=== PATIENT | female | born 1935 | race Caucasian/White ===

== ENCOUNTER → 2018-02-12 09:43 | Outpatient (CLI) | payer MEDICARE, SELFPAY ==
--- NOTE | 2018-02-12 10:00 | CT_ITS ---
STUDY: CT ABDOMEN AND PELVIS WITH CONTRAST REASON FOR EXAM: Female, 82 years old. RLQ PAIN SINCE MONDAY, HX COLON CANCER RADIATION DOSAGE (If Supplied By Facility): CTDIvol = ( 30.67 ) mGy, DLP = ( 1151.12 ) mGycm TECHNIQUE: Transaxial images were obtained from the dome of the diaphragm to the symphysis pubis without oral contrast. 100 ml of Isovue 300 contrast was administered. Sagittal and coronal images were reconstructed. Individualized dose optimization techniques were used for this CT. COMPARISON: None. FINDINGS: The visualized lung bases are unremarkable. The visualized portions of the heart are within normal limits. Normal liver. There are surgical clips in the gallbladder fossa consistent with a prior cholecystectomy. Normal spleen. Normal pancreas. Normal bilateral adrenal glands. Normal right kidney. Normal left kidney. Normal visualized stomach. Normal small intestine. The ascending colon has been removed. There is ileocolic anastomosis. There is no evidence of bowel obstruction. There are multiple colonic diverticula consistent with diverticulosis. The appendix is visualized and appears normal. Normal abdominal aorta. Normal inferior vena cava. Normal retroperitoneum. Normal urinary bladder. Normal abdominal wall. There are diffuse degenerative changes of the visualized lumbar spine. CT/Abdomen/Pelvis WITH Contrast IMPRESSION: The ascending colon has been removed. There is ileocolic anastomosis. There is no evidence of bowel obstruction. There are multiple colonic diverticula consistent with diverticulosis. Electronically Signed: Maite Corona MD at 12:41 EDT Tel , Service support ,
[2018-02-12 10:14] LABS: Absolute Neutrophil Count 4.4 X10^3/uL (2.0-7.7); Basophil# 0.02 X10^3/uL; Basophil% 0.3 % (0-1); Eosinophil# 0.22 X10^3/uL; Eosinophils% 3.1 % (0-5); Hematocrit 42.6 % (37-47); Hemoglobin 14.4 g/dl (12.0-15.0); Lymphocyte % 21.5 % (19-41); Mean Corp Hgb Conc 33.8 g/gl (32-36); Mean Corpuscular Hgb 32.4 pg (27.0-32.0); Mean Corpuscular Volume 95.9 fL (81-99); Mean Platelet Vol. 10.5 fl (6.2-12.0); Monocyte# 0.83 X10^3/uL; Monocyte% 11.9 % (0-10); Neutrophil % 62.9 % (47-70); Platelet Count 239 K/mm3 (150-450); RBC Distribution Width CV 13.2 % (11.6-14.6); RBC Distribution Width SD 45.1 fl (35.1-43.9); Red Blood Count 4.44 M/mm3 (4.2-5.4)
[2018-02-12 10:15] LABS: ALB/GLOB Ratio 0.8 RATIO (0.9-2.4); AST(SGOT) 20 U/L (15-37); Alanine Aminotransfer ALT/SGPT 26 U/L (13-56); Albumin, Serum 3.5 g/dL (3.2-5.0); Alkaline Phosphatase 77 U/L (45-117); Anion Gap 7 (5-15); BUN 13 mg/dL (7-18); Calcium,Total 9.2 mg/dL (8.5-10.1); Chloride 108 mmol/L (98-107); Creatinine, Serum 0.81 mg/dL (0.55-1.02); EST Glomerular Filtration Rate 72 mL/min (>60); Est Glom Filt Rate - Afr Amer 87 mL/min (>60); Globulin 4.4 g/dL (2.2-4.2); Glucose 110 mg/dL (74-106); Potassium 4.2 mmol/L (3.5-5.1); Protein, Total 7.9 g/dL (6.4-8.2); Sodium Level 140 mmol/L (136-145)
[2018-02-12 10:20] LABS: POSITIVE COUNT NO; POSITIVE DIFFERENTIAL NO; POSITIVE MORPHOLOGY NO
[2018-02-13 14:12] LABS: Carcinoembryonic Antigen 1.7 ng/mL (0.0-4.7)
== END ==
PROVIDERS: Family Provider Internal Medicine; PCP Internal Medicine; Visit Provider Internal Medicine
DX: R10.31 Right lower quadrant pain (principal); Z85.038 Personal history of other malignant neoplasm of large intestine
CPT/HCPCS: 36415; 74177; 80053; 82378; 85025; Q9967

== ENCOUNTER → 2018-08-29 09:58 | Outpatient (CLI) | payer MEDICARE, SELFPAY ==
--- NOTE | 2018-08-29 10:07 | BI_ITS ---
MAMMOGRAPHY - BILATERAL SCREENING REASON FOR EXAM: Female, 82 years old. Routine annual screening examination. PERTINENT HISTORY: Non-contributory. TECHNIQUE: Digital bilateral breast manju (3D mammographic acquisition) in the CC and MLO projections. 2-D mediolateral oblique (MLO) and craniocaudad (CC) views of both breasts were obtained. CAD: Full Field Digital Mammography with Computer Added Detection was performed. COMPARISON: Comparison is made with prior study dated August 02, 2016 and July 08, 2014. FINDINGS: Breast Composition: The breasts are almost entirely fatty. There are no dominant masses or suspicious calcifications. No other significant abnormalities are identified. There has been no significant change since the prior study. BI/SCREENING MAMM (CAD), BILAT IMPRESSION: Stable bilateral screening mammogram. Yearly follow-up mammogram recommended. (A) ASSESSMENT CATEGORY: BIRADS Category 1: Negative. A letter regarding these results will be sent to the patient by the facility within 30 days. Approximately 10% of breast cancers are not detected by mammography. A normal mammogram should not delay biopsy of a clinically suspicious abnormality. [id number] Electronically Signed: Nolan Head MD at 13:21 EDT Tel [phone], Service support ,
--- NOTE | 2018-08-29 10:29 | BD_ITS ---
STUDY: DUAL ENERGY X-RAY ABSORPTIOMETRY / DXA REASON FOR EXAM: Female, 82 years old. The patient is postmenopausal. Loss of height. TECHNIQUE: Bone Mineral Density (BMD) measurements of lumbar spine and bilateral hips were obtained. # of Images: 6 COMPARISON: Comparison is made with prior study dated August 02, 2016. FINDINGS: Lumbar Spine (L1-L4): g/cm2 (1.272) / T-score (0.9) / Z-score (2.7) Findings are suggestive of normal bone density with a low fracture risk. Left Femur Total: g/cm2 (1.080) / T-score (0.6) / Z-score (2.6) Left Femoral Neck: g/cm2 (1.044) / T-score (0.0) / Z-score (2.2) Right Femur Total: g/cm2 (1.111) / T-score (0.8) / Z-score (2.9) Right Femoral Neck: g/cm2 (1.010) / T-score (-0.2) / Z-score (2.0) The T-Scores on the most recent prior examination were: Lumbar Spine (L1-L4): There has been improvement of bone density since the previous examination. Left Femur Total: which represents an improvement of 0.2%. Right Femur Total: which represents a worsening of 4.3%. BD/Dexa Bone Density Study IMPRESSION: The patient is considered normal as outlined below according to World Rashid Organization (WHO) criteria with a low fracture risk. There has been improvement of bone density since the previous examination. Reference Information: The T-score is the number of standard deviations above or below the standard which is normal for young adults at their peak bone mineral density. The World Health Organization (WHO) interprets the T-scores as follows: Above -1 Normal bone density Between -1 and -2.5 Osteopenia Equal to / or below -2.5 Osteoporosis As a practical clinical guideline, osteopenia may be graded as follows: Mild -1 through -1.5 Moderate -1.6 through -2.0 Severe -2.1 through -2.4 The Z-score is the number of standard deviations above or below age-matched controls. A Z-score of less than -1.5 would be considered abnormal. References: 1. NIH Osteoporosis and Related Bone Diseases http://www.osteo.org 2. International Society for Clinical Densitometry http://www.iscd.org 3. National Osteoporosis Foundation http://www.nof.org Electronically Signed: Nolan Head MD at 8:26 EDT Tel [phone], Service support ,
== END ==
PROVIDERS: Family Provider Internal Medicine; PCP Internal Medicine; Visit Provider Internal Medicine
DX: Z12.31 Encounter for screening mammogram for malignant neoplasm of breast (principal); Z78.0 Asymptomatic menopausal state
CPT/HCPCS: 77063; 77067; 77080

== ENCOUNTER 2019-01-04 07:30 | Outpatient (RCR) | payer MEDICARE, SELFPAY ==
--- NOTE | 2018-12-03 07:35 | HP.PTEVAL_ITS ---
Patient's Visit Information LENORA MORRELL is a 83 year old F referred to Physical Therapy by Emily Pugh MD with a diagnosis of Sciatica. Date of Evaluation: 12/03/18 Physical Therapist: Brian Gillespie, SADIET, OCS, CSCS - Visit Plan Frequency: 2x /Week Duration: 4-6 Weeks Plan: 2x/week for 2-6 weeks... Please emphsize standing neutral psine exercises and sleeping position with pillow b/w knees or on back with legs elevated instead of on tummy. STREngth in NS position and progress to I. Pt has been doign NS supine ex in gym but not in standing. - Subjective Findings: Sciatica says Dr. Pugh. April of 2017 had this and got rid of it with therapy. It came back a couple weeks ago without reason. It hurts in L hip and goes down to L knee and into L ankle. Worse in the morning and she sleeps on her tummy. Has to be careful WB in the morning. Can do most things as far as cooking and cleaning go just not as energetic as she used to be. Sometimes sleeps wella nd sometimes does not. No right sided problems. No numbness or tingling. Pain is to 6-7/10 improving as the day goes on. Standing can make it worse. Hobbies include walking and it limits her walking, wants to do more. Is cleaning junk out of house and writes alot which is not limited. - Pain L LB and leg Pain Intensity (Out of 10): 2 Pain Intensity Range: 2, 7 - Objective Walks and trasnfers I. LB AROM ext painful L and min limited, flexion no pain and full, L SB painful and limited > R. reflexes 2/3 patella and achilles. S ensation WNL to gross light touch. Strength LE 4-/5 with out myotomal abnormalities. 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 Rehabilitation Potential: Good - Anticipated Interventions Patient/Client Instruction: Educate patient on: Condition For the Purpose of:: To decrease pain, To increase ROM, To improve ability of physical actions for home/community/work/leisure Therapeutic Exercise to Include: Strength training, Dynamic Lumbar Stabilization For the Purpose of:: To decrease pain, To increase tolerance to activity/condition/position Thank you for the opportunity to evaluate your patient. For Medicare and Medicare HMO plans, please review the plan of care and approve it. It will need to be FAXED BACK to us at [phone] for Medicare purposes. For Medicare only, by signing this I certify the plan of care. Please let me know if there are questions or concerns regarding this plan of care. Physician Signature: Date:
--- NOTE | 2019-01-04 08:26 | HP.PTDCSUM ---
HP - PT D/C Summary It has been my pleasure to treat LENORA MORRELL under orders from Emily Pugh MD, for the diagnosis of Sciatica for a total of 9 visit(s). Discharge Date: 01/04/19 Please see the following information for a summary of their discharge status. - Subjective Subjective: Good today. Yesterday was not good as she had a lot of walking on at grocery. Pain yesterday was 6/10 in LB. Gone by evening. Getting better overall. Sees Monday. Will continue workout adn added stadnign ex today with HO. Sleep is still up and down without noticeable pattern. Activities are mostly OK, avoids steps to basement but this is not a problem as laundry is main floor. Slower activities. - Pain L LB and leg Pain Intensity (Out of 10): 2 - Overall Improvement % Improvement: 70 - Objective Objective/Function: Has good Lumbar ROM today without increased pain,butit would have hurt yesterday. Walks wella dn focusses on NS position. OVERALL DOING WELL AND IMPROVING BUT SYMPTOMS STILL UP AND DOWN FROM DAY TO DAY. SHE WILL LOOK FOR A PATTERN SHE DOES NTO SEE ONE YET. WILL F/U WITH DOCTOR FOR OTHER OPTIONS IF NEEDED. - Goals Goal 1:: Do dishes without noticing increase pain Goal Progress: Goal Met Goal 2:: Patient able to get up in morning without painful problems Goal Progress: can loosen up Goal 3:: I approp HEP to minimize future back pain Goal Progress: Goal Met Goal 4:: Pt feel 50% better in LB with pain no greater than 2/10 Goal Progress: Goal Met - Plan Plan: D/C - D/C Information Discharge Comments: WILL CONTINUE TO DO GYM ADN NEUTRAL SPINE EX ON HER OWN AND F/U WITH DOCTOR MONDAY. If there are questions or concerns regarding this patient's physical therapy, please feel free to call me at [phone]. Thank you for the referral of this patient. Sincerely, Brian Gillespie, DPT, OCS, CSCS
--- OUTSIDE RECORDS SUMMARY | 2019-02-04 14:33 | XMS RPT_ITS | Continuity of Care Document ---
:1935 Author Organization [facility] Address [address] [place] [address] Phone Care Team Providers Name Role Phone Lexy RODRIGUES, Emily Hope Unavailable Ayan BIRD, Teo Dumont Unavailable Raquel Jordan Unavailable Maynor RODRIGUES, Cameron Dominguez Unavailable Dr. Jam Lehman Unavailable AIMEE Sheikh Unavailable Unavailable GravTracy leggett Unavailable Unavailable Unavailable Unavailable Problems Name Dates Details Abnormal glucose (R73.09, 790.29) Status: Active Acute pain of right shoulder (M25.511, 719.41) Comments: stable stillsome pain but has good function. not limiting ADL's takig tumeric. not need pain pills Status: Active BMI 39.0-39.9,adult (Z68.39, V85.39) Status: Active BMI 40.0-44.9, adult (Z68.41, V85.41) Comments: 41.27 Status: Active BMI 40.0-44.9, adult (Z68.41, V85.41) Status: Active Current nonsmoker (Renamed from Current non-smoker) (Z78.9, V49.89) Status: Active Deliveries (Parity) Comments: 3 Status: Active Encounter for routine adult medical exam with abnormal findings (Z00.01, V70.0) Comments: 03-26-18 AMP 09-06-18 [facility], reviewed with patient all question. told to add handrail in stud in bathroom. BD and mammogram 08-30. she wants to do every other year, colonoscopy summe r 15 done all immunizations are up to date, whisper test WNL, last eye exam was with Dr. Mckeon and included glaucoma screening October 2017. dentist yearly. talk about CCTA ? need statin ADMA mildly elevated will check again next year,. 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 told could come off Dr. izaguirre Status: Active History of colon cancer (Z85.038, V10.05) 2005 Comments: Dr. Izaguirre states good and released CEA done and CT scan abd 02-28 Status: Active History of colon cancer (Z85.038, V10.05) Comments: 01-10-2006 followed by a blood clot February 04 2006 Status: Active History of vertigo (Z87.898, V12.49) Comments: BPPV doing exercises. gait good stready talk about fall precaution tell balance exercise Status: Active Hypercholesteremia (Renamed from Hypercholesterolemia) (E78.00, 272.0) Comments: reveiwed with patient test 08-30 and recommend CCTa she wants to hold off. Status: Active Hypothyroidism (E03.9, 244.9) Comments: stable recheck good Status: Active Inflamed skin tag (L91.8, 701.9) Comments: under left eye will follow up to remove after go over risk and benefits numb with 1% lidocaine no epi. use scissors and a derm blade to remoe and then thiago nitrate to sto the bleeding. post care instructions given Status: Active Left leg pain (M79.605, 729.5) Comments: think sciatica. will send to PT use tumeric add tylenol if need if worsen and night pain willc all and get rylennol with codiene Status: Active Menopausal state (N95.1, 627.2) Status: Active Need for prophylactic vaccination and inoculation against influenza (Z23, V04.81) Status: Active Non-smoker (Z78.9, V49.89) Status: Active Obesity (E66.9, 278.00) Comments: recommend be active work out at gym. she knows what need to do but ot yet moticated Status: Active Postmenopausal (Renamed from Postmenopausal status) (Z78.0, V49.81) Status: Active Pregnancies () Comments: 3 Status: Active Right lower quadrant pain (R10.31, 789.03) Comments: only a few days. with history if not urine want to image. aware of riskof CT scan with kidney failure and needds to drink. not think US be of help not think constipated so not think KIB help. could be scar tissue.02-20-18 abd. resolving think adhesions and tell how help next time wtih liquid diet 48 hours. diverticulosis went over diet Status: Active Rosacea (L71.9, 695.3) Comments: stable Status: Active Screening mammogram, encounter for (Z12.31, V76.12) Status: Active Tooth pain (K08.89, 525.9) Status: Active Verrucous keratosis (L82.1, 702.8) Comments: removed and sent Status: Active Medications Name Dates Details Boswellia 375 MG Oral Capsule Active 1 tid (375 MG) Comments: 500mg tid Calcium 500 + D 500-125 MG-UNIT Oral Tablet 1 (one) Tablet Tablet bid for 0 days Quantity: 60 {Tablet} Refills: 0 Ordered:21-Sep-2017 Emily Pugh MD, MD, Dana M Start : 04-Sep-2017 Active CoQ-10 50 MG Oral Capsule 1 Capsule QD for 0 days Quantity: 30 {Capsule} Refills: 0 Ordered:04-Sep-2017 Emily Pugh MD, MD, Dana M Start : 04-Sep-2017 Active DHEA 25 MG Oral Tablet 1 Tablet QD for 0 days Quantity: 30 {Tablet} Refills: 0 Ordered:04-Sep-2017 Emily Pugh MD, MD, Dana M Start : 04-Sep-2017 Active ECOTRIN, 81MG (PO EC Tab) 1 qd for 0 days Refills: 0 Ordered:28-Aug-2009 Mast RN, Elizabethctive Fish Oil 1000 MG Oral Capsule 1 qd (1000 MG) Active Garlic 500 MG Oral Tablet 1 Tablet QD for 0 days Quantity: 30 {Tablet} Refills: 0 Ordered:04-Sep-2017 Emily Pugh MD, MD, Dana M Start : 04-Sep-2017 Active Comments:parsley 100mg Nutraview 1 capsule daily Active Synthroid 112 MCG Oral Tablet 1 Tablet qd for 0 days Quantity: 90 {Tablet} Refills: 3 Ordered:27-Nov-2018 Emily Pugh MD, MD, Dana M Start : 27-Nov-2018 Active Comments:generic is ok Synthroid 112 MCG Oral Tablet 1 Tablet qd for 0 days Quantity: 90 {Tablet} Refills: 3 Ordered:27-Nov-2018 Emily Pugh MD, MD, Dana M Start : 27-Nov-2018 Active Comments:Generic OKAY Turmeric 500 MG Oral Capsule 1 (one) Tablet Tablet qd for 0 days Quantity: 30 {Tablet} Refills: 0 Ordered:20-Feb-2018 Emily Pugh MD, MD, Dana M Start : 04-Sep-2017 Active Tylenol with Codeine #3 300-30 MG Oral Tablet 1 (one) Tablet 1-2 every 6 hours prn pain for 0 days Quantity: 20 {Tablet} Refills: 0 Ordered:27-Nov-2018 Emily Pugh MD, MD, Emily Hope Start : 27-Nov-2018 Active Comments:[id number] called to [facility] prescription Vitamin C 1000 MG Oral Tablet 1 Tablet QD for 0 days Quantity: 30 {Tablet} Refills: 0 Ordered:04-Sep-2017 Emily Pugh MD, MD, Dana M Start : 04-Sep-2017 Active ALDARA, 5% (External Cream) Cream use 3 times a week for 0 days Quantity: 6 {Cream} Refills: 1 Ordered:08-Jul-2008 AIMEE Sheikh Start : 08-Jul-2008 End : 06-Jan-2009 Inactive BACTRIM DS, 800-160MG (Oral Tablet) 1 Tablet bid for 10 days Quantity: 20 {Tablet} Refills: 0 Ordered:17-Jan-2014 Emily Pugh MD, MD, Dana M Start : 17-Jan-2014 End : 27-Jan-2014 Inactive BIAXIN XL PAC, 500MG (Oral Tablet Extended Release 24 Hour) 1 Tablet ER 24HR as directed for 0 days Quantity: 1 {Package(s)} Refills: 0 Ordered:23-Feb-2007 AIMEE Sheikh Start : 23-Feb-2007 End : 27-Mar-2007 Inactive CIPRO, 500MG (Oral Tablet) 1 (one) Tablet bid for 5 days Quantity: 10 {Tablet} Refills: 0 Ordered:01-Jan-2014 Lori Ortiz CNP Start : 01-Jan-2014 End : 06-Jan-2014 Inactive CONTRAVE, 8/ 90MG (Oral Tablet) (Free Text) 1 (one) Tablet Tablet uad for 30 days Refills: 2 Ordered:02-Aug-2016 AIMEE Sheikh Start : 02-Aug-2016 End : 02-Aug-2016 Inactive Comments:start 1 at night for 1 week then 1 bid for 1 week then 2 in am and 1 at night for 1 week then 2 bid. METROCREAM, 0.75% (External Cream) uad Cream prn for 0 days Quantity: 1 {Cream} Refills: 0 Ordered:23-Feb-2007 AIMEE Sheikh Start : 23-Feb-2007 End : 06-Jan-2009 Inactive PROMETHAZINE HCL, 25MG (Oral Tablet) 1 (one) Tablet q6hr prn for 0 days Quantity: 30 {Tablet} Refills: 0 Ordered:20-May-2014 Kiley Gallegos Start : 14-Mar-2014 End : 20-May-2014 Inactive RABEPRAZOLE SODIUM, 20MG (Oral Tablet Delayed Release) 1 (one) Tablet DR daily for 0 days Quantity: 30 {Tablet} Refills: 0 Ordered:20-May-2014 Kiley Gallegos Start : 14-Mar-2014 End : 20-May-2014 Inactive SKELAXIN, 800MG (Oral Tablet) 1 (one) Tablet tid prn for 0 days Quantity: 30 {Tablet} Refills: 0 Ordered:26-Nov-2009 AIMEE Sheikh Start : 10-Aug-2009 Inactive Tamiflu 75 MG Oral Capsule 1 (one) Capsule qd for 10 days for 0 days Quantity: 10 {Capsule} Refills: 0 Ordered:20-Feb-2018 AIMEE Sheikh Start : 21-Nov-2017 End : 20-Feb-2018 Inactive TORADOL ORAL, 10MG (Oral Tablet) 1 (one) Tablet q6hrs x 2days for 2 days Quantity: 8 {Tablet} Refills: 0 Ordered:28-Aug-2009 Lori Ortiz CNP Start : 28-Aug-2009 End : 31-Aug-2009 Inactive Zithromax Z-Oswaldo 250 MG Oral Tablet 1 Tablet TAD for 0 days Quantity: 1 {Package} Refills: 0 Ordered:03-Apr-2017 AIMEE Sheikh Start : 21-Mar-2017 End : 03-Apr-2017 Inactive ZOSTAVAX, 59991JJO/0.65ML (Subcutaneous Solution Reconstituted) 1 For Solution once SC for 0 days Quantity: 1 {For_Solution} Refills: 0 Ordered:19-Aug-2013 AIMEE Sheikh Start : 01-Jan-2013 End : 19-Aug-2013 Inactive COUMADIN, 1MG (Oral Tablet) uad uad for 0 days Refills: 0 Ordered:27-Mar-2007 AIMEE Sheikh End : 23-Feb-2007 Discontinued Daily for life am packet after breakfast End : 08-Jan-2008 Discontinued FLAXSEED (LINSEED), 1000MG (Oral Capsule) 1 QD for 0 days Refills: 0 Ordered:02-Aug-2016 AIMEE Sheikh End : 02-Aug-2016 Discontinued Comments:This order discontinued per [facility]. Melaleuca daily for life pm packet after dinner End : 08-Jan-2008 Discontinued Milk Thistle 175 MG Oral Capsule 1 QD for 0 days Refills: 0 Ordered:06-Sep-2018 Gravbetsey Tracy End : 06-Sep-2018 Discontinued PREGNENOLONE (Powder) 1 Powder qd for 0 days Refills: 0 Ordered:10-Jul-2007 Emily Pugh MD, MD, Dana M Start : 10-Jul-2007 End : 10-Jul-2007 Discontinued Pregnenolone 25mg 1 qd End : 08-Jan-2008 Discontinued THYROLAR-2, 120 (25-100)MG (MCG) (Oral Tablet) 1 Tablet QD for 0 days Refills: 0 Ordered:10-Jul-2007 Emily Pugh MD, MD, Dana M Start : 10-Jul-2007 End : 10-Jul-2007 Discontinued Allergies and Adverse Reactions Name Dates Details Adhesive Tape (Allergy) Status: Active Amoxicillin *PENICILLINS* (Allergy) Status: Active Bactrim *ANTI-INFECTIVE AGENTS - MISC.* Status: Active (Allergy) Comments: chills and shaky, nausea Casting material (Allergy) Status: Active Duricef *CEPHALOSPORINS* (Allergy) Status: Active Past Medical History Name Dates Details Abdominal cramping (R10.9, 789.00) Status: Inactive as of 17-Jan-2014 Abdominal pain, acute, right upper quadrant (R10.11, 789.01) Comments: ok for vicodin but if not, try tylenol until surgery Status: Inactive as of 28-May-2015 Actinic keratosis (L57.0, 702.0) Comments: left forearm cryotherapy done today pt keeps pick it. Status: Resolved as of 04-Sep-2017 Acute maxillary sinusitis, recurrence not specified (J01.00, 461.0) Status: Resolved as of 04-Sep-2017 Acute pain of right lower extremity (M79.604, 729.5) Comments: in back of leg in sciatica. very tight hamstring will give stretches if not work then more PT for back. Status: Resolved as of 04-Sep-2017 Acute sinusitis, unspecified (J01.90, 461.9) Status: Resolved as of 27-Mar-2007 Bronchitis (J40, 490) Status: Inactive as of 13-May-2009 Calculus of kidney (N20.0, 592.0) Comments: ct scan negative Status: Resolved as of 26-Nov-2009 Cellulitis and abscess of other specified site (L03.818, 682.8) Comments: left elbow site of biopsy staph epidermitis, only able to take bactrim x 3days then reaction to it now stopped site improved Status: Inactive as of 27-Dec-2012 Colon cancer (C18.9, 153.9) Comments: Dr. izaguirre states good. ct scan 09-21 good, colonscopy--pt check with arlene since 5 years this year so due for scope because still has some colon Status: Inactive as of 27-Dec-2012 Cough (R05, 786.2) Status: Inactive as of 13-May-2009 Disorder of bone and cartilage (M89.9, 733.90) 26-Nov-2010 Comments: osteopenia BD 9-16 10-18 great Status: Resolved as of 06-Sep-2018 Elevated LFTs (R94.5, 790.6) 18-Butch-2011 Comments: lessen pain meds and liver coming down Status: Inactive as of 28-May-2015 Encounter for immunization (Z23, V03.89) Status: Inactive as of 19-Aug-2013 Enthesopathy of hip region (M76.899, 726.5) 26-Nov-2010 Comments: HIp bursitis see renay stephenson. going to chiropactor. talk about PT and warm water therapy. will do hip stretches. Status: Inactive as of 27-Dec-2012 Gastritis (K29.70, 535.50) Status: Inactive as of 28-May-2015 genital warts Status: Resolved as of 06-Jan-2009 Headache (R51, 784.0) 26-Nov-2010 Comments: CT scan in ER some sinusitis. no infection signs and symptoms and pt not want atb if not need. only in am. Status: Inactive as of 30-Sep-2013 Hemorrhoids (K64.9, 455.6) Status: Inactive as of 27-Dec-2012 Influenza A (J10.1, 487.1) Comments: 11-21-17 positive for A gave tamiflu for exposure Status: Resolved as of 26-Mar-2018 Insect bite, nonvenomous of hip, thigh, leg, and ankle, infected (S80.869A, 916.5) Comments: ? Craig fly, cellulitis Status: Inactive as of 27-Dec-2012 Low back pain (M54.5, 724.2) Comments: better now, think MS at time. kidney us ? stone CT scan 09-21. better now. Status: Resolved as of 26-Nov-2009 Myalgia and myositis (729.1) Comments: ? decondtion, some better Status: Inactive as of 08-Jul-2008 Nausea and/or vomiting (R11.2, 787.01) Status: Inactive as of 28-May-2015 Need for shingles vaccine (Z23, V04.89) Status: Inactive as of 19-Aug-2013 Need for Tdap vaccination (Renamed from Need for rawciclbqv-thmzyes-mjymqcovm (Tdap) vaccine, adult/adolescent) (Z23, V06.1) Status: Resolved as of 26-Mar-2018 Need for vaccination against Streptococcus pneumoniae (Z23, V03.82) Status: Inactive as of 28-May-2015 Neoplasm of uncertain behavior of skin (D48.5, 238.2) Comments: 1 cm on right forearm Status: Inactive as of 27-Dec-2012 Other and unspecified ovarian cyst (N83.209, 620.2) Comments: good recommend recheck in 6 months pt refuse Status: Resolved as of 27-Nov-2014 Other congenital anomalies of gallbladder, bile ducts, 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 nsaids if need Status: Resolved as of 04-Sep-2017 Sebaceous Cyst (L72.3, 706.2) Comments: sitz bath compress warm then kate in 2-3 days once come to head. PCN allergic try bactrim will cover MRSA Status: Inactive as of 07-Mar-2014 Syncope, vasovagal (780.2) Comments: no reoccur Status: Inactive as of 27-Nov-2014 Unspecified Diagnosis Status: Inactive as of 17-Jan-2014 Urinary frequency (R35.0, 788.41) Status: Inactive as of 17-Jan-2014 Well woman exam (Z01.419, V72.31) Comments: scope 1-11, BD 12-11. will need to update tetanus next time Status: Inactive as of 19-Aug-2013 Yeast infection (B37.9, 112.9) Status: Inactive as of 17-Jan-2014 Procedures Procedure Dates Details cholecystectomy Completed Comments: March 2014 - Arlene Cholecystectomy Completed Comments: 2013 Colonoscopy, Screening Completed Comments: 2014 Foot Surgery - Left Completed Comments: 1993 Hysterectomy; Abdominal Completed Comments: With bladder suspension in 2002 Tonsillectomy Completed Comments: 1941 Umbilical Hernia Repair Completed Comments: 1998 Date Value Details 29-Aug-2018 Dexa Bone Density Study Result: Comments: See Note; NOTES: [facility] Imaging Services [address] [place], [place] [address] [address] Dexa Bone Density Study MR#: [id number] Acct: [id number] Name: LENORA MORRELL I Rep #: [id number] : 1935 F 82 From: Nolan Head MD PCP: Emily Pugh MD Status: REG CLI Study: Dexa Bone Density Study Date of Exam: 08/29/18 Exam# [id number] Ordering Dr: Emily Pugh MD STUDY: DU AL ENERGY X-RAY ABSORPTIOMETRY / DXA REASON FOR EXAM: Female, 82 years old. The patient is postmenopausal. Loss of height. TECHNIQUE: Bone Mineral Density (BMD) measurements of lumbar spine and bilate ral hips were obtained. # of Images: 6 COMPARISON: Comparison is made with prior study dated August 02, 2016. FINDINGS: Lumbar Spine (L1-L4): g/cm2 (1.272) / T -score (0.9) / Z-score (2.7) Findings are suggestive of normal bone density with a low fracture risk. Left Femur Total: g/cm2 (1.080) / T-score (0.6) / Z-score (2.6) Left Femoral Neck: g/cm2 (1.044) / T-score (0.0) / Z-score (2.2) Right Femur Total: g/cm2 (1.111) / T-score (0.8) / Z-score (2.9) Right Femoral Neck: g/cm2 (1.010) / T-score (-0.2) / Z-score (2.0) The T-Scores on the most recent prior e xamination were: Lumbar Spine (L1-L4): There has been improvement of bone density since the previous examination. Left Femur Total: which represents an improvement of 0.2%. Right Femur Total: which re presents a worsening of 4.3%. 0003 BD/Dexa Bone Density Study IMPRESSION: The patient is considered normal as outlined below according to World Rashid Organization (WHO) criteria with a low fracture risk. There has been improvement of bone density since the previous examination. Reference Information: The T-score is the number of standard deviations above or below the standard which is normal for young adults at their peak bone mineral density. The World Health Organization (WHO) interprets the T-scores as follo ws: Above -1 Normal bone density Between -1 and -2.5 Osteopenia Equal to / or below -2.5 Osteoporosis As a practical clinical guideline, osteopenia may be graded as follows: Mild -1 through -1.5 Moder ate -1.6 through -2.0 Severe -2.1 through -2.4 The Z-score is the number of standard deviations above or below age-matched controls. A Z-score of less than -1.5 would be considered abnormal. Reference s: 1. NIH Osteoporosis and Related Bone Diseases http://www.osteo.org 2. International Society for Clinical Densitometry http://www.iscd.org 3. National Osteoporosis Foundation http://www.nof.org Elect ronically Signed: Nolan Head MD at 8:26 EDT Tel [phone], Service support , CC: Emily Pugh MD Associate Designer: Signed 29-Aug-2018 SCREENING MAMM (CAD), BILAT Result: Comments: See Note; NOTES: [facility] Imaging Services [address] [place] [id number] SCREENING MAMM (CAD), BILAT MR#: [id number] Acct: [id number] Name: LENORA MORRELL I Rep #: [id number] : 1935 F 82 From: Nolan Head MD PCP: Emily Pugh MD Status: REG CLI Study: SCREENING MAMM (CAD), BILAT Date of Exam: 08/29/18 Exam# [id number] Ordering Dr: Emily Pugh MD AMMOGRAPHY - BILATERAL SCREENING REASON FOR EXAM: Female, 82 years old. Routine annual screening examination. PERTINENT HISTORY: Non-contributory. TECHNIQUE: Digital bilateral breast manju (3D mammogr aphic acquisition) in the CC and MLO projections. 2-D mediolateral oblique (MLO) and craniocaudad (CC) views of both breasts were obtained. CAD: Full Field Digital Mammography with Computer Added Detect ion was performed. COMPARISON: Comparison is made with prior study dated August 02, 2016 and July 08, 2014. FINDINGS: Breast Composition: The breasts are almos t entirely fatty. There are no dominant masses or suspicious calcifications. No other significant abnormalities are identified. There has been no significant change since the prior study. BI/SCREENING MAMM (CAD), BILAT IMPRESSION: Stable bilateral screening mammogram. Yearly follow-up mammogram recommended. (A) ____ ASSESSMENT CATEGORY: BIRADS Category 1: Negative. A letter regarding these results will be sent to the patient by the facility within 30 days. Approximately 10% of breast cancers are not detected by mammography. A normal mammogram should not delay biopsy of a clinically suspicious abnormality. [id number] Electronically Signed: Nolan Head MD at 13:21 EDT Tel [phone], Service support , CC: Emily Pugh MD Associate Designer: Signed 12-Feb-2018 Abdomen/Pelvis WITH Contrast Result: Comments: See Note; NOTES: [facility] Imaging Services [address] [place] [address] Abdomen/Pelvis WITH Contrast MR#: [id number] Acct: [id number] Name: LENORA MORRELL I Rep #: [id number] : 1935 F 82 From: Maite Corona MD PCP: Emily Pugh MD Status: REG CLI Study: Abdomen/Pelvis WITH Contrast Date of Exam: 02/12/18 Exam# [id number] Ordering Dr: Emily Pugh MD [facility] DY: CT ABDOMEN AND PELVIS WITH CONTRAST REASON FOR EXAM: Female, 82 years old. RLQ PAIN SINCE MONDAY, HX COLON CANCER RADIATION DOSAGE (If Supplied By Facility): CTDIvol = ( 30.67 ) mGy, DLP = ( 115 1.12 ) mGycm TECHNIQUE: Transaxial images were obtained from the dome of the diaphragm to the symphysis pubis without oral contrast. 100 ml of Isovue 300 contrast was administered. Sagittal and coronal images were reconstructed. Individualized dose optimization techniques were used for this CT. COMPARISON: None. FINDINGS: The visualized lung bases are unremarkab le. The visualized portions of the heart are within normal limits. Normal liver. There are surgical clips in the gallbladder fossa consistent with a prior cholecystectomy. Normal spleen. Normal pancrea s. Normal bilateral adrenal glands. Normal right kidney. Normal left kidney. Normal visualized stomach. Normal small intestine. The ascending colon has been removed. There is ileocolic anastomosis. T here is no evidence of bowel obstruction. There are multiple colonic diverticula consistent with diverticulosis. The appendix is visualized and appears normal. Normal abdominal aorta. Normal inferior v yonatan cava. Normal retroperitoneum. Normal urinary bladder. Normal abdominal wall. There are diffuse degenerative changes of the visualized lumbar spine. ORDER #: [id number] CT/Abdomen/Pelvis WITH Contrast IMPRESSION: The ascending colon has been removed. There is ileocolic anastomosis. There is no evidence of bowel obstruction. There are multiple colonic diverticu la consistent with diverticulosis. Electronically Signed: Maite Corona MD at 12:41 EDT Tel , Service support , CC: Emily Pugh MD Associate Designer: Signed 25-Oct-2017 TXT - Blood Flow Screening Result: Comments: See Note; NOTES: [facility] Cardiovascular Services [address] [place] [address] 10/24/17 0941 MR#: [id number] Acct: [id number] Name: LENORA MORRELL I Rep #: [id number] : 1935 81 From: Abran Faust MD Attending Dr: Emily Pugh MD Status: REG REF Ordering Dr: Date: 10/25/17 Location: [facility] Sex: F C Admitted: Carotid Duplex Ultrasound Abdominal Aorta Th e right ECA velocity is less than 125 cm/s. The maximal outside diameter of the proximal The right maximum ICA velocity is 47.7/16.8 cm/s.aorta measures 1.69 cm in the longitudinal axis. There is insign ificant plaque formation noted on The maximal outside diameter of the proximal the right side. aorta measures 1.66 x 1.79 cm in the cross- The left ECA velocity is less than 125 cm/s. sectional axis. Th e left maximum ICA velocity is 53.4/15.2 cm/s. There is insignificant plaque formation noted on the left side. Ankle Brachial Index The right ankle/ brachial index is 1.1. The left ankle/ brachial inde x is 1.1. Medical History and Assessment The heart rate is 86 beats per minute. The heart rhythm is regular. The right blood pressure is 146/86. The left blood pressure is 140/90. The assessment was pe rformed by Abhijit Rodrigues RVT. Interpretation Summary Normal carotid artery screening (0 to 15% narrowing). Normal aortic ultrasound exam. The ankle/brachial index is normal (1.0 or greater). .rdering Physician: Emily Pugh M.D Performed By: Eric Rodrigues RVT 10/25/17 1318 Date Abran Faust MD CC: Emily Pugh MD Date Dictated: 10/24/17 0941 Date Transcribed: 10/25/17 1318 Associate Designer: Signed 20-Jun-2017 PT D/C Summary (1) Result: Comments: See Note; NOTES: [facility] [address] [place], [place] [id number] Fax [facility] DISCHAR JONATHAN SUMMARY MR#: [id number] Acct: [id number] Name: LENORA MORRELL I Rep #: [id number] : 1935 81 From: Brian Gillespie DPT, OCS, CSCS Referring Dr.: Emily Pugh MD Status: REG RCR Insurance: [facility] - PT D/C Summary It has been my pleasure to treat LENORA MORRELL I under orders from Emily Pugh, for the diagnosis of sciatica for a total of 9 visit(s). Discharge Date: 06/19/17 Please see the following information for a summary of their discharge status. - Subjective Subjective: Good. Doing well. Exercises really help. Stilla jayden in the mroning but that is normal for her. exercises be fore get out of bed and it helps. Will f/u with doctor in next few weeks. Pain to 4/10 in am and gone with ex/movement. [place] and walked [place] road a half mile and no problem. Str wength ex getting easy. Doing leg exercises including hip and knee machines without problem in gym. - Pain LB and L leg Pain Intensity (Out of 10): 0 - Overall Improvement % Improvement: 90 - Obje ctive Objective/Function: God AROM L/S without pain. Good technique on exercises, had to use 2 UE at once on opp UE/LE as it bothered her shoulder. MUCH BETTER OVERALL AND WILL CONTINUE IN GYM AND AT [facility] ON HER OWN. - Goals Goal 1:: Full LB AROM and LE ROM without recreating pain Goal Progress: Goal Met Goal 2:: Patient lie in bed at night without discomfort Goal Progress: Goal Met Goal 3:: Back to normal gardening without increased pain. Goal Progress: Goal Met Goal 4:: I approp ex to manage condition Goal Progress: Goal Met - Plan Plan: D/C - D/C Information Discharge Comments: Pt doing weel a nd back to baseline symptoms. I with approp HEP and will continue on her own. Will contact doctor if problem recurs. If there are questions or concerns regarding this patient's physical therapy, please feel free to call me at [phone]. Thank you for the referral of this patient. Sincerely, Brian Gillespie DPT, OC <Electronically signed by Brian Gillespie DPT, RAEANN, CSCS> 06/20/17 0953 CC: Emily Pugh MD EBG Signed 23-May-2017 Re-Evaluation - PT (1) Result: Comments: See Note; NOTES: [facility] [address] [place] [address]. [address] [place] [address] Fax [facility] MR#: [id number] Acct: [id number] Name: LENORA MORRELL I Rep #: [id number] : 1935 81 From: Brian Gillespie DPT, OCS, CSCS Referring Dr.: Emily Pugh MD Status: R EG RCR Insurance: [facility] Emily Pugh, It has been my pleasure to treat LENORA MORRELL I over the last 8 visits for sciatica. Please see the progress note below for an update on the physical scientist apy plan of care! Subjective: i can walk without a limp now. R buttock is worse at night(tummy sleeper). Exercises seem to help her feel better. On feet fro long time is a problem. R LB and posterior l eg is improved. Objective/Function: Good AROM of L/S without increased pain today, L SB gives pulling in R L/S. flexion feels better Plan Plan: f/u three weeks to progress ex to plank, opp UE/LE togeth er, band pulls side and row. Pt may call doctor to explore other options but doing well in PT. Reviewed other options and need to modify activities if they cause pain. Goals Goal 1:: Full LB AROM and L E ROM without recreating pain Goal Time Frame: 2-4 Weeks Goal Progress: Goal Met Goal 2:: Patient lie in bed at night without discomfort Goal Time Frame: 2-4 Weeks Goal Progress: Goal Met Goal 3:: Back to normal gardening without increased pain. Goal Time Frame: 2-4 Weeks Goal Progress: Goal Met Goal 4:: I approp ex to manage condition Goal Time Frame: 2-4 Weeks Goal Progress: slow progress. Anticipa samra Interventions Patient/Client Instruction: Educate patient on: Condition For the Purpose of:: To decrease pain Therapeutic Exercise to Include: Strength training, Flexibilty training, Passive ROM, Ac tive ROM For the Purpose of:: To decrease pain, To increase ROM, To improve ability of physical actions for home/community/work/leisure Manual Therapy Techniques to Include: Soft tissue mobilization For the Purpose of:: To decrease pain, To increase ROM TENS: Yes Thermo therapy (hot pack): Yes For the Purpose of:: To decrease pain Please do not hesitate to contact me at [phone] by phone or Fax: [phone] if you have questions or concerns regarding this new plan of care! Sincerely, Brian Gillespie, DPT, OC <Electronically signed by Brian NOELT, OCS, CSCS> 05/23/17 0926 CC: Emily Pugh MD EB Signed For Medicare only, by signing this I certify the plan of care. Physicians Signature Date 25-Apr-2017 Inital Evaluation (1) - PT Result: Comments: See Note; NOTES: [facility] [address] [place] [address]. [address] [place] [address] Fax REHABILITATION SERVICES INITIAL EVALUATION MR#: [id number] Acct: [id number] Name: LENORA MORRELL I Rep #: [id number] : 1935 81 From: Brian Gillespie DPT, OCS, CSCS Referring Dr.: Emily Pugh MD Status: REG RCR Insurance: [facility] Patient's Visit Information LENORA MORRELL I is a 81 year old F referred to Physical Therapy by Emily Pugh with a diagnosis of sciatica. Date of Evaluation: 04/24/17 Physical Therapist: Brian marcus, DPT, OC - Visit Plan Frequency: 3x /Week Duration: 4 Weeks Plan: 3x/week for 2-4 for. 1. prir, ITB, HS, quad stretches, Stick to glut, piri, ITB and HS/ quad). 2. LB ROM flexion bias. 3. DLS de ad bugs. 4. modalities( ES) if needed for pain. - Subjective Subjective: Sciatica with pain in buttock and down R leg. Started insidiously about 3 weeks ago. L leg is Ok. Denies numbness and tingling. Describes achy down to calf of L leg, Weeding yesterday made her worse. Walking or bending seem to be problematic. Fairly constant currently. Sleep is not interrupted but it does ache at night. Able to do all ADLs but some pain accompanies them. Cleaning may be neglected a little bit. Can tie shoes. Not employed. Hobbies include flower beds and playing piano. Workout at 3x/week, does LE machines, U E machines, avoiding TM, uses recumbent bike which may bother her a little bit. - Pain LB and L leg Pain Intensity (Out of 10): 5 Pain Intensity Range: 0, 6 - Objective Ambulates into PT I without gait deviations, TRANSITIONS TO AND FRO SUPINE AND SIT TO STAND ARE i. LB AROM WFL and painfree. Possibly some minor LB R pain with R SB but negligible. reflexes 2/3 patella and achilles. sensation WNL to gross light touch in LE. Strength is 4/5 in LE without myotomal abnormalities. PKF test recreates pain in HS, no pain with contraction, just stretching. - LB compression, - PA testing. Tender to palp ation in R piriformis and upper HS and minimally in glut. - Goals Goal 1:: Full LB AROM and LE ROM without recreating pain Goal Time Frame: 2-4 Weeks Goal 2:: Patient lie in bed at night without discom fort Goal Time Frame: 2-4 Weeks Goal 3:: Back to normal gardening without increased pain. Goal Time Frame: 2-4 Weeks Goal 4:: I approp ex to manage condition Goal Time Frame: 2-4 Weeks - Rehabilitation Potential Physical Therapy Diagnosis: sciatica likely cause of leg symptoms. Rehabilitation Potential: Fair - Anticipated Interventions Patient/Client Instruction: Educate patient on: Condition For th e Purpose of:: To decrease pain Therapeutic Exercise to Include: Strength training, Flexibilty training, Passive ROM, Active ROM For the Purpose of:: To decrease pain, To increase ROM, To improve abilit y of physical actions for home/community/work/leisure Manual Therapy Techniques to Include: Soft tissue mobilization For the Purpose of:: To decrease pain, To increase ROM TENS: Yes Thermo therapy (hot pack): Yes For the Purpose of:: To decrease pain Thank you for the opportunity to evaluate your patient. For Medicare and Medicare HMO plans, please review the plan of care and approve it. It will need to be FAXED BACK to us at [phone] for Medicare purposes. Please let me know if there are questions or concerns regarding this plan of care. Physician Signature: Date: <Electronically signed by Brian Gillespie DPT, OCS, CSCS> 04/25/17 0929 CC: Emily Pugh MD EBDarrell Signed For Medicare on ly, by signing this I certify the plan of care. Physicians Signature Date 11-Aug-2016 PT D/C Summary (1) Result: Comments: See Note; NOTES: [facility] [address] [facility] [facility] [place] [address] Fax REHABILITATION SERVICES SURENDRA MEDINA SUMMARY MR#: [id number] Acct: [id number] Name: LENORA MORRELL I Rep #: [id number] : 1935 80 From: Ansley Oleary DPT Referring Dr.: Emily Pugh MD Status: REG RCR [facility] - PT D/C Summary It has been my pleasure to treat LENORA MORRELL I under orders from Emily Pugh, for the diagnosis of R shoulder pain for a total of 5 visit(s). Discharge Date: Please see the [facility] information for a summary of their discharge status. - Subjective Subjective: Pt reports R shoulder pain is getting better and is 3/10 at worst after long days of lifting overhead; pain resolve s to 0/10 at best with rest. Pt feels she is 50% better, and that doing her exercises in the gym will only help things more. Pt has expressed confidence with her ability to complete the exercises she le arned in therapy on her own. - Overall Improvement % Improvement: 50 - Objective Objective/Function: Posture: FH,RS able to correct with VC. Palpation: No tenderness noted. AROM: Shoulder- WNL in all planes; 1/10 pain with end range Flexion and ABD. Strength: Shoulder 4+/5 throughout, Elbow 5/5 throughout. Pt demonstrated her HEP exercises in the gym upon the completion of her visit. - Goals Goal 1 :: Pt will be I with HEP and progressions. Goal Progress: Goal Met Goal 2:: Pt with maintain proper posture throughout treatment session in order to demonstrate increased scapular strength. Goal Progres s: Goal Met Goal 3:: Pt will demonstrate full shoulder ROM in all planes with pain 0/10 in order to ease completion of ADLs. Goal Progress: Progressing - Plan Plan: DC to I HEP - D/C Information If th ere are questions or concerns regarding this patient's physical therapy, please feel free to call me at [phone]. Thank you for the referral of this patient. Sincerely, Ansley Oleary <Jacki ctronically signed by Ansley Oleary DPT> 08/11/16 0852 CC: Emily Pugh MD ELR Signed 02-Aug-2016 Bilat Scrn Digital AND CAD Result: Comments: See Note; NOTES: [facility] Imaging Services [address] [place] [address] Verdana 4d Bilat Scrn Digital AND CAD MR#: [id number] Acct: [id number] Name: LENORA MORRELL I Rep #: [id number] : 1935 F 80 From: Nolan Head MD PCP: Emily Pugh MD Status: REG CLI Study: Bilat Scrn Digital AND CAD Date of Exam: 08/02/16 Exam# [id number] Ordering Dr: Emily Pugh MD MAMMOGRAPHY - BILATERAL SCREENING REASON FOR EXAM: Female, 80 years old. Routine annual screening examination. PERTINENT HISTORY: Non- contributory. TECHNIQUE: Digital bilateral breast manju (3D mammographic acquisition) in the CC and MLO projections. 2-D mediolateral oblique (MLO) and craniocaudad (CC) views of both breasts were obtained. CAD: Full Field Digital Mammography with Computer Added Detection was performed. COMPARISON: Comparison is made with prior study dated July 08, 2014 and January 08, 2013. FINDINGS: Breast Composition: The breast s are almost entirely fatty. There are no dominant masses or suspicious calcifications. No other significant abnormalities are identified. There has been no significant change since the prior study. _ HPBI/Bilat Scrn Digital AND CAD IMPRESSION: Stable bilateral screening mammogram. Yearly follow-up mammogram recommended. (A) ASSESSMENT CATEGORY: BIRADS Category 1: Negative. A letter regarding these results will be sent to the patient by the facility within 30 days. Approximately 10% of breast cancers are not detected by mammography. A normal mammogram should not delay biopsy of a clinically suspicious abnormality. [id number] Electronically Signed: Nolan Head MD at 12:30 EDT , Service support [phone], CC: Emily Pugh MD Associate Designer: Signed 02-Aug-2016 Dexa Bone Density Study (HP) Result: Comments: See Note; NOTES: [facility] Imaging Services [address] [place] [address] Verdana 4d Dexa Bone Density Study (HP) MR#: [id number] Acct: [id number] Name: JUAN MORRELL I Rep #: [id number] : 1935 F 80 From: Nolan Head MD PCP: Emily Pugh MD Status: REG CLI Study: Dexa Bone Density Study (HP) Date of Exam: 08/02/16 Exam# [id number] Ordering Dr: Emily Hill MD STUDY: DUAL ENERGY X-RAY ABSORPTIOMETRY / DXA REASON FOR EXAM: Female, 80 years old. The patient is postmenopausal. TECHNIQUE: Bone Mineral Density (BMD) measurements of lumbar spine an d bilateral hips were obtained. COMPARISON: Comparison is made with prior study dated July 08, 2014. FINDINGS: Lumbar Spine (L1-L4): g/cm2 (1.410) / T-score (1.7 ) / Z-score (3.6) Findings are suggestive of normal bone density with a low fracture risk. Left Femur Total: g/cm2 (1.078) / T-score (0.6) / Z-score (2.5) Left Femoral Neck: g/cm2 (1.066) / T-score (0. 2) / Z-score (2.3) Right Femur Total: g/cm2 (1.161) / T-score (1.2) / Z-score (3.1) Right Femoral Neck: g/cm2 (1.068) / T-score (0.2) / Z-score (2.3) The T- Scores on the most recent prior examination w ere: Lumbar Spine (L1-L4): There has been improvement of bone density since the previous examination. Left Femur Total: which represents a worsening of 1.8%. Right Femur Total: which represents a wors ening of 4.7%. HPBD/Dexa Bone Density Study (HP) IMPRESSION: The patient is considered normal as outlined below according to World Rashid Organ[employer] ation (WHO) criteria with a low fracture risk. There has been worsening of bone density since the previous examination. Reference Information: The T-score is the nu mber of standard deviations above or below the standard which is normal for young adults at their peak bone mineral density. The World Health Organization (WHO) interprets the T-scores as follows: Abov e -1 Normal bone density Between -1 and -2.5 Osteopenia Equal to / or below -2.5 Osteoporosis As a practical clinical guideline, osteopenia may be graded as follows: Mild -1 through -1.5 Moderate -1.6 through -2.0 Severe -2.1 through -2.4 The Z-score is the number of standard deviations above or below age-matched controls. A Z-score of less than -1.5 would be considered abnormal. References: 1. NIH Osteoporosis and Related Bone Diseases http://www.osteo.org 2. International Society for Clinical Densitometry http://www.iscd.org 3. National Osteoporosis Foundation http://www.nof.org Electronically Signed: Nolan Head MD at 11:04 EDT Tel [phone], Service support [phone], CC: Emily Pugh MD Associate Designer: Signed 28-Jul-2016 Inital Evaluation (1) - PT Result: Comments: See Note; NOTES: [facility] [address] [place] [address]. [address] [place] [address] Fax REHABILITATION SERVICES JAYDA Katz EVALUATION MR#: [id number] Acct: [id number] Name: LENORA MORRELL I Rep #: [id number] : 1935 80 From: Ansley Oleary DPT Referring Dr.: Emily Pugh MD Status: REG R Insurance: [facility] Patient's Visit Information LENORA MORRELL I is a 80 year old F referred to Physical Therapy by Emily Pugh with a diagnosis of R shoulder pain. Date of Evaluation: 07/28/16 Physical Therapist: Ansley Oleary - Visit Plan Frequency: 2x /Week Duration: 2 Weeks Plan: Focus on I HEP for health and wellness membership. Shoulder strength, muscular endurance, core and postural training. - Subjective [place] bjective: Pt reports R anteriolateral shoulder pain that started 1-2 years ago with an insidious onset. Pain is describded as dull and achy, 5/10 at worst; aggravated during exercise (comes to [employer] nt 5 days a week) while pulling down, pushing away, or reaching overhead. Pt. has been avoiding arm exercises, and has currently been favoring L arm over R. Pain at Best 0/10, with rest and during bent over arm pendulums. Pt is a stomach sleeper that balls up sheets under the right shoulder to keep it from coming forward and hurting. No imaging. Past medical hx: thyroid issue, gall b ladder surgery, L ankle surgery. Pt would like to return to normal function while being pain free. No neck pain or increase in BORRERO. - Objective Posture: FH,RS Upper thoracic Kyphosis cannot correct with VC. Palpation: Tender throughout anterior, lateral shoulder, medial border of the scapula, and Trapezius. AROM: Shouler WNL - pain at end range ER, Flexion, ABD Cervical: WNL. Elbow: WNL. Strength: Elb ow- 5/5 throughout, Shoulder- Flex 4/5, ABD 4-/5, Extension 5/5, ER 4-/5 IR 4- /5 Hall Monitor- R 60/55/54 L 60/56/46. Special Test: empty can: positive, Neer: positive, Allred Chet: positive. Sensation: WNL - Goals Goal 1:: Pt will be I with HEP and progressions. Goal Time Frame: 2- 4 Weeks Goal 2:: Pt with maintain proper posture throughout treatment session in order to demonstrate increased scapular str ength. Goal Time Frame: 2-4 Weeks Goal 3:: Pt will demonstrate full shoulder ROM in all planes with pain 0/10 in order to ease completion of ADLs. Goal Time Frame: 2-4 Weeks - Rehabilitation Potential Physical Therapy Diagnosis: Right shoulder hypomobility and decreased muscular endurance leading to increased pain and poor scapular control. Rehabilitation Potential: Good - Anticipated Interventions Patient/Client Instruction: Educate patient on: Benefits of Fitness Program For the Purpose of:: To increase tolerance to activity/condition/position Therapeutic Exercise to Include: Strength training, Endurance training, Coordination, Body mechanics, Postural training, Active ROM, Scapular Strength/Stabilization For the Purpose of:: To decrease pain, To improve muscle performance and motor function, To improve ability to perform ADL's, To improve endurance Cryotherapy (ice pack, ice massage): Yes Thermo therapy (hot pack): Yes Ultrasound (thermal/non thermal): No For the Purpose of:: To decrease pa in, To decrease swelling/inflammation Thank you for the opportunity to evaluate your patient. For Medicare and Medicare HMO plans, please review the plan of care and approve it. It will need to be FAXED BACK to us at [phone] for Medicare purposes. Please let me know if there are questions or concerns regarding this plan of care. Physician Signature: Date: <Electronically signed by Ansley Oleary DPT> 07/28/16 0853 CC: Emily Pugh MD SNEHAL Signed For Medicare only, by signing this I certify the plan of care. Physicians Signature Date 08-Jul-2014 Bilat Scrn Digital & CAD Result: Comments: See Note; NOTES: [facility] Imaging Services [address] [place] [address] Breast Imaging Report MR#: [id number] Acct: [id number] Name: LENORA MORRELL I Rep #: [id number] : 1935 F 78 From: Nolan Head MD PCP: Emily Pugh MD Status: REG CLI Exam# [id number] Ordering Dr: Emily Pugh MD MAMMOGRAPHY - BILATERAL SCREENING REASON FOR EXAM: Female, 78 years old. Routine annual screening examination. PERTINENT HISTORY: Non-contributory. TECHNIQUE: Digital examination. Mediolateral oblique (MLO) and craniocaudad (CC) views of both madie asts were obtained. CAD: CAD was performed on this study. COMPARISON: Comparison is made with prior study dated January 08, 2013 and November 02, 2011. FINDIN GS: Breast Composition: The breasts are almost entirely fatty. There are no dominant masses or suspicious calcifications. No other significant abnormalities are identified. There has been no signi ficant change since the prior study. IMPRESSION: Stable bilateral screening mammogram. Yearly follow-up recommended. (A) SESSMENT CATEGORY: BIRADS Category 2: Benign finding(s). A letter regarding these results will be sent to the patient by the facility within 30 days. Approximately 10% of breast cancers are not dete cted by mammography. A normal mammogram should not delay biopsy of a clinically suspicious abnormality. Electronically Signed: Nolan Head MD at 15:05 EDT Tel [phone], Servi ce support [phone], CC: Emily Pugh MD Associate Designer: Signed 08-Jul-2014 Dexa Bone Density Study (HP) Result: Comments: See Note; NOTES: [facility] Imaging Services [address] [place] [address] Bone Density Report MR#: [id number] Acct: [id number] Name: LENORA MORRELL I Rep #: [id number] : 1935 F 78 From: Nolan Head MD PCP: Emily Pugh MD Status: REG CLI Study: Dexa Bone Density Study (HP) Date of Exam: 07/08/14 Exam# [id number] Ordering Dr: Emily Pugh MD STUDY: DUAL ENERGY X-RAY ABSORPTIOMETRY / DXA REASON FOR EXAM: Female, 78 years old. The patient is postmenopausal. Loss of height. TECHNIQUE: Bone Mineral Density (BMD) measurements of lumbar spine and bilateral hips were obtained. COMPARISON: Comparison is made with prior study dated November 02, 2011. FINDINGS: Lumbar Spine (L1-L4): g/cm2 (1.224 ) / T-score (0.5) / Z-score (2.3) Findings are suggestive of normal bone density with a low fracture risk. Left Femur Total: g/cm2 (1.098) / T-score (0.7) / Z-score (2.5) Left Femoral Neck: g/cm2 (1 .017) / T-score (-0.2) / Z-score (1.8) Right Femur Total: g/cm2 (1.218) / T-score (1.7) / Z-score (3.5) Right Femoral Neck: g/cm2 (1.039) / T-score (0.0) / Z- score (2.0) The T-Scores on the most rec ent prior examination were: Lumbar Spine (L1-L4): There has been worsening of bone density since the previous examination. Left Femur Total: which represents a worsening of 8.0%. Right Femur Total : which represents a worsening of 0.9%. IMPRESSION: The patient is considered normal as outlined below according to World Rashid Organization (WHO) criteria with a low fracture risk. There has been worsening of bone density since the previous examination. Reference Information: The T-score is the number of standard devia tions above or below the standard which is normal for young adults at their peak bone mineral density. The World Health Organization (WHO) interprets the T- scores as follows: Above -1 Normal bone d ensity Between -1 and -2.5 Osteopenia Equal to / or below -2.5 Osteoporosis As a practical clinical guideline, osteopenia may be graded as follows: Mild -1 through -1.5 Moderate -1.6 through -2.0 Severe -2.1 through -2.4 The Z-score is the number of standard deviations above or below age-matched controls. A Z-score of less than -1.5 would be considered abnormal. References: 1. NIH Osteopo rosis and Related Bone Diseases http://www.osteo.org 2. International Society for Clinical Densitometry http://www.iscd.org 3. National Osteoporosis Foundation http://www.nof.org Electronically Sign ed: Nolan Head MD at 13:32 EDT Tel [phone], Service support [phone], CC: Emily Pugh MD Associate Designer: Signed 21-Mar-2014 Operative Report Result: Comments: See Note; NOTES: [facility] Medical Records Department [address] [place] [address] Operative Report MR#: [id number] Acct: [id number] Name: LENORA MORRELL I Rep #: [id number] : 1935 78 From: Cameron Carrera MD PCP: Emily Pugh MD Status: [facility] DATE OF SERVICE: 03/18/2014 DATE OF PROCEDURE: March 18, 2014. PREOPERATIVE DIAGNOSIS: Acute/chron ic cholecystitis. POSTOPERATIVE DIAGNOSIS: Acute/chronic cholecystitis. PROCEDURES: Laparoscopic cholecystectomy with intraoperative cholangiogram. SURGEON: Cameron Carrera M.D. ANESTHETIC: General endotracheal intubation. ESTIMATED BLOOD LOSS: Less than 25 mL. FLUID REPLACEMENT: About a liter of crystalloid. ASA: 3. DESCRIPTION OF PROCEDURE: The patient was brought in the oper ating room, placed in supine position. Under excellent general endotracheal intubation, the abdomen was sterilely prepped and draped in the usual fashion. Local was injected infraumbilically and dis section was carried down to the fascia. The fascia was grasped with a Lisa. Veress needle was placed inside the abdomen. The abdomen was insufflated to 15 torr. A 10-12 trocar was placed without difficulty. A #5 trocar was placed in the right upper quadrant. Moderate amount of adhesions were taken down in the right upper quadrant. A subxiphoid #5 trocar was placed. Inferior to this, another #5 trocar was placed. Both of these under direct visualization without injury to underlying structures. The patient had a very edematous gallbladder. I aspirated out the fluid, sent for culture and sensitivity for it. Grasped it with a penetrating grasper and retracted in a cephalad direction. Grabbed the infundibulum and dissected adhesions down from this. Dissected out the cystic duct, plac ed Hem- o-janet clips proximally on the duct, nicked the duct, placed an angiogram catheter through the skin. Shot a cholangiogram, which showed a dilated duct, but no obvious stones within the duct. I removed the cholangiogram catheter, placed Hem-o-janet clips distally on the duct, ligated the duct. Identified the cystic artery, both the anterior and posterior branch , placed Hem-o-Janet clips on t his. Ligated the artery, delivered the gallbladder from the gallbladder bed with the use of electrocautery and had good hemostasis. Placed the specimen in a specimen bag, delivered it through the umb ilical port without difficulty. Irrigated the right upper quadrant, good hemostasis was noted. Removed the trocars under direct visualization. Good hemostasis was noted. Closed the fascia of the um bilical port with [id number] stitch of 0 Vicryl. Skin incisions were closed with subcuticular stitches of 4-0 Monocryl. Steri-Strips were applied, sterile dressings were applied and the patien t tolerated the procedure well. Cameron Carrera MD T: NTS JOB: [id number] 03/21/14 1228 <Electronically signed by Cameron Carrera MD> Date Cameron Carrera MD CC: Emily Pugh MD; Cameron Carrera MD Date Dictated: 03/18/14 144 Date Transcribed: 03/18/141440 Associate Designer: Signed 18-Mar-2014 Discharge Instruction Result: Comments: See Note; NOTES: [facility] Medical Records Department [address] [place] [address] Discharge Instruction 03/18/14 1333 MR#: [id number] Acct: [id number] Name: LENORA MORRELL I Rep #: [id number] : 1935 78 From: Cameron Carrera MD PCP: Emily Pugh MD [place] [facility] [place] Diet: Light diet - advance as tolerated Discharge Activity: May Not Driv e - for 2-3 days or while taking narcotic pain medications., - - Do not drive, work heavy equipment or sign legal documents for 24 hours. May shower in (days): 1 - with the bandage in place. Addition al Activity Instructions:: Pain medication may cause nausea. You should typically eat light foods as you take your pain medications. Pain medication may also cause constipation. If this is a problem f or you, please discuss with your doctor. Call your doctor if your incision/area has: Continuous Slow Oozing, Sudden Increased Bleeding, Increased Pain/ Swelling, Increased Redness, Foul Smelling Dis charge Call your doctor if you observe: Fever of 101 or Higher Suture Line Care: Avoid Pulling/Pushing, Avoid Pinching/Bending Additional Dressing/Incision Instructions:: Leave operative bandaids on for 2 days. When you remove dressing, leave Steri-Strips on until your follow- up appointment, or until the Steri-Strips fall off on their own. Allergies/Adverse Reactions: Allergies Amoxicillin Ad verse Reaction (Verified 03/18/14 12:58) Unknown sulfamethoxazole [From Bactrim] Adverse Reaction (Verified 03/18/14 12:58) Other trimethoprim [From Bactrim] Adverse Reaction (Verified 03/18/14 12:5 8) Other PINE TAR Adverse Reaction (Uncoded 03/18/14 12:58) Rash TAPE Adverse Reaction (Uncoded 03/18/14 12:58) Rash Medications to take at Discharge Levothyroxine [Synthroid] 125 mcg PO DAILY Oxycodone HCl/Acetaminophen [Percocet 5/325] 1 - 2 tablet PO Q4H PRN PRN #30 tablet The following prescriptions were given: Oxycodone HCl/Acetaminophen [Percocet 5/325] 1 - 2 tablet PO Q4H PRN [place] N #30 tablet PRN Reason: Pain Please Follow Up With: Cameron Carrera - Please call [phone] to schedule an appointment. When: 7 days after your surgery. 03/18/14 1334 <Electronical ly signed by Cameron Carrera MD> Date Cameron Carrera MD CC: Emily Pugh MD 18-Mar-2014 Cholangiogram/ O R,Initial Result: Comments: See Note; NOTES: [facility] Imaging Services [address] [place] [address] Radiology Report MR#: [id number] Acct: [id number] Name: LENORA MORRELL I Rep #: [id number] : 1935 F 78 From: Nolan Head MD PCP: Emily Pugh MD Status: [facility] Study: Cholangiogram/ O R,Initial Date of Exam: 03/18/14 Exam# [id number] Ordering Dr: Cameron Carrera MD STUDY: INTRAOPERATIVE CHOLANGIOGRAM. REASON FOR EXAM: Female, 78 years old. Laparoscopic cholecystectomy. FLUOROSCOPY TIME (if supplied): (1:11) minutes/seconds TECHNIQUE: Intraoperative Cardize m was performed by the surgeon. Multiple images were submitted. COMPARISON: None. FINDINGS: The common bile duct is not dilated. No intraluminal filling defect is seen. There is free flow of contrast into the duodenum. IMPRESSION: Unremarkable intraoperative cholangiogram. Electronically Signed: Nolan Head MD at 14:50 EDT Tel [phone], Service support [phone], CC: Emily Pugh MD; Cameron Carrera MD Associate Designer: Signed 07-Mar-2014 Gallbladder Result: Comments: See Note; NOTES: [facility] Imaging Services [address] [place] [address] Ultrasound Report MR#: [id number] Acct: [id number] Name: LENORA MORRELL I Rep #: [id number] : 1935 F 78 From: Nolan Head MD PCP: Emily Puhg MD Status: REG CLI Study: Gallbladder Date of Exam: 03/07/14 Exam# [id number] Ordering Dr: Emily Pugh MD STUDY: ABDOMIN AL ULTRASOUND - RIGHT UPPER QUADRANT REASON FOR VISIT: Female, 78 years old. Abdominal pain. TECHNIQUE: Ultrasound evaluation of the right upper quadrant was performed with real-time and static gra y-scale imaging. TECHNICAL QUALITY: Adequate. COMPARISON: Comparison is made with prior sonogram dated July 26, 2011. FINDINGS: Liver: The liver measur es 16.6 cm. There is increased echogenicity consistent with fatty infiltration. The bile ducts are within normal limits. There is hepatic color flow. The direction of portal flow is hepatopetal. Ther e is a 6 mm x 6 mm x 5 mm cyst in the left lobe of the liver. Gallbladder: The gallbladder is distended. The gallbladder wall measures 2.6 mm. There is a positive sonographic Dillard's sign. There is no pericholecystic fluid. Once again, low-level echoes are seen within the gallbladder lumen there are this is suggestive of a tumefactive sludge as described on prior sonogram. No definite gallston e is seen. Correlation with nuclear medicine PET there is scan is recommended. Common Bile Duct (C.B.D.): The common bile duct is dilated and measures 9.2 mm. Pancreas: Normal size of the head, rosy dy and tail of the pancreas. There is normal echogenicity of the pancreas. There is no demonstrated pancreatic mass or cyst. Right Kidney: Normal size of the right kidney. The right kidney measures 10.0 cm. Normal renal cortex. The right cortex measures 1.9 cm. There is no demonstrated renal mass or cyst. There is no right hydronephrosis. IMPRESSION: Diste nded gallbladder with filling defects within it suggestive of tumefactive sludge. Correlation with a nuclear medicine hepatobiliary scan is recommended. Dilated common bile duct. Electronically Sig randee: Nolan Head MD at 9:14 EDT Tel [phone], Service support [phone], CC: Emily Pugh MD Associate Designer: Signed Family History Unknown Family Member Name Dates Details Brother 1 Comments: CVA Status: Active Father Comments: of old age 82 yo. think heart. Status: Active Mother Comments: Thyroid disease Status: Active Sister 1 Comments: healthy except thryoid disease Status: Active Son 1 Comments: oldest valvular heart disease replacement Status: Active Son 2 Comments: healthy Status: Active Son 3 Comments: healthy Status: Active Social History Name Dates Details Alcohol Use Comments: Occasional alcohol use 1 glass of wine once a week. 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 5 days a weeka 40 [address]. walk daily Status: Active Living Situation Comments: , heterosexual Status: Active No Drug Use Status: Active Non Smoker/No Tobacco Use Status: Active Tobacco use: Never smoker. Status: Active Tobacco use: Never smoker. Status: Inactive Smoking Status Name Dates Details Never smoker Vital Signs Date Test Result Details [id number] Temperature 97.6 f Comments: Method: Temporal Pulse 72 /min Comments: Pattern: Regular Respiration Rate 18 /min Comments: Pattern: Unlabored O2 SAT 98 % Comments: Room air BP Systolic 126 mm[Hg] Comments: Patient Position: Sitting; Cuff Location: Left Arm; Cuff Size: Large BP Diastolic 84 mm[Hg] Comments: Patient Position: Sitting; Cuff Location: Left Arm; Cuff Size: Large Weight 218 lb Height 61.5 in Body Mass Index Calculated 40.52 kg/m2 Body Surface Area Calculated 1.97 m2 :25 Temperature 97 f Comments: Method: Temporal Pulse 66 /min Comments: Pattern: Regular Respiration Rate 16 /min Comments: Pattern: Unlabored O2 SAT 96 % Comments: Room air BP Systolic 130 mm[Hg] Comments: Patient Position: Sitting; Cuff Location: Left Arm; Cuff Size: Standard BP Diastolic 90 mm[Hg] Comments: Patient Position: Sitting; Cuff Location: Left Arm; Cuff Size: Standard Weight 218.0125 lb Height 61.5 in Body Mass Index Calculated 40.53 kg/m2 Body Surface Area Calculated 1.97 m2 :36 Temperature 97.9 f Comments: Method: Temporal Pulse 74 /min Comments: Pattern: Regular Respiration Rate 20 /min Comments: Pattern: Unlabored O2 SAT 97 % Comments: Room air BP Systolic 122 mm[Hg] Comments: Patient Position: Sitting; Cuff Location: Left Arm; Cuff Size: Large BP Diastolic 80 mm[Hg] Comments: Patient Position: Sitting; Cuff Location: Left Arm; Cuff Size: Large Weight 222.0125 lb Height 61.5 in Body Mass Index Calculated 41.27 kg/m2 Body Surface Area Calculated 1.99 m2 :55 Temperature 97.6 f Comments: Method: Temporal Pulse 74 /min Comments: Pattern: Regular Respiration Rate 20 /min Comments: Pattern: Unlabored O2 SAT 98 % Comments: Room air BP Systolic 120 mm[Hg] Comments: Patient Position: Sitting; Cuff Location: Left Arm; Cuff Size: Large BP Diastolic 80 mm[Hg] Comments: Patient Position: Sitting; Cuff Location: Left Arm; Cuff Size: Large Weight 218 lb Height 61.5 in Body Mass Index Calculated 40.52 kg/m2 Body Surface Area Calculated 1.97 m2 :16 Temperature 98.1 f Pulse 82 /min Comments: Pattern: Regular Respiration Rate 18 /min Comments: Pattern: Unlabored O2 SAT 94 % Comments: Room air BP Systolic 118 mm[Hg] Comments: Patient Position: Sitting; Cuff Location: Left Arm; Cuff Size: Standard BP Diastolic 70 mm[Hg] Comments: Patient Position: Sitting; Cuff Location: Left Arm; Cuff Size: Standard Weight 218 lb Height 61.5 in Body Mass Index Calculated 40.52 kg/m2 Body Surface Area Calculated 1.97 m2 :51 Temperature 97.6 f Comments: Method: Temporal Pulse 74 /min Comments: Pattern: Regular Respiration Rate 20 /min Comments: Pattern: Unlabored O2 SAT 98 % Comments: Room air BP Systolic 134 mm[Hg] Comments: Patient Position: Sitting; Cuff Location: Left Arm; Cuff Size: Large BP Diastolic 80 mm[Hg] Comments: Patient Position: Sitting; Cuff Location: Left Arm; Cuff Size: Large Weight 218 lb Height 61.5 in Body Mass Index Calculated 40.52 kg/m2 Body Surface Area Calculated 1.97 m2 :22 Temperature 97.6 f Comments: Method: Temporal Pulse 64 /min Comments: Pattern: Regular Respiration Rate 20 /min Comments: Pattern: Unlabored O2 SAT 98 % Comments: Room air BP Systolic 120 mm[Hg] Comments: Patient Position: Sitting; Cuff Location: Left Arm; Cuff Size: Large BP Diastolic 78 mm[Hg] Comments: Patient Position: Sitting; Cuff Location: Left Arm; Cuff Size: Large Weight 224 lb Height 62 in Body Mass Index Calculated 40.97 kg/m2 Body Surface Area Calculated 2.01 m2 :21 Temperature 97.9 f Comments: Method: Temporal Pulse 80 /min Comments: Pattern: Regular Respiration Rate 20 /min Comments: Pattern: Unlabored O2 SAT 95 % Comments: Room air BP Systolic 122 mm[Hg] Comments: Patient Position: Sitting; Cuff Location: Left Arm; Cuff Size: Large BP Diastolic 78 mm[Hg] Comments: Patient Position: Sitting; Cuff Location: Left Arm; Cuff Size: Large Weight 224 lb Height 62 in Body Mass Index Calculated 40.97 kg/m2 Body Surface Area Calculated 2.01 m2 :21 Temperature 97.6 f Comments: Method: Temporal Pulse 90 /min Comments: Pattern: Regular Respiration Rate 20 /min Comments: Pattern: Unlabored O2 SAT 97 % Comments: Room air BP Systolic 138 mm[Hg] Comments: Patient Position: Sitting; Cuff Location: Left Arm; Cuff Size: Large BP Diastolic 78 mm[Hg] Comments: Patient Position: Sitting; Cuff Location: Left Arm; Cuff Size: Large Weight 224 lb Height 62 in Body Mass Index Calculated 40.97 kg/m2 Body Surface Area Calculated 2.01 m2 :26 Temperature 97.6 f Comments: Method: Temporal Pulse 68 /min Comments: Pattern: Regular Respiration Rate 20 /min Comments: Pattern: Unlabored O2 SAT 97 % Comments: Room air BP Systolic 120 mm[Hg] Comments: Patient Position: Sitting; Cuff Location: Left Arm; Cuff Size: Large BP Diastolic 80 mm[Hg] Comments: Patient Position: Sitting; Cuff Location: Left Arm; Cuff Size: Large Weight 223 lb Height 62 in Body Mass Index Calculated 40.79 kg/m2 Body Surface Area Calculated 2 m2 :05 Temperature 100.4 f Comments: Method: Temporal Pulse 106 /min Comments: Pattern: Regular Respiration Rate 20 /min Comments: Pattern: Unlabored O2 SAT 92 % Comments: Room air BP Systolic 124 mm[Hg] Comments: Patient Position: Sitting; Cuff Location: Left Arm; Cuff Size: Large BP Diastolic 80 mm[Hg] Comments: Patient Position: Sitting; Cuff Location: Left Arm; Cuff Size: Large Weight 224 lb Height 63 in Body Mass Index Calculated 39.68 kg/m2 Body Surface Area Calculated 2.03 m2 :01 Temperature 97.6 f Comments: Method: Temporal Pulse 74 /min Comments: Pattern: Regular Respiration Rate 20 /min Comments: Pattern: Unlabored O2 SAT 97 % Comments: Room air BP Systolic 122 mm[Hg] Comments: Patient Position: Sitting; Cuff Location: Left Arm; Cuff Size: Large BP Diastolic 80 mm[Hg] Comments: Patient Position: Sitting; Cuff Location: Left Arm; Cuff Size: Large Weight 224 lb Height 63 in Body Mass Index Calculated 39.68 kg/m2 Body Surface Area Calculated 2.03 m2 :46 Temperature 97.6 f Comments: Method: Temporal Pulse 70 /min Comments: Pattern: Regular Respiration Rate 20 /min Comments: Pattern: Unlabored O2 SAT 97 % Comments: Room air BP Systolic 116 mm[Hg] Comments: Patient Position: Sitting; Cuff Location: Left Arm; Cuff Size: Large BP Diastolic 74 mm[Hg] Comments: Patient Position: Sitting; Cuff Location: Left Arm; Cuff Size: Large Weight 225 lb Height 63 in Body Mass Index Calculated 39.86 kg/m2 Body Surface Area Calculated 2.03 m2 :04 Temperature 97.6 f Comments: Method: Temporal Pulse 70 /min Comments: Pattern: Regular Respiration Rate 20 /min Comments: Pattern: Unlabored BP Systolic 114 mm[Hg] Comments: Patient Position: Sitting; Cuff Location: Left Arm; Cuff Size: Large BP Diastolic 78 mm[Hg] Comments: Patient Position: Sitting; Cuff Location: Left Arm; Cuff Size: Large Weight 221 lb Height 63 in Body Mass Index Calculated 39.15 kg/m2 Body Surface Area Calculated 2.02 m2 :36 Pulse 88 /min Comments: Pattern: Regular Respiration Rate 16 /min Comments: Pattern: Unlabored O2 SAT 96 % Comments: Room air BP Systolic 128 mm[Hg] Comments: Patient Position: Sitting; Cuff Location: Left Arm; Cuff Size: Standard BP Diastolic 78 mm[Hg] Comments: Patient Position: Sitting; Cuff Location: Left Arm; Cuff Size: Standard Weight 208 lb Height 63 in Body Mass Index Calculated 36.85 kg/m2 Body Surface Area Calculated 1.97 m2 :33 Temperature 98.6 f Comments: Method: Tympanic Pulse 94 /min Comments: Pattern: Regular Respiration Rate 18 /min Comments: Pattern: Unlabored O2 SAT 96 % Comments: Room air BP Systolic 102 mm[Hg] Comments: Patient Position: Sitting; Cuff Location: Left Arm; Cuff Size: Standard BP Diastolic 68 mm[Hg] Comments: Patient Position: Sitting; Cuff Location: Left Arm; Cuff Size: Standard Weight 204 lb Height 63 in Body Mass Index Calculated 36.14 kg/m2 Body Surface Area Calculated 1.95 m2 :13 Temperature 97.9 f Comments: Method: Oral Pulse 78 /min Comments: Pattern: Regular Respiration Rate 20 /min Comments: Pattern: Unlabored BP Systolic 136 mm[Hg] Comments: Patient Position: Sitting; Cuff Location: Left Arm; Cuff Size: Large BP Diastolic 90 mm[Hg] Comments: Patient Position: Sitting; Cuff Location: Left Arm; Cuff Size: Large Weight 225 lb Height 63 in Body Mass Index Calculated 39.86 kg/m2 Body Surface Area Calculated 2.03 m2 :20 Temperature 97.6 f Comments: Method: Oral Pulse 72 /min Comments: Pattern: Regular Respiration Rate 18 /min Comments: Pattern: Unlabored BP Systolic 120 mm[Hg] Comments: Patient Position: Sitting; Cuff Location: Left Arm; Cuff Size: Large BP Diastolic 80 mm[Hg] Comments: Patient Position: Sitting; Cuff Location: Left Arm; Cuff Size: Large Weight 225 lb Height 63 in Body Mass Index Calculated 39.86 kg/m2 Body Surface Area Calculated 2.03 m2 :30 Temperature 97.9 f Comments: Method: Oral Pulse 68 /min Comments: Pattern: Regular Respiration Rate 18 /min Comments: Pattern: Unlabored BP Systolic 124 mm[Hg] Comments: Patient Position: Sitting; Cuff Location: Left Arm; Cuff Size: Large BP Diastolic 86 mm[Hg] Comments: Patient Position: Sitting; Cuff Location: Left Arm; Cuff Size: Large Weight 225 lb Height 63 in Body Mass Index Calculated 39.86 kg/m2 Body Surface Area Calculated 2.03 m2 :39 Temperature 98 f Comments: Method: Oral Pulse 80 /min Comments: Pattern: Regular Respiration Rate 17 /min O2 SAT 98 % Comments: Room air BP Systolic 126 mm[Hg] Comments: Patient Position: Sitting; Cuff Location: Left Arm; Cuff Size: Standard BP Diastolic 72 mm[Hg] Comments: Patient Position: Sitting; Cuff Location: Left Arm; Cuff Size: Standard Weight 225 lb Height 63 in Body Mass Index Calculated 39.86 kg/m2 Body Surface Area Calculated 2.03 m2 :15 Temperature 98.1 f Comments: Method: Oral Pulse 78 /min Comments: Pattern: Regular Respiration Rate 16 /min Comments: Pattern: Unlabored BP Systolic 132 mm[Hg] Comments: Patient Position: Sitting; Cuff Location: Left Arm; Cuff Size: Standard BP Diastolic 72 mm[Hg] Comments: Patient Position: Sitting; Cuff Location: Left Arm; Cuff Size: Standard Weight 225 lb Height 63 in Body Mass Index Calculated 39.86 kg/m2 Body Surface Area Calculated 2.03 m2 :07 Temperature 97.6 f Comments: Method: Oral Pulse 74 /min Comments: Pattern: Regular Respiration Rate 20 /min Comments: Pattern: Unlabored BP Systolic 126 mm[Hg] Comments: Patient Position: Sitting; Cuff Location: Left Arm; Cuff Size: Large BP Diastolic 84 mm[Hg] Comments: Patient Position: Sitting; Cuff Location: Left Arm; Cuff Size: Large Weight 225 lb Height 63 in Body Mass Index Calculated 39.86 kg/m2 Body Surface Area Calculated 2.03 m2 :03 Temperature 97.8 f Comments: Method: Oral Pulse 74 /min Comments: Pattern: Regular Respiration Rate 20 /min Comments: Pattern: Unlabored BP Systolic 118 mm[Hg] Comments: Patient Position: Sitting; Cuff Location: Left Arm; Cuff Size: Large BP Diastolic 76 mm[Hg] Comments: Patient Position: Sitting; Cuff Location: Left Arm; Cuff Size: Large Weight 226 lb Height 63 in Body Mass Index Calculated 40.03 kg/m2 Body Surface Area Calculated 2.04 m2 :23 Temperature 97.8 f Comments: Method: Oral Pulse 80 /min Comments: Pattern: Regular Respiration Rate 18 /min Comments: Pattern: Unlabored BP Systolic 110 mm[Hg] Comments: Patient Position: Sitting; Cuff Location: Left Arm; Cuff Size: Standard BP Diastolic 72 mm[Hg] Comments: Patient Position: Sitting; Cuff Location: Left Arm; Cuff Size: Standard Weight 226.375 lb Height 63 in Body Mass Index Calculated 40.1 kg/m2 Body Surface Area Calculated 2.04 m2 :52 Temperature 97.8 f Comments: Method: Oral Pulse 74 /min Comments: Pattern: Regular Respiration Rate 20 /min Comments: Pattern: Unlabored BP Systolic 122 mm[Hg] Comments: Patient Position: Sitting; Cuff Location: Left Arm; Cuff Size: Large BP Diastolic 80 mm[Hg] Comments: Patient Position: Sitting; Cuff Location: Left Arm; Cuff Size: Large Weight 226 lb Height 63 in Body Mass Index Calculated 40.03 kg/m2 Body Surface Area Calculated 2.04 m2 :49 Temperature 98.1 f Comments: Method: Oral Pulse 76 /min Comments: Pattern: Regular Respiration Rate 14 /min Comments: Pattern: Unlabored BP Systolic 116 mm[Hg] Comments: Patient Position: Sitting; Cuff Location: Left Arm; Cuff Size: Standard BP Diastolic 64 mm[Hg] Comments: Patient Position: Sitting; Cuff Location: Left Arm; Cuff Size: Standard Weight 232 lb Height 63 in Body Mass Index Calculated 41.1 kg/m2 Body Surface Area Calculated 2.06 m2 :52 Temperature 98 f Comments: Method: Oral Pulse 72 /min Comments: Pattern: Regular Respiration Rate 16 /min Comments: Pattern: Unlabored BP Systolic 122 mm[Hg] Comments: Patient Position: Sitting; Cuff Location: Left Arm; Cuff Size: Standard BP Diastolic 78 mm[Hg] Comments: Patient Position: Sitting; Cuff Location: Left Arm; Cuff Size: Standard Weight 232 lb Height 63 in Body Mass Index Calculated 41.1 kg/m2 Body Surface Area Calculated 2.06 m2 :26 Temperature 98.5 f Comments: Method: Oral Pulse 74 /min Comments: Pattern: Regular Respiration Rate 17 /min Comments: Pattern: Unlabored BP Systolic 122 mm[Hg] Comments: Patient Position: Sitting; Cuff Location: Left Arm; Cuff Size: Standard BP Diastolic 78 mm[Hg] Comments: Patient Position: Sitting; Cuff Location: Left Arm; Cuff Size: Standard Weight 232 lb Height 63 in Body Mass Index Calculated 41.1 kg/m2 Body Surface Area Calculated 2.06 m2 :05 Temperature 97.9 f Comments: Method: Oral Pulse 72 /min Comments: Pattern: Regular Respiration Rate 18 /min Comments: Pattern: Unlabored BP Systolic 138 mm[Hg] Comments: Patient Position: Sitting; Cuff Location: Left Arm; Cuff Size: Standard BP Diastolic 76 mm[Hg] Comments: Patient Position: Sitting; Cuff Location: Left Arm; Cuff Size: Standard Weight 232 lb Height 63 in Body Mass Index Calculated 41.1 kg/m2 Body Surface Area Calculated 2.06 m2 :32 Temperature 98.1 f Comments: Method: Oral Pulse 68 /min Comments: Pattern: Regular Respiration Rate 16 /min Comments: Pattern: Unlabored BP Systolic 132 mm[Hg] Comments: Patient Position: Sitting; Cuff Location: Left Arm; Cuff Size: Standard BP Diastolic 74 mm[Hg] Comments: Patient Position: Sitting; Cuff Location: Left Arm; Cuff Size: Standard Weight 232 lb Height 63 in Body Mass Index Calculated 41.1 kg/m2 Body Surface Area Calculated 2.06 m2 :03 Temperature 97.9 f Comments: Method: Oral Pulse 70 /min Comments: Pattern: Regular Respiration Rate 18 /min Comments: Pattern: Unlabored BP Systolic 124 mm[Hg] Comments: Patient Position: Sitting; Cuff Location: Left Arm; Cuff Size: Large BP Diastolic 84 mm[Hg] Comments: Patient Position: Sitting; Cuff Location: Left Arm; Cuff Size: Large Weight 232 lb Height 63 in Body Mass Index Calculated 41.1 kg/m2 Body Surface Area Calculated 2.06 m2 :28 Temperature 97.9 f Comments: Method: Oral Pulse 70 /min Comments: Pattern: Regular Respiration Rate 20 /min Comments: Pattern: Unlabored BP Systolic 128 mm[Hg] Comments: Patient Position: Sitting; Cuff Location: Left Arm; Cuff Size: Large BP Diastolic 86 mm[Hg] Comments: Patient Position: Sitting; Cuff Location: Left Arm; Cuff Size: Large Weight 235 lb Height 63 in Body Mass Index Calculated 41.63 kg/m2 Body Surface Area Calculated 2.07 m2 :19 Temperature 98.5 f Comments: Method: Oral Pulse 68 /min Comments: Pattern: Regular Respiration Rate 20 /min Comments: Pattern: Unlabored BP Systolic 126 mm[Hg] Comments: Patient Position: Sitting; Cuff Location: Left Arm; Cuff Size: Large BP Diastolic 90 mm[Hg] Comments: Patient Position: Sitting; Cuff Location: Left Arm; Cuff Size: Large Weight 232 lb Height 63 in Body Mass Index Calculated 41.1 kg/m2 Body Surface Area Calculated 2.06 m2 :51 Pulse 68 /min Comments: Pattern: Regular Respiration Rate 18 /min Comments: Pattern: Unlabored BP Systolic 118 mm[Hg] Comments: Patient Position: Sitting; Cuff Location: Left Arm; Cuff Size: Large BP Diastolic 78 mm[Hg] Comments: Patient Position: Sitting; Cuff Location: Left Arm; Cuff Size: Large Weight 232 lb :09 Pulse 70 /min Comments: Pattern: Regular Respiration Rate 18 /min Comments: Pattern: Unlabored BP Systolic 122 mm[Hg] Comments: Patient Position: Sitting; Cuff Location: Left Arm; Cuff Size: Large BP Diastolic 80 mm[Hg] Comments: Patient Position: Sitting; Cuff Location: Left Arm; Cuff Size: Large Weight 234 lb :02 Temperature 97.1 f Comments: Method: Oral Pulse 76 /min Comments: Pattern: Regular Respiration Rate 20 /min Comments: Pattern: Unlabored BP Systolic 118 mm[Hg] Comments: Patient Position: Sitting; Cuff Location: Left Arm; Cuff Size: Large BP Diastolic 74 mm[Hg] Comments: Patient Position: Sitting; Cuff Location: Left Arm; Cuff Size: Large Weight 0 lb Height 0 in Head Circumference 0.00 cm :10 Temperature 97.6 f Comments: Method: Undefined Pulse 72 /min Comments: Pattern: Regular Respiration Rate 18 /min Comments: Pattern: Undefined BP Systolic 140 mm[Hg] Comments: Patient Position: Sitting; Cuff Location: Left Arm; Cuff Size: Standard BP Diastolic 72 mm[Hg] Comments: Patient Position: Sitting; Cuff Location: Left Arm; Cuff Size: Standard Weight 0 lb Height 0 in Head Circumference 0.00 cm :59 Pulse 76 /min Comments: Pattern: Regular Respiration Rate 16 /min Comments: Pattern: Unlabored BP Systolic 124 mm[Hg] Comments: Patient Position: Sitting; Cuff Location: Left Arm; Cuff Size: Large BP Diastolic 80 mm[Hg] Comments: Patient Position: Sitting; Cuff Location: Left Arm; Cuff Size: Large Weight 232 lb Height 0 in Head Circumference 0.00 cm :53 Temperature 98.8 f Comments: Method: Oral Pulse 74 /min Comments: Pattern: Regular Respiration Rate 18 /min Comments: Pattern: Unlabored O2 SAT 98 % Comments: Room air BP Systolic 120 mm[Hg] Comments: Patient Position: Sitting; Cuff Location: Left Arm; Cuff Size: Large BP Diastolic 78 mm[Hg] Comments: Patient Position: Sitting; Cuff Location: Left Arm; Cuff Size: Large Weight 233 lb Height 0 in Head Circumference 0.00 cm :50 Pulse 70 /min Comments: Pattern: Regular Respiration Rate 16 /min Comments: Pattern: Unlabored BP Systolic 124 mm[Hg] Comments: Patient Position: Sitting; Cuff Location: Left Arm; Cuff Size: Large BP Diastolic 80 mm[Hg] Comments: Patient Position: Sitting; Cuff Location: Left Arm; Cuff Size: Large Weight 233.0125 lb Height 0 in Head Circumference 0.00 cm :07 Temperature 98.2 f Comments: Method: Oral Pulse 68 /min Comments: Pattern: Regular Respiration Rate 16 /min Comments: Pattern: Unlabored BP Systolic 124 mm[Hg] Comments: Patient Position: Sitting; Cuff Location: Left Arm; Cuff Size: Large BP Diastolic 80 mm[Hg] Comments: Patient Position: Sitting; Cuff Location: Left Arm; Cuff Size: Large Weight 222 lb Height 0 in Head Circumference 0.00 cm :49 Temperature 98.2 f Comments: Method: Oral Pulse 58 /min Comments: Pattern: Regular Respiration Rate 18 /min Comments: Pattern: Unlabored BP Systolic 120 mm[Hg] Comments: Patient Position: Sitting; Cuff Location: Left Arm; Cuff Size: Standard BP Diastolic 80 mm[Hg] Comments: Patient Position: Sitting; Cuff Location: Left Arm; Cuff Size: Standard Weight 212 lb Height 0 in Head Circumference 0.00 cm :46 Temperature 98.6 f Comments: Method: Oral Pulse 64 /min Comments: Pattern: Regular Respiration Rate 20 /min Comments: Pattern: Unlabored BP Systolic 124 mm[Hg] Comments: Patient Position: Sitting; Cuff Location: Left Arm; Cuff Size: Large BP Diastolic 82 mm[Hg] Comments: Patient Position: Sitting; Cuff Location: Left Arm; Cuff Size: Large Weight 212 lb Height 0 in Head Circumference 0.00 cm :39 Temperature 97.7 f Comments: Method: Oral Pulse 80 /min Comments: Pattern: Regular Respiration Rate 20 /min Comments: Pattern: Unlabored BP Systolic 124 mm[Hg] Comments: Patient Position: Sitting; Cuff Location: Left Arm; Cuff Size: Standard BP Diastolic 80 mm[Hg] Comments: Patient Position: Sitting; Cuff Location: Left Arm; Cuff Size: Standard Weight 230 lb Height 0 in Head Circumference 0.00 cm :10 Temperature 98 f Comments: Method: Oral Pulse 84 /min Comments: Pattern: Regular Respiration Rate 22 /min Comments: Pattern: Unlabored BP Systolic 116 mm[Hg] Comments: Patient Position: Sitting; Cuff Location: Left Arm; Cuff Size: Standard BP Diastolic 80 mm[Hg] Comments: Patient Position: Sitting; Cuff Location: Left Arm; Cuff Size: Standard Weight 0 lb Height 0 in Head Circumference 0.00 cm :38 Temperature 97.8 f Comments: Method: Oral Pulse 78 /min Comments: Pattern: Regular Respiration Rate 20 /min Comments: Pattern: Unlabored BP Systolic 124 mm[Hg] Comments: Patient Position: Sitting; Cuff Location: Left Arm; Cuff Size: Standard BP Diastolic 84 mm[Hg] Comments: Patient Position: Sitting; Cuff Location: Left Arm; Cuff Size: Standard Weight 233 lb Height 63 in Body Mass Index Calculated 41.27 kg/m2 Body Surface Area Calculated 2.06 m2 Head Circumference 0.00 cm Results Date Description Value Details :54 Pathology Report Comments: PERFORMED BY: TRUNG Puga Colmar [id number] [facility] [id number] BY: [facility] Dermatopathology Ieurcaq252 [facility] [address] [place] [address] [id number] Information: [id number] See MATER Comments: Material submitted: .RIGHT UPPER ARMClinical history: .VERRUCOUS KERATOSIS Note (Normal) Diagnosis:IRRITATED AND INFLAMED VERRUCA VULGARIS.BXS/03/28/2018Electronically signed: .Neda June MD, DermatopathologistGross description: .RECEIVED IN FORMALIN LABELED LENORA MORRELL DESIGNATED RIGHT UPPERARM IS A 1.0 X 0.8 X 0.5 CM FRIABLE WHITE PAPILLATED SKIN LESION.A DISCRETE SURGICAL MARGIN IS NOT IDENTIFIED. BISECTED ANDENTIRELY SUBMITTED IN ONE CASSETTE.BCO/JASPathologist provided ICD- 10:B07.9CPT .205761 12-Feb-20189:50 Carcinoembryonic Antigen Comments: [facility] (refer to report for specific site)refer to report for address and phone number CEA 1.7 ng/mL (Normal) Range: 0.0-4.7 Comments: Jackie ECLIA methodology Nonsmokers <3.9 Smokers <5.6Performed at: - [facility] [id number] Director: Jame Bhakta PhD, Phone: [phone] 12-Feb-20189:50 CBC W/Diff, Automated Comments: [facility] [address] [place], [address] Absolute Lymph 1.50 {X10_3/ul} (Normal) Range: 0.83-4.51 Absolute Neut 4.4 {X10_3/uL} (Normal) Range: 2.0-7.7 IM GRAN % 0.300 % (Normal) Range: 0.0-0.9 Comments: IG% - Immature Granulocytes (promyelocytes, myelocytes andmetamyelocytes) > 1% indicates that a LEFT SHIFT is Present. BASO% 0.3 % (Normal) Range: 0-1 EO% 3.1 % (Normal) Range: 0-5 MONO% 11.9 % (Abnormal) Range: 0-10 LY% 21.5 % (Normal) Range: 19-41 NEUT% 62.9 % (Normal) Range: 47-70 MPV 10.5 fL (Normal) Range: 6.2-12.0 PLT 239 K/mm3 (Normal) Range: 150-450 RDW SD 45.1 fL (Abnormal) Range: 35.1-43.9 RDW CV 13.2 % (Normal) Range: 11.6-14.6 MCHC 33.8 {g/gl} (Normal) Range: 32-36 MCH 32.4 pg (Abnormal) Range: 27.0-32.0 MCV 95.9 fL (Normal) Range: 81-99 HCT 42.6 % (Normal) Range: 37-47 HGB 14.4 g/dL (Normal) Range: 12.0-15.0 RBC 4.44 {M/mm3} (Normal) Range: 4.2-5.4 WBC 7.0 K/mm3 (Normal) Range: 4.4-11.0 12-Feb-20189:50 Comprehensive Metabolic Profil Comments: [facility] [address] [place], [place], [id number] GAP 7 (Normal) Range: 5-15 CO2 25.0 mmol/L (Normal) Range: 21.0-32.0 CL 108 mmol/L (Abnormal) Range: 98-107 K 4.2 mmol/L (Normal) Range: 3.5-5.1 NA 140 mmol/L (Normal) Range: 136-145 T BILI 0.30 mg/dL (Normal) Range: 0.20-1.00 ALT 26 U/L (Normal) Range: 13-56 Comments: Please note revised ALT reference range lzkevyamz07/28/2018. ALK P 77 U/L (Normal) Range: 45-117 AST 20 U/L (Normal) Range: 15-37 CA 9.2 mg/dL (Normal) Range: 8.5-10.1 A/G 0.8 {RATIO} (Abnormal) Range: 0.9-2.4 GLOB 4.4 g/dL (Abnormal) Range: 2.2-4.2 ALB 3.5 g/dL (Normal) Range: 3.2-5.0 T PROT 7.9 g/dL (Normal) Range: 6.4-8.2 BUN/CRE 16.0 {RATIO} (Normal) Range: 10-20 EST GFR - AA 87 mL/min (Normal) Comments: GFR Calc EST GFR 72 mL/min (Normal) Comments: Non- GFR Calc CREAT,SERUM 0.81 mg/dL (Normal) Range: 0.55-1.02 Comments: The validity of the calculated GFR AND GFRAA in patients over70 years has not been determined. Clinical correlation isessential. BUN 13 mg/dL (Normal) Range: 7-18 GLU 110 mg/dL (Abnormal) Range: 74-106 Comments: Fasting Glucose result from 100 to 125 mg/dLsuggests IMPAIRED HOMEOSTASIS per A.D.A. criteria.Please note revised GLUCOSE reference range hmumbkwyq17/02/2018. 12-Feb-20188:51 Urinalysis, Office ([id number]) UA - LEUKOCYTE ESTERASE Negative (Normal) UA - NITRITE Negative (Normal) URINE UROBILINGN EDWIN TIMED Normal mg/dL (Normal) UA - PROTEIN Negative mg/dL (Normal) UA - PH 5 (Abnormal) UA - BLOOD Negative (Normal) UA - SPECIFIC GRAVITY 1.020 (Normal) UA - KETONES Negative mg/dL (Normal) UA - BILIRUBIN Negative (Normal) UA - GLUCOSE Negative (Normal) 21-Sep-20178:55 CARCINOEMBRYONIC ANTIGEN (CEA) Comments: PATIENT NOT FASTINGPERFORMED BY: [facility] SomersetNxnsic2953 [facility] [id number] ([id number]) CEA 1.5 ng/mL (Normal) Range: 0.0-4.7 Comments: Jackie ECLIA methodology Nonsmokers <3.9 Smokers <5.6 06-Afs-483251:48 MICROALBUMIN: CREATININE RATIO Comments: PATIENT NOT FASTINGPERFORMED BY: [employer] Dfinae[address] [place] [facility] [id number] ([id number]) AND (89544) Microalb/Creat Ratio MALD {mg/g_creat} Range: 0.0-30.0 (Abnormal) Comments: This result is below the assay's limit of quantitation indicating adilute specimen, potentially due to diurnal variation. Considerrecollection at a time likely to provide a more concentrated urine. Microalbumin, Urine <3.0 ug/mL (Normal) Creatinine, Urine 74.6 mg/dL (Normal) 66-Ift-275266:48 URINALYSIS (10544) Comments: PATIENT NOT FASTINGPERFORMED BY: [id number] [place] [facility] [id number] Microscopic Examination MICNIP (Normal) Comments: Microscopic not indicated and not performed. Nitrite, Urine Negative (Normal) Urobilinogen,Semi-Qn 0.2 mg/dL (Normal) Range: 0.2-1.0 Bilirubin Negative (Normal) Occult Blood Negative (Normal) Ketones Negative (Normal) Glucose Negative (Normal) Protein Negative (Normal) WBC Esterase Negative (Normal) Appearance Clear (Normal) Urine-Color Yellow (Normal) pH 6.5 (Normal) Range: 5.0-7.5 Specific [place] 1.014 (Normal) Range: 1.005-1.030 :48 Metabolic Panel, Comprehensive Comments: PATIENT NOT FASTINGPERFORMED BY: [employer] Tcwhor3115 [facility] [id number] ([id number]) ALT (SGPT) 25 [iU]/L (Normal) Range: 0-32 AST (SGOT) 22 [iU]/L (Normal) Range: 0-40 Alkaline Phosphatase, S 71 [iU]/L (Normal) Range: 39-117 Bilirubin, Total 0.4 mg/dL (Normal) Range: 0.0-1.2 A/G Ratio 1.3 (Normal) Range: 1.2-2.2 Globulin, Total 2.9 g/dL (Normal) Range: 1.5-4.5 Albumin, Serum 3.9 g/dL (Normal) Range: 3.5-4.8 Protein, Total, Serum 6.8 g/dL (Normal) Range: 6.0-8.5 Calcium, Serum 9.0 mg/dL (Normal) Range: 8.7-10.3 Carbon Dioxide, Total 23 mmol/L (Normal) Range: 18-29 Chloride, Serum 102 mmol/L (Normal) Range: 96-106 Potassium, Serum 4.5 mmol/L (Normal) Range: 3.5-5.2 Sodium, Serum 140 mmol/L (Normal) Range: 134-144 BUN/Creatinine Ratio 11 (Abnormal) Range: 12-28 eGFR If Africn Am 71 mL/min/1.73 (Normal) eGFR If NonAfricn Am 62 mL/min/1.73 (Normal) Creatinine, Serum 0.89 mg/dL (Normal) Range: 0.57-1.00 BUN 10 mg/dL (Normal) Range: 8-27 Glucose, Serum 99 mg/dL (Normal) Range: 65-99 20-Mgv-766947:48 CBC WITH MANUAL DIFF Comments: PATIENT NOT FASTINGPERFORMED BY: ROBERT [facility] [id number] [facility] [id number] Information: NURSE DRAW ([id number]) Immature Grans (Abs) 0.0 {x10E3/uL} (Normal) Range: 0.0-0.1 Immature Granulocytes 0 % (Normal) Baso (Absolute) 0.0 {x10E3/uL} (Normal) Range: 0.0-0.2 Eos (Absolute) 0.3 {x10E3/uL} (Normal) Range: 0.0-0.4 Monocytes(Absolute) 0.6 {x10E3/uL} (Normal) Range: 0.1-0.9 Lymphs (Absolute) 1.7 {x10E3/uL} (Normal) Range: 0.7-3.1 Neutrophils (Absolute) 3.2 {x10E3/uL} (Normal) Range: 1.4-7.0 Basos 0 % (Normal) Eos 5 % (Normal) Monocytes 10 % (Normal) Lymphs 29 % (Normal) Neutrophils 56 % (Normal) Platelets 213 {x10E3/uL} (Normal) Range: 150-379 RDW 14.4 % (Normal) Range: 12.3-15.4 MCHC 33.7 g/dL (Normal) Range: 31.5-35.7 MCH 32.4 pg (Normal) Range: 26.6-33.0 MCV 96 fL (Normal) Range: 79-97 Hematocrit 40.7 % (Normal) Range: 34.0-46.6 Hemoglobin 13.7 g/dL (Normal) Range: 11.1-15.9 RBC 4.23 {x10E6/uL} (Normal) Range: 3.77-5.28 WBC 5.7 {x10E3/uL} (Normal) Range: 3.4-10.8 :10 FLU A+B DIRECT AG, (RAPID) ([id number]) FLU A+B DIRECT AG, (RAPID) Pos A (Normal) :10 Carcinoembryonic Antigen Comments: [facility] (refer to report for specific site)refer to report for address and phone number CEA 2131 1.1 ng/mL (Normal) Range: 0.0-4.7 Comments: Jackie ECLIA methodology Nonsmokers <3.9 Smokers <5.6Performed at: [facility] LabCoSarah [place] [id number] Director: Jame Bhakta PhD, Phone: [phone] :[phone] CBC W/Diff, Automated Comments: [facility] [address] [facility] [place] [place], [address] Absolute Lymph 1.70 {X10_3/ul} (Normal) Range: 0.83-4.51 Absolute Neut 3.4 {X10_3/uL} (Normal) Range: 2.0-7.7 IM GRAN % 0.300 % (Normal) Range: 0.0-0.9 Comments: IG% - Immature Granulocytes (promyelocytes, myelocytes andmetamyelocytes) > 1% indicates that a LEFT SHIFT is Present. BASO% 0.7 % (Normal) Range: 0-1 EO% 3.8 % (Normal) Range: 0-5 MONO% 11.6 % (Abnormal) Range: 0-10 LY% 27.8 % (Normal) Range: 19-41 NEUT% 55.8 % (Normal) Range: 47-70 MPV 10.7 fL (Normal) Range: 6.2-12.0 PLT 220 K/mm3 (Normal) Range: 150-450 RDW SD 45.5 fL (Abnormal) Range: 35.1-43.9 RDW CV 13.2 % (Normal) Range: 11.6-14.6 MCHC 33.5 {g/gl} (Normal) Range: 32-36 MCH 32.4 pg (Abnormal) Range: 27.0-32.0 MCV 96.6 fL (Normal) Range: 81-99 HCT 43.0 % (Normal) Range: 37-47 HGB 14.4 g/dL (Normal) Range: 12.0-15.0 RBC 4.45 {M/mm3} (Normal) Range: 4.2-5.4 WBC 6.1 K/mm3 (Normal) Range: 4.4-11.0 :10 Comprehensive Metabolic Profil Comments: [facility] [address] [place], [place], [id number] GAP 3 (Abnormal) Range: 5-15 CO2 28.0 mmol/L (Normal) Range: 21.0-32.0 CL 104 mmol/L (Normal) Range: 98-107 K 3.9 mmol/L (Normal) Range: 3.5-5.1 NA 135 mmol/L (Abnormal) Range: 136-145 T BILI 0.50 mg/dL (Normal) Range: 0.20-1.00 ALT 32 U/L (Normal) Range: 12-78 ALK P 82 U/L (Normal) Range: 50-136 AST 15 U/L (Normal) Range: 15-37 CA 8.8 mg/dL (Normal) Range: 8.5-10.1 A/G 0.8 {RATIO} (Abnormal) Range: 0.9-2.4 GLOB 4.3 g/dL (Abnormal) Range: 2.3-3.5 ALB 3.5 g/dL (Normal) Range: 3.4-5.0 T PROT 7.8 g/dL (Normal) Range: 6.4-8.2 BUN/CRE 16.0 {RATIO} (Normal) Range: 10-20 EST GFR - AA 80 mL/min (Normal) Comments: GFR Calc EST GFR 66 mL/min (Normal) Comments: Non- GFR Calc CREAT,SERUM 0.88 mg/dL (Normal) Range: 0.55-1.20 Comments: The validity of the calculated GFR AND GFRAA in patients over70 years has not been determined. Clinical correlation isessential. BUN 14 mg/dL (Normal) Range: 7-18 GLU 89 mg/dL (Normal) Range: 70-110 :10 Lipid Profile Comments: [facility] [address] [place] [address], [phone] VLDL 21 mg/dL (Normal) Range: 5-40 LDL 107 mg/dL (Normal) Range: 0-130 HDL 59 mg/dL (Normal) Comments: Reference Range HDL <40 mg/dL Low HDL Cholesterol HDL >or= 60 mg/dL High HDL Cholesterol TRIG 103 mg/dL (Normal) Comments: Serum Triglycerides Reference Interval Normal <150 mg/dL Borderline high 150 - 199 mg/dL High 200 - 499 mg/dL Very High > or = 500 mg/dL CHOL 187 mg/dL (Normal) Comments: <200 mg/dL Desirable 200-240 mg/dL Borderline >240 mg/dL High Risk :10 Thyroid Stim Hormone (TSH) Comments: [facility] [address] [place] [address], [id number] TSH 2.80 {uIU/mL} (Normal) Range: 0.358-3.74 :09 CBC W/Diff, Automated Comments: Test performed at:[address] [id number] Absolute Lymph 1.42 {X10_3/ul} (Normal) Range: 0.83-4.51 Absolute Neut 2.7 {X10_3/uL} (Normal) Range: 2.0-7.7 IM GRAN % 0.200 % (Normal) Range: 0.0-0.9 Comments: IG% - Immature Granulocytes (promyelocytes, myelocytes andmetamyelocytes) > 1% indicates that a LEFT SHIFT is Present. BASO% 0.6 % (Normal) Range: 0-1 EO% 5.8 % (Abnormal) Range: 0-5 MONO% 14.0 % (Abnormal) Range: 0-10 LY% 27.3 % (Normal) Range: 19-41 NEUT% 52.1 % (Normal) Range: 47-70 MPV 11.4 fL (Normal) Range: 6.2-12.0 PLT 208 K/mm3 (Normal) Range: 150-450 RDW SD 44.4 fL (Abnormal) Range: 35.1-43.9 RDW CV 13.0 % (Normal) Range: 11.6-14.6 MCHC 34.4 {g/gl} (Normal) Range: 32-36 MCH 33.0 pg (Abnormal) Range: 27.0-32.0 MCV 95.9 fL (Normal) Range: 81-99 HCT 41.8 % (Normal) Range: 37-47 HGB 14.4 g/dL (Normal) Range: 12.0-15.0 RBC 4.36 {M/mm3} (Normal) Range: 4.2-5.4 WBC 5.2 K/mm3 (Normal) Range: 4.4-11.0 32-Pfh-45278:09 Comprehensive Metabolic Profil Comments: Test performed at:[facility] [address] [place], [place] [id number] GAP 11 (Normal) Range: 5-15 CO2 25.0 mmol/L (Normal) Range: 21.0-32.0 CL 104 mmol/L (Normal) Range: 98-107 K 3.9 mmol/L (Normal) Range: 3.5-5.1 NA 140 mmol/L (Normal) Range: 136-145 T BILI 0.40 mg/dL (Normal) Range: 0.20-1.00 ALT 31 U/L (Normal) Range: 12-78 ALK P 72 U/L (Normal) Range: 50-136 AST 16 U/L (Normal) Range: 15-37 CA 9.1 mg/dL (Normal) Range: 8.5-10.1 A/G 0.9 {RATIO} (Normal) Range: 0.9-2.4 GLOB 4.0 g/dL (Normal) Range: 2.7-4.2 ALB 3.6 g/dL (Normal) Range: 3.4-5.0 T PROT 7.6 g/dL (Normal) Range: 6.4-8.2 BUN/CRE 16.3 {RATIO} (Normal) Range: 10-20 CREAT,SERUM 0.8 mg/dL (Normal) Range: 0.6-1.0 BUN 13 mg/dL (Normal) Range: 7-18 GLU 90 mg/dL (Normal) Range: 70-110 :09 Thyroid Stim Hormone (TSH) Comments: Test performed at:[facility] [address] [place] [address] TSH 1.03 {uIU/mL} (Normal) Range: 0.358-3.74 :36 Thyroid Stim Hormone (TSH) Comments: Test performed at:[facility] [address] [place] [address] TSH 2.20 {uIU/mL} (Normal) Range: 0.358-3.74 :15 CBCD ALC 1.57 {X10_3/ul} (Normal) Range: 0.83-4.51 ANC 2.2 {X10_3/uL} (Normal) Range: 2.0-7.7 IG% 0.000 % (Normal) Range: 0.0-0.9 Comments: IG% - Immature Granulocytes (promyelocytes, myelocytes andmetamyelocytes) > 1% indicates that a LEFT SHIFT is Present. B% 0.9 % (Normal) Range: 0-1 E% 6.0 % (Abnormal) Range: 0-5 M% 12.0 % (Abnormal) Range: 0-10 L% 33.5 % (Normal) Range: 19-41 MPV 11.1 fL (Normal) Range: 6.2-12.0 N% 47.6 % (Normal) Range: 47-70 PLT 201 K/mm3 (Normal) Range: 150-450 RDWSD 44.2 fL (Abnormal) Range: 35.1-43.9 MCHC 35.0 {g/gl} (Normal) Range: 32-36 RDWCV 13.4 % (Normal) Range: 11.6-14.6 MCH 32.7 pg (Abnormal) Range: 27.0-32.0 MCV 93.5 fL (Normal) Range: 81-99 HCT 40.6 % (Normal) Range: 37-47 HGB 14.2 g/dL (Normal) Range: 12.0-15.0 RBC 4.34 {M/mm3} (Normal) Range: 4.2-5.4 WBC 4.7 K/mm3 (Normal) Range: 4.4-11.0 :15 CEA 1.3 ng/mL (Normal) Range: 0.0-4.7 Comments: Jackie ECLIA methodology Nonsmokers <3.9Smokers <5.6Performed at: [facility] [address] [id number] Director: Jaylen Schumacher PhD, Phone: [phone] :[phone] CMP GAP 8 (Normal) Range: 5-15 CO2 26.0 mmol/L (Normal) Range: 21.0-32.0 CL 106 mmol/L (Normal) Range: 98-107 K 4.1 mmol/L (Normal) Range: 3.5-5.1 NA 140 mmol/L (Normal) Range: 136-145 BIT 0.40 mg/dL (Normal) Range: 0.00-1.00 ALT 34 U/L (Normal) Range: 12-78 ALK 87 U/L (Normal) Range: 45-117 AST 23 U/L (Normal) Range: 15-37 CA 9.1 mg/dL (Normal) Range: 8.5-10.1 AG 0.9 {RATIO} (Normal) Range: 0.9-2.4 GLOB 3.8 g/dL (Normal) Range: 2.7-4.2 ALB 3.5 g/dL (Normal) Range: 3.4-5.0 TPROT 7.3 g/dL (Normal) Range: 6.4-8.2 BC 18.6 {RATIO} (Normal) Range: 10-20 CREAT 0.7 mg/dL (Normal) Range: 0.6-1.0 BUN 13 mg/dL (Normal) Range: 7-18 GLU 87 mg/dL (Normal) Range: 70-110 :15 TSH 1.63 {uIU/mL} (Normal) Range: 0.358-3.74 :07 CEA 1.2 ng/mL (Normal) Range: 0.0-4.7 Comments: Jackie ECLIA methodology Nonsmokers <3.9Smokers <5.6Performed at: [facility] [address] [id number] Director: Kate Raya MD, Phone: [phone] :[phone] CMP GAP 6 (Normal) Range: 5-15 CO2 29.0 mmol/L (Normal) Range: 21.0-32.0 CL 105 mmol/L (Normal) Range: 98-107 K 4.1 mmol/L (Normal) Range: 3.5-5.1 NA 140 mmol/L (Normal) Range: 136-145 BIT 0.40 mg/dL (Normal) Range: 0.00-1.00 ALT 32 U/L (Normal) Range: 12-78 ALK 91 U/L (Normal) Range: 45-117 AST 22 U/L (Normal) Range: 15-37 CA 9.6 mg/dL (Normal) Range: 8.5-10.1 AG 0.9 {RATIO} (Normal) Range: 0.9-2.4 GLOB 3.8 g/dL (Normal) Range: 2.7-4.2 ALB 3.6 g/dL (Normal) Range: 3.4-5.0 TPROT 7.4 g/dL (Normal) Range: 6.4-8.2 BC 17.1 {RATIO} (Normal) Range: 10-20 CREAT 0.7 mg/dL (Normal) Range: 0.6-1.0 BUN 12 mg/dL (Normal) Range: 7-18 GLU 93 mg/dL (Normal) Range: 70-110 :07 TSH 0.15 {uIU/mL} (Abnormal) Range: 0.358-3.74 5-Boe-193742:42 GALL (Normal) Comments: Patient: LENORA MORRELL I : 1935 (78/F)Acct Num: [id number] Phys: Ludwin Carrera MD Num: [id number] Loc: SDCSpecimen: [id number] Received: 03/18/14 - 1442Spec Type: KEELY LLBLADDECOPI DICK De MD,[address] [facility] [address], [place] [phone] MD,Kzjcth[address]ele[address] [facility], [place] [phone] ID Blk Pcs Davis Lev + Procedure ComGallbladder, NO 1-2PTH PROCEDURES COMPLETEPROCEDURES: SUIII (03/18/14-161)TISSUESTISSUES:GROSS DESCRIPTIONReceived is one container labeled with the patient name and designatedgallbladder - SSFP. The specime n consists of a gallbladder measuring 10 cm inlength and up to 5 cm in diameter. The external surface is pink-shwa, smooth andglistening for the most part. Focally it is granular, hemorrhagic and conta inscautery artifact. The gallbladder contains hemorrhagic mucoid bile and multiplefragments of brownish stone predominantly in the proximal portion and cysticduct measuring in aggregate 1.5 x 1 x 0.3 cm. The stone fragments measure 0.1to 0.2 cm in greatest dimension. The mucosa is congested and hemorrhagic. Thegallbladder wall measures up to 0.5 cm in thickness. Sandblast Operator sectionsfrom the g allbladder and the cystic duct are submitted in two cassettes. Thestones are saved for the patient. / MICHEAL:arash 03/18/14 TC:2CPT: [id number]: Lap cholecystectomyPRE-OPERATIVE DIAGNOSIS: Acute cho lecystitisTISSUE SUBMITTED: Gallbladder - PSSFPMICROSCOPIC DIAGNOSISGallbladder:Acute and chronic hemorrhagic and ulcerated cholecystitis andcholelithiasis.MICHEAL:arash 03/19/14Signed Mitchell Roldan 03/19/14<signature on file> 18-Mar-20140:00 CUDW Comments: Comments: C&S/GRAM STAIN/ANAEROBES PLEASE CUAN No growth in 5 days. (Normal) WC No growth aerobically. (Normal) GS See Note (Normal) Comments: Gram Stain3+ Red Blood Cells1+ White Blood CellsNo organisms seen 6-Rqc-363223:06 BMP CO2 27.0 mmol/L (Normal) Range: 21.0-32.0 GAP 7 (Normal) Range: 5-15 CL 100 mmol/L (Normal) Range: 98-107 K 4.0 mmol/L (Normal) Range: 3.5-5.1 NA 134 mmol/L (Abnormal) Range: 136-145 CA 10.1 mg/dL (Normal) Range: 8.5-10.1 BC 10.0 {RATIO} (Normal) Range: 10-20 CREAT 0.8 mg/dL (Normal) Range: 0.6-1.0 BUN 8 mg/dL (Normal) Range: 7-18 GLU 103 mg/dL (Normal) Range: 70-110 5-Fml-620682:06 CBCD ANC 8.2 {X10_3/uL} (Abnormal) Range: 2.0-7.7 IG% 0.100 % (Normal) Range: 0.0-0.9 Comments: IG% - Immature Granulocytes (promyelocytes, myelocytes andmetamyelocytes) > 1% indicates that a LEFT SHIFT is Present. B% 0.1 % (Normal) Range: 0-1 E% 0.2 % (Normal) Range: 0-5 L% 10.6 % (Abnormal) Range: 19-41 M% 10.4 % (Abnormal) Range: 0-10 N% 78.6 % (Abnormal) Range: 47-70 MPV 11.2 fL (Normal) Range: 6.2-12.0 PLT 277 K/mm3 (Normal) Range: 150-450 RDWCV 13.9 % (Normal) Range: 11.6-14.6 RDWSD 47.5 fL (Abnormal) Range: 35.1-43.9 MCHC 34.7 {g/gl} (Normal) Range: 32-36 MCH 32.5 pg (Abnormal) Range: 27.0-32.0 MCV 93.8 fL (Normal) Range: 81-99 HCT 43.8 % (Normal) Range: 37-47 HGB 15.2 g/dL (Abnormal) Range: 12.0-15.0 RBC 4.67 {M/mm3} (Normal) Range: 4.2-5.4 WBC 10.4 K/mm3 (Normal) Range: 4.4-11.0 :25 LIVER Comments: COPY TO ALSO BID 0.18 mg/dL (Normal) Range: 0.00-0.30 BIT 0.50 mg/dL (Normal) Range: 0.00-1.00 ALT 167 U/L (Abnormal) Range: 12-78 ALK 169 U/L (Abnormal) Range: 50-136 AST 47 U/L (Abnormal) Range: 15-37 ALB 3.7 g/dL (Normal) Range: 3.4-5.0 TPROT 7.8 g/dL (Normal) Range: 6.4-8.2 :02 Metabolic Panel, Comprehensive Comments: copy to Dr. carrera.; PATIENT NOT FASTINGPERFORMED BY: [facility] [id number] [facility] [id number] ([id number]) ALT (SGPT) 509 [iU]/L (Abnormal) Range: 0-32 AST (SGOT) 645 [iU]/L (Abnormal) Range: 0-40 Alkaline Phosphatase, S 213 [iU]/L (Abnormal) Range: 39-117 Bilirubin, Total 3.0 mg/dL (Abnormal) Range: 0.0-1.2 A/G Ratio 1.4 (Normal) Range: 1.1-2.5 Globulin, Total 3.1 g/dL (Normal) Range: 1.5-4.5 Albumin, Serum 4.3 g/dL (Normal) Range: 3.5-4.8 Protein, Total, Serum 7.4 g/dL (Normal) Range: 6.0-8.5 Calcium, Serum 10.1 mg/dL (Normal) Range: 8.6-10.2 Carbon Dioxide, Total 24 mmol/L (Normal) Range: 19-28 Chloride, Serum 100 mmol/L (Normal) Range: 97-108 Potassium, Serum 4.5 mmol/L (Normal) Range: 3.5-5.2 Sodium, Serum 137 mmol/L (Normal) Range: 134-144 BUN/Creatinine Ratio 9 (Abnormal) Range: 11-26 eGFR If Africn Am 83 mL/min/1.73 (Normal) eGFR If NonAfricn Am 72 mL/min/1.73 (Normal) Creatinine, Serum 0.80 mg/dL (Normal) Range: 0.57-1.00 BUN 7 mg/dL (Abnormal) Range: 8-27 Glucose, Serum 110 mg/dL (Abnormal) Range: 65-99 62-Dqo-374591:02 CBC, Platelets & Auto Comments: PATIENT NOT FASTINGPERFORMED BY: [facility] Yqzxrz6816 [place] [id number] Information: [id number] Diff ([id number]) Immature Grans (Abs) 0.0 {x10E3/uL} (Normal) Range: 0.0-0.1 Immature Granulocytes 0 % (Normal) Range: 0-2 Baso (Absolute) 0.0 {x10E3/uL} (Normal) Range: 0.0-0.2 Eos (Absolute) 0.2 {x10E3/uL} (Normal) Range: 0.0-0.4 Lymphs (Absolute) 0.9 {x10E3/uL} (Normal) Range: 0.7-3.1 Monocytes(Absolute) 0.8 {x10E3/uL} (Normal) Range: 0.1-0.9 Neutrophils (Absolute) 3.2 {x10E3/uL} (Normal) Range: 1.4-7.0 Basos 1 % (Normal) Range: 0-3 Eos 4 % (Normal) Range: 0-5 Monocytes 15 % (Abnormal) Range: 4-12 Lymphs 18 % (Normal) Range: 14-46 Neutrophils 62 % (Normal) Range: 40-74 Platelets 263 {x10E3/uL} (Normal) Range: 155-379 RDW 14.5 % (Normal) Range: 12.3-15.4 MCHC 34.3 g/dL (Normal) Range: 31.5-35.7 MCH 31.6 pg (Normal) Range: 26.6-33.0 MCV 92 fL (Normal) Range: 79-97 Hematocrit 42.6 % (Normal) Range: 34.0-46.6 Hemoglobin 14.6 g/dL (Normal) Range: 11.1-15.9 RBC 4.62 {x10E6/uL} (Normal) Range: 3.77-5.28 WBC 5.2 {x10E3/uL} (Normal) Range: 3.4-10.8 14-Gcp-288246:02 Lipase (36970) Comments: PATIENT NOT FASTINGPERFORMED BY: [facility] Adnqhd1641 [facility] [id number] Lipase, Serum 27 U/L (Normal) Range: 0-59 :02 Amylase (18175) Comments: PATIENT NOT FASTINGPERFORMED BY: [facility] SomersetWzedhi1041 [facility] [id number] Amylase, Serum 51 U/L (Normal) Range: 31-124 36-Fyg-646990:22 URINE PERRY CULTURE-EDWIN COL Comments: PATIENT NOT FASTINGPERFORMED BY: [facility] SomersetJlqkzj0901 [facility] [id number] Information: SRC:[id number] COUNT ([id number]) Result 1 MUG (Normal) Comments: Mixed urogenital flora25,000-50,000 colony forming units per mL Urine Final report (Normal) Culture,Comprehensive 07-Yce-88018:39 Urinalysis, Office (96196) UA - LEUKOCYTE ESTERASE Negative (Normal) UA - NITRITE Negative (Normal) URINE UROBILINGN EDWIN TIMED Normal mg/dL (Normal) UA - PROTEIN Negative mg/dL (Normal) UA - PH 5 (Abnormal) Comments: 5.5 UA - BLOOD Negative (Normal) UA - SPECIFIC GRAVITY 1.010 (Normal) UA - KETONES Negative mg/dL (Normal) UA - BILIRUBIN Negative (Normal) UA - GLUCOSE Negative (Normal) :21 LIVER BID 0.10 mg/dL (Normal) Range: 0.00-0.30 BIT 0.40 mg/dL (Normal) Range: 0.00-1.00 ALT 65 U/L (Normal) Range: 12-78 ALK 81 U/L (Normal) Range: 50-136 AST 41 U/L (Abnormal) Range: 15-37 ALB 3.5 g/dL (Normal) Range: 3.4-5.0 TPROT 7.4 g/dL (Normal) Range: 6.4-8.2 :13 CMP GAP 6 (Normal) Range: 5-15 CO2 29.0 mmol/L (Normal) Range: 21.0-32.0 CL 105 mmol/L (Normal) Range: 98-107 K 4.3 mmol/L (Normal) Range: 3.5-5.1 NA 140 mmol/L (Normal) Range: 136-145 BIT 0.30 mg/dL (Normal) Range: 0.00-1.00 ALT 71 U/L (Normal) Range: 12-78 ALK 94 U/L (Normal) Range: 50-136 AST 44 U/L (Abnormal) Range: 15-37 CA 8.8 mg/dL (Normal) Range: 8.5-10.1 AG 0.9 {RATIO} (Normal) Range: 0.9-2.4 GLOB 3.9 g/dL (Normal) Range: 2.7-4.2 ALB 3.6 g/dL (Normal) Range: 3.4-5.0 TPROT 7.5 g/dL (Normal) Range: 6.4-8.2 BC 11.3 {RATIO} (Normal) Range: 10-20 CREAT 0.8 mg/dL (Normal) Range: 0.6-1.0 BUN 9 mg/dL (Normal) Range: 7-18 GLU 89 mg/dL (Normal) Range: 70-110 :13 LIPID LDL 87 mg/dL (Normal) Range: 0-130 VLDL 20 mg/dL (Normal) Range: 5-40 HDL 54 mg/dL (Normal) Comments: Reference RangeHDL <40 mg/dL Low HDL CholesterolHDL >or= 60 mg/dL High HDL Cholesterol CHOL 161 mg/dL (Normal) Comments: <200 mg/dL Nldabgwxz713-741 mg/dL Borderline>240 mg/dL High Risk TRIG 101 mg/dL (Normal) Range: 0-199 Comments: Serum Triglycerides Reference IntervalNormal <150 mg/dLBorderline high 150 - 199 mg/dLHigh 200 - 499 mg/ dLVery High > or = 500 mg/dL :13 TSH 1.03 {uIU/mL} (Normal) Range: 0.358-3.74 38-Ozx-415309:45 BILAT SCRN DIGITAL & CAD Radiology Report See Note (Normal) Comments: MAMMOGRAPHY - BILATERAL SCREENING REASON FOR EXAM: Female, 77 years old. Routine annual screeningexamination. PERTINENT HISTORY: Non-contributory. TECHNIQUE: Digital examination. Med iolateral ob lique (MLO) andcraniocaudad (CC) views of both breasts were obtained. CAD: CAD wasperformed on this study. COMPARISON: Comparison is made with prior study dated November 02nd July 15, 2009. FINDINGS:The breast composition is composed of scattered fibroglandular densities. There are no dominant masses or suspicious calcifications. No other significant abnormalities are identified. There h as been nosignificant change since the prior study. IMPRESSION:Stable bilateral screening mammogram. Yearly follow-up recommended. (A) ASSESSMENT CATEGORY:BIRADS Category 2: Benign finding(s). A le tter regarding these resultswill be sent to the patient by the facility within 30 days. Approximately 10% of breast cancers are not detected by mammography. Anormal mammogram should not delay biopsy of a clinically suspiciousabnormality. Signed:Nolan Head M.D.January 08, 2013 at 12:26:36 PM [phone] Signed GP/GP If you are the referring physician and would like to consu lt with theradiologist who provided this interpretation, please contact Reny Abreu at [phone]. If this radiologist is unavailable, youwill be directed to another radiologist to assist. If you are a patient with a question regarding this report, pleasecontactyour referring physician directly. Professional Interpretation Provided By: [employer], Phone , T hese documents contain legally protected and confidential healthinformation intended only for the use of the individual or entity namedabove. If you are not the intended recipient, you are hereby notifi edthatany disclosure, copying, distribution, or other use of these documents isstrictly prohibited. If you have received this information in error,pleasenotify the sender immediately and arrange for the return or destructionofthese documents. Dictated on 01/08/13 1145 by Ana Head MDscribed on 01/08/13 1302 by ITS IMPORTSign by Nolan Head MD on 01/08/13 1304 Sign by: Sonido RODRIGUES,Nolan :32 CMP GAP 9 (Normal) Range: 5-15 CO2 26.0 mmol/L (Normal) Range: 21.0-32.0 CL 104 mmol/L (Normal) Range: 98-107 K 4.0 mmol/L (Normal) Range: 3.5-5.1 NA 139 mmol/L (Normal) Range: 136-145 BIT 0.40 mg/dL (Normal) Range: 0.00-1.00 ALT 50 U/L (Normal) Range: 12-78 ALK 75 U/L (Normal) Range: 50-136 AST 25 U/L (Normal) Range: 15-37 CA 9.4 mg/dL (Normal) Range: 8.5-10.1 AG 0.9 {RATIO} (Normal) Range: 0.9-2.4 GLOB 4.0 g/dL (Normal) Range: 2.7-4.2 ALB 3.6 g/dL (Normal) Range: 3.4-5.0 TPROT 7.6 g/dL (Normal) Range: 6.4-8.2 BC 15.0 {RATIO} (Normal) Range: 10-20 CREAT 0.8 mg/dL (Normal) Range: 0.6-1.0 BUN 12 mg/dL (Normal) Range: 7-18 GLU 90 mg/dL (Normal) Range: 70-110 :32 LIPID VLDL 19 mg/dL (Normal) Range: 5-40 LDL 109 mg/dL (Normal) Range: 0-130 HDL 58 mg/dL (Normal) Comments: Reference Range HDL <40 mg/dL Low HDL Cholesterol HDL >or= 60 mg/dL High HDL Cholesterol TRIG 97 mg/dL (Normal) Comments: Serum Triglycerides Reference Interval Normal <150 mg/dL Borderline high 150 - 199 mg/dL High 200 - 499 mg/dL Very High > or = 500 mg/dL CHOL 186 mg/dL (Normal) Comments: <200 mg/dL Desirable 200-240 mg/dL Borderline >240 mg/dL High Risk :32 TSH 3.14 {uIU/mL} (Normal) Range: 0.358-3.74 :22 METABOLIC PANEL, Comments: PATIENT WAS FASTINGPERFORMED BY: CB [facility] Jqwbdj6954 [facility] [id number] Information: [id number] [facility] (03990) ALT (SGPT) 39 [iU]/L (Normal) Range: 0-40 AST (SGOT) 34 [iU]/L (Normal) Range: 0-40 Alkaline Phosphatase, S 74 [iU]/L (Normal) Range: 25-165 Bilirubin, Total 0.3 mg/dL (Normal) Range: 0.0-1.2 A/G Ratio 1.4 (Normal) Range: 1.1-2.5 Globulin, Total 2.8 g/dL (Normal) Range: 1.5-4.5 Albumin, Serum 4.0 g/dL (Normal) Range: 3.5-4.8 Protein, Total, Serum 6.8 g/dL (Normal) Range: 6.0-8.5 Calcium, Serum 9.1 mg/dL (Normal) Range: 8.6-10.2 Carbon Dioxide, Total 22 mmol/L (Normal) Range: 20-32 Chloride, Serum 103 mmol/L (Normal) Range: 97-108 Potassium, Serum 4.2 mmol/L (Normal) Range: 3.5-5.2 Sodium, Serum 139 mmol/L (Normal) Range: 134-144 BUN/Creatinine Ratio 12 (Normal) Range: 11-26 eGFR If Africn Am 80 mL/min/1.73 (Normal) eGFR If NonAfricn Am 70 mL/min/1.73 (Normal) Creatinine, Serum 0.83 mg/dL (Normal) Range: 0.57-1.00 BUN 10 mg/dL (Normal) Range: 8-27 Glucose, Serum 93 mg/dL (Normal) Range: 65-99 52-Ism-75626:22 LIPID PANEL (50575) Comments: PATIENT WAS FASTINGPERFORMED BY: [facility]6370 [facility] [id number] LDL/HDL Ratio 1.6 {ratio_units} (Normal) Range: 0.0-3.2 LDL Cholesterol Calc 103 mg/dL (Abnormal) Range: 0-99 VLDL Cholesterol Sriram 18 mg/dL (Normal) Range: 5-40 HDL Cholesterol 63 mg/dL (Normal) Comments: According to ATP-III Guidelines, HDL-C >59 mg/dL is considered anegative risk factor for CHD. Triglycerides 91 mg/dL (Normal) Range: 0-149 Cholesterol, Total 184 mg/dL (Normal) Range: 100-199 53-Nbx-38698:22 TSH (97450) Comments: PATIENT WAS FASTINGPERFORMED BY: [facility] Edeyim2041 [facility] [id number] TSH 1.720 {uIU/mL} (Normal) Range: 0.450-4.500 69-Ffa-16130:00 CULT, DP WOUND Comments: LEFT ARM ABSCESS ANAEROBIC CULT See Note (Normal) Comments: No anaerobic bacteria isolated. WOUND CULTURE See Note (Normal) Comments: AMOUNT GROWTH RARE ORGANISM 1: STAPHYLOCOCCUS EPIDERMIDIS STAPHYLOCOCCUS EPIDERMIDIS: REACTION BENZYLPENICILLIN - >=0.5 R CEF AZOLIN * See Comment $ S* S CIPROFLOXACIN GP (IV/NF) $$ <=0.5 S CLINDAMYCIN $$ <=0.25 S INDUCIBLE CC RESISTANCE (NF)$ Neg - ERYTHROMYCIN $$ <=0.25 S GENTAMICIN GP $ <=0.5 S LEVOFLOXACIN $ <=0.12 S LINEZOLID $$$ 1 S OXACILLIN $$ <=0.25 S TIGECYCLINE (NF) $$$ <=0.12 S QUINUPRISTIN/DALFOPRI (NF) $$$ <=0.25 S RIFAMPIN $ <=0.5 S TETRACYCLINE $ <=1 S VANCOMYCIN $ 2 S GRAM STAIN See Note (Normal) Comments: GRAM STAIN RARE WHITE BLOOD CELLS RARE RED CELL STROMA 1+ GRAM POSITIVE COCCI 29-Bwa-073237:30 BILAT SCRN DIGITAL & CAD Radiology Report See Note (Normal) Comments: MAMMOGRAPHY - BILATERAL SCREENING REASON FOR EXAM: Female, 75 years old. Routine annual screeningexamination. PERTINENT HISTORY: Non-contributory. TECHNIQUE: Digital examination. Med iolateral ob lique (MLO) andcraniocaudad (CC) views of both breasts were obtained. CAD: CAD wasperformed on this study. COMPARISON: Comparison mammogram studies are 07/15/2009 and 04/23/2007 FINDINGS:The breast co mposition is almost entirely fatty replaced. There are no masses or suspicious microcalcifications.CAD images were reviewed.No other significant abnormalities are identified. IMPRESSION:Normal bilateral screening mammogram. One year follow-up recommended. (A) ASSESSMENT CATEGORY:BIRADS Category 1: Negative. A letter regarding these results will besent to the patient by the facility within 30 days. Approximately 10% of breast cancers are not detected by mammography. Anormal mammogram should not delay biopsy of a clinically suspiciousabnormality. To consult with a radiologist regarding this report , please call our [id number] line @ Dictated on 11/02/11 1414 by Beth Mirza DOnscribed on 11/04/111852 by ITS IMPORTSign by Marielos Mirza DO on 11/04/111853 Sign by: Marielos Mirza DO 56-Bls-011671:30 DEXA BONE DENSITY STUDY (HP) Radiology Report See Note (Normal) Comments: PROCEDURE: DUAL ENERGY X-RAY ABSORPTIOMETRY / DEXA. REASON FOR EXAM: Female, 75 years old. The patient is postmenopausal. TECHNIQUE: Bone Mineral Density (BMD) measurements of lumbar s pine andbila teral hips were obtained. COMPARISON: Comparison is made with prior study dated April 22, 1999. FINDINGS: Lumbar Spine (L1-L4): g/cm2 (1.319) / T-score (1.2) / Z-score (2.9)Left Femur Total: g/cm 2 (1.0 82) / T-score (0.3) / Z-score (2.2)Right Femur Total: g/cm2 (1.027) / T-score (-0.1) / Z-score (1.8) Since prior study, there is an improvement of 7.6% in the bone density . IMPRESSION:T he patient is considered normal, as outlined below according to WorldHealth Organization (WHO) criteria. Fracture risk is low. Reference Information:The T-score is the number of standard deviations abo ve or below thestandard which is normal for young adults at their peak bone mineraldensity. The World Health Organization (WHO) interprets the T-scores asfollows: Above -1 Normal bone densityB etween -1 and -2.5 OsteopeniaEqual to / or below -2.5 Osteoporosis As a practical clinical guideline, osteopenia may be graded as follows:Mild -1 through -1.5Moderate -1.6 through -2.0Severe -2.1 through -2.4 The Z-score is the number of standard deviations above or below age-matchedcontrols. A Z-score of less than -1.5 would be considered abnormal. References:1. NIH Osteoporosis and Related B one Diseases http://www.osteo.org2. International Society for Clinical Densitometry http://www.iscd.org3. National Osteoporosis Foundation http://www.nof.org To consult with a radiologist regarding th is report, please call our [id number] line @ Dictated on 11/02/11 1335 by Sonido RODRIGUES,Ignacioranscribed on 11/03/11 1500 by ITS IMPORTSign by Nolan Head MD on 11/03/11 150 1 Sign by: Nolan Head MD 10-Hei-69338:15 Pathology Report Comments: PERFORMED BY: [facility] [place] Sndo99061 [facility] [id number] Information: [id number] See MATER Comments: Material submitted: .LEFT FOREARMClinical history: .GROWING PIGMENTED LESION, ? SUPERFIICAL SPREADING MELANOMAAT Note (Normal) YPICAL SOLAR LENTIGODiagnosis:LEFT FOREARM:ACTINIC KERATOSIS. SOLAR LENTIGO.GXA/11/02/2011 Electronically signed: .Dagoberto Bravo MD, PathologistGross description: .SUBMITTED IN FO RMALIN LABELED LEFT FOREARM IS A FRAGMENT OF SHAW-YELLOW TISSUE THAT MEASURES 1.5 X .9 X .1 CM. THE MARGINS AREINKED BLACK. IT IS TRISECTED AND SUBMITTED IN TOTO.XJW/KAMPathologist provided ICD-9:702.0 , 709.09CPT .415510 74-Gcl-03749:19 LIVER Radiology Report See Note (Normal) Comments: PROCEDURE: ABDOMINAL ULTRASOUND REASON FOR EXAM: Female, 75 years old. The patient presents withelevated liver function tests. TECHNIQUE: Transabdominal TECHNICAL QUALITY: Adequate . COMPARISON : Comparison is made with prior examination dated June. FINDINGS: Liver: Normal size of the liver. The liver measures 15.5 cm. There isincreased echogenicity consistent with fatty infiltr ation. There is nodemonstrated mass lesion. Gallbladder: Normal distended gallbladder. The gallbladder wallmeasures2.4 mm. Once again, there is persistent lumen. No filling of thegallbladder with low-level echoes. This is suggestive of tumefactivesludge. There is also evidence of a collection of echoes with someposterior acoustical shadowing. Gallstones should be ruled out. Clinicalcorrelation is suggested. There is a negative sonographic Dillard's sign.There is no pericholecystic fluid. Common Bile Duct (C.B.D.): Normal size C.B.D. The common bile ductmeasures 4.0 mm. Pancreas: Normal s ize of the head, body and tail of the pancreas.Thereis normal echogenicity of the pancreas. There is no demonstratedpancreatic mass or cyst. Right Kidney: Normal size of the right kidney. The right k qkydncnbxtyyb08.7 cm. Normal renal cortex. There is no demonstrated renal mass orcyst. There are no demonstrated renal calculi. There is nohydronephrosis. There is no ascites. IMPRESSION:Findings are suggestive of tumefactive sludge within the gallbladderlumen,with possible gallstones. Clinical correlation is suggested. Dictated on 07/26/11 8447 by Sonido RODRIGUES,GabrieleTranscribed on 1 1033 by ITS IMPORTSign by Nolan Head MD on 07/26/11 1033 Sign by: Nolan Head MD :22 Lipid Panel (14108) Comments: PATIENT WAS FASTINGPERFORMED BY: [facility]6370 [facility] [id number] LDL/HDL Ratio 1.7 {ratio_units} (Normal) Range: 0.0-3.2 LDL Cholesterol Calc 117 mg/dL (Abnormal) Range: 0-99 VLDL Cholesterol Sriram 16 mg/dL (Normal) Range: 5-40 HDL Cholesterol 69 mg/dL (Normal) Comments: According to ATP-III Guidelines, HDL-C >59 mg/dL is considered anegative risk factor for CHD. Triglycerides 81 mg/dL (Normal) Range: 0-149 Cholesterol, Total 202 mg/dL (Abnormal) Range: 100-199 :22 TSH (93185) Comments: PATIENT WAS FASTINGPERFORMED BY: [facility] SomersetNexxbb0763 [facility] [id number] TSH 3.800 {uIU/mL} (Normal) Range: 0.450-4.500 :22 Metabolic Panel, Comments: PATIENT WAS FASTINGPERFORMED BY: [facility] SomersetNcklce9760 [facility] [id number] Information: [id number] Comprehensive (30240) ALT (SGPT) 42 [iU]/L (Abnormal) Range: 0-40 AST (SGOT) 29 [iU]/L (Normal) Range: 0-40 Alkaline Phosphatase, S 73 [iU]/L (Normal) Range: 25-165 Bilirubin, Total 0.6 mg/dL (Normal) Range: 0.0-1.2 A/G Ratio 1.5 (Normal) Range: 1.1-2.5 Globulin, Total 2.9 g/dL (Normal) Range: 1.5-4.5 Albumin, Serum 4.4 g/dL (Normal) Range: 3.5-4.8 Protein, Total, Serum 7.3 g/dL (Normal) Range: 6.0-8.5 Calcium, Serum 9.6 mg/dL (Normal) Range: 8.6-10.2 Carbon Dioxide, Total 26 mmol/L (Normal) Range: 20-32 Chloride, Serum 102 mmol/L (Normal) Range: 97-108 Potassium, Serum 4.2 mmol/L (Normal) Range: 3.5-5.2 Sodium, Serum 139 mmol/L (Normal) Range: 135-145 BUN/Creatinine Ratio 20 (Normal) Range: 11-26 eGFR If Africn Am 82 mL/min/1.73 (Normal) Comments: Note: A persistent eGFR <60 mL/min/1.73 m2 (3 months or more) mayindicate chronic kidney disease. An eGFR >59 mL/min/1.73 m2 with anelevated urine protein also may indicate chronic kidney disease.Calculated using CKD-EPI formula. eGFR If NonAfricn Am 71 mL/min/1.73 (Normal) Creatinine, Serum 0.82 mg/dL (Normal) Range: 0.57-1.00 BUN 16 mg/dL (Normal) Range: 8-27 Glucose, Serum 85 mg/dL (Normal) Range: 65-99 :04 HEPATIC FUNCTION PANEL Comments: PATIENT NOT FASTINGPERFORMED BY: [facility] [id number] Information: [id number] (53713) ALT (SGPT) 49 [iU]/L (Abnormal) Range: 0-40 AST (SGOT) 31 [iU]/L (Normal) Range: 0-40 Alkaline Phosphatase, S 73 [iU]/L (Normal) Range: 25-165 Bilirubin, Direct 0.12 mg/dL (Normal) Range: 0.00-0.40 Bilirubin, Total 0.5 mg/dL (Normal) Range: 0.0-1.2 Albumin, Serum 4.3 g/dL (Normal) Range: 3.5-4.8 Protein, Total, Serum 7.2 g/dL (Normal) Range: 6.0-8.5 :34 Lipid Panel (16250) Comments: PATIENT WAS FASTINGPERFORMED BY: [facility] [id number] LDL Cholesterol Calc 101 mg/dL (Abnormal) Range: 0-99 LDL/HDL Ratio 1.8 {ratio_units} (Normal) Range: 0.0-3.2 VLDL Cholesterol Sriram 23 mg/dL (Normal) Range: 5-40 HDL Cholesterol 57 mg/dL (Normal) Comments: According to ATP-III Guidelines, HDL-C >59 mg/dL is considered anegative risk factor for CHD. Triglycerides 114 mg/dL (Normal) Range: 0-149 Cholesterol, Total 181 mg/dL (Normal) Range: 100-199 19-May-20118:34 Metabolic Panel, Comments: PATIENT WAS FASTINGPERFORMED BY: [facility] SomersetGahniq3599 [facility] [id number] Information: [id number] Comprehensive (50143) Alkaline Phosphatase, S 79 [iU]/L (Normal) Range: 25-165 ALT (SGPT) 47 [iU]/L (Abnormal) Range: 0-40 AST (SGOT) 34 [iU]/L (Normal) Range: 0-40 Bilirubin, Total 0.2 mg/dL (Normal) Range: 0.0-1.2 A/G Ratio 1.4 (Normal) Range: 1.1-2.5 Albumin, Serum 4.2 g/dL (Normal) Range: 3.5-4.8 Calcium, Serum 9.3 mg/dL (Normal) Range: 8.6-10.2 Globulin, Total 3.0 g/dL (Normal) Range: 1.5-4.5 Protein, Total, Serum 7.2 g/dL (Normal) Range: 6.0-8.5 BUN/Creatinine Ratio 19 (Normal) Range: 11-26 Carbon Dioxide, Total 24 mmol/L (Normal) Range: 20-32 Chloride, Serum 103 mmol/L (Normal) Range: 97-108 Potassium, Serum 4.6 mmol/L (Normal) Range: 3.5-5.2 Sodium, Serum 137 mmol/L (Normal) Range: 135-145 eGFR If Africn Am 80 mL/min/1.73 (Normal) Comments: Note: A persistent eGFR <60 mL/min/1.73 m2 (3 months or more) mayindicate chronic kidney disease. An eGFR >59 mL/min/1.73 m2 with anelevated urine protein also may indicate chronic kidney disease.Calculated using CKD-EPI formula. eGFR If NonAfricn Am 69 mL/min/1.73 (Normal) BUN 16 mg/dL (Normal) Range: 8-27 Creatinine, Serum 0.84 mg/dL (Normal) Range: 0.57-1.00 Glucose, Serum 94 mg/dL (Normal) Range: 65-99 :34 TSH (10235) Comments: PATIENT WAS FASTINGPERFORMED BY: [facility] SomersetRkjhea8769 [facility] [id number] TSH 2.900 {uIU/mL} (Normal) Range: 0.450-4.500 :39 TSH 2.49 {uIU/mL} (Normal) Range: 0.358-3.74 22-Bbl-488152:50 KIDNEY (HP) Radiology Report See Note (Normal) Comments: Exam Number: [id number] CLINICAL:73 year old woman with right upper quadrant pain. RENAL ULTRASOUND COMPARISON:None. FINDINGS:The right kidney is normal in size, measuring 10.4 cm. There are no cortical masses or cysts. There is no cortical atrophy. There is no hydronephrosis. An echogenic structure in the right kidney lower pole has some evidence of shadowing and an 8mm renal stone cannot be exclu ded. The left kidney is normal in size, measuring 9.9 cm. There are no cortical masses or cysts. There is no cortical atrophy. There is no hydronephrosis. There are no renal calculi. There are no per inephric collections. There is no retroperitoneal lymphadenopathy. IMPRESSION:An 8mm renal stone in the right kidney lower pole cannot be excluded. No hydronephrosis. Reported By: LUISA ARTEAGA M.D. :11 L/S SPINE,MIN 4 VIEWS (MT) Radiology Report See Note (Normal) Comments: Exam Number: [id number] CLINICAL:Low back pain X-RAY EXAMINATION: LUMBAR SPINE TECHNIQUE:of the lumbar spine were obtained. COMPARISON:None. FINDINGS:There are 6 non-rib bearing vertebral rosy dies. Trans itional T12 vertebral body. There is a normal lumbar lordosis. There is no substantial scoliosis. There is no compression deformity, fracture or osseous destructive process. L1-2, L2-3, L3-4, L4-5, and L5-S1: Mild degenerative disk disease L4-5 and L5-S1. Mild facet arthrosis L4 and L5. Normal alignment of the lumbar vertebrae, without a spondylolisthesis. Normal bilateral sacroiliac joints without a rticular narrowing, sclerosis, erosions or osseous abnormality. Normal visualized soft tissue. IMPRESSION:Mild degenerative disk disease L4-5 and L5-S1. Mild spondylosis. Normal alignment. No compression fractures. Reported By: WILLIAM MELO M.D. :34 BILAT [facility] DIGITAL & CAD Radiology Report See Note (Normal) Comments: Exam Number: [id number] MAMMOGRAM, BILATERAL SCREENING DIGITAL AND CAD HISTORYRoutine screening. Full field digital images were obtained in mediolateral oblique andcraniocaudal projections. CAD images w ere reviewed. The current study is compared to the examinations of October, and April 23, 2007. There is a mild extent of fibroglandularparenchyma present. There is no skin thickening or retra ction,architectural distortion, or cluster of suspiciousmicrocalcifications. If there is no suspicious palpable abnormality,followup mammogram in 1 year is recommended. IMPRESSIONThere is no radiograph ic evidence of malignancy identified. FINAL ASSESSMENTNegative. BIRADS Category 1. A letter regarding these results has been sent to the patient. This interpretation was rendered by a radiologist cert ified under theMammography Quality Standards Act of 1992 (MQSA). The mammograms werealso examined with computer-aided detection software ([employer], [employer] Reported By: ILA POZO M.D. :34 CBCD,SMEAR DIFF CELLS COUNTED 100 (Normal) EOS 2 % (Normal) Range: 0-5 HCT 39.7 % (Normal) Range: 37-47 HGB 13.7 g/dL (Normal) Range: 12.0-16.0 LYMPH 35 % (Normal) Range: 19-41 MCH 32.9 pg (Abnormal) Range: 27.0-32.0 MCHC 34.6 g/dL (Normal) Range: 32-36 MCV 95.0 fL (Normal) Range: 81-99 MONOCYTE 15 % (Abnormal) Range: 0-10 PLT 213 K/mm3 (Normal) Range: 150-450 PLT EST SeeNote (Normal) Comments: Result: ADEQUATE RBC 4.17 {M/mm3} (Abnormal) Range: 4.2-5.4 RDW 13.1 % (Normal) Range: 11.6-14.6 RED CELL MORPH SeeNote {NORMAL} (Normal) Comments: Result: NORM C+C SEGS 48 % (Normal) Range: 47-70 WBC 5.6 K/mm3 (Normal) Range: 4.4-11.0 :34 COMP METABOLIC A/G 0.8 {RATIO} (Abnormal) Range: 0.9-2.4 ALB 3.6 g/dL (Normal) Range: 3.4-5.0 ALK P 66 U/L (Normal) Range: 50-136 ALT 63 U/L (Normal) Range: 30-65 AST 29 U/L (Normal) Range: 15-37 BUN 11 mg/dL (Normal) Range: 7-18 BUN/CRE 12.2 {RATIO} (Normal) Range: 10-20 CA 8.9 mg/dL (Normal) Range: 8.5-10.1 CL 106 mmol/L (Normal) Range: 98-107 CO2 25.0 mmol/L (Normal) Range: 21.0-32.0 CREAT,SERUM 0.9 mg/dL (Normal) Range: 0.6-1.0 GAP 8 (Normal) Range: 5-15 GLOB 4.3 g/dL (Abnormal) Range: 2.7-4.2 GLU 93 mg/dL (Normal) Range: 70-110 K 4.1 mmol/L (Normal) Range: 3.5-5.1 NA 139 mmol/L (Normal) Range: 136-145 T BILI 0.50 mg/dL (Normal) Range: 0.00-1.00 T PROT 7.9 g/dL (Normal) Range: 6.4-8.2 :34 LIPID CHOL 170 mg/dL (Normal) Comments: <200 mg/dL Desirable 200-240 mg/dL Borderline >240 mg/dL High Risk HDL 49 mg/dL (Normal) Comments: Reference Range HDL <40 mg/dL Low HDL Cholesterol HDL >or= 60 mg/dL High HDL Cholesterol LDL 94 mg/dL (Normal) Range: 0-130 TRIG 133 mg/dL (Normal) Comments: Serum Triglycerides Reference Interval Normal <150 mg/dL Borderline high 150 - 199 mg/dL High 200 - 499 mg/dL Very High > or = 500 mg/dL VLDL 27 mg/dL (Normal) Range: 5-40 :34 TSH 3.16 {uIU/mL} (Normal) Range: 0.358-3.74 85-Jar-324190:58 TRANSVAGINAL NON-PREG US () Radiology Report See Note (Normal) Comments: Exam Number: [id number] TRANSABDOMINAL AND TRANSVAGINAL PELVIC ULTRASOUND STATEMENTOvarian cyst. COMPARISONPrior ultrasound dated July 11, [address] November. Transabd ominal and t ransvaginal pelvic ultrasound was performed. Theuterus is surgically absent. Shown only on the transabdominal imagesis an atrophic left ovary measuring 2 x 1 x 1.5 cm. In the region ofthe right adnex a is a simple fluid collection measuring3.6 x 1.9 x 2.1 cm. This appears to have a surrounding rim of softtissue and likely represents a serous inclusion cyst arising from theright ovary. This is unch anged compared to the prior pelvic CT. IMPRESSION1. Presumed serous inclusion cyst referrable to the right ovarymeasuring approximately 3 cm in greatest diameter. This is notsignificantly changed when compared to the prior pelvic CT of 2007. 2. Status post hysterectomy. 3. Atrophic left ovary. 4. Adnexal or serous inclusion cyst less than 5 cm can be followedwith serial pelvic ultrasoun ds to ensure stability. Suggest afollowup pelvic ultrasound in 6 months. Reported By: OBED CLINE M.D. [id number]-Uag-[id number] PELVIC (NON-PREG) () Radiology Report See Note (Normal) Comments: Exam Number: [id number] TRANSABDOMINAL AND TRANSVAGINAL PELVIC ULTRASOUND STATEMENTOvarian cyst. COMPARISONPrior ultrasound dated July 11, [address] November[address] Transabd ominal and t ransvaginal pelvic ultrasound was performed. Theuterus is surgically absent. Shown only on the transabdominal imagesis an atrophic left ovary measuring 2 x 1 x 1.5 cm. In the region ofthe right adnex a is a simple fluid collection measuring3.6 x 1.9 x 2.1 cm. This appears to have a surrounding rim of softtissue and likely represents a serous inclusion cyst arising from theright ovary. This is unch anged compared to the prior pelvic CT. IMPRESSION1. Presumed serous inclusion cyst referrable to the right ovarymeasuring approximately 3 cm in greatest diameter. This is notsignificantly changed when compared to the prior pelvic CT of 2007. 2. Status post hysterectomy. 3. Atrophic left ovary. 4. Adnexal or serous inclusion cyst less than 5 cm can be followedwith serial pelvic ultrasoun ds to ensure stability. Suggest afollowup pelvic ultrasound in 6 months. Reported By: OBED CLINE M.D. :50 TSH 4.18 {uIU/mL} (Normal) Range: 0.34-4.82 :37 ABDOMEN LIMITED US () Radiology Report See Note (Normal) Comments: Exam Number: [id number] RIGHT UPPER QUADRANT ULTRASOUND REASON FOR EXAMINATIONFollowup abnormal ultrasound. Liver is normal in size. It is heterogeneous in echotextureindicative of heteroge neous fatty infiltration. Please correlate withliver enzymes. Gallbladder is adequately distended. There isredemonstratation of soft tissue filling the gallbladder lumen. Persistent luminal filling of the gallbl adder with sludge isconsidered abnormal. Recommend correlation with HIDA scan to assessfor gallbladder dysfunction. There are no shadowing stonesidentified. There is no intra or extrahepatic ductal d ilatation. Thecommon bile duct measures 6.1 mm. There is no ascites in the rightupper quadrant. There is limited assessment of the pancreas. Pancreatic head,uncinate process, neck and adjacent body d emonstrate normal size andechogenicity. Pancreatic tail and adjacent body are obscured byoverlapping bowel. IMPRESSION1. Heterogeneous echotexture of the liver indicating fattyinfiltration. Please co rrelate with liver enzymes. Hypoechogenicitypreviously demonstrated is not reproduced on the current study. Thismay represent a focal region of fatty sparring.2. Gallbladder lumen filled with soft ti ssue similar to previousstudies indicating sludge. The persistence is abnormal. Recommendcorrelation with HIDA scan and ejection fraction to assess forgallbladder dysfunction.3. Negative for right up per quadrant ascites. Reported By: DANIELA GRAY M.D. 91-Eqj-28938:37 TRANSVAGINAL NON-PREG US ([facility]) Radiology Report See Note (Normal) Comments: Exam Number: [id number] TRANSVAGINAL PELVIC ULTRASOUND REASON FOR EXAMOvarian cyst. COMPARISON Made to previous pelvic ultrasound of November 01, 2006, and CT ofJan2007. Endovaginal ultrasound is performed. The uterus is not identifiedconsistent with prior surgical resection. Neither ovaries areidentified on the current study. There are multiple loops ofperistaltic bowel in the pelvis. P reviously described right adnexalcyst is not demonstrated on the current study. No free fluid isdemonstrated. IMPRESSIONNonvisualization of previously described right adnexal cyst and leftovary. Uteru s absent consistent with prior surgical resection. There are multiple peristaltic loops of bowel in the pelvispotentially obscuring the previously described adnexal structures. Reported By: DANIELA GRAY M.D. 63-Qjd-[id number]:54 MAMM, BILAT SCRN DIGITAL & CAD Radiology Report See Note (Normal) Comments: Exam Number: [id number] MAMMOGRAPHY, BILATERAL SCREENING DIGITAL AND CAD HISTORYRoutine screening. TECHNIQUEFull field digital images were obtained in mediolateral oblique,craniocaudal, and c leavage proj ections. CAD images were reviewed. COMPARISONThe current study is compared to the examinations of December of 2002and January of 2005. FINDINGSThere is a mild to moderate extent of fibroglandular parenc hymapresent. There is no skin thickening or retraction, architecturaldistortion, or cluster of suspicious microcalcifications. There arevery small densities in the outer half of both breasts. These a redifficult to identify on previous studies, but I believe they werepresent and most likely represents small lymph nodes. If there is nosuspicious palpable abnormality, followup mammogram in 1 year isr ecommended. IMPRESSIONThere is no radiographic evidence of malignancy identified. FINAL ASSESSMENTBenign findings. BIRADS Category 2. A letter regarding these results has been sent to the patient. This interpretation was rendered by a radiologist certified under theMammography Quality Standards Act of 1992 (MQSA). The mammograms werealso examined with computer-aided detection software ([employer] Reported By: ILA POZO M.D. 4-Eyz-[id number] PT/INR, Office ([id number]) INR 3.6 (Normal) PT (PROTHROMBIN TIME) 22.8 s (Abnormal) Range: 11.5-13.5 Plan of Care Name Dates Details Instructions Non-smoker : Eprescribed prescriptions (G8553) Indication: Non-smoker Verrucous keratosis : Shave Biopsy with Epi Indication: Verrucous keratosis Actinic keratosis : Cryotherapy Indication: Actinic keratosis Verrucous keratosis : Cryotherapy Indication: Verrucous keratosis Verrucous keratosis : Cryotherapy Indication: Verrucous keratosis Actinic keratosis : Cryotherapy Indication: Actinic keratosis Encounter for routine adult medical exam with abnormal findings : Eprescribed prescriptions (G8553) Indication: Encounter for routine adult medical exam with abnormal findings Screening mammogram, encounter for : Mammogram *: gynecological health Indication: Screening mammogram, encounter for BMI 39.0-39.9,adult : Obesity *: cardiovascular health Indication: BMI 39.0-39.9,adult BMI 39.0-39.9,adult : Obesity *: exercise Indication: BMI 39.0-39.9,adult Hypothyroidism : Hypothyroidism: Brief Version *: thyroid Indication: Hypothyroidism Hypothyroidism : Eprescribed prescriptions (G8553) Indication: Hypothyroidism Abdominal pain, acute, right upper quadrant : Follow up if no improvement or if symptoms worsen Indication: Abdominal pain, acute, right upper quadrant Abdominal pain, acute, right upper quadrant : Reviewed Lab Indication: Abdominal pain, acute, right upper quadrant Urinary frequency : follow up for recheck urine 1 week after complete antibiotic Indication: Urinary frequency Urinary frequency : *UTI treatment Indication: Urinary frequency Urinary frequency : Water in diet, brief version Indication: Urinary frequency Hypothyroidism : Hypothyroidism: Brief Version *: hypothyroidism Indication: Hypothyroidism Encounter for immunization : Shingles Vaccine Education 2005 Indication: Encounter for immunization Actinic keratosis : Cryotherapy Indication: Actinic keratosis Hypothyroidism : Hypothyroidism: Brief Version *: hormones Indication: Hypothyroidism Cellulitis and abscess of other specified site : Follow up in 1 week Indication: Cellulitis and abscess of other specified site Neoplasm of uncertain behavior of skin : Shave Biopsy with Epi Indication: Neoplasm of uncertain behavior of skin Bronchitis : *URI Treatment Indication: Bronchitis Bronchitis : Antibiotic Usage Education - Female Indication: Bronchitis Bronchitis : URI Symptoms Indication: Bronchitis Hypothyroidism : FOLLOW UP IN 6 MONTHS Indication: Hypothyroidism Well woman exam : Shingles Vaccine Education 2005 Indication: Well woman exam Acute sinusitis, unspecified : Antibiotic Usage Education - Female Indication: Acute sinusitis, unspecified Acute sinusitis, unspecified : URI Symptoms Indication: Acute sinusitis, unspecified Acute sinusitis, unspecified : URI treament Indication: Acute sinusitis, unspecified Planned Observations TSH ([id number])Indication: Hypothyroidism On: :34 Request LIPOPROTEIN, BLD, BY NMR ([id number])Indication: Hypercholesteremia (Renamed from Hypercholesterolemia) On: :34 Request METABOLIC PANEL, COMPREHENSIVE ([id number])Indication: Hypercholesteremia (Renamed from Hypercholesterolemia) On: :34 Request URINALYSIS ([id number])Indication: Hypothyroidism On: : Request CBC WITH MANUAL DIFF ([id number])Indication: Hypothyroidism On: : Request Metabolic Panel, Comprehensive ([id number])Indication: Hypothyroidism On: :28 Request METABOLIC PANEL, COMPREHENSIVE ([id number])Indication: Right lower quadrant pain On: :55 Request CBC with auto diff ([id number])Indication: Right lower quadrant pain On: :55 Request CARCINOEMBRYONIC ANTIGEN (CEA) ([id number])Indication: History of colon cancer On: :55 Request TSH ([id number])Indication: BMI 40.0-44.9, adult On: :58 Request LIPOPROTEIN, BLD, BY NMR ([id number])Indication: Hypercholesteremia (Renamed from Hypercholesterolemia) On: :58 Request HEPATIC FUNCTION PANEL ([id number])Indication: Hypercholesteremia (Renamed from Hypercholesterolemia) On: :58 Request CARCINOEMBRYONIC ANTIGEN (CEA) ([id number])Indication: History of colon cancer On: :28 Request METABOLIC PANEL, COMPREHENSIVE ([id number])Indication: Hypothyroidism On: : Request CBC with auto diff ([id number])Indication: History of colon cancer On: :28 Request TSH ([id number])Indication: Hypothyroidism On: :28 Request LIPID PANEL ([id number])Indication: Hypothyroidism On: :14 Request CARCINOEMBRYONIC ANTIGEN (CEA) ([id number])Indication: History of colon cancer On: :13 Request METABOLIC PANEL, COMPREHENSIVE ([id number])Indication: History of colon cancer On: :13 Request CBC with auto diff (13950)Indication: History of colon cancer On: :13 Request TSH ([id number])Indication: Hypothyroidism On: :13 Request CBC WITH MANUAL DIFF ([id number])Indication: Hypothyroidism On: :23 Request Metabolic Panel, Comprehensive ([id number])Indication: Hypothyroidism On: :22 Request TSH ([id number])Indication: Hypothyroidism On: :22 Request TSH ([id number])Indication: Hypothyroidism On: :38 Request CARCINOEMBRYONIC ANTIGEN (CEA) (22382)Indication: History of colon cancer On: 1-Edh-853444:11 Request CBC WITH MANUAL DIFF ([id number])Indication: History of colon cancer On: 1-Vvh-780851:09 Request METABOLIC PANEL, COMPREHENSIVE ([id number])Indication: History of colon cancer On: 5-Waj-225463:09 Request TSH ([id number])Indication: Hypothyroidism On: 9-Jap-568366:09 Request Comments: 8 weeks. HEPATIC FUNCTION PANEL (37333)Indication: Elevated LFTs On: :38 Request CARCINOEMBRYONIC ANTIGEN (CEA) ([id number])Indication: History of colon cancer On: 1-Ijq-954823:23 Request TSH ([id number])Indication: Hypothyroidism On: :18 Request METABOLIC PANEL, COMPREHENSIVE ([id number])Indication: Elevated LFTs On: :18 Request HEPATIC FUNCTION PANEL ([id number])Indication: Elevated LFTs On: 45-Bff-814743:50 Request LIPID PANEL ([id number])Indication: Elevated LFTs On: :34 Request METABOLIC PANEL, COMPREHENSIVE ([id number])Indication: Elevated LFTs On: 4-Ilb-912381:34 Request TSH ([id number])Indication: Hypothyroidism On: 7-Yao-973578:34 Request TSH ([id number])Indication: Hypothyroidism On: 22-Icl-91577:48 Request CBC (Auto) ([id number])Indication: Elevated LFTs On: 62-Iow-03406:48 Request METABOLIC PANEL, COMPREHENSIVE ([id number])Indication: Elevated LFTs On: :25 Request LIPID PANEL ([id number])Indication: Elevated LFTs On: :25 Request TSH ([id number])Indication: Hypothyroidism On: 94-Coa-433837:25 Request CBC (Auto) ([id number])Indication: Colon cancer On: 34-Onf-254753:09 Request Metabolic Panel, Comprehensive ([id number])Indication: Colon cancer On: 45-Nnn-096281:09 Request TSH ([id number])Indication: Hypothyroidism On: 95-Chf-718526:05 Request LIPID PANEL ([id number])Indication: Obesity On: 45-Rsz-757346:05 Request Urinalysis, Office (63900)Indication: Low back pain On: 97-Jmj-48502:17 Request TSH ([id number])Indication: Hypothyroidism On: 99-Ydd-34647:10 Request TSH (62147)Indication: Hypothyroidism On: 03-Hpq-41308:27 Request Metabolic Panel, Comprehensive ([id number])Indication: Elevated LFTs On: 97-Cgg-77649:10 Request TSH ([id number])Indication: Hypothyroidism On: 23-Jnc-68321:09 Request TSH ([id number])Indication: Hypothyroidism On: 34-Ngq-160892:57 Request CREATINE KINASE TOTAL ([id number])Indication: Myalgia and myositis On: 21-Dec-20069:35 Request C-REACTIVE PROTEIN ([id number])Indication: Myalgia and myositis On: 21-Dec-20069:33 Request SED RATE ERYTHROCYTE ([id number])Indication: Myalgia and myositis On: :33 Request LIPID PANEL ([id number])Indication: Obesity On: :23 Request HEPATIC FUNCTION PANEL ([id number])Indication: Elevated LFTs On: 21-Dec-20069:23 Request Planned Encounters Medical; RAMIREZP 4 Month Fu - On: 07-Jan-2019 10:15 [facility] Emily Pugh MD, MD, Dana M Planned Procedures Flu Vaccine (Quadrivalent) On: 31-Aug-2018 Intent 75429Ga: AIMEE Sheikh Comments: Lot #:[id number] date: 4-34-17Gesjfe given:0.5mlRoute: IMSite given:L DltdGiven by: DBVIS and ABN signed [employer] SCREENING DIGITAL TOMOSYNTHESIS On: 26-Mar-2018 Intent OF BREAST (23714)By: Emily Pugh MD, MD, Dana M DEXA SCAN AXIAL SKELETON On: 26-Mar-2018 Intent (21659)By: Emily Pugh MD, MD, Dana M CT - Abdomen & Pelvis (IV On: 12-Feb-2018 Intent Contrast Needed)By: Emily Pugh MD, MD, Dana M TD VACCINE ADULT ([id number])By: On: 22-Sep-2017 Intent Visit, Nurse Comments: boostrixlot [id number] 10.9.18L Dltd, IMPrefilled syringeMegan ROB Loyd signed Flu Vaccine (Quadrivalent) On: 31-Aug-2017 Intent 17772Lr: Visit, Nurse Comments: Lot #[id number]/30/18ite-L dltd, IMDose prefilled syringegiven by:ROB Sarkar and LUPILLO signed Flu Vaccine (Quadrivalent) On: 10-Oct-2016 Intent 92332Cw: Emily Pugh MD Comments: Lot:[id number]:05/12/17Dose:0.5mLRoute:IMSite:L DltdGiven By:TONEY signed Emily Pugh MD Bone Density StudyBy: Lexy RODRIGUES, On: 22-Jul-2016 Intent Emily Moran MD BILATERAL MAMMOGRAMS ([id number])By: On: 22-Jul-2016 Intent Emily Pugh MD, MD, Dana M MAMMOGRAM, SCREENING, BOTH BREAST On: 28-May-2015 Intent (15793)By: Emily Pugh MD, MD, Dana M Prevnar 13 (14747)By: Lexy On: 27-Nov-2014 Intent Emily RODRIGUES MD, Emily Hope MAMMOGRAM, SCREENING, BOTH BREAST On: 20-May-2014 Intent (00307)By: Emily Pugh MD, MD, Dana M DEXA SCAN AXIAL SKELETON On: 20-May-2014 Intent (95494)By: Emily Pugh MD Comments: postmenapausal Emily Pugh MD Ultrasound - GallbladderBy: On: 04-Mar-2014 Intent Lexy RODRIGUES, Emily Pugh MD, Emily Hope Eprescribed prescriptions On: 10-Jan-2014 Intent (G8553)By: Emily Pugh MD, MD, Dana M SPECIMEN HANDLING/TRANSPORT On: 01-Jan-2014 Intent ([id number])By: Lori Ortiz CNP MAMMOGRAM, SCREENING, BOTH On: 18-Nov-2013 Intent BREASTS (12083)By: Lexy RODRIGUES, Comments: end of 12-27 Emily Moran MD Eprescribed prescriptions On: 18-Nov-2013 Intent (G8553)By: Kiley Gallegos [place] ([id number])By: Paul, On: 01-Jan-2013 Intent Belle Comments: Lot:[id number]:0.65mLRoute:SubQSite:l armGiven By:TONEY signed IMMUNIZ ADMNIN, 1 VAC, SNGL/COMBO On: 01-Jan-2013 Intent (50692)By: Belle Miller ADMINISTRATION OF PNEUMOCOCCAL On: 27-Dec-2012 Intent VACCINE (G0009)By: Emily Pugh MD, MD, Dana M PNEUM VAC ADLT/IMUMNOSPR, On: 27-Dec-2012 Intent SBC/INTRM (28013)By: Emily Pugh MD, MD, Dana M MAMMOGRAM, SCREENING, BOTH On: 27-Dec-2012 Intent BREASTS (23812)By: Emily Pugh MD, MD, Dana M FLU VAC, SPLIT, >3 YEARS, On: 24-Jul-2012 Intent INTRAMUSC (07887)By: Paul, Comments: Lot:[id number]:6.30.13Dose:prefilledRoute:IMSite:L DltdGiven By:TONEY Odonnell ADMINISTRATION OF INFLUENZA VIRUS On: 24-Jul-2012 Intent VACCINE (G0008)By: Belle Miller DXA, BONE DENSITY, AXIAL SKELETON On: 18-Oct-2011 Intent (64286)By: Emily Pugh MD Comments: estrogen def and postmenapausal Emily Pugh MD MAMMOGRAM, SCREENING, BOTH On: 18-Oct-2011 Intent BREASTS (39864)By: Emily Pugh MD, MD, Dana M ADMINISTRATION OF INFLUENZA VIRUS On: 18-Oct-2011 Intent VACCINE (G0008)By: Emily Pugh MD, MD, Dana M FLU VAC, SPLIT, >3 YEARS, On: 18-Oct-2011 Intent INTRAMUSC (86015)By: Emily Pugh MD, MD, Dana M Ultrasound - LiverBy: Lexy RODRIGUES, On: 14-Jul-2011 Intent Emily Moran MD DXA, BONE DENSITY, AXIAL SKELETON On: 24-May-2010 Intent (02872)By: Emily Pugh MD Comments: postmenapausal, estrogen def. back pain Emily Pugh MD MAMMOGRAM, SCREENING, BOTH On: 24-May-2010 Intent BREASTS ([id number])By: Emily Pugh MD, MD, Dana M Ultrasound - RenalBy: Angel COON, On: 10-Aug-2009 Intent Lori Lira Radiology - Lumbar SpineBy: Angel On: 10-Aug-2009 Intent Lori COON MAMMOGRAM, SCREENING, BOTH On: 30-Jun-2009 Intent BREASTS (57043)By: Emily Pugh MD, MD, Dana M Ultrasound - PelvisBy: Lexy On: 30-Jun-2009 Intent Emily RODRIGUES MD, Dana M Pulse Oximetry (38212)By: Angel On: 23-Apr-2009 Intent Lori COON E Aerosol Treatment (36500)By: On: 23-Apr-2009 Intent Angel SHAGGY, Lori Lira Ultrasound - PelvisBy: Lexy On: 06-Jan-2009 Intent Emily RODRIGUES MD, Dana M Ultrasound - LiverBy: Lexy RODRIGEUS, On: 08-Jul-2008 Intent Emily Moran MD Ultrasound - PelvisBy: Lexy On: 08-Jul-2008 Intent Emily RODRIGUES MD, Dana M Comments: do transvaginal Clinical Breast Examination On: 27-Mar-2007 Intent (G0101)By: Emily Pugh MD, MD, Dana M MAMMOGRAM, SCREENING, BOTH On: 27-Mar-2007 Intent BREASTS (08504)By: Emily Pugh MD, MD, Dana M Ultrasound - LiverBy: Lexy RODRIGUES, On: 21-Dec-2006 Intent Emily Moran MD Comments: liver elevation, follow up cyst, plan 01-17 Ultrasound - PelvisBy: Lexy On: 21-Dec-2006 Intent Emily RODRIGUES MD, Dana M Comments: please sen a copy to dr Barrientos first of 01-17 Instructions Name Dates Details Left leg pain : How to access health information online Indication: Left leg pain Left leg pain : How to access health information online - Detail Indication: Left leg pain Left leg pain : Patient Instructions Indication: Left leg pain Non-smoker : How to access health information online Indication: Non-smoker Non-smoker : How to access health information online - Detail Indication: Non-smoker Non-smoker : Patient Instructions Indication: Non-smoker BMI 40.0-44.9, adult : How to access health information online Indication: BMI 40.0-44.9, adult BMI 40.0-44.9, adult : How to access health information online - Detail Indication: BMI 40.0-44.9, adult BMI 40.0-44.9, adult : Patient Instructions Indication: BMI 40.0-44.9, adult BMI 40.0-44.9, adult : How to access health information online Indication: BMI 40.0-44.9, adult BMI 40.0-44.9, adult : How to access health information online - Detail Indication: BMI 40.0-44.9, adult BMI 40.0-44.9, adult : Patient Instructions Indication: BMI 40.0-44.9, adult Encounter for routine adult medical exam with abnormal findings : How to access health information online Indication: Encounter for routine adult medical exam with abnormal findings Encounter for routine adult medical exam with abnormal findings : How to access health information online - Detail Indication: Encounter for routine adult medical exam with abnormal findings Encounter for routine adult medical exam with abnormal findings : Patient Instructions Indication: Encounter for routine adult medical exam with abnormal findings Verrucous keratosis : How to access health information online Indication: Verrucous keratosis Verrucous keratosis : How to access health information online - Detail Indication: Verrucous keratosis Verrucous keratosis : Patient Instructions Indication: Verrucous keratosis Acute maxillary sinusitis, recurrence not specified : How to access health information online Indication: Acute maxillary sinusitis, recurrence not specified Acute maxillary sinusitis, recurrence not specified : How to access health information online - Detail Indication: Acute maxillary sinusitis, recurrence not specified Acute maxillary sinusitis, recurrence not specified : Patient Instructions Indication: Acute maxillary sinusitis, recurrence not specified Inflamed skin tag : How to access health information online Indication: Inflamed skin tag Inflamed skin tag : How to access health information online - Detail Indication: Inflamed skin tag Inflamed skin tag : Patient Instructions Indication: Inflamed skin tag Screening mammogram, encounter for : How to access health information online - Detail Indication: Screening mammogram, encounter for Screening mammogram, encounter for : Patient Instructions Indication: Screening mammogram, encounter for Influenza A : How to access health information online Indication: Influenza A Influenza A : How to access health information online - Detail Indication: Influenza A Influenza A : Patient Instructions Indication: Influenza A Encounter for routine adult medical exam with abnormal findings : How to access health information online Indication: Encounter for routine adult medical exam with abnormal findings Encounter for routine adult medical exam with abnormal findings : How to access health information online - Detail Indication: Encounter for routine adult medical exam with abnormal findings Encounter for routine adult medical exam with abnormal findings : Patient Instructions Indication: Encounter for routine adult medical exam with abnormal findings Hypothyroidism : How to access health information online - Detail Indication: Hypothyroidism Hypothyroidism : Patient Instructions Indication: Hypothyroidism Hypothyroidism : How to access health information online Indication: Hypothyroidism Hypothyroidism : How to access health information online - Detail Indication: Hypothyroidism Hypothyroidism : Patient Instructions Indication: Hypothyroidism Unspecified Diagnosis : Patient Instructions Indication: Unspecified Diagnosis Encounter for routine adult medical exam with abnormal findings : Patient Instructions Indication: Encounter for routine adult medical exam with abnormal findings Hypothyroidism : Patient Instructions Indication: Hypothyroidism Encounters Office Visit On: 27-Nov-2018 8:01 Encounter Diagnosis: BMI 40.0-44.9, adult, Non-smoker, Left leg pain End: 27-Nov-2018 8:36 [facility] Office Visit On: 06-Sep-2018 7:20 Encounter Reason: [facility] Exam - The patient feels well with minor complaints, has good energy level and is sleeping well. Patient exercises a daily (5 days).Encounter Diagnosis: BMI 40.0-44.9, adult, Non-smoker, End: 06-Sep-2018 8:57 Encounter for routine adult medical exam with abnormal findings, Rosacea, History of vertigo, Screening mammogram, encounter for, Tooth pain, Postmenopausal (Renamed from Postmenopausal status), Obesity, Hypercholesteremia (Renamed from Hypercholesterolemia), Hypothyroidism, Verrucous keratosis, Abnormal glucose, History of colon cancer, Disorder of bone and cartilage [facility] Office Visit On: 31-Aug-2018 11:29 Encounter Diagnosis: Need for prophylactic vaccination and inoculation against influenza End: 31-Aug-2018 13:56 [facility] Lab Order On: 14-Jun-2018 12:26 Encounter Diagnosis: Hypothyroidism End: 14-Jun-2018 12:29 [facility] Office Visit On: 26-Mar-2018 9:35 Encounter Reason: Annual Medicare Exam - The patient had reviewed and updated the family history, medication/s, past medical history and social history. Yes the patient did have a mini mental status exam done today. The End: 26-Mar-2018 10:23 activities of daily living the patient needs help with are none. The patient has driven in past 6 months and put handrails in bathroom, but the patient has not had fecal incontinence, had urinary incont inence, missed or ran out of medications to soon, fallen in the past 6 months, gotten lost, has a medalert necklace or bracelet or put area rugs through house. The patient has completed the following pr eventative measures: mammography (2015) and colonoscopy (2014). The patient does have durable power of assistant district attorney and living will. The patient has noticed lack of energy. Other providers contributing to t he patient's care are gastrologist (Dr. Carrera) and other: (Opthalm Dr. Mckeon).Encounter Diagnosis: BMI 40.0-44.9, adult, Encounter for routine adult medical exam with abnormal findings, Current nonsmoker (Renamed from Current non-smoker), Tooth pain, Postmenopausal (Renamed from Postmenopausal status), Screening mammogram, encounter for, Hypothyroidism, Obesity, Rosacea, Menopausal state, Hypercholesteremia (Renamed from Hypercholesterolemia), Abnormal glucose, History of vertigo, Disorder of bone and cartilage, Hemorrhagic disorder due to intrinsic circulating anticoagulants, Verrucous keratosis, Inflamed skin tag, BMI 39.0-39.9,adult, Right lower quadrant pain, Acute pain of right shoulder, History of colon cancer [facility] Office Visit On: 20-Feb-2018 7:55 Encounter Reason: Follow up acute care visit - The patient feeling better since last seen and improving. Patient has been compliant with instructions. Current medication use: no side effects and compliant with dosing reg End: 20-Feb-2018 8:47 imen. Patient sleeps 7 hours per night. Impact of disease: emotional impact-mild. Nutrition: balanced diet and supplemental vitamins. The medical issues the patient is following up for include other (abd. pain).Encounter Diagnosis: BMI 40.0-44.9, adult, Current nonsmoker (Renamed from Current non-smoker), Right lower quadrant pain [facility] Office Visit On: 12-Feb-2018 8:48 Encounter Diagnosis: Right lower quadrant pain, History of colon cancer, Encounter for routine adult medical exam with abnormal findings End: 13-Feb-2018 8:04 [facility] Phone Encounter On: 21-Nov-2017 12:31 Encounter Diagnosis: Influenza A End: 21-Nov-2017 12:34 [facility] Office Visit On: 22-Sep-2017 7:32 Encounter Reason: Injections - The medication the patient is here to receive is other.Encounter Diagnosis: Need for Tdap vaccination (Renamed from Need for [id number] (Tdap) vaccine, adult/adolescent) End: 25-Sep-2017 9:38 [facility] Office Visit On: 21-Sep-2017 6:50 Encounter Diagnosis: Encounter for routine adult medical exam with abnormal findings, Hypercholesteremia (Renamed from Hypercholesterolemia), Menopausal state, Obesity, BMI 40.0-44.9, adult, Rosacea, Hypothyroidism, End: 21-Sep-2017 15:49 Current nonsmoker (Renamed from Current non-smoker), Abnormal glucose, Disorder of bone and cartilage, Hemorrhagic disorder due to intrinsic circulating anticoagulants, History of colon cancer, Acute pain of right shoulder, History of vertigo [facility] Phone Encounter On: 04-Sep-2017 17:02 Encounter Diagnosis: Disorder of bone and cartilage End: 04-Sep-2017 17:19 [facility] Office Visit On: 31-Aug-2017 8:14 Encounter Reason: Injections - The medication the patient is here to receive is other.Encounter Diagnosis: Need for prophylactic vaccination and inoculation against influenza End: 31-Aug-2017 9:20 [facility] Lab Order On: 16-Aug-2017 16:40 Encounter Diagnosis: Hypothyroidism, Prediabetes End: 16-Aug-2017 16:48 [facility] Office Visit On: 03-Apr-2017 8:22 Encounter Diagnosis: BMI 40.0-44.9, adult, Current nonsmoker (Renamed from Current non-smoker), Verrucous keratosis, Sciatica, left, Acute pain of right lower extremity, Actinic keratosis (702.0) End: 03-Apr-2017 8:57 [facility] Office Visit On: 21-Mar-2017 14:20 Encounter Diagnosis: BMI 40.0-44.9, adult, Current nonsmoker (Renamed from Current non-smoker), Acute maxillary sinusitis, recurrence not specified End: 21-Mar-2017 15:02 [facility] Office Visit On: 10-Oct-2016 8:11 Encounter Reason: Injections - The medication the patient is here to receive is other (flu).Encounter Diagnosis: Need for prophylactic vaccination and inoculation against influenza End: 10-Oct-2016 8:29 [facility] Office Visit On: 02-Aug-2016 10:21 Encounter Diagnosis: Inflamed skin tag, Current nonsmoker (Renamed from Current non-smoker), Verrucous keratosis, Actinic keratosis (702.0) End: 02-Aug-2016 11:23 [facility] Office Visit On: 22-Jul-2016 6:34 Encounter Diagnosis: Encounter for Medicare annual wellness exam, Screening mammogram, encounter for, Current nonsmoker (Renamed from Current non-smoker), Menopausal state, BMI 40.0-44.9, adult, Hypothyroidism, Acute pain of right shoulder, End: 22-Jul-2016 11:38 Obesity (278.00), Rosacea (695.3), History of colon cancer, Hemorrhagic disorder due to intrinsic circulating anticoagulants, Disorder of bone and cartilage, Sciatica, left, BMI 39.0-39.9,adult, Prediabetes, Inflamed skin tag, Hypercholesteremia (Renamed from Hypercholesterolemia) [facility] Office Visit On: 28-Jan-2016 7:05 Encounter Reason: Flu Like Symptoms - The last clinic visit was 2 day(s) ago. Symptoms include fever, chills, body aches, nasal congestion, scratchy throat and dry cough. Onset was sudden. The patient describes this as m End: 28-Jan-2016 7:26 oderate in severity. Associated symptoms include fatigue and nausea.Encounter Diagnosis: Current nonsmoker (Renamed from Current non-smoker), Influenza A [facility] Office Visit On: 26-Nov-2015 7:32 Encounter Diagnosis: Obesity (278.00), Sciatica, left End: 26-Nov-2015 7:35 [facility] Office Visit On: 26-Nov-2015 7:01 Encounter Reason: Annual Medicare Exam - The patient had reviewed and updated the family history, medication/s, past medical history and social history. Yes the patient did have a mini mental status exam done today. The End: 26-Nov-2015 7:29 patient would like education and information on weight loss and exercise programs. The activities of daily living the patient needs help with are none. The patient has driven in past 6 months and put borrero ndrails in bathroom (side of tub ), but the patient has not had fecal incontinence, had urinary incontinence, missed or ran out of medications to soon, fallen in the past 6 months, gotten lost, has a me dalert necklace or bracelet or put area rugs through house. The patient has completed the following preventative measures: PAP smear (total hysterectomy ), mammography () and colonoscopy (2014 ). The patient does have durable power of assistant district attorney and living will. The patient has noticed nothing from the geriatic depression scale. Other providers contributing to the patient's care are gastrologist ( Dr. Carrera ) and other: (Attending Anesthesiologist Dr. Izaguirre, opthalm Dr. Mckeon ).Encounter Diagnosis: Encounter for Medicare annual wellness exam, BMI 39.0-39.9,adult, Current nonsmoker (Renamed from Current non-smoker), Rosacea (695.3), Obesity (278.00), Hypothyroidism, History of colon cancer, Hemorrhagic disorder due to intrinsic circulating anticoagulants, Disorder of bone and cartilage [facility] Historical Summary On: 26-Nov-2015 6:37 [facility] End: 26-Nov-2015 6:41 Office Visit On: 28-May-2015 6:46 Encounter Reason: Follow up for chronic medical issues - The patient feels well with minor complaints and has decreased energy level. Patient has been compliant with instructions. Current medication use: no side effects, End: 28-May-2015 7:22 compliant with dosing regimen and considered effective by patient. Patient sleeps 7 hours per night. Impact of disease: emotional impact-mild. Nutrition: balanced diet and supplemental vitamins. The me dical issues the patient is following up for include cardiac issues, hypothyroid and other (obesity, rosacea, hx. colon cancer ).Encounter Diagnosis: Hypothyroidism (244.9), HX, PERSONAL, MALIGNANCY, COLON (V10.05), Rosacea (695.3), Obesity (278.00) , Hemorrhagic disorder due to intrinsic circulating anticoagulants (286.5), Annual Medicare Physical (V70.0), Disorder of bone and cartilage, unspecified (733.90) [facility] Office Visit On: 27-Nov-2014 7:03 Encounter Reason: Follow up for chronic medical issues - The patient feels well with minor complaints, has good energy level and is sleeping well. Patient has been compliant with instructions. Current medication use: no End: 27-Nov-2014 7:33 side effects, compliant with dosing regimen and considered effective by patient. Patient sleeps 7 hours per night. Impact of disease: emotional impact-mild. Nutrition: balanced diet and supplemental vit amins. The medical issues the patient is following up for include hypothyroid and other (obesity, rosacea ).Encounter Diagnosis: Other and unspecified ovarian cyst (620.2), Rosacea (695.3), Syncope, vasovagal (780.2), HX, PERSONAL, MALIGNANCY, COLON (V10.05), Hypothyroidism (244.9), Obesity (278.00), Hemorrhagic disorder due to intrinsic circulating anticoagulants (286.5), Annual Medicare Physical (V70.0), Need for vaccination against Streptococcus pneumoniae [facility] Lab Order On: 21-Nov-2014 9:19 Encounter Diagnosis: Hypothyroidism (244.9) End: 21-Nov-2014 9:23 [facility] Lab Order On: 20-Nov-2014 7:37 Encounter Diagnosis: Hypothyroidism (244.9) End: 20-Nov-2014 7:40 [facility] Office Visit On: 20-May-2014 9:30 Encounter Reason: Follow up for chronic medical issues - The patient feels well with no complaints, has good energy level and is sleeping well. Patient has been compliant with instructions. Current medication use: no jerri End: 20-May-2014 10:12 e effects. Patient sleeps 7 hours per night. Nutrition: inadequate caloric intake and supplemental vitamins. The medical issues the patient is following up for include hypothyroid., [ADDITIONAL REASON] Follow up tests - Date: (05/14/14 blood work). Encounter Diagnosis: Hypothyroidism (244.9), Syncope, vasovagal (780.2), Obesity (278.00), Rosacea (695.3), Other and unspecified ovarian cyst (620.2), HX, PERSONAL, MALIGNANCY, COLON (V10.05), Nausea and/or vomiting, Gastritis, Hemorrhagic disorder due to intrinsic circulating anticoagulants (286.5), Elevated LFT (790.6), Annual Medicare Physical (V70.0) [facility] Phone Encounter On: 19-Mar-2014 14:53 [facility] End: 19-Mar-2014 14:53 Office Visit On: 14-Mar-2014 8:17 Encounter Reason: Abdominal pain - The pain is described as being located in the right lower quadrant and lower abdomen. The symptoms have no aggravating factors. The symptoms have been associated with vomiting. Note for End: 14-Mar-2014 9:03 Pain: Vicodan yesterday made vomit and nauseaAbd pain at epigastric Encounter Diagnosis: Nausea and/or vomiting, Gastritis, Abdominal Pain,RUQ(789.01) [facility] Phone Encounter On: 10-Mar-2014 9:38 Encounter Diagnosis: Elevated LFT (790.6) End: 10-Mar-2014 9:39 [facility] Office Visit On: 07-Mar-2014 14:13 Encounter Reason: Follow up, Diagnostic Procedure Results - Diagnostic tests include other (GB ultra sound ). Date: (03-07-14). Current symptoms include abdominal pain and other (nausea, GI upset ).Encounter Diagnosis: Abdominal Pain,RUQ(789.01) End: 07-Mar-2014 14:55 [facility] Phone Encounter On: 04-Mar-2014 8:49 Encounter Diagnosis: Abdominal Pain,RUQ(789.01) End: 04-Mar-2014 8:51 [facility] Office Visit On: 17-Jan-2014 7:20 Encounter Diagnosis: Sebaceous Cyst End: 17-Jan-2014 7:54 [facility] Office Visit On: 10-Jan-2014 7:30 Encounter Diagnosis: Unspecified Diagnosis, Yeast infection End: 10-Jan-2014 16:17 [facility] Office Visit On: 01-Jan-2014 9:32 Encounter Reason: Urinary problems - The onset of the urinary problems has been sudden and they have been occurring in a persistent pattern for 2 days. The course has been constant. The urinary problems are described as End: 01-Jan-2014 9:51 moderate. The urinary problem is characterized as frequency, urgency, painful urination and incontinence of urine.Encounter Diagnosis: Urinary Frequency (788.41), Abdominal cramping [facility] Office Visit On: 18-Nov-2013 11:10 Encounter Reason: Annual Medicare Exam - The patient had reviewed and updated the family history, medication/s, past medical history and social history. Yes the patient did have ( Alert) a mini mental status exam do End: 18-Nov-2013 12:25 ne today. The activities of daily living the patient needs help with are none. The patient has driven in past 6 months, but the patient has not had fecal incontinence, had urinary incontinence, missed o r ran out of medications to soon, fallen in the past 6 months, gotten lost, has a medalert necklace or bracelet, put area rugs through house or put handrails in bathroom. The patient has completed the f ollowing preventative measures: PAP smear (unsure of timing), mammography (2011) and colonoscopy (2010). The patient does have durable power of assistant district attorney and living will. The patient has noticed lack of energy. Other providers contributing to the patient's care are other: (Dr. Deras).Encounter Diagnosis: Annual Medicare Physical (V70.0), HX, PERSONAL, MALIGNANCY, COLON (V10.05), Elevated LFT (790.6), Hypothyroidism (244.9) [facility] Office Visit On: 30-Sep-2013 11:06 Encounter Reason: Follow up, Diagnostic Procedure Results - Diagnostic tests include other (labs ). Date: (09-23-13). Follow up visit with no current symptoms.Encounter Diagnosis: Hypothyroidism (244.9), Syncope, vasovagal (780.2), End: 30-Sep-2013 11:53 Elevated LFT (790.6), Obesity (278.00) [facility] Office Visit On: 19-Aug-2013 13:03 Encounter Reason: Follow up ER - Reason for hospitalization note: (syncope at [facility] ). Patient has been compliant with instructions. Current medication use: no side effects and compliant with dosing regimen. The fariha End: 19-Aug-2013 13:36 ent feels well with minor complaints and has decreased energy level. Patient sleeps 7 hours per night. Impact of disease: emotional impact-mild. Nutrition: balanced diet and supplemental vitamins.Encounter Diagnosis: Syncope, vasovagal (780.2), Headache (784.0), Elevated LFT (790.6), Hypothyroidism (244.9) [facility] Office Visit On: 01-Jan-2013 8:35 Encounter Reason: Injections - The medication the patient is here to receive is shingles vaccine IM.Encounter Diagnosis: Need for shingles vaccine (V04.89), SHINGLES,NEED FOR PROPHYLACTIC VACCINATION AND INOCULATION AGAINST (V05.8) End: 03-Jan-2013 12:57 [facility] Office Visit On: 27-Dec-2012 8:20 Encounter Reason: Follow up for chronic medical issues - The patient feels well with no complaints (aches and pains), has decreased energy level (has hada couple of days really tired and wants to talk to you about it.) a End: 27-Dec-2012 9:03 nd is sleeping well. Patient has been compliant with instructions. Current medication use: no side effects. Patient sleeps 7 hours per night. Nutrition: inadequate caloric intake and supplemental vitami ns. 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), Elevated LFT (790.6), Headache (784.0), [facility] V72.31 (Renamed from [facility] ([facility]) (V72.31)) [facility] Office Visit On: 24-Jul-2012 9:46 Encounter Reason: Injections - The medication the patient is here to receive is other (flu vac).Encounter Diagnosis: Need for prophylactic vaccination and inoculation against influenza (V04.81) End: 26-Jul-2012 7:32 [facility] Office Visit On: 02-Jul-2012 13:51 Encounter Reason: Follow up for chronic medical issues - The patient feels well with minor complaints, has good energy level and is sleeping well. Patient has been compliant with instructions. Current medication use: no End: 02-Jul-2012 14:37 side effects, compliant with dosing regimen and considered effective by patient. Patient sleeps 7 hours per night. Impact of disease: emotional impact-mild. Nutrition: balanced diet and supplemental vit amins. The medical issues the patient is following up for include cardiac issues, hypothyroid and other (obesity, elevated lft's, rosacea ).Encounter Diagnosis: Hypothyroidism (244.9), HX, PERSONAL, MALIGNANCY, COLON (V10.05), Obesity (278.00), Other and unspecified ovarian cyst (620.2), Headache (784.0), Elevated LFT (790.6), [facility] V72.31 (Renamed from [facility] ([facility]) (V72.31)), Actinic keratosis (702.0), Foot pain (729.5) [facility] Office Visit On: 16-Jan-2012 8:47 Encounter Reason: Follow up for chronic medical issues - The patient feels well with minor complaints and has decreased energy level. Patient has been compliant with instructions. Current medication use: no side effects End: 16-Jan-2012 9:27 and compliant with dosing regimen. Patient sleeps 7 hours per night. Impact of disease: emotional impact-mild. Nutrition: balanced diet and supplemental vitamins. The medical issues the patient is follo wing up for include hypothyroid and other (obesity,rosacea ).Encounter Diagnosis: Obesity (278.00), HX, PERSONAL, MALIGNANCY, COLON (V10.05), Hypothyroidism (244.9), Elevated LFT (790.6), [facility] V72.31 (Renamed from [facility] ([facility]) (V72.31)) [facility] Office Visit On: 09-Nov-2011 12:50 Encounter Reason: Follow up acute care visit - The patient feeling better since last seen. Patient has been compliant with instructions. Current medication use: experiencing side effects (stopped bactrim). Patient sleeps End: 09-Nov-2011 16:01 6 hours per night. The medical issues the patient is following up for include cellulitis.Encounter Diagnosis: Cellulitis and abscess of other specified sites (682.8) [facility] Office Visit On: 02-Nov-2011 14:20 Encounter Reason: Infection - Unspecified - The onset of the unspecified infection has been sudden. The unspecified infection has been occurring for 2 days. The course has been constant. The symptoms have included pain, but not fever. End: 02-Nov-2011 14:52 Encounter Diagnosis: Cellulitis and abscess of other specified sites (682.8) [facility] Office Visit On: 31-Oct-2011 14:04 Encounter Diagnosis: Lesion-Unknown behavior (238.2) End: 01-Nov-2011 6:57 [facility] Office Visit On: 18-Oct-2011 8:06 Encounter Reason: Follow up for chronic medical issues - The patient feels well with minor complaints and has decreased energy level. Patient has been compliant with instructions. Current medication use: no side effects End: 18-Oct-2011 10:06 and compliant with dosing regimen. Patient sleeps 7 hours per night. Impact of disease: emotional impact-mild. Nutrition: balanced diet and supplemental vitamins. The medical issues the patient is follo wing up for include hypothyroid and other (obesity,rosacea )., [ADDITIONAL REASON] Follow up, Laboratory Test Results - Lab results: other (Abnormal TSH ). Date: ( 10.13.11). Current symptoms/reason for visit include/s Follow up visit with no current symptoms. Past medical history includes hypothyroidism and other (obesity ). Note for Follow up, Laboratory Test Results: feel ggod, Encounter Diagnosis: Hypothyroidism (244.9), Obesity (278.00), HX, PERSONAL, MALIGNANCY, COLON (V10.05), Elevated LFT (790.6), Disorder of bone and cartilage, unspecified (733.90), [facility] V72.31 (Renamed from [facility] ([facility]) (V72.31)), PORTAL VEIN THROMBOSIS (452.) , Need for prophylactic vaccination and inoculation against influenza (V04.81) [facility] Office Visit On: 14-Jul-2011 10:02 Encounter Reason: Follow up tests - Diagnostic tests include other (hepatic function panel ). Date: (07-08-11). Follow up visit with no current symptoms.Encounter Diagnosis: Elevated LFT (790.6), HX, PERSONAL, MALIGNANCY, COLON (V10.05), End: 14-Jul-2011 10:41 Enthesopathy of hip region (726.5), Colon Cancer (153.9), Hypothyroidism (244.9), Obesity (278.00) [facility] Office Visit On: 30-May-2011 11:28 Encounter Reason: Follow up for chronic medical issues - The patient feels well with minor complaints and has decreased energy level. Patient has been compliant with instructions. Current medication use: no side effects End: 30-May-2011 12:12 and compliant with dosing regimen. Patient sleeps 7 hours per night. Impact of disease: emotional impact-mild. Nutrition: balanced diet and supplemental vitamins. The medical issues the patient is follo wing up for include hypothyroid and other (obesity,rosacea ).Encounter Diagnosis: Obesity (278.00), Hypothyroidism (244.9), Elevated LFT (790.6), HX, PERSONAL, MALIGNANCY, COLON (V10.05), Colon Cancer (153.9) [facility] Erroneous Entry On: 19-May-2011 8:33 Encounter Diagnosis: Hypothyroidism (244.9), Colon Cancer (153.9), Obesity (278.00) End: 19-May-2011 8:34 [facility] Office Visit On: 26-Nov-2010 8:50 Encounter Reason: Follow up for chronic medical issues - The patient feels well with minor complaints, has decreased energy level and is sleeping well. Patient has been compliant with instructions. Current medication use End: 26-Nov-2010 9:38 : no side effects, compliant with dosing regimen and considered effective by patient. Patient sleeps 8 hours per night. Impact of disease: emotional impact-mild. Nutrition: balanced diet and supplementa l vitamins. 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 Patient has been compliant with instructions. Current medication use: no side effects End: 24-May-2010 10:14 ,compliant with dosing regimen and considered effective by patient. Patient sleeps 7 hours per night. Impact of disease: emotional impact-mild. Nutrition: balanced diet and supplemental vitamins. The me dical issues the patient is following up for include hypothyroid and other (obesity, colon cancer, rosacea). Encounter Diagnosis: Other and unspecified ovarian cyst (620.2), Hypothyroidism (244.9), Colon Cancer (153.9), Rosacea (695.3), Hemorrhoids (455.8), Obesity (278.00), [facility] V72.31 (Renamed from [facility] ([facility]) (V72.31)) [facility] Office Visit On: 26-Nov-2009 8:08 Encounter Reason: Follow up for chronic medical issues - The patient feels well with no complaints ,has good energy level and is sleeping well. Patient has been compliant with instructions. Current medication use: no jerri End: 26-Nov-2009 8:29 e effects ,compliant with dosing regimen and considered effective by patient. Patient sleeps 7 hours per night. Impact of disease: emotional impact-mild. Nutrition: balanced diet and supplemental vitami ns. The medical issues the patient is following up for include cardiac issues ,hypothyroid ,kidney problems and other (obesity, portal vein thrombosis, rosacea, hx. colon cancer). 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 Patient has been compliant with instructions. Current medication use: no side effects. Patient sleeps 7 hours per night. Nutritio End: 28-Aug-2009 8:25 n: balanced diet. The medical issues the patient is following up for include All identified problems below and other (abdominal/low back pain). Encounter Diagnosis: Abdominal Pain,RUQ(789.01), Low back pain (724.2), Calculus of kidney (592.0) [facility] Office Visit On: 10-Aug-2009 8:10 Encounter Reason: Back pain - The onset of the pain has been gradual and has been occurring in an intermittent pattern for 3 weeks. The course has been recurrent and occurs more at night. The pain is characterized as a d End: 10-Aug-2009 8:40 ull ache and stabbing. The pain is described as being located in the lower back. The pain radiates to the upper abdomen. There are no precipitating factors. The symptoms are aggravated by lying down. Th e symptoms are relieved by exertion (up and walking and ice). The pain has been associated with abdominal pain (ruq), while there has been no chills ,dysuria ,fever ,flank pain ,hip pain ,incontinence o f stool ,incontinence of urine ,leg weakness ,trauma ,use of anti-coagulants or vaginal discharge. Encounter Diagnosis: Low back pain (724.2), Abdominal Pain,RUQ(789.01) [facility] Office Visit On: 30-Jun-2009 7:59 Encounter Reason: Follow up for chronic medical issues - The patient feels well with minor complaints and has decreased energy level. Patient has been compliant with instructions. Current medication use: no side effects End: 30-Jun-2009 8:22 ,compliant with dosing regimen and considered effective by patient. Patient sleeps 8 hours per night. Impact of disease: emotional impact-mild. Nutrition: balanced diet and supplemental vitamins. The me dical issues the patient is following up for include cardiac issues ,hypothyroid and other (obesity, hx. colon cancer ). 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 The cough is characterized as dry. The amount of sputum produced is scanty. The cough occurs all the time. The symptoms are aggravated by supine p End: 23-Apr-2009 12:25 osture. The symptoms have been associated with runny nose. the color of the sputum is clear. Encounter Diagnosis: BRONCHITIS, NOT SPECIFIED ACUTE OR CHRONIC (490.), Cough (786.2) [facility] Office Visit On: 06-Jan-2009 7:49 Encounter Reason: Follow up for chronic medical issues - The patient feels well with no complaints ,has good energy level and is sleeping well. Patient has been compliant with instructions. Current medication use: no jerri End: 06-Jan-2009 8:09 e effects ,compliant with dosing regimen and considered effective by patient. Patient sleeps 7 hours per night. Impact of disease: emotional impact-mild. Nutrition: balanced diet. The medical issues the patient is following up for include hypothyroid and other (obesity, elevated LFT's, hx. colon cancer ). 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 Patient has been compliant with instructions. Current medication use: no End: 08-Jul-2008 8:40 side effects ,compliant with dosing regimen and considered effective by patient. Patient sleeps 7 hours per night. Impact of disease: emotional impact-mild. Nutrition: balanced diet and supplemental vit amins. The medical issues the patient is following up for include cardiac issues ,high cholesterol ,hypothyroid and other (obesity, elevated lft's, hx colon cancer ). 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 Patient has been compliant with instructions. Current medication use: no jerri End: 08-Jan-2008 8:13 e effects ,compliant with dosing regimen and considered effective by patient. Patient sleeps 7 hours per night. Impact of disease: emotional impact-mild. Nutrition: balanced diet and supplemental vitami ns. The medical issues the patient is following up for include hypothyroid and other (obesity, portal vein thrombosis, colon cancer, headache, myalgia and rosacea ). 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 Date: (06-27-07). Current symptoms/reason for visit include/s Follow up visit with no current symptoms. Past medical history inclu End: 10-Jul-2007 12:00 abimbola hypothyroidism and other (obesity ). Note for Follow up, Laboratory Test Results: feel ggod, Encounter Diagnosis: Hypothyroidism (244.9), Colon Cancer (153.9) [facility] Historical Summary On: 14-Jun-2007 16:00 [facility] End: 14-Jun-2007 16:06 Historical Summary On: 18-May-2007 9:31 [facility] End: 18-May-2007 9:32 Office Visit On: 27-Mar-2007 8:38 Encounter Reason: Follow up for chronic medical issues - The patient feels well with minor complaints ,has good energy level and is sleeping well. Patient has been compliant with instructions. Current medication use: no End: 27-Mar-2007 9:24 side effects ,compliant with dosing regimen and considered effective by patient. Patient sleeps 7 hours per night. Impact of disease: no overall impact. Nutrition: balanced diet. The medical issues the patient is following up for include hypothyroid and other (obesity ). 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 The sinusitis/ has no relieving factors. Associated features include The symptoms have been associated with cough ,nasa End: 23-Feb-2007 13:28 l discharge/stuffy nose ,sinus pain and sore throat (post nasal drip ). Encounter Diagnosis: Acute sinusitis, unspecified (461.9), Rosacea (695.3) [facility] Office Visit On: 21-Dec-2006 8:38 Encounter Reason: Follow up for chronic medical issues - The patient feels well with no complaints ,has good energy level and is sleeping well. Patient has been compliant with instructions. Current medication use: no jerri End: 25-Dec-2006 18:42 e effects. Patient sleeps 7 hours per night. Impact of disease: emotional impact- mild. Nutrition: balanced diet. The medical issues the patient is following up for include hypothyroid and other (hx colo n cancer, obesity hemorrhoid, headache ). 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
--- OUTSIDE RECORDS SUMMARY | 2019-02-04 14:34 | XMS RPT_ITS | Continuity of Care Document ---
:1935 Author Organization [facility] Address [address] [facility] [address] [place] [address] Phone Care Team Providers Name Role Phone [...] Refills: 0 Ordered:04-Sep-2017 Emily Pugh MD, MD, Emily Hope Start : 04-Sep-2017 Active Comments:parsley 100mg Nutraview 1 capsule daily Active Synthroid 112 MCG Oral Tablet 1 Tablet qd for 0 days Quantity: 90 {Tablet} Refills: 3 Ordered:27-Nov-2018 Emily Pugh MD, MD, Emily Hope Start : 27-Nov-2018 Active Comments:generic is ok Synthroid 112 MCG Oral Tablet 1 Tablet qd for 0 days Quantity: 90 {Tablet} Refills: 3 Ordered:27-Nov-2018 Lexy RODRIGUES, Emily Romano MD, Emily Hope Start : 27-Nov-2018 Active Comments:Generic OKAY Turmeric 500 MG Oral Capsule 1 (one) Tablet Tablet qd for 0 days Quantity: 30 {Tablet} Refills: 0 Ordered:20-Feb-2018 Emily Pugh MD, MD, Emily Hope Start : 04-Sep-2017 Active Vitamin C 1000 MG Oral Tablet 1 Tablet QD for 0 days Quantity: 30 {Tablet} Refills: 0 Ordered:04-Sep-2017 Emily Pugh MD, MD, Emily Hope Start : 04-Sep-2017 Active ALDARA, 5% (External Cream) Cream use 3 times a week for 0 days Quantity: 6 {Cream} Refills: 1 Ordered:08-Jul-2008 AIMEE Sheikh Start : 08-Jul-2008 End : 06-Jan-2009 Inactive BACTRIM DS, 800-160MG (Oral Tablet) 1 Tablet bid for 10 days Quantity: 20 {Tablet} Refills: 0 Ordered:17-Jan-2014 Emily Pugh MD, MD, Emily Hope Start : 17-Jan-2014 End : 27-Jan-2014 Inactive [...] : 21-Mar-2017 End : 03-Apr-2017 Inactive ZOSTAVAX, 02108PVI/0.65ML (Subcutaneous Solution Reconstituted) 1 For Solution once [...] QD for 0 days Refills: 0 Ordered:06-Sep-2018 Tracy Andersen End : 06-Sep-2018 Discontinued PREGNENOLONE (Powder) 1 [...] Start : 10-Jul-2007 End : 10-Jul-2007 Discontinued Tylenol with Codeine #3 300-30 MG Oral Tablet 1 (one) Tablet 1-2 every 6 hours prn pain for 0 days Quantity: 20 {Tablet} Refills: 0 Ordered:06-Sep-2018 Tracy Andersen Start : 26-Mar-2018 End : 06-Sep-2018 Discontinued Comments:twenty Allergies and Adverse Reactions Name Dates Details [...] as of 06-Sep-2018 Elevated LFTs (R94.5, 790.6) 30-May-2011 Comments: lessen pain meds and liver coming [...] and ankle, infected (S80.869A, 916.5) Comments: ? [place] [employer] fly, cellulitis Status: Inactive as of 27-Dec-2012 [...] for Tdap vaccination (Renamed from Need for xdsntheajr-ptkjweo-olmcbgqha (Tdap) vaccine, adult/adolescent) (Z23, V06.1) Status: Resolved as of 26-Mar-2018 Need for vaccination against Streptococcus pneumoniae (Z23, V03.82) Status: Inactive as of 28-May-2015 Neoplasm of uncertain behavior of skin (D48.5, 238.2) Comments: 1 cm on right forearm Status: Inactive as of 27-Dec-2012 Other and unspecified ovarian cyst (N83.209, 620.2) Comments: us good recommend recheck in 6 months pt [...] Density Study Result: Comments: See Note; NOTES: [facility] Imaging Services [address] [place] [address] Dexa Bone Density Study MR#: [id number] Acct: [id number] Name: LENORA MORRELL I Rep #: [id number] : 1935 F 82 From: Nolan Head MD PCP: Emily Pugh MD Status: REG CLI Study: Dexa Bone Density Study Date of Exam: 08/29/18 Exam# [id number] Ordering Dr: Emily Pugh MD STUDY: DU [...] Nolan Head MD at 8:26 EDT Tel [phone], Service support , CC: Emiyl Pugh MD Edge Bander Operator: Signed 29-Aug-2018 SCREENING MAMM (CAD), BILAT Result: Comments: See Note; NOTES: [facility] Imaging Services [address] [place] [address] SCREENING MAMM (CAD), BILAT MR#: [id number] Acct: [id number] Name: LENORA MORRELL I Rep #: [id number] : 1935 F 82 From: Nolan Head MD PCP: Emily uPgh MD Status: REG CLI Study: SCREENING MAMM (CAD), BILAT Date of Exam: 08/29/18 Exam# [id number] Ordering Dr: Emily Pugh MD M AMMOGRAPHY - BILATERAL SCREENING REASON FOR EXAM: [...] delay biopsy of a clinically suspicious abnormality. [id number] Electronically Signed: Nolan Head MD at 13:21 EDT Tel [phone], Service support , CC: Emily Pugh MD Edge Bander Operator: Signed 12-Feb-2018 Abdomen/Pelvis WITH Contrast Result: Comments: See Note; NOTES: [facility] Imaging Services [address] [place] [address] Abdomen/Pelvis WITH Contrast MR#: [id number] Acct: [id number] Name: LENORA MORRELL I Rep #: [id number] : 1935 F 82 From: Maite Corona MD PCP: Emily Pugh MD Status: REG CLI Study: Abdomen/Pelvis WITH Contrast Date of Exam: 02/12/18 Exam# [id number] Ordering Dr: Emily Pugh MD [facility] DY: CT ABDOMEN AND PELVIS WITH [...] Service support , CC: Emily Pugh MD Edge Bander Operator: Signed 25-Oct-2017 TXT - Blood Flow Screening Result: Comments: See Note; NOTES: [facility] Cardiovascular Services [address] [place] [address] 10/24/17 0941 MR#: [id number] Acct: [id number] Name: LENORA MORRELL I Rep #: [id number] Pugh M.D Performed By: Eric Rodrigues RVT 12/13/17 1318 Date Abran Faust MD CC: Emily Pugh MD Date Dictated: 10/24/17 0941 Date Transcribed: 10/25/171317 Edge Bander Operator: Signed 20-Jun-2017 PT D/C Summary (1) Result: Comments: See Note; NOTES: [facility] Physical Therapy [facility] [address] [place] [address] Fax REHABILITATION SERVICES DISCHAR GE SUMMARY MR#: [id number] Acct: [id number] Name: LENORA MORRELL I Rep #: [id number] : 1935 81 From: Brian Gillespie DPT, OCS, CSCS Referring Dr.: Emily Pugh MD Status: REG RCR [facility] - PT D/C Summary It has been my pleasure to treat LENORA MORRELL I under orders from Emily Pugh, for the diagnosis of sciatica for a total of 9 visit(s). Discharge Date: 06/19/17 Please see the following information for a summary of their discharge status. - Subjective Subjective: Good. Doing well. Exercises really help. 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 - Goals Goal 1:: [...] please feel free to call me at [phone]. Thank you for the referral of this patient. Sincerely, Brian Gillespie, SADIET, OC <Electronically signed by Brian Gillespie DPT, OCS, CSCS> 06/20/17 0953 CC: Emily Pugh MD EBG Signed 23-May-2017 Re-Evaluation - PT (1) Result: Comments: See Note; NOTES: [facility] Physical Therapy [facility] [address] [place] [address]. [address] [place] [address] Fax [facility]d PHYSICAL THERAPY MR#: [id number] Acct: [id number] Name: LENORA MORRELL I Rep #: [id number] : 1935 81 From: Brian Gillespie DPT, OCS, CSCS Referring Dr.: Emily Pugh MD Status: R EG RCR Insurance: [facility] Emily Pugh, It has been my pleasure to treat LENORA MORRELL I over the last 8 visits for sciatica. Please see the progress note below for an update on the licensed physical therapist apy plan of care! Subjective: i can [...] do not hesitate to contact me at [phone] by phone or Fax: if you have questions or concerns regarding this new plan of care! Sincerely, Brian Gillespie, DPT, OC <Electronically signed by Brian NOELT, OCS, CSCS> 05/23/17 0926 CC: Emily Pugh MD EB Signed For Medicare only, by signing this I certify the plan of care. Physicians Signature Date 25-Apr-2017 Inital Evaluation (1) - PT Result: Comments: See Note; NOTES: [facility] Physical Therapy [facility] [address] [place] [address]. [address] [place] [address] Fax REHABILITATION SERVICES INITIAL EVALUATION MR#: [id number] Acct: [id number] Name: LENORA MORRELL I Rep #: [id number] : 1935 81 From: Brian Gillespie DPT, OCS, CSCS Referring Dr.: Emily Pugh MD Status: REG RCR Insurance: [facility] Patient's Visit Information LENORA MORRELL I [...] to be FAXED BACK to us at [phone] for Medicare purposes. Please let me know if there are questions or concerns regarding this plan of care. Physician Signature: Date: <Electronically signed by Brian NOELT, OCS, CSCS> 04/25/17 0929 CC: Emily Pugh MD EBDarrell Signed For Medicare on ly, by signing this I certify the plan of care. Physicians Signature Date 11-Aug-2016 PT D/C Summary (1) Result: Comments: See Note; NOTES: [facility] Physical Therapy [facility] [address] [place] [address]. [address] [place] [address] Fax REHABILITATION SERVICES SURENDRA MEDINA SUMMARY MR#: [id number] Acct: [id number] Name: LENORA MORRELL I Rep #: [id number] : 1935 80 From: Ansley Oleary DPKg Referring Dr.: Emily Pugh MD Status: REG RCR [facility] - PT D/C Summary It has been my pleasure to treat LENORA MORRELL I under orders from Emily Pugh, for the diagnosis of R shoulder pain for a total of 5 visit(s). Discharge Date: Please see the [facility] information for a summary of their discharge [...] please feel free to call me at [phone]. Thank you for the referral of this patient. Sincerely, Ansley Oleary <Jacki ctronically signed by Ansley Oleary DPT> 08/11/16 0852 CC: Emily Pugh MD ELR Signed 02-Aug-2016 Bilat Scrn Digital AND CAD Result: Comments: See Note; NOTES: [facility] Imaging Services [address] [place] [address] Verdana 4d Bilat Scrn Digital AND CAD MR#: [id number] Acct: [id number] Name: LENORA MORRELL I Rep #: [id number] : 1935 F 80 From: Nolan Head MD PCP: Emily Pugh MD Status: REG CLI Study: Bilat Scrn Digital AND CAD Date of Exam: 08/02/16 Exam# [id number] Ordering Dr: Emily Pugh MD MAMMOGRAPHY - [...] delay biopsy of a clinically suspicious abnormality. [id number] Electronically Signed: Nolan Head MD at 12:30 EDT , Service support [phone], CC: Emily Pugh MD Edge Bander Operator: Signed 02-Aug-2016 Dexa Bone Density Study (HP) Result: Comments: See Note; NOTES: [facility] Imaging Services [address] [place] [address] Verdana 4d Dexa Bone Density Study (HP) MR#: [id number] Acct: [id number] Name: JUAN MORRELL I Rep #: [id number] : 1935 F 80 From: Nolan Head MD PCP: Emily Pugh MD Status: REG CLI Study: Dexa Bone Density Study (HP) Date of Exam: 08/02/16 Exam# [id number] Ordering Dr: Emily Hill MD STUDY: DUAL [...] Nolan Head MD at 11:04 EDT Tel [phone], Service support [phone], CC: Emily Pugh MD Edge Bander Operator: Signed 28-Jul-2016 Inital Evaluation (1) - PT Result: Comments: See Note; NOTES: [facility] Physical Therapy [facility] [address] [place] [address]. [address] [place] [address] Fax REHABILITATION SERVICES JAYDA Katz EVALUATION MR#: [id number] Acct: [id number] Name: LENORA MORRELL I Rep #: [id number] : 1935 80 From: Ansley Oleary DPT Referring Dr.: Emily Pugh MD Status: REG R Insurance: [facility] Patient's Visit Information LENORA MORRELL I [...] at worst; aggravated during exercise (comes to [facility] 5 days a week) while pulling down, [...] Extension 5/5, ER 4-/5 IR 4- /5 [employer] Professional- R 60/55/54 L 60/56/46. Special Test: empty can: positive, Neer: positive, Brigida Chet: positive. Sensation: WNL - Goals Goal [...] to be FAXED BACK to us at [phone] for Medicare purposes. Please let me know if there are questions or concerns regarding this plan of care. Physician Signature: Date: <Electronically signed by Ansley Oleary DPT> 07/28/16 0853 CC: Emily Pugh MD SNEHAL Signed For Medicare only, by signing this I certify the plan of care. Physicians Signature Date 08-Jul-2014 Bilat Scrn Digital & CAD Result: Comments: See Note; NOTES: [facility] Imaging Services [address] [place] [address] Breast Imaging Report MR#: [id number] Acct: [id number] Name: LENORA MORRELL I Rep #: [id number] : 1935 F 78 From: Nolan Head MD PCP: Emily Pugh MD Status: REG CLI Exam# [id number] Ordering Dr: Emily Pugh MD MAMMOGRAPHY - [...] Nolan Head MD at 15:05 EDT Tel [phone], Servi ce support [phone], CC: Emily Pugh MD Edge Bander Operator: Signed 08-Jul-2014 Dexa Bone Density Study (HP) Result: Comments: See Note; NOTES: [facility] Imaging Services [address] [place] [address] Bone Density Report MR#: [id number] Acct: [id number] Name: LENORA MORRELL I Rep #: [id number] : 1935 F 78 From: Nolan Head MD PCP: Emily Pugh MD Status: REG CLI Study: Dexa Bone Density Study (HP) Date of Exam: 07/08/14 Exam# [id number] Ordering Dr: Emily Pugh MD STUDY: DUAL [...] Nolan Head MD at 13:32 EDT Tel [phone], Service support [phone], CC: Emily Pugh MD Edge Bander Operator: Signed 21-Mar-2014 Operative Report Result: Comments: See Note; NOTES: [facility] Medical Records Department [address] [place] [address] Operative Report MR#: [id number] Acct: [id number] Name: LENORA MORRELL I Rep #: [id number] : 1935 78 From: Cameron Carrera MD PCP: Emily Pugh MD Status: [facility] DATE OF SERVICE: 03/18/2014 DATE OF PROCEDURE: [...] fascia of the um bilical port with tplcev-si-onwnv stitch of 0 Vicryl. Skin incisions were closed with subcuticular stitches of 4-0 Monocryl. Steri-Strips were applied, sterile dressings were applied and the patien t tolerated the procedure well. Cameron Carrera MD T: NTS JOB: [id number] 03/21/14 1228 <Electronically signed by Cameron Carrera MD> Date Cameron Carrera MD CC: Emily Pugh MD; Cameron Carrera MD Date Dictated: 03/18/14 1441 Date Transcribed: 03/18/14 144 Edge Bander Operator: Signed 18-Mar-2014 Discharge Instruction Result: Comments: See Note; NOTES: [facility] Medical Records Department [address] [place] [address] Discharge Instruction 03/18/14 1333 MR#: [id number] Acct: [id number] Name: LENORA MORRELL I Rep #: [id number] : 1935 78 From: Cameron Carrera MD PCP: Emily Pugh MD Status: REG [facility] Discharge Diet: Light diet - advance as [...] 1 - 2 tablet PO Q4H PRN GA N #30 tablet PRN Reason: Pain Please Follow Up With: Cameron Carrera - Please call [phone] to schedule an appointment. When: 7 days after your surgery. 03/18/14 1334 <Electronical ly signed by Cameron Carrera MD> Date Cameron Carrera MD CC: Emily Pugh MD 18-Mar-2014 Cholangiogram/ O R,Initial Result: Comments: See Note; NOTES: [facility] Imaging Services [address] [place] [address] Radiology Report MR#: [id number] Acct: [id number] Name: LENORA MORRELL I Rep #: [id number] : 1935 F 78 From: Nolan Head MD PCP: Emily Pugh MD Status: [facility] Study: Cholangiogram/ O R,Initial Date of Exam: 03/18/14 Exam# [id number] Ordering Dr: Cameron Carrera MD STUDY: INTRAOPERATIVE [...] Nolan Head MD at 14:50 EDT Tel [phone], Service support [phone], CC: Emily Pugh MD; Cameron Carrera MD Edge Bander Operator: Signed 07-Mar-2014 Gallbladder Result: Comments: See Note; NOTES: [facility] Imaging Services [address] [place] [address] Ultrasound Report MR#: [id number] Acct: [id number] Name: LENORA MORRELL I Rep #: [id number] : 1935 F 78 From: Nolan Head MD PCP: Emily Pugh MD Status: REG CLI Study: Gallbladder Date of Exam: 03/07/14 Exam# [id number] Ordering Dr: Emily Pugh MD STUDY: ABDOMIN [...] Nolan Head MD at 9:14 EDT Tel [phone], Service support [phone], CC: Emily Pugh MD Edge Bander Operator: Signed Family History Unknown Family Member Name [...] smoker Vital Signs Date Test Result Details 99-Zke-92831:01 Temperature 97.6 f Comments: Method: Temporal Pulse [...] kg/m2 Body Surface Area Calculated 2.06 m2 66-Kfl-679730:28 Temperature 97.9 f Comments: Method: Oral Pulse [...] Pathology Report Comments: PERFORMED BY: TRUNG [facility] [place] Ftyj3495 [facility] [id number] BY: [facility] Dermatopathology Wvxxjii422 [facility] [address] [place], [place] [address] [id number] Information: [id number] See MATER Comments: Material submitted: .RIGHT UPPER ARMClinical history: .VERRUCOUS KERATOSIS Note (Normal) Diagnosis:IRRITATED AND INFLAMED VERRUCA VULGARIS.BXS/03/28/2018Electronically signed: .Neda June MD, DermatopathologistGross description: .RECEIVED IN FORMALIN LABELED LENORA MORRELL DESIGNATED RIGHT UPPERARM IS A 1.0 X 0.8 X 0.5 CM FRIABLE WHITE PAPILLATED SKIN LESION.A DISCRETE SURGICAL MARGIN IS NOT IDENTIFIED. BISECTED ANDENTIRELY SUBMITTED IN ONE CASSETTE.BCO/JASPathologist provided ICD- 10:B07.9CPT .827335 12-Feb-20189:50 Carcinoembryonic Antigen Comments: [facility] (refer to report for specific site)refer to report for address and phone number CEA 1.7 ng/mL (Normal) Range: 0.0-4.7 Comments: Jackie ECLIA methodology Nonsmokers <3.9 Smokers <5.6Performed at: - [facility] [id number] Director: Jame Bhakta PhD, Phone: [phone] 12-Feb-20189:50 CBC W/Diff, Automated Comments: [facility] [address] [place], [address] Absolute Lymph 1.50 {X10_3/ul} (Normal) [...] Range: 4.4-11.0 12-Feb-20189:50 Comprehensive Metabolic Profil Comments: [facility] [address] [place], [address] GAP 7 (Normal) Range: 5-15 CO2 25.0 mmol/L (Normal) Range: 21.0-32.0 CL 108 mmol/L (Abnormal) Range: 98-107 K 4.2 mmol/L (Normal) Range: 3.5-5.1 NA 140 mmol/L (Normal) Range: 136-145 T BILI 0.30 mg/dL (Normal) Range: 0.20-1.00 ALT 26 U/L (Normal) Range: 13-56 Comments: Please note revised ALT reference range voboszyei79/28/2018. ALK P 77 U/L (Normal) Range: 45-117 [...] A.D.A. criteria.Please note revised GLUCOSE reference range bvjzzimsx37/02/2018. 12-Feb-20188:51 Urinalysis, Office (97407) UA - LEUKOCYTE ESTERASE Negative (Normal) UA [...] NOT FASTINGPERFORMED BY: [facility]CoRobert [facility] HospitalFpfvye7791 [facility] [id number] (93277) CEA 1.5 ng/mL (Normal) Range: 0.0-4.7 Comments: Jackie ECLIA methodology Nonsmokers <3.9 Smokers <5.6 91-Hmr-861219:48 MICROALBUMIN: CREATININE RATIO Comments: PATIENT NOT FASTINGPERFORMED BY: [employer] Yibgfh7117 [place] [facility] [id number] (19743) AND (27387) Microalb/Creat Ratio MALD {mg/g_creat} Range: 0.0-30.0 (Abnormal) Comments: This result is below the assay's limit of quantitation indicating adilute specimen, potentially due to diurnal variation. Considerrecollection at a time likely to provide a more concentrated urine. Microalbumin, Urine <3.0 ug/mL (Normal) Creatinine, Urine 74.6 mg/dL (Normal) :48 URINALYSIS (40804) Comments: PATIENT NOT FASTINGPERFORMED BY: [employer]70 [facility] [id number] Microscopic Examination MICNIP (Normal) Comments: Microscopic not indicated and not performed. Nitrite, Urine Negative (Normal) Urobilinogen,Semi-Qn 0.2 mg/dL (Normal) Range: 0.2-1.0 Bilirubin Negative (Normal) Occult Blood Negative (Normal) Ketones Negative (Normal) Glucose Negative (Normal) Protein Negative (Normal) WBC Esterase Negative (Normal) Appearance Clear (Normal) Urine-Color Yellow (Normal) pH 6.5 (Normal) Range: 5.0-7.5 Specific [place] 1.014 (Normal) Range: 1.005-1.030 :48 Metabolic Panel, Comprehensive Comments: PATIENT NOT FASTINGPERFORMED BY: [employer] Wesfog0076 [facility] [id number] (05104) ALT (SGPT) 25 [iU]/L (Normal) Range: 0-32 [...] Glucose, Serum 99 mg/dL (Normal) Range: 65-99 22-Xel-944343:48 CBC WITH MANUAL DIFF Comments: PATIENT NOT FASTINGPERFORMED BY: [facility] Lrovbq6865 [facility] [id number] Information: NURSE DRAW (40026) Immature Grans (Abs) 0.0 {x10E3/uL} (Normal) Range: [...] 3.4-10.8 :10 FLU A+B DIRECT AG, (RAPID) (61049) FLU A+B DIRECT AG, (RAPID) Pos A (Normal) :10 Carcinoembryonic Antigen Comments: [facility] (refer to report for specific site)refer to report for address and phone number CEA 2135 1.1 ng/mL (Normal) Range: 0.0-4.7 Comments: Jackie ECLIA methodology Nonsmokers <3.9 Smokers <5.6Performed at: [facility] LabCoTim[place] [id number] Director: Jame Bhakta PhD, Phone: [phone] :[phone] CBC W/Diff, Automated Comments: [facility] [address] [place], [place], [id number] Absolute Lymph 1.70 {X10_3/ul} (Normal) Range: 0.83-4.51 [...] 4.2-5.4 WBC 6.1 K/mm3 (Normal) Range: 4.4-11.0 18-Nov-20157:10 Comprehensive Metabolic Profil Comments: [facility] [address] [place], [place], [address] GAP 3 (Abnormal) Range: 5-15 CO2 28.0 [...] (Normal) Range: 70-110 :10 Lipid Profile Comments: [facility] [address] [place], [place], [address] VLDL 21 mg/dL (Normal) Range: 5-40 LDL [...] Risk :10 Thyroid Stim Hormone (TSH) Comments: [facility] [address] [place], [address] TSH 2.80 {uIU/mL} (Normal) Range: 0.358-3.74 :09 CBC W/Diff, Automated Comments: Test performed at:[address] [place], [place] [address] Absolute Lymph 1.42 {X10_3/ul} (Normal) Range: 0.83-4.51 [...] 4.2-5.4 WBC 5.2 K/mm3 (Normal) Range: 4.4-11.0 50-Buw-34169:09 Comprehensive Metabolic Profil Comments: Test performed at:[facility] [address] [place], [place] [address] GAP 11 (Normal) Range: 5-15 CO2 25.0 [...] Thyroid Stim Hormone (TSH) Comments: Test performed at:[facility] [address] [place] [address] TSH 1.03 {uIU/mL} (Normal) Range: 0.358-3.74 :36 Thyroid Stim Hormone (TSH) Comments: Test performed at:[facility] [address] [place] [id number] TSH 2.20 {uIU/mL} (Normal) Range: 0.358-3.74 :15 [...] Jackie ECLIA methodology Nonsmokers <3.9Smokers <5.6Performed at: [facility] [id number] Director: Jaylen Schumacher PhD, Phone: [phone] :15 CMP GAP 8 (Normal) Range: 5-15 [...] Jackie ECLIA methodology Nonsmokers <3.9Smokers <5.6Performed at: [facility] [address] [id number] Director: Kate aRya MD, Phone: [phone] :07 CMP GAP 6 (Normal) Range: 5-15 [...] :07 TSH 0.15 {uIU/mL} (Abnormal) Range: 0.358-3.74 1-Rsa-049441:42 GALL (Normal) Comments: Patient: LENORA MORRELL I : 1935 (78/F)Acct Num: [id number] Phys: Ludwin Carrera MD Num: [id number] Loc: SDCSpecimen: [id number] Received: 03/18/14 1442Spec Type: KEELY De MD,[address] [place] [facility], [place] [phone] MD,Fgkxrj[address] [facility], [place] [phone] ID Blk Pcs Davis Lev + Procedure ComGallbladder, NO 1-2PTH PROCEDURES COMPLETEPROCEDURES: SUIII (03/18/14-1616)TISSUESTISSUES:GROSS DESCRIPTIONReceived is one container labeled with the patient name and designatedgallbladder - SSFP. The specime n consists of a gallbladder measuring 10 cm inlength and up to 5 cm in diameter. The external surface is pink-shaw, smooth andglistening for the most part. Focally [...] measures up to 0.5 cm in thickness. Outside Upholsterer sectionsfrom the g allbladder and the cystic duct are submitted in two cassettes. Thestones are saved for the patient. / MICHEAL:arash 03/18/14 TC:2CPT: 11494FEUSTDEYWDWXKUY: Lap cholecystectomyPRE-OPERATIVE DIAGNOSIS: Acute cho lecystitisTISSUE SUBMITTED: Gallbladder - PSSFPMICROSCOPIC DIAGNOSISGallbladder:Acute and chronic hemorrhagic and ulcerated cholecystitis andcholelithiasis.MICHEAL:arash 03/19/14Signed Mitchell Roldan 03/19/14<signature on file> 18-Mar-20140:00 CUDW Comments: Comments: C&S/GRAM STAIN/ANAEROBES PLEASE CUAN No growth in 5 days. (Normal) WC No growth aerobically. (Normal) GS See Note (Normal) Comments: Gram Stain3+ Red Blood Cells1+ White Blood CellsNo organisms seen 8-Vbl-877932:06 BMP CO2 27.0 mmol/L (Normal) Range: 21.0-32.0 GAP 7 (Normal) Range: 5-15 CL 100 mmol/L (Normal) Range: 98-107 K 4.0 mmol/L (Normal) Range: 3.5-5.1 NA 134 mmol/L (Abnormal) Range: 136-145 CA 10.1 mg/dL (Normal) Range: 8.5-10.1 BC 10.0 {RATIO} (Normal) Range: 10-20 CREAT 0.8 mg/dL (Normal) Range: 0.6-1.0 BUN 8 mg/dL (Normal) Range: 7-18 GLU 103 mg/dL (Normal) Range: 70-110 :06 CBCD ANC 8.2 {X10_3/uL} (Abnormal) Range: 2.0-7.7 [...] NOT FASTINGPERFORMED BY: LabCoRobert Wood Johnson University HospitalIlvptr7183 [facility] [id number] (71335) ALT (SGPT) 509 [iU]/L (Abnormal) Range: 0-32 [...] Glucose, Serum 110 mg/dL (Abnormal) Range: 65-99 :02 CBC, Platelets & Auto Comments: PATIENT NOT FASTINGPERFORMED BY: ROBERT [facility] Nsjdit8578 [facility] [id number] Information: [id number] Diff (22961) Immature Grans (Abs) 0.0 {x10E3/uL} (Normal) Range: [...] 3.77-5.28 WBC 5.2 {x10E3/uL} (Normal) Range: 3.4-10.8 42-Pyf-948216:02 Lipase (15372) Comments: PATIENT NOT FASTINGPERFORMED BY: [facility] Cbloyr4583 [facility] [id number] Lipase, Serum 27 U/L (Normal) Range: 0-59 62-Rgs-993703:02 Amylase (38650) Comments: PATIENT NOT FASTINGPERFORMED BY: [facility] Pzjyyp8353 [facility] [id number] Amylase, Serum 51 U/L (Normal) Range: 31-124 80-Ank-612028:22 URINE PERRY CULTURE-EDWIN COL Comments: PATIENT NOT FASTINGPERFORMED BY: [facility] Fingfc1345 [facility] [id number] Information: SRC:UR [id number] COUNT (82096) Result 1 MUG (Normal) Comments: Mixed urogenital flora25,000-50,000 colony forming units per mL Urine Final report (Normal) Culture,Comprehensive 86-Wum-67093:39 Urinalysis, Office (30150) UA - LEUKOCYTE ESTERASE Negative (Normal) UA [...] CHOL 161 mg/dL (Normal) Comments: <200 mg/dL Yqjubtfhf809-503 mg/dL Borderline>240 mg/dL High Risk TRIG 101 mg/dL (Normal) Range: 0-199 Comments: Serum Triglycerides Reference IntervalNormal <150 mg/dLBorderline high 150 - 199 mg/dLHigh 200 - 499 mg/ dLVery High > or = 500 mg/dL :13 TSH 1.03 {uIU/mL} (Normal) Range: 0.358-3.74 40-Cfr-937423:45 BILAT SCRN DIGITAL & CAD Radiology Report [...] Head M.D.January 08, 2013 at 12:26:36 PM [id number] Signed GP/GP If you are the referring physician and would like to consu lt with theradiologist who provided this interpretation, please contact Reny Abreu at [phone]. If this radiologist is unavailable, youwill be directed to another radiologist to assist. If you are a patient with a question regarding this report, pleasecontactyour referring physician directly. Professional Interpretation Provided By: [employer], Phone , T hese documents contain legally [...] destructionofthese documents. Dictated on 01/08/13 1145 by Anette Head MDribed on 01/08/13 1302 by ITS IMPORTSign by Nolan Head MD on 01/08/13 1304 Sign by: Nolan Head MD :32 CMP GAP 9 (Normal) Range: 5-15 [...] METABOLIC PANEL, Comments: PATIENT WAS FASTINGPERFORMED BY: LabCoRobert Wood Johnson University HospitalClvjks0743 [facility] [id number] Information: [id number] [facility] (21234) ALT (SGPT) 39 [iU]/L (Normal) Range: 0-40 [...] Glucose, Serum 93 mg/dL (Normal) Range: 65-99 32-Qmr-91640:22 LIPID PANEL (45502) Comments: PATIENT WAS FASTINGPERFORMED BY: [facility] Stihfz7246 [facility] [id number] LDL/HDL Ratio 1.6 {ratio_units} (Normal) Range: 0.0-3.2 LDL Cholesterol Calc 103 mg/dL (Abnormal) Range: 0-99 VLDL Cholesterol Sriram 18 mg/dL (Normal) Range: 5-40 HDL Cholesterol 63 mg/dL (Normal) Comments: According to ATP-III Guidelines, HDL-C >59 mg/dL is considered anegative risk factor for CHD. Triglycerides 91 mg/dL (Normal) Range: 0-149 Cholesterol, Total 184 mg/dL (Normal) Range: 100-199 79-Jcr-23248:22 TSH (63123) Comments: PATIENT WAS FASTINGPERFORMED BY: ROBERT [facility] Yyuixp3727 [facility] [place] [facility] [id number] TSH 1.720 {uIU/mL} (Normal) Range: 0.450-4.500 18-Cly-41842:00 CULT, DP WOUND Comments: LEFT ARM ABSCESS [...] RED CELL STROMA 1+ GRAM POSITIVE COCCI 19-Phj-107235:30 BILAT SCRN DIGITAL & CAD Radiology Report [...] regarding this report , please call our [id number] line @ Dictated on 11/02/11 1414 by Beth Mirza DOnscribed on 11/04/111852 by ITS IMPORTSign by Saima Mirza DOe on 11/04/111853 Sign by: Marielos Mirza DO 39-Mnv-783152:30 DEXA BONE DENSITY STUDY (HP) Radiology Report [...] regarding th is report, please call our [id number] line @ Dictated on 11/02/11 1335 by Ignacio Head MDranscribed on 11/03/11 1500 by ITS IMPORTSign by Nolan Head MD on 11/03/11 150 1 Sign by: Nolan Head MD 31-Qdd-17956:15 Pathology Report Comments: PERFORMED BY: [facility] [place] Cbzp77270 [facility] [id number] Information: [id number] See MATER Comments: Material submitted: .LEFT FOREARMClinical [...] SUBMITTED IN TOTO.XJW/KAMPathologist provided ICD-9:702.0 , 709.09CPT .849225 13-Efc-61977:19 LIVER Radiology Report See Note (Normal) Comments: [...] of the right kidney. The right k jkqvdpdfvuwnm12.7 cm. Normal renal cortex. There is no demonstrated renal mass orcyst. There are no demonstrated renal calculi. There is nohydronephrosis. There is no ascites. IMPRESSION:Findings are suggestive of tumefactive sludge within the gallbladderlumen,with possible gallstones. Clinical correlation is suggested. Dictated on 07/26/11 0758 by Ignacio Head MDranscribed on 1 1033 by ITS IMPORTSign by Nolan Head MD on 07/26/11 1033 Sign by: Sonido RODRIGUESNolan :22 Lipid Panel (06240) Comments: PATIENT WAS FASTINGPERFORMED BY: [facility]6370 [facility] [id number] LDL/HDL Ratio 1.7 {ratio_units} (Normal) Range: 0.0-3.2 LDL Cholesterol Calc 117 mg/dL (Abnormal) Range: 0-99 VLDL Cholesterol Sriram 16 mg/dL (Normal) Range: 5-40 HDL Cholesterol 69 mg/dL (Normal) Comments: According to ATP-III Guidelines, HDL-C >59 mg/dL is considered anegative risk factor for CHD. Triglycerides 81 mg/dL (Normal) Range: 0-149 Cholesterol, Total 202 mg/dL (Abnormal) Range: 100-199 :22 TSH (24668) Comments: PATIENT WAS FASTINGPERFORMED BY: NeotropixRobert Wood Johnson University HospitalYvmnpf5254 [facility] [id number] TSH 3.800 {uIU/mL} (Normal) Range: 0.450-4.500 :22 Metabolic Panel, Comments: PATIENT WAS FASTINGPERFORMED BY: NeotropixRobert Wood Johnson University HospitalUaqrhg5374 [facility] [id number] Information: [id number] Comprehensive (95444) ALT (SGPT) 42 [iU]/L (Abnormal) Range: 0-40 [...] FUNCTION PANEL Comments: PATIENT NOT FASTINGPERFORMED BY: GrexIt70 Auto Load LogicWatauga Medical Center [id number] Information: [id number] (37087) ALT (SGPT) 49 [iU]/L (Abnormal) Range: 0-40 AST (SGOT) 31 [iU]/L (Normal) Range: 0-40 Alkaline Phosphatase, S 73 [iU]/L (Normal) Range: 25-165 Bilirubin, Direct 0.12 mg/dL (Normal) Range: 0.00-0.40 Bilirubin, Total 0.5 mg/dL (Normal) Range: 0.0-1.2 Albumin, Serum 4.3 g/dL (Normal) Range: 3.5-4.8 Protein, Total, Serum 7.2 g/dL (Normal) Range: 6.0-8.5 :34 Lipid Panel (02745) Comments: PATIENT WAS FASTINGPERFORMED BY: GrexIt70 Auto Load LogicWatauga Medical Center [id number] LDL Cholesterol Calc 101 mg/dL (Abnormal) Range: [...] WAS FASTINGPERFORMED BY: LabCoRobert Wood Johnson University HospitalYmxsuj6176 [facility] [id number] Information: [id number] Comprehensive (97827) Alkaline Phosphatase, S 79 [iU]/L (Normal) Range: [...] 94 mg/dL (Normal) Range: 65-99 :34 TSH (93832) Comments: PATIENT WAS FASTINGPERFORMED BY: LabCoRobert Wood Johnson University HospitalXfeuid7583 [facility] [id number] TSH 2.900 {uIU/mL} (Normal) Range: 0.450-4.500 :39 TSH 2.49 {uIU/mL} (Normal) Range: 0.358-3.74 41-Zue-153153:50 KIDNEY (HP) Radiology Report See Note (Normal) Comments: Exam Number: [id number] CLINICAL:73 year old woman with right upper [...] Report See Note (Normal) Comments: Exam Number: [id number] CLINICAL:Low back pain X-RAY EXAMINATION: LUMBAR SPINE [...] Reported By: WILLIAM MELO M.D. :34 BILAT SCRN DIGITAL & CAD Radiology Report See Note (Normal) Comments: Exam Number: [id number] MAMMOGRAM, BILATERAL SCREENING DIGITAL AND CAD HISTORYRoutine [...] mammograms werealso examined with computer-aided detection software ([employer], [employer] Reported By: ILA POZO M.D. :34 [...] :34 TSH 3.16 {uIU/mL} (Normal) Range: 0.358-3.74 :58 TRANSVAGINAL NON-PREG US () Radiology Report See Note (Normal) Comments: Exam Number: [id number] TRANSABDOMINAL AND TRANSVAGINAL PELVIC ULTRASOUND STATEMENTOvarian cyst. [...] 6 months. Reported By: OBED CLINE M.D. 65-Dct-286634:34 PELVIC (NON-PREG) () Radiology Report See Note (Normal) Comments: Exam Number: [id number] TRANSABDOMINAL AND TRANSVAGINAL PELVIC ULTRASOUND STATEMENTOvarian cyst. [...] Report See Note (Normal) Comments: Exam Number: [id number] RIGHT UPPER QUADRANT ULTRASOUND REASON FOR EXAMINATIONFollowup [...] quadrant ascites. Reported By: DANIELA GRAY M.D. 03-Pxx-28612:37 TRANSVAGINAL NON-PREG US (HP) Radiology Report See Note (Normal) Comments: Exam Number: [id number] TRANSVAGINAL PELVIC ULTRASOUND REASON FOR EXAMOvarian cyst. [...] adnexal structures. Reported By: DANIELA GRAY M.D. 70-Erx-488737:54 MAMM, BILAT SCRN DIGITAL & CAD Radiology Report See Note (Normal) Comments: Exam Number: [id number] MAMMOGRAPHY, BILATERAL SCREENING DIGITAL AND CAD HISTORYRoutine [...] mammograms werealso examined with computer-aided detection software ([employer], [employer] Reported By: ILA POZO M.D. 1-Loo-137500:58 PT/INR, Office (11159) INR 3.6 (Normal) PT (PROTHROMBIN TIME) 22.8 [...] Indication: Acute sinusitis, unspecified Planned Observations TSH (92201)Indication: Hypothyroidism On: :34 Request LIPOPROTEIN, BLD, BY NMR (15559)Indication: Hypercholesteremia (Renamed from Hypercholesterolemia) On: :34 Request METABOLIC PANEL, COMPREHENSIVE (81984)Indication: Hypercholesteremia (Renamed from Hypercholesterolemia) On: :34 Request URINALYSIS (04224)Indication: Hypothyroidism On: : Request CBC WITH MANUAL DIFF (63747)Indication: Hypothyroidism On: : Request Metabolic Panel, Comprehensive (16181)Indication: Hypothyroidism On: :28 Request METABOLIC PANEL, COMPREHENSIVE (93342)Indication: Right lower quadrant pain On: :55 Request CBC with auto diff (55431)Indication: Right lower quadrant pain On: :55 Request CARCINOEMBRYONIC ANTIGEN (CEA) (33720)Indication: History of colon cancer On: :55 Request TSH (63523)Indication: BMI 40.0-44.9, adult On: :58 Request LIPOPROTEIN, BLD, BY NMR (86803)Indication: Hypercholesteremia (Renamed from Hypercholesterolemia) On: :58 Request HEPATIC FUNCTION PANEL (61092)Indication: Hypercholesteremia (Renamed from Hypercholesterolemia) On: :58 Request CARCINOEMBRYONIC ANTIGEN (CEA) (04281)Indication: History of colon cancer On: :28 Request METABOLIC PANEL, COMPREHENSIVE (85127)Indication: Hypothyroidism On: :28 Request CBC with auto diff (72020)Indication: History of colon cancer On: :28 Request TSH (78686)Indication: Hypothyroidism On: :28 Request LIPID PANEL (06935)Indication: Hypothyroidism On: :14 Request CARCINOEMBRYONIC ANTIGEN (CEA) (81639)Indication: History of colon cancer On: :13 Request METABOLIC PANEL, COMPREHENSIVE (77361)Indication: History of colon cancer On: :13 Request CBC with auto diff (11864)Indication: History of colon cancer On: :13 Request TSH (54546)Indication: Hypothyroidism On: :13 Request CBC WITH MANUAL DIFF (00385)Indication: Hypothyroidism On: :23 Request Metabolic Panel, Comprehensive (93919)Indication: Hypothyroidism On: :22 Request TSH (73928)Indication: Hypothyroidism On: :22 Request TSH (78691)Indication: Hypothyroidism On: :38 Request CARCINOEMBRYONIC ANTIGEN (CEA) (97182)Indication: History of colon cancer On: 9-Vms-817635:11 Request CBC WITH MANUAL DIFF (92592)Indication: History of colon cancer On: 5-Zzk-752375:09 Request METABOLIC PANEL, COMPREHENSIVE (57936)Indication: History of colon cancer On: 6-Opu-558015:09 Request TSH (54835)Indication: Hypothyroidism On: 6-Ghh-297923:09 Request Comments: 8 weeks. HEPATIC FUNCTION PANEL (66936)Indication: Elevated LFTs On: :38 Request CARCINOEMBRYONIC ANTIGEN (CEA) (71988)Indication: History of colon cancer On: 8-Bei-781759:23 Request TSH (40555)Indication: Hypothyroidism On: 6-Clq-984821:18 Request METABOLIC PANEL, COMPREHENSIVE (07097)Indication: Elevated LFTs On: 0-Idu-711576:18 Request HEPATIC FUNCTION PANEL (64206)Indication: Elevated LFTs On: 19-Ghs-053817:50 Request LIPID PANEL (66804)Indication: Elevated LFTs On: 0-Apt-471833:34 Request METABOLIC PANEL, COMPREHENSIVE (09475)Indication: Elevated LFTs On: 1-Wbz-114540:34 Request TSH (46135)Indication: Hypothyroidism On: 4-Crt-249907:34 Request TSH (64115)Indication: Hypothyroidism On: :48 Request CBC (Auto) (16870)Indication: Elevated LFTs On: :48 Request METABOLIC PANEL, COMPREHENSIVE (12825)Indication: Elevated LFTs On: :25 Request LIPID PANEL (91987)Indication: Elevated LFTs On: :25 Request TSH (65757)Indication: Hypothyroidism On: :25 Request CBC (Auto) (20767)Indication: Colon cancer On: 46-Gym-762552:09 Request Metabolic Panel, Comprehensive (64227)Indication: Colon cancer On: 77-Frg-664710:09 Request TSH (79882)Indication: Hypothyroidism On: 33-Ivm-959229:05 Request LIPID PANEL (81694)Indication: Obesity On: 09-Bmd-313227:05 Request Urinalysis, Office (21845)Indication: Low back pain On: :17 Request TSH (54460)Indication: Hypothyroidism On: 56-Jbf-68002:10 Request TSH (17705)Indication: Hypothyroidism On: 84-Coq-80702:27 Request Metabolic Panel, Comprehensive (74276)Indication: Elevated LFTs On: 08-Eec-34375:10 Request TSH (74496)Indication: Hypothyroidism On: 05-Oyu-49960:09 Request TSH (19799)Indication: Hypothyroidism On: 35-Jow-476605:57 Request CREATINE KINASE TOTAL (02652)Indication: Myalgia and myositis On: :35 Request C-REACTIVE PROTEIN (05603)Indication: Myalgia and myositis On: :33 Request SED RATE ERYTHROCYTE (24051)Indication: Myalgia and myositis On: :33 Request LIPID PANEL (27467)Indication: Obesity On: :23 Request HEPATIC FUNCTION PANEL (20514)Indication: Elevated LFTs On: :23 Request Planned Encounters Medical; [facility] 4 Month Fu - On: 07-Jan-2019 10:15 [facility] Lexy RODRIGUES, Emily Pugh MD, Emily Hope Planned Procedures Flu Vaccine (Quadrivalent) On: 31-Aug-2018 Intent 35933Cb: AIMEE Sheikh Comments: Lot #:[id number] date: 7-16-68Ijcfkj given:0.5mlRoute: IMSite given:L DltdGiven by: ZONIA and LUPILLO signed [employer] SCREENING DIGITAL TOMOSYNTHESIS On: 26-Mar-2018 Intent OF BREAST (46009)By: Emily Pugh MD, MD, Dana M DEXA SCAN AXIAL SKELETON On: 26-Mar-2018 Intent (66092)By: Emily Pugh MD, MD, Dana M CT - Abdomen & Pelvis (IV On: 12-Feb-2018 Intent Contrast Needed)By: Emily Pugh MD, MD, Dana M TD VACCINE ADULT (69435)By: On: 22-Sep-2017 Intent Visit, Nurse Comments: boostrixlot [id number] 10.9.18L Dltd, IMPrefilled syringeMegan ROB Loyd signed Flu Vaccine (Quadrivalent) On: 31-Aug-2017 Intent 99349Rs: Visit, Nurse Comments: Lot #[id number]-04/30/18ite-L dltd, IMDose prefilled syringegiven by:ROB Sarkar and LUPILLO signed Flu Vaccine (Quadrivalent) On: 10-Oct-2016 Intent 60887Su: Emily Pugh MD Comments: Lot:[id number]:05/12/17Dose:0.5mLRoute:IMSite:L DltdGiven By:TONEY signed Emily Pugh MD Bone Density StudyBy: Lexy RODRIGUES, On: 22-Jul-2016 Intent Emily Moran MD BILATERAL MAMMOGRAMS (32425)By: On: 22-Jul-2016 Intent Emily Pugh MD, MD, Dana M MAMMOGRAM, SCREENING, BOTH BREAST On: 28-May-2015 Intent (21402)By: Emily Pugh MD, MD, Dana M Prevnar 13 (74169)By: Lexy On: 27-Nov-2014 Intent MD, Emily Moran MD MAMMOGRAM, SCREENING, BOTH BREAST On: 20-May-2014 Intent (53197)By: Lexy RODRIGUES, Emily Moran MD DEXA SCAN AXIAL SKELETON On: 20-May-2014 Intent (88376)By: Emily Pugh MD Comments: postmenapausal Emily Pugh MD Ultrasound - GallbladderBy: On: 04-Mar-2014 Intent Lexy RODRIGUES, Emily Pugh MD, Emily Hope Eprescribed prescriptions On: 10-Jan-2014 Intent (G8553)By: Lexy RODRIGUES, Emily Pugh MD, Emily Hope SPECIMEN HANDLING/TRANSPORT On: 01-Jan-2014 Intent (46074)By: Lori Ortiz CNP MAMMOGRAM, SCREENING, BOTH On: 18-Nov-2013 Intent BREASTS (91634)By: Lexy RODRIGUES, Comments: end of 12-27 Emily Moran MD Eprescribed prescriptions On: 18-Nov-2013 Intent (G8553)By: Kiley Gallegos ZOST[place] VACC, [place] (49358)By: Paul, On: 01-Jan-2013 Intent Belle Comments: Lot:[id number]:0.65mLRoute:SubQSite:l armGiven By:TONEY signed IMMUNIZ ADMNIN, 1 VAC, SNGL/COMBO On: 01-Jan-2013 Intent (75688)By: Belle Miller ADMINISTRATION OF PNEUMOCOCCAL On: 27-Dec-2012 Intent VACCINE (G0009)By: Emily Pugh MD, MD, Dana M PNEUM VAC ADLT/IMUMNOSPR, On: 27-Dec-2012 Intent SBC/INTRM (06508)By: Emily Pugh MD, MD, Dana M MAMMOGRAM, SCREENING, BOTH On: 27-Dec-2012 Intent BREASTS (82200)By: Emily Pugh MD, MD, Dana M FLU VAC, SPLIT, >3 YEARS, On: 24-Jul-2012 Intent INTRAMUSC (63379)By: Paul, Comments: Lot:[id number]:6.30.13Dose:prefilledRoute:IMSite:L DltdGiven By:TONEY Odonnell ADMINISTRATION OF INFLUENZA VIRUS On: 24-Jul-2012 Intent VACCINE (G0008)By: Belle Miller DXA, BONE DENSITY, AXIAL SKELETON On: 18-Oct-2011 Intent (01706)By: Emily Pugh MD Comments: estrogen def and postmenapausal Emily Pugh MD MAMMOGRAM, SCREENING, BOTH On: 18-Oct-2011 Intent BREASTS (76662)By: Emily Pugh MD, MD, Dana M ADMINISTRATION OF INFLUENZA VIRUS On: 18-Oct-2011 Intent VACCINE (G0008)By: Emily Pugh MD, MD, Dana M FLU VAC, SPLIT, >3 YEARS, On: 18-Oct-2011 Intent INTRAMUSC (37673)By: Emily Pugh MD, MD, Dana M Ultrasound - LiverBy: Lexy RODRIGUES, On: 14-Jul-2011 Intent Emily Moran MD DXA, BONE DENSITY, AXIAL SKELETON On: 24-May-2010 Intent (19335)By: Emily Pugh MD Comments: postmenapausal, estrogen def. back pain Emily Pugh MD MAMMOGRAM, SCREENING, BOTH On: 24-May-2010 Intent BREASTS (88166)By: Emily Pugh MD, MD, Dana M Ultrasound - RenalBy: Angel COON, On: 10-Aug-2009 Intent Lori Lira Radiology - Lumbar SpineBy: Angel On: 10-Aug-2009 Intent Lori COON MAMMOGRAM, SCREENING, BOTH On: 30-Jun-2009 Intent BREASTS (61914)By: Emily Pugh MD, MD, Dana M Ultrasound - PelvisBy: Lexy On: 30-Jun-2009 Intent Emily RODRIGUES MD, Dana M Pulse Oximetry (71567)By: Angel On: 23-Apr-2009 Intent Lori COON Aerosol Treatment (23699)By: On: 23-Apr-2009 Intent Lori Ortiz CNP Ultrasound - PelvisBy: Lexy On: 06-Jan-2009 Intent , Emily Pugh MD, Emily Hope Ultrasound - LiverBy: Lexy RODRIGUES, On: 08-Jul-2008 Intent Emily Moran MD Ultrasound - PelvisBy: Lexy On: 08-Jul-2008 Intent Emily RODRIGUES MD, Emily Hope Comments: do transvaginal Clinical Breast Examination On: 27-Mar-2007 Intent (G0101)By: Emily Pugh MD, MD, Emily Hope MAMMOGRAM, SCREENING, BOTH On: 27-Mar-2007 Intent BREASTS (59114)By: Emily Pugh MD, MD, Dana M Ultrasound [...] The patient does have durable power of patent prosecution attorney and living will. The patient has [...] for Tdap vaccination (Renamed from Need for czxsygcmss-dnetgvm-zrdvbenmb (Tdap) vaccine, adult/adolescent) End: 25-Sep-2017 9:38 Comprehensive [...] The patient does have durable power of patent prosecution attorney and living will. The patient has noticed nothing from the geriatic depression scale. Other providers contributing to the patient's care are gastrologist ( Dr. Carrera ) and other: (Quantitative Associate Dr. Izaguirre, opthalm Dr. Mckeon ).Encounter Diagnosis: [...] bathroom. The patient [facility]: PAP smear (unsure of timing), mammography (2011) and colonoscopy (2010). The patient does have durable power of patent prosecution attorney and living will. The patient has [...] - Reason for hospitalization note: (syncope at [place] ). Patient has been compliant with instructions. [...] liver (751.69), Elevated LFT (790.6), Headache (784.0), [facility] V72.31 (Renamed from [facility] ([facility]) (V72.31)) [facility] Office [...] cyst (620.2), Headache (784.0), Elevated LFT (790.6), [facility] V72.31 (Renamed from [employer] [facility] ([facility]) (V72.31)), Actinic keratosis (702.0), Foot [...] COLON (V10.05), Hypothyroidism (244.9), Elevated LFT (790.6), [facility] V72.31 (Renamed from [employer] ([place]) [...] Disorder of bone and cartilage, unspecified (733.90), [facility] V72.31 (Renamed from [employer] (V72.31)) [facility] Office Visit On: [...] (153.9), Rosacea (695.3), Hemorrhoids (455.8), Obesity (278.00), [facility] V72.31 (Renamed from [employer] ([employer]) (V72.31)) [facility] Office Visit On: [...] anticoagulants (286.5), Colon Cancer (153.9), Rosacea (695.3), [facility] V72.31 (Renamed from [employer] ([place]) [...] ankle, infected (916.5), PORTAL VEIN THROMBOSIS (452.), [facility] V72.31 (Renamed from [employer] [...] cartilage, unspecified (733.90), Headache (784.0), Obesity (278.00), [facility] V72.31 (Renamed from [employer]) (V72.31)), genital warts [facility] Office [...] of gallbladder, bile ducts, and liver (751.69), [facility] V72.31 (Renamed from [employer] ([facility]) (V72.31)) [facility] Office Visit On: [...] liver (751.69), Unspecified Diagnosis, Elevated LFT (790.6), [facility] V72.31 (Renamed from [employer] ([place]) [...] Internal Medicine Payers [employer] Life Ins/MedicareTRANS RXDOROTLUIS MORRELL; vito guarantor
--- OUTSIDE RECORDS SUMMARY | 2019-02-04 14:35 | XMS RPT_ITS | Continuity of Care Document ---
:1935 Author Organization [facility] Address [address] [facility] [address] [place] [address] Phone Care Team Providers Name Role Phone Lexy RODRIGUES, Emily Hope Unavailable Teo Botello DPM Unavailable Raquel Jordan Unavailable Maynor RODRIGUES, Cameron Dominguez Unavailable Dr. Jam Lehman Unavailable Gravbetsey, Tracy Unavailable Unavailable AIMEE Sheikh Unavailable Unavailable Unavailable Unavailable Problems Name Dates [...] bleeding. post care instructions given Status: Active Menopausal state (N95.1, 627.2) Status: [...] Quantity: 60 {Tablet} Refills: 0 Ordered:21-Sep-2017 Emily Pguh MD, MD, Dana M Start : 04-Sep-2017 [...] 0 days Refills: 0 Ordered:28-Aug-2009 Mast RN, Syd Fish Oil 1000 MG Oral Capsule 1 qd (1000 MG) Active Garlic 500 MG Oral Tablet 1 Tablet QD for 0 days Quantity: 30 {Tablet} Refills: 0 Ordered:04-Sep-2017 Emily Pugh MD, MD, Dana M Start : 04-Sep-2017 Active Comments:parsley 100mg Nutraview 1 capsule daily Active Synthroid 112 MCG Oral Tablet 1 Tablet qd for 0 days Quantity: 90 {Tablet} Refills: 3 Ordered:06-Sep-2018 Emily Pugh MD, MD, Dana M Start : 06-Sep-2018 Active Comments:generic is ok Turmeric 500 MG Oral Capsule 1 (one) Tablet Tablet qd for 0 days Quantity: 30 {Tablet} Refills: 0 Ordered:20-Feb-2018 Emily Pugh MD, MD, Dana M Start : 04-Sep-2017 Active Vitamin C 1000 [...] days Quantity: 10 {Tablet} Refills: 0 Ordered:01-Jan-2014 Angel COONLori Start : 01-Jan-2014 End : 06-Jan-2014 Inactive [...] : 21-Mar-2017 End : 03-Apr-2017 Inactive ZOSTAVAX, 63734IWD/0.65ML (Subcutaneous Solution Reconstituted) 1 For Solution once [...] 02-Aug-2016 Discontinued Comments:This order discontinued per [employer]. Wendyaleuca daily for life pm packet after dinner [...] and ankle, infected (S80.869A, 916.5) Comments: ? [place] fly, cellulitis Status: Inactive as of 27-Dec-2012 [...] for Tdap vaccination (Renamed from Need for qdzmjnbfre-kozfphr-rxitaolud (Tdap) vaccine, adult/adolescent) (Z23, V06.1) Status: Resolved [...] liver (751.69) 26-Nov-2010 Comments: Liver lesion--ct scan 11-09 good Status: Inactive as of 27-Dec-2012 PORTAL [...] Details cholecystectomy Completed Comments: March 2014 - Cholecystectomy Completed Comments: 2013 Colonoscopy, Screening Completed Comments: 2014 Foot Surgery - Left Completed Comments: 1993 Hysterectomy; Abdominal Completed Comments: With bladder suspension in 2002 Tonsillectomy Completed Comments: 1941 Umbilical Hernia Repair Completed Comments: 1998 Date Value Details 29-Aug-2018 Dexa Bone Density Study Result: Comments: See Note; NOTES: [facility] Imaging Services [address] [place] [place] [address] Dexa Bone Density Study MR#: [id number] Acct: [id number] Name: LENORA MORRELL I Rep #: [id number] : 1935 F 82 From: Nolan Head MD PCP: Emily Pugh MD Status: REG CLI Study: Dexa Bone Density Study Date of Exam: 08/29/18 Exam# [id number] Ordering Dr: Emily Pugh MD STUDY: DU [...] Nolan Head MD at 8:26 EDT Tel [phone], Service support , CC: Emily Pugh MD Hotel Service Supervisor: Signed 29-Aug-2018 SCREENING MAMM (CAD), BILAT Result: Comments: See Note; NOTES: [facility] Imaging Services [address] [place] [address] SCREENING MAMM (CAD), BILAT MR#: [id number] Acct: [id number] Name: LENORA MORRELL I Rep #: [id number] : 1935 F 82 From: Nolan Head MD PCP: Emily Pugh MD Status: REG CLI Study: SCREENING MAMM (CAD), BILAT Date of Exam: 08/29/18 Exam# [id number] Ordering Dr: Emily Pugh MD AMMOGRAPHY - [...] delay biopsy of a clinically suspicious abnormality. [id number] Electronically Signed: Nolan Head MD at 13:21 EDT Tel [phone], Service support , CC: Emily Pugh MD Hotel Service Supervisor: Signed 12-Feb-2018 Abdomen/Pelvis WITH Contrast Result: Comments: See Note; NOTES: [facility] Imaging Services [address] [place] [place] [address] Abdomen/Pelvis WITH Contrast MR#: [id number] Acct: [id number] Name: LENORA MORRELL I Rep #: [id number] : 1935 F 82 From: Maite Corona MD PCP: Emily Pugh MD Status: REG CLI Study: Abdomen/Pelvis WITH Contrast Date of Exam: 02/12/18 Exam# [id number] Ordering Dr: Emily Pugh MD GEORGINA DY: CT ABDOMEN AND PELVIS WITH CONTRAST [...] Service support , CC: Emily Pugh MD Hotel Service Supervisor: Signed 25-Oct-2017 TXT - Blood Flow Screening Result: Comments: See Note; NOTES: [facility] Cardiovascular Services [address] [place] [address] 10/24/17 0941 MR#: [id number] Acct: [id number] Name: LENORA MORRELL I Rep #: [id number] MD Date Dictated: 10/24/17 0941 Date Transcribed: 10/25/178 Hotel Service Supervisor: Signed 20-Jun-2017 PT D/C Summary (1) Result: Comments: See Note; NOTES: [facility] Physical Therapy [facility] [address] [place] [address] Fax REHABILITATION SERVICES DISCHAR JONATHAN SUMMARY MR#: [id number] Acct: [id number] Name: LENORA MORRELL I Rep #: [id number] : 1935 81 From: Brian Gillespie DPT, OCS, CSCS Referring Dr.: Emily Pugh MD Status: REG RCR Insurance: [employer] [facility] HP - PT D/C Summary It has [...] AND WILL CONTINUE IN GYM AND AT [facility] ON HER OWN. - Goals Goal 1:: [...] please feel free to call me at [phone]. Thank you for the referral of this patient. Sincerely, Brian Gillespie DPT, OC <Electronically signed by Brian Gillespie DPT, RAEANN, CSCS> 06/20/17 0953 CC: Emily Pugh MD EBG Signed 23-May-2017 Re-Evaluation - PT (1) Result: Comments: See Note; NOTES: [facility] Physical [facility] [address] [facility] [place] [address] Fax REEVALUATION / MEDICARE RECERTI FICATION Merary 4d PHYSICAL THERAPY MR#: [id number] Acct: [id number] Name: LENORA MORRELL I Rep #: [id number] : 1935 81 From: Brian Gillespie DPT, RAEANN, CSCS Referring Dr.: Emily Pugh MD Status: R EG RCR Insurance: [facility] Emily Pugh, It has been my pleasure to treat LENORA MORRELL I over the last 8 visits for sciatica. Please see the progress note below for an update on the adapted physical education aide apy plan of care! Subjective: i can [...] do not hesitate to contact me at [phone] by phone or Fax: [phone] if you have questions or concerns regarding this new plan of care! Sincerely, Brian Gillespie DPT, OC <Electronically signed by RAEANN Carlin DPT, CSCS> 05/23/17 0926 CC: Emily Pugh MD EBG Signed For Medicare only, by signing this I certify the plan of care. Physicians Signature Date 25-Apr-2017 Inital Evaluation (1) - PT Result: Comments: See Note; NOTES: [facility] [address] [place] [address]. [address] [place], [place] [address] Fax REHABILITATION SERVICES INITIAL EVALUATION MR#: [id number] Acct: [id number] Name: LENORA MORRELL I Rep #: [id number] : 1935 81 From: RAEANN Carlin DPT, CSCS Referring Dr.: Emily Pugh MD Status: REG R Insurance: [facility] Patient's Visit Information LENORA MORRELL I is a 81 year old F referred to Physical Therapy by Emily Pugh with a diagnosis of sciatica. Date of Evaluation: 04/24/17 Physical Therapist: Brian G raham, DPT, OC - Visit Plan Frequency: 3x [...] to be FAXED BACK to us at [phone] for Medicare purposes. Please let me know if there are questions or concerns regarding this plan of care. Physician Signature: Date: <Electronically signed by Brian Gillespie DPT, OCS, CSCS> 04/25/17 0929 CC: Emily Pugh MD EBG Signed For Medicare on ly, by signing this I certify the plan of care. Physicians Signature Date 11-Aug-2016 PT D/C Summary (1) Result: Comments: See Note; NOTES: [facility] Physical Therapy [address] [place] [address] Fax REHABILITATION SERVICES SURENDRA MEDINA SUMMARY MR#: [id number] Acct: [id number] Name: LENORA MORRELL I Rep #: [id number] : 1935 80 From: Ansley Oleary DPT Referring Dr.: Emily Pugh MD Status: REG RCR [facility] - PT D/C Summary It has been my pleasure to treat LENORA MORRELL I under orders from Emily Pugh, for the diagnosis of R shoulder pain for a total of 5 visit(s). Discharge Date: Please see the [facility] information for a summary of their discharge [...] please feel free to call me at [phone]. Thank you for the referral of this patient. Sincerely, Ansley Oleary <Jacki ctronically signed by Ansley Oleary DPT> 08/11/16 0852 CC: Emily Pugh MD ELR Signed 02-Aug-2016 Bilat Scrn Digital AND CAD Result: Comments: See Note; NOTES: [facility] Imaging Services [address] [place] [address] Verdana 4d Bilat Scrn Digital AND CAD MR#: [id number] Acct: [id number] Name: LENORA MORRELL I Rep #: [id number] : 1935 F 80 From: Nolan Head MD PCP: Emily Pugh MD Status: REG CLI Study: Bilat Scrn Digital AND CAD Date of Exam: 08/02/16 Exam# [id number] Ordering Dr: Emily Pugh MD MAMMOGRAPHY - [...] delay biopsy of a clinically suspicious abnormality. [id number] Electronically Signed: Nolan Head MD at 12:30 EDT , Service support [phone], CC: Emily Pugh MD Hotel Service Supervisor: Signed 02-Aug-2016 Dexa Bone Density Study (HP) Result: Comments: See Note; NOTES: [facility] Imaging Services [address] [place] [address] Verdana 4d Dexa Bone Density Study () MR#: [id number] Acct: [id number] Name: JUAN MORRELL I Rep #: [id number] : 1935 F 80 From: Nolan Head MD PCP: Emily Pugh MD Status: REG CLI Study: Dexa Bone Density Study () Date of Exam: 08/02/16 Exam# [id number] Ordering Dr: Emily Hill MD STUDY: DUAL [...] ening of 4.7%. HPBD/Dexa Bone Density Study () IMPRESSION: The patient is considered normal as [...] Nolan Head MD at 11:04 EDT Tel [phone], Service support [phone], CC: Emily Pugh MD Hotel Service Supervisor: Signed 28-Jul-2016 Inital Evaluation (1) - PT Result: Comments: See Note; NOTES: [facility] Physical Therapy [address] [place] [address] Fax REHABILITATION SERVICES INITIA L EVALUATION MR#: [id number] Acct: [id number] Name: LENORA MORRELL I Rep #: [id number] : 1935 80 From: Ansley Oleary DPT Referring Dr.: Emily Pugh MD Status: REG RCR Insurance: [employer] [facility] Patient's Visit Information LENORA MORRELL I is [...] at worst; aggravated during exercise (comes to [facility] 5 days a week) while pulling down, [...] Extension 5/5, ER 4-/5 IR 4- /5 Sterile Instrument Technician- R 60/55/54 L 60/56/46. Special Test: empty [...] to be FAXED BACK to us at [phone] for Medicare purposes. Please let me know if there are questions or concerns regarding this plan of care. Physician Signature: Date: <Electronically signed by Ansley Oleary DPT> 07/28/16 0853 CC: Emily Pugh MD ELR Signed For Medicare only, by signing this I certify the plan of care. Physicians Signature Date 08-Jul-2014 Bilat Scrn Digital & CAD Result: Comments: See Note; NOTES: [facility] Imaging Services [address] [place] [address] Breast Imaging Report MR#: [id number] Acct: [id number] Name: LENORA MORRELL I Rep #: [id number] : 1935 F 78 From: Nolan Head MD PCP: Emily Pugh MD Status: REG CLI Exam# [id number] Ordering Dr: Emily Pugh MD MAMMOGRAPHY - BILATERAL SCREENING REASON FOR EXAM: Female, 78 years old. Routine annual screening examination. PERTINENT HISTORY: Non-contributory. TECHNIQUE: Digital examination. Mediolateral oblique (MLO) and craniocaudad (CC) views of both amdie asts were obtained. CAD: CAD was performed [...] Nolan Head MD at 15:05 EDT Tel [phone], Servi ce support [phone], CC: Emily Pugh MD Hotel Service Supervisor: Signed 08-Jul-2014 Dexa Bone Density Study (HP) Result: Comments: See Note; NOTES: [facility] Imaging Services [address] [place] [place] [address] Bone Density Report MR#: [id number] Acct: [id number] Name: LENORA MORRELL I Rep #: [id number] : 1935 F 78 From: Nolan Head MD PCP: Emily Pugh MD Status: REG CLI Study: Dexa Bone Density Study () Date of Exam: 07/08/14 Exam# [id number] Ordering Dr: Emily Pugh MD STUDY: DUAL [...] Nolan Head MD at 13:32 EDT Tel [phone], Service support [phone], CC: Emily Pugh MD Hotel Service Supervisor: Signed 21-Mar-2014 Operative Report Result: Comments: See Note; NOTES: [facility] Medical Records Department [address] [place] [address] Operative Report MR#: [id number] Acct: [id number] Name: LENORA MORRELL I Rep #: [id number] : 1935 78 From: Cameron Carrera MD PCP: Emily Pugh MD Status: [facility] DATE OF SERVICE: 03/18/2014 DATE OF PROCEDURE: [...] fascia of the um bilical port with hkeewt-bd-zfsjt stitch of 0 Vicryl. Skin incisions were closed with subcuticular stitches of 4-0 Monocryl. Steri-Strips were applied, sterile dressings were applied and the patien t tolerated the procedure well. Cameron Carrera MD T: NTS JOB: [id number] 03/21/14 1228 <Electronically signed by Cameron Carrera MD> Date Cameron Carrera MD CC: Emily Pugh MD; Cameron Carrera MD Date Dictated: 03/18/14 144 Date Transcribed: 05/06/14 1441 Hotel Service Supervisor: Signed 6-May-2014 Discharge Instruction Result: Comments: See Note; NOTES: [facility] Medical Records Department [address] [place] [address] Discharge Instruction 03/18/14 1333 MR#: [id number] Acct: [id number] Name: LENORA MORRELL I Rep #: [id number] : 1935 78 From: Cameron Carrera MD PCP: Emily Pugh MD Status: [facility] Discharge Diet: Light diet - advance as [...] 1 - 2 tablet PO Q4H PRN WI N #30 tablet PRN Reason: Pain Please Follow Up With: Cameron Carrera - Please call [phone] to schedule an appointment. When: 7 days after your surgery. 03/18/14 1334 <Electronical ly signed by Cameron Carrera MD> Date Cameron Carrera MD CC: Emily Pugh MD 18-Mar-2014 Cholangiogram/ O R,Initial Result: Comments: See Note; NOTES: [facility] Imaging Services [address] [place] [place] [address] Radiology Report MR#: [id number] Acct: [id number] Name: LENORA MORRELL I Rep #: [id number] : 1935 F 78 From: Nolan Head MD PCP: Emily Pugh MD Status: [facility] Study: Cholangiogram/ O R,Initial Date of Exam: 03/18/14 Exam# [id number] Ordering Dr: Cameron Carrera MD STUDY: INTRAOPERATIVE [...] Nolan Head MD at 14:50 EDT Tel [phone], Service support [phone], CC: Emily Pugh MD; Cameron Carrera MD Hotel Service Supervisor: Signed 07-Mar-2014 Gallbladder Result: Comments: See Note; NOTES: [facility] Imaging Services [address] [place] [address] Ultrasound Report MR#: [id number] Acct: [id number] Name: LENORA MORRELL I Rep #: [id number] : 1935 F 78 From: Nolan Head MD PCP: Emily Pugh MD Status: REG CLI Study: Gallbladder Date of Exam: 03/07/14 Exam# [id number] Ordering Dr: Emily Pugh MD STUDY: ABDOMIN [...] Nolan Head MD at 9:14 EDT Tel [phone], Service support [phone], CC: Emily Pugh MD Hotel Service Supervisor: Signed Family History Unknown Family Member Name [...] smoker Vital Signs Date Test Result Details :25 Temperature 97 f Comments: Method: Temporal [...] kg/m2 Body Surface Area Calculated 2.04 m2 21-Yvj-371104:52 Temperature 97.8 f Comments: Method: Oral Pulse [...] 0.00 cm Results Date Description Value Details 26-Hyh-84363:54 Pathology Report Comments: PERFORMED BY: TRUNG [facility] [place] Hygy4248 [facility] [id number] BY: [facility] Dermatopathology [address] [place] [address] [id number] [id number] Information: [id number] See MATER Comments: Material submitted: .RIGHT UPPER ARMClinical history: .VERRUCOUS KERATOSIS Note (Normal) Diagnosis:IRRITATED AND INFLAMED VERRUCA VULGARIS.BXS/03/28/2018Electronically signed: .Neda June MD, DermatopathologistGross description: .RECEIVED IN FORMALIN LABELED LENORA MORRELL DESIGNATED RIGHT UPPERARM IS A 1.0 X 0.8 X 0.5 CM FRIABLE WHITE PAPILLATED SKIN LESION.A DISCRETE SURGICAL MARGIN IS NOT IDENTIFIED. BISECTED ANDENTIRELY SUBMITTED IN ONE CASSETTE.BCO/JASPathologist provided ICD- 10:B07.9CPT .346914 12-Feb-20189:50 Carcinoembryonic Antigen Comments: [facility] (refer to report for specific site)refer to report for address and phone number CEA 1.7 ng/mL (Normal) Range: 0.0-4.7 Comments: Jackie ECLIA methodology Nonsmokers <3.9 Smokers <5.6Performed at: [facility] [id number] Director: Jame Bhakta PhD, Phone: [phone] :50 CBC W/Diff, Automated Comments: [facility] [address] [facility]. [place], [place], [id number] Absolute Lymph 1.50 {X10_3/ul} (Normal) Range: 0.83-4.51 [...] Range: 4.4-11.0 12-Feb-20189:50 Comprehensive Metabolic Profil Comments: [facility] [address] [place], [address] GAP 7 (Normal) Range: 5-15 CO2 25.0 mmol/L (Normal) Range: 21.0-32.0 CL 108 mmol/L (Abnormal) Range: 98-107 K 4.2 mmol/L (Normal) Range: 3.5-5.1 NA 140 mmol/L (Normal) Range: 136-145 T BILI 0.30 mg/dL (Normal) Range: 0.20-1.00 ALT 26 U/L (Normal) Range: 13-56 Comments: Please note revised ALT reference range xngqxjavc97/28/2018. ALK P 77 U/L (Normal) Range: 45-117 [...] A.D.A. criteria.Please note revised GLUCOSE reference range jvymwlydn00/02/2018. 12-Feb-20188:51 Urinalysis, Office (76608) UA - LEUKOCYTE ESTERASE Negative (Normal) UA [...] ANTIGEN (CEA) Comments: PATIENT NOT FASTINGPERFORMED BY: [facility] [place] [id number] (35500) CEA 1.5 ng/mL (Normal) Range: 0.0-4.7 Comments: [place] ECLIA methodology Nonsmokers <3.9 Smokers <5.6 11-Sru-678776:48 MICROALBUMIN: CREATININE RATIO Comments: PATIENT NOT FASTINGPERFORMED BY: [facility] [place] [id number] (31741) AND (10743) Microalb/Creat Ratio MALD {mg/g_creat} Range: 0.0-30.0 (Abnormal) Comments: This result is below the assay's limit of quantitation indicating adilute specimen, potentially due to diurnal variation. Considerrecollection at a time likely to provide a more concentrated urine. Microalbumin, Urine <3.0 ug/mL (Normal) Creatinine, Urine 74.6 mg/dL (Normal) 67-Bqu-907917:48 URINALYSIS (22586) Comments: PATIENT NOT FASTINGPERFORMED BY: [facility] [id number] Microscopic Examination MICNIP (Normal) Comments: Microscopic not indicated and not performed. Nitrite, Urine Negative (Normal) Urobilinogen,Semi-Qn 0.2 mg/dL (Normal) Range: 0.2-1.0 Bilirubin Negative (Normal) Occult Blood Negative (Normal) Ketones Negative (Normal) Glucose Negative (Normal) Protein Negative (Normal) WBC Esterase Negative (Normal) Appearance Clear (Normal) Urine-Color Yellow (Normal) pH 6.5 (Normal) Range: 5.0-7.5 Specific [place] 1.014 (Normal) Range: 1.005-1.030 81-Uni-097763:48 Metabolic Panel, Comprehensive Comments: PATIENT NOT FASTINGPERFORMED BY: [place] [facility]Aktouo7269 [facility] [id number] (19125) ALT (SGPT) 25 [iU]/L (Normal) Range: 0-32 [...] Glucose, Serum 99 mg/dL (Normal) Range: 65-99 58-Ydp-794637:48 CBC WITH MANUAL DIFF Comments: PATIENT NOT FASTINGPERFORMED BY: ROBERT [facility] [address] [place] [id number] Information: NURSE DRAW (50954) Immature Grans (Abs) 0.0 {x10E3/uL} (Normal) Range: [...] 3.4-10.8 :10 FLU A+B DIRECT AG, (RAPID) (06715) FLU A+B DIRECT AG, (RAPID) Pos A (Normal) :10 Carcinoembryonic Antigen Comments: [facility] (refer to report for specific site)refer to report for address and phone number CEA 2139 1.1 ng/mL (Normal) Range: 0.0-4.7 Comments: Jackie ECLIA methodology Nonsmokers <3.9 Smokers <5.6Performed at: [facility] [address] [id number] Director: Jame Bhakta PhD, Phone: [phone] :10 CBC W/Diff, Automated Comments: [facility] [address] [place], [address] Absolute Lymph 1.70 {X10_3/ul} (Normal) [...] Range: 4.4-11.0 :10 Comprehensive Metabolic Profil Comments: [facility] [address] [place], [address] GAP 3 (Abnormal) Range: 5-15 CO2 28.0 [...] 7-18 GLU 89 mg/dL (Normal) Range: 70-110 18-Nov-20157:10 Lipid Profile Comments: [facility] [address] [place], [address] VLDL 21 mg/dL (Normal) Range: 5-40 LDL [...] 200-240 mg/dL Borderline >240 mg/dL High Risk 18-Nov-20157:10 Thyroid Stim Hormone (TSH) Comments: [facility] [address] [place], [address] TSH 2.80 {uIU/mL} (Normal) Range: 0.358-3.74 :09 CBC W/Diff, Automated Comments: Test performed at:[facility] [address] [place], [place] [address] Absolute Lymph 1.42 {X10_3/ul} (Normal) Range: 0.83-4.51 [...] 4.2-5.4 WBC 5.2 K/mm3 (Normal) Range: 4.4-11.0 :09 Comprehensive Metabolic Profil Comments: Test performed at:[facility] [address] [place] [address] GAP 11 (Normal) Range: 5-15 CO2 25.0 [...] Thyroid Stim Hormone (TSH) Comments: Test performed at:[facility] [address] [place] [address] TSH 1.03 {uIU/mL} (Normal) Range: 0.358-3.74 :36 Thyroid Stim Hormone (TSH) Comments: Test performed at:[facility] Y[address]phcjysm[address] [facility] [place] [address] TSH 2.20 {uIU/mL} (Normal) Range: 0.358-3.74 :15 [...] Jackie ECLIA methodology Nonsmokers <3.9Smokers <5.6Performed at: [facility] [id number] Director: Jaylen Schumacher PhD, Phone: [phone] :15 CMP GAP 8 (Normal) Range: 5-15 [...] Jackie ECLIA methodology Nonsmokers <3.9Smokers <5.6Performed at: [facility] [address] [id number] Director: Kate Raya MD, Phone: [phone] :07 CMP GAP 6 (Normal) Range: 5-15 [...] :07 TSH 0.15 {uIU/mL} (Abnormal) Range: 0.358-3.74 2-Fbl-744325:42 GALL (Normal) Comments: Patient: LENORA MORRELL I : 1935 (78/F)Acct Num: [id number] Phys: Arlene RODRIGUES,Ludwin Num: [id number] Loc: SDCSpecimen: [id number] Received: 03/18/14 1442Spec Type: GA LLBLADDECNELSON De MD,Cuzr6087 [facility], [address] [phone] MD,Paqcts761 [address] [place], [place] [phone] ID Blk Pcs Davis Lev + Procedure ComGallbladder, NO 1-2PTH PROCEDURES COMPLETEPROCEDURES: SUIII (03/18/14-3986)TISSUESTISSUES:GROSS DESCRIPTIONReceived is one container labeled with the [...] measures up to 0.5 cm in thickness. Dough Panner sectionsfrom the g allbladder and the cystic duct are submitted in two cassettes. Thestones are saved for the patient. / :arash 03/18/14 TC:2CPT: 09248STJQDTZBPBAEBOT: Lap cholecystectomyPRE-OPERATIVE DIAGNOSIS: Acute cho lecystitisTISSUE SUBMITTED: Gallbladder - PSSFPMICROSCOPIC DIAGNOSISGallbladder:Acute and chronic hemorrhagic and ulcerated cholecystitis andcholelithiasis.SJ:arash 03/19/14Signed Mitchell Roldan 03/19/14<signature on file> 18-Mar-20140:00 CUDW Comments: Comments: C&S/GRAM STAIN/ANAEROBES PLEASE CUAN No growth in 5 days. (Normal) WC No growth aerobically. (Normal) GS See Note (Normal) Comments: Gram Stain3+ Red Blood Cells1+ White Blood CellsNo organisms seen :06 BMP CO2 27.0 mmol/L (Normal) Range: 21.0-32.0 [...] 3.4-5.0 TPROT 7.8 g/dL (Normal) Range: 6.4-8.2 69-Kzb-844999:02 Metabolic Panel, Comprehensive Comments: copy to Dr. carrera.; PATIENT NOT FASTINGPERFORMED BY: [facility]Xktlrq0925 [facility] [id number] (31766) ALT (SGPT) 509 [iU]/L (Abnormal) Range: 0-32 [...] Glucose, Serum 110 mg/dL (Abnormal) Range: 65-99 38-Lcm-727763:02 CBC, Platelets & Auto Comments: PATIENT NOT FASTINGPERFORMED BY: [facility])Phafhe9319 [facility] [id number] Information: 780590,C31812 Diff (85195) Immature Grans (Abs) 0.0 {x10E3/uL} (Normal) Range: [...] 3.77-5.28 WBC 5.2 {x10E3/uL} (Normal) Range: 3.4-10.8 02-Nkq-086335:02 Lipase (62287) Comments: PATIENT NOT FASTINGPERFORMED BY: [facility] [id number] Lipase, Serum 27 U/L (Normal) Range: 0-59 83-Ehs-677743:02 Amylase (30610) Comments: PATIENT NOT FASTINGPERFORMED BY: [employer] [facility] [id number] Amylase, Serum 51 U/L (Normal) Range: 31-124 40-Veb-698032:22 URINE PERRY CULTURE-EDWIN COL Comments: PATIENT NOT FASTINGPERFORMED BY: cacaoTV [facility] [id number] Information: SRC:UR [id number] COUNT (41790) Result 1 MUG (Normal) Comments: Mixed urogenital flora25,000-50,000 colony forming units per mL Urine Final report (Normal) Culture,Comprehensive 99-Bpk-96872:39 Urinalysis, Office (60054) UA - LEUKOCYTE ESTERASE Negative (Normal) UA [...] CHOL 161 mg/dL (Normal) Comments: <200 mg/dL Tehdvzmlp680-231 mg/dL Borderline>240 mg/dL High Risk TRIG 101 mg/dL (Normal) Range: 0-199 Comments: Serum Triglycerides Reference IntervalNormal <150 mg/dLBorderline high 150 - 199 mg/dLHigh 200 - 499 mg/ dLVery High > or = 500 mg/dL :13 TSH 1.03 {uIU/mL} (Normal) Range: 0.358-3.74 38-Wly-095949:45 BILAT SCRN DIGITAL & CAD Radiology Report [...] Head M.D.January 08, 2013 at 12:26:36 PM [id number] Signed GP/GP If you are the referring physician and would like to consu lt with theradiologist who provided this interpretation, please contact Reny Abreu at [phone]. If this radiologist is unavailable, youwill be directed to another radiologist to assist. If you are a patient with a question regarding this report, pleasecontactyour referring physician directly. Professional Interpretation Provided By: Mayi Zhaopin, Phone , T hese documents contain legally [...] destructionofthese documents. Dictated on 01/08/13 1145 by Sonido RODRIGUES,Ignacioranscribed on 01/08/13 1302 by ITS IMPORTSign by Nolan Head MD on 01/08/13 1304 Sign by: Nolan Head MD 94-Rxg-01342:32 CMP GAP 9 (Normal) Range: 5-15 CO2 [...] METABOLIC PANEL, Comments: PATIENT WAS FASTINGPERFORMED BY: [facility]Skycqp5053 [facility] [id number] Information: [id number] COMPREHENSIVE (82982) ALT (SGPT) 39 [iU]/L (Normal) Range: 0-40 [...] Glucose, Serum 93 mg/dL (Normal) Range: 65-99 :22 LIPID PANEL (72463) Comments: PATIENT WAS FASTINGPERFORMED BY: [employer]70 [facility] [id number] LDL/HDL Ratio 1.6 {ratio_units} (Normal) Range: 0.0-3.2 LDL Cholesterol Calc 103 mg/dL (Abnormal) Range: 0-99 VLDL Cholesterol Sriram 18 mg/dL (Normal) Range: 5-40 HDL Cholesterol 63 mg/dL (Normal) Comments: According to ATP-III Guidelines, HDL-C >59 mg/dL is considered anegative risk factor for CHD. Triglycerides 91 mg/dL (Normal) Range: 0-149 Cholesterol, Total 184 mg/dL (Normal) Range: 100-199 :22 TSH (53574) Comments: PATIENT WAS FASTINGPERFORMED BY: [employer] [place] [facility] [id number] TSH 1.720 {uIU/mL} (Normal) Range: 0.450-4.500 05-Htg-67664:00 CULT, DP WOUND Comments: LEFT ARM ABSCESS [...] RED CELL STROMA 1+ GRAM POSITIVE COCCI 94-Nrm-007504:30 BILAT SCRN DIGITAL & CAD Radiology Report [...] regarding this report , please call our [id number] line @ Dictated on 11/02/11 1414 by Beth Mirza DOnscribed on 11/04/113 by ITS IMPORTSign by Marielos Mirza DO on 11/04/111853 Sign by: Marielos Mirza DO 87-Zqr-834470:30 DEXA BONE DENSITY STUDY (HP) Radiology Report [...] regarding th is report, please call our [id number] line @ Dictated on 11/02/11 1335 by Ignacio Head MDranscribed on 11/03/11 1500 by ITS IMPORTSign by Nolan Head MD on 11/03/11 150 1 Sign by: Nolan Head MD :15 Pathology Report Comments: PERFORMED BY: [facility] [place] Airn[address] [facility] [id number] Information: [id number] See MATER Comments: Material submitted: .LEFT FOREARMClinical [...] SUBMITTED IN TOTO.XJW/KAMPathologist provided ICD-9:702.0 , 709.09CPT .269040 :19 LIVER Radiology Report See Note (Normal) Comments: [...] of the right kidney. The right k uszbkecnuqwse44.7 cm. Normal renal cortex. There is no demonstrated renal mass orcyst. There are no demonstrated renal calculi. There is nohydronephrosis. There is no ascites. IMPRESSION:Findings are suggestive of tumefactive sludge within the gallbladderlumen,with possible gallstones. Clinical correlation is suggested. Dictated on 07/26/11 0758 by Ada Head MDeleTranscribed on 1 1033 by ITS IMPORTSign by Nolan Head MD on 07/26/11 1033 Sign by: Nolan Head MD :22 Lipid Panel (32313) Comments: PATIENT WAS FASTINGPERFORMED BY: ROBERT Funzioloi KatzVigsfj6707 [facility] [id number] LDL/HDL Ratio 1.7 {ratio_units} (Normal) Range: 0.0-3.2 LDL Cholesterol Calc 117 mg/dL (Abnormal) Range: 0-99 VLDL Cholesterol Sriram 16 mg/dL (Normal) Range: 5-40 HDL Cholesterol 69 mg/dL (Normal) Comments: According to ATP-III Guidelines, HDL-C >59 mg/dL is considered anegative risk factor for CHD. Triglycerides 81 mg/dL (Normal) Range: 0-149 Cholesterol, Total 202 mg/dL (Abnormal) Range: 100-199 :22 TSH (24620) Comments: PATIENT WAS FASTINGPERFORMED BY: ROBERT elicit Skkybj3966 [facility] [id number] TSH 3.800 {uIU/mL} (Normal) Range: 0.450-4.500 :22 Metabolic Panel, Comments: PATIENT WAS FASTINGPERFORMED BY: ROBERT [facility] Tpznfk3870 [facility] [id number] Information: [id number] Comprehensive (93947) ALT (SGPT) 42 [iU]/L (Abnormal) Range: 0-40 [...] FUNCTION PANEL Comments: PATIENT NOT FASTINGPERFORMED BY: [place] [address]60[address] [facility] [id number] Information: [id number] (00940) ALT (SGPT) 49 [iU]/L (Abnormal) Range: 0-40 AST (SGOT) 31 [iU]/L (Normal) Range: 0-40 Alkaline Phosphatase, S 73 [iU]/L (Normal) Range: 25-165 Bilirubin, Direct 0.12 mg/dL (Normal) Range: 0.00-0.40 Bilirubin, Total 0.5 mg/dL (Normal) Range: 0.0-1.2 Albumin, Serum 4.3 g/dL (Normal) Range: 3.5-4.8 Protein, Total, Serum 7.2 g/dL (Normal) Range: 6.0-8.5 :34 Lipid Panel (02300) Comments: PATIENT WAS FASTINGPERFORMED BY: [facility]6[address] [facility] [id number] LDL Cholesterol Calc 101 mg/dL (Abnormal) Range: 0-99 LDL/HDL Ratio 1.8 {ratio_units} (Normal) Range: 0.0-3.2 VLDL Cholesterol Sriram 23 mg/dL (Normal) Range: 5-40 HDL Cholesterol 57 mg/dL (Normal) Comments: According to ATP-III Guidelines, HDL-C >59 mg/dL is considered anegative risk factor for CHD. Triglycerides 114 mg/dL (Normal) Range: 0-149 Cholesterol, Total 181 mg/dL (Normal) Range: 100-199 :34 Metabolic Panel, Comments: PATIENT WAS FASTINGPERFORMED BY: [facility]6[address] [facility] [id number] Information: [id number] Comprehensive (83007) Alkaline Phosphatase, S 79 [iU]/L (Normal) Range: [...] 94 mg/dL (Normal) Range: 65-99 :34 TSH (12083) Comments: PATIENT WAS FASTINGPERFORMED BY: [facility] Fxngvs3507 [facility] [id number] TSH 2.900 {uIU/mL} (Normal) Range: 0.450-4.500 :39 TSH 2.49 {uIU/mL} (Normal) Range: 0.358-3.74 51-Ylp-043148:50 KIDNEY (HP) Radiology Report See Note (Normal) Comments: Exam Number: [id number] CLINICAL:73 year old woman with right upper [...] Report See Note (Normal) Comments: Exam Number: [id number] CLINICAL:Low back pain X-RAY EXAMINATION: LUMBAR SPINE [...] fractures. Reported By: WILLIAM MELO M.D. :34 [facility] DIGITAL & CAD Radiology Report See Note (Normal) Comments: Exam Number: [id number] MAMMOGRAM, BILATERAL SCREENING DIGITAL AND CAD HISTORYRoutine [...] mammograms werealso examined with computer-aided detection software ([employer], [employer].). Reported By: ILA POZO M.D. :34 CBCD,SMEAR [...] Report See Note (Normal) Comments: Exam Number: [id number] TRANSABDOMINAL AND TRANSVAGINAL PELVIC ULTRASOUND STATEMENTOvarian cyst. [...] 6 months. Reported By: OBED CLINE M.D. 41-Wpw-471113:34 PELVIC (NON-PREG) () Radiology Report See Note (Normal) Comments: Exam Number: [id number] TRANSABDOMINAL AND TRANSVAGINAL PELVIC ULTRASOUND STATEMENTOvarian cyst. [...] :50 TSH 4.18 {uIU/mL} (Normal) Range: 0.34-4.82 72-Daw-27982:37 ABDOMEN LIMITED US () Radiology Report See Note (Normal) Comments: Exam Number: [id number] RIGHT UPPER QUADRANT ULTRASOUND REASON FOR EXAMINATIONFollowup [...] quadrant ascites. Reported By: DANIELA GRAY M.D. 57-Lrd-90996:37 TRANSVAGINAL NON-PREG US (HP) Radiology Report See Note (Normal) Comments: Exam Number: [id number] TRANSVAGINAL PELVIC ULTRASOUND REASON FOR EXAMOvarian cyst. [...] adnexal structures. Reported By: DANIELA GRAY M.D. 27-Qjv-992665:54 MAMM, BILAT SCRN DIGITAL & CAD Radiology Report See Note (Normal) Comments: Exam Number: [id number] MAMMOGRAPHY, BILATERAL SCREENING DIGITAL AND CAD HISTORYRoutine [...] mammograms werealso examined with computer-aided detection software ([employer], [employer].). Reported By: ILA POZO M.D. 6-Krp-342085:58 PT/INR, Office (86905) INR 3.6 (Normal) PT (PROTHROMBIN TIME) 22.8 [...] Indication: Acute sinusitis, unspecified Planned Observations TSH (73009)Indication: Hypothyroidism On: :34 Request LIPOPROTEIN, BLD, BY NMR (05100)Indication: Hypercholesteremia (Renamed from Hypercholesterolemia) On: :34 Request METABOLIC PANEL, COMPREHENSIVE (39763)Indication: Hypercholesteremia (Renamed from Hypercholesterolemia) On: :34 Request URINALYSIS (75458)Indication: Hypothyroidism On: : Request CBC WITH MANUAL DIFF (83994)Indication: Hypothyroidism On: :28 Request Metabolic Panel, Comprehensive (38657)Indication: Hypothyroidism On: :28 Request METABOLIC PANEL, COMPREHENSIVE (75629)Indication: Right lower quadrant pain On: :55 Request CBC with auto diff (36177)Indication: Right lower quadrant pain On: :55 Request CARCINOEMBRYONIC ANTIGEN (CEA) (53917)Indication: History of colon cancer On: :55 Request TSH (33982)Indication: BMI 40.0-44.9, adult On: :58 Request LIPOPROTEIN, BLD, BY NMR (35813)Indication: Hypercholesteremia (Renamed from Hypercholesterolemia) On: :58 Request HEPATIC FUNCTION PANEL (13096)Indication: Hypercholesteremia (Renamed from Hypercholesterolemia) On: :58 Request CARCINOEMBRYONIC ANTIGEN (CEA) (45007)Indication: History of colon cancer On: :28 Request METABOLIC PANEL, COMPREHENSIVE (16348)Indication: Hypothyroidism On: :28 Request CBC with auto diff (34357)Indication: History of colon cancer On: :28 Request TSH (32098)Indication: Hypothyroidism On: :28 Request LIPID PANEL (37760)Indication: Hypothyroidism On: :14 Request CARCINOEMBRYONIC ANTIGEN (CEA) (51492)Indication: History of colon cancer On: :13 Request METABOLIC PANEL, COMPREHENSIVE (43614)Indication: History of colon cancer On: :13 Request CBC with auto diff (37230)Indication: History of colon cancer On: :13 Request TSH (67847)Indication: Hypothyroidism On: :13 Request CBC WITH MANUAL DIFF (73604)Indication: Hypothyroidism On: :23 Request Metabolic Panel, Comprehensive (64496)Indication: Hypothyroidism On: :22 Request TSH (13734)Indication: Hypothyroidism On: :22 Request TSH (35350)Indication: Hypothyroidism On: :38 Request CARCINOEMBRYONIC ANTIGEN (CEA) (54030)Indication: History of colon cancer On: 2-Mkl-330049:11 Request CBC WITH MANUAL DIFF (11166)Indication: History of colon cancer On: 5-Nxq-255056:09 Request METABOLIC PANEL, COMPREHENSIVE (44804)Indication: History of colon cancer On: 1-Kii-170577:09 Request TSH (40114)Indication: Hypothyroidism On: 1-Dew-275255:09 Request Comments: 8 weeks. HEPATIC FUNCTION PANEL (32275)Indication: Elevated LFTs On: 77-Lxr-88672:38 Request CARCINOEMBRYONIC ANTIGEN (CEA) (23877)Indication: History of colon cancer On: 9-Qdm-397795:23 Request TSH (39665)Indication: Hypothyroidism On: :18 Request METABOLIC PANEL, COMPREHENSIVE (01323)Indication: Elevated LFTs On: :18 Request HEPATIC FUNCTION PANEL (87691)Indication: Elevated LFTs On: 25-Iup-663757:50 Request LIPID PANEL (19518)Indication: Elevated LFTs On: 2-Uon-520354:34 Request METABOLIC PANEL, COMPREHENSIVE (83001)Indication: Elevated LFTs On: 3-Bef-834626:34 Request TSH (22541)Indication: Hypothyroidism On: 7-Hus-541695:34 Request TSH (40410)Indication: Hypothyroidism On: :48 Request CBC (Auto) (58475)Indication: Elevated LFTs On: 78-Kji-34269:48 Request METABOLIC PANEL, COMPREHENSIVE (27372)Indication: Elevated LFTs On: 55-Pdu-977498:25 Request LIPID PANEL (86087)Indication: Elevated LFTs On: 58-Giq-385661:25 Request TSH (37655)Indication: Hypothyroidism On: 45-Qeo-489786:25 Request CBC (Auto) (42941)Indication: Colon cancer On: 37-Hpw-761196:09 Request Metabolic Panel, Comprehensive (97870)Indication: Colon cancer On: 59-Mop-580033:09 Request TSH (82847)Indication: Hypothyroidism On: 45-Osk-556993:05 Request LIPID PANEL (76381)Indication: Obesity On: 20-Szp-224157:05 Request Urinalysis, Office (68423)Indication: Low back pain On: 45-Poh-78572:17 Request TSH (04037)Indication: Hypothyroidism On: 19-Ghm-50604:10 Request TSH (21738)Indication: Hypothyroidism On: 86-Rho-38809:27 Request Metabolic Panel, Comprehensive (11929)Indication: Elevated LFTs On: 71-Hip-85588:10 Request TSH (87994)Indication: Hypothyroidism On: 58-Mlu-94619:09 Request TSH (65299)Indication: Hypothyroidism On: 29-Tto-881359:57 Request CREATINE KINASE TOTAL (47141)Indication: Myalgia and myositis On: :35 Request C-REACTIVE PROTEIN (55992)Indication: Myalgia and myositis On: :33 Request SED RATE ERYTHROCYTE (94159)Indication: Myalgia and myositis On: :33 Request LIPID PANEL (61723)Indication: Obesity On: :23 Request HEPATIC FUNCTION PANEL (58270)Indication: Elevated LFTs On: :23 Request Planned Encounters Medical; [facility] 4 Month Fu - On: 07-Jan-2019 10:15 [facility] Lexy RODRIGUES, Emily Moran MD Planned Procedures Flu Vaccine (Quadrivalent) On: 31-Aug-2018 Intent 98042Xg: AIMEE Sheikh Comments: Lot #:[id number] date: 2-59-31Oluykz given:0.5mlRoute: IMSite given:L DltdGiven by: DBVIS and ABN signed [employer] SCREENING DIGITAL TOMOSYNTHESIS On: 26-Mar-2018 Intent OF BREAST (14649)By: Emily Pugh MD, MD, Dana M DEXA SCAN AXIAL SKELETON On: 26-Mar-2018 Intent (69776)By: Lexy RODRIGUES, Emily Moran MD CT - Abdomen & Pelvis (IV On: 12-Feb-2018 Intent Contrast Needed)By: Emily Pugh MD, MD, Dana M TD VACCINE ADULT (31211)By: On: 22-Sep-2017 Intent Visit, Nurse Comments: boostrixlot [id number] 10.9.18L Dltd, IMPrefilled syringeMegan Long, LPNVIS signed Flu Vaccine (Quadrivalent) On: 31-Aug-2017 Intent 27089Mz: Visit, Nurse Comments: Lot #[id number]-04/30/18ite-L dltd, IMDose prefilled syringegiven by:ROB Sarkar and LUPILLO signed Flu Vaccine (Quadrivalent) On: 10-Oct-2016 Intent 15463Ga: Emily Pugh MD Comments: Lot:[id number]:05/12/17Dose:0.5mLRoute:IMSite:L DltdGiven By:TONEY signed Emily Pugh MD Bone Density StudyBy: Lexy RODRIGUES, On: 22-Jul-2016 Intent Emily Moran MD BILATERAL MAMMOGRAMS (14553)By: On: 22-Jul-2016 Intent Emily Pugh MD, MD, Dana M MAMMOGRAM, SCREENING, BOTH BREAST On: 28-May-2015 Intent (44214)By: Emily Pugh MD, MD, Dana M Prevnar 13 (68274)By: Lexy On: 27-Nov-2014 Intent Emily RODRIGUES MD, Dana M MAMMOGRAM, SCREENING, BOTH BREAST On: 20-May-2014 Intent (60426)By: Emily Pugh MD, MD, Dana M DEXA SCAN AXIAL SKELETON On: 20-May-2014 Intent (81379)By: Emily Pugh MD Comments: postmenapausal Eimly Pugh MD Ultrasound - GallbladderBy: On: 04-Mar-2014 Intent Emily Pugh MD, MD, Dana M Eprescribed prescriptions On: 10-Jan-2014 Intent (G8553)By: Emily Pugh MD, MD, Dana M SPECIMEN HANDLING/TRANSPORT On: 01-Jan-2014 Intent (98094)By: Lori Ortiz CNP MAMMOGRAM, SCREENING, BOTH On: 18-Nov-2013 Intent BREASTS (45185)By: Lexy RODRIGUES, Comments: end of 12-27 Emily Moran MD Eprescribed prescriptions On: 18-Nov-2013 Intent (G8553)By: Kiley Gallegos [place] (08984)By: Paul, On: 01-Jan-2013 Intent Belle Comments: Lot:[id number]:0.65mLRoute:SubQSite:[place]ico armGiven By:TONEY signed IMMUNIZ ADMNIN, 1 VAC, SNGL/COMBO On: 01-Jan-2013 Intent (61430)By: Belle Miller ADMINISTRATION OF PNEUMOCOCCAL On: 27-Dec-2012 Intent VACCINE (G0009)By: Emily Pugh MD, MD, Dana M PNEUM VAC ADLT/IMUMNOSPR, On: 27-Dec-2012 Intent SBC/INTRM (34999)By: Emily Pugh MD, MD, Dana M MAMMOGRAM, SCREENING, BOTH On: 27-Dec-2012 Intent BREASTS (32322)By: Emily Pugh MD, MD, Dana M FLU VAC, SPLIT, >3 YEARS, On: 24-Jul-2012 Intent INTRAMUSC (34172)By: Paul, Comments: Lot:[id number]:6.30.13Dose:prefilledRoute:IMSite:L DltdGiven By:TONEY signed Belle ADMINISTRATION OF INFLUENZA VIRUS On: 24-Jul-2012 Intent VACCINE (G0008)By: Belle Miller DXA, BONE DENSITY, AXIAL SKELETON On: 18-Oct-2011 Intent (72753)By: Emily Pugh MD Comments: estrogen def and postmenapausal Emily Pugh MD MAMMOGRAM, SCREENING, BOTH On: 18-Oct-2011 Intent BREASTS (76894)By: Emily Pugh MD, MD, Dana M ADMINISTRATION OF INFLUENZA VIRUS On: 18-Oct-2011 Intent VACCINE (G0008)By: Emily Pugh MD, MD, Dana M FLU VAC, SPLIT, >3 YEARS, On: 18-Oct-2011 Intent INTRAMUSC (37508)By: Emily Pugh MD, MD, Dana M Ultrasound - LiverBy: Lexy RODRIGUES, On: 14-Jul-2011 Intent Emily Moran MD DXA, BONE DENSITY, AXIAL SKELETON On: 24-May-2010 Intent (60687)By: Emily Pugh MD Comments: postmenapausal, estrogen def. back pain Emily Pugh MD MAMMOGRAM, SCREENING, BOTH On: 24-May-2010 Intent BREASTS (55385)By: Emily Pugh MD, MD, Dana M Ultrasound - RenalBy: Angel COON, On: 10-Aug-2009 Intent Ruth [facility] - Lumbar SpineBy: Anegl On: 10-Aug-2009 Intent FACETER, Ruth MAMMOGRAM, SCREENING, BOTH On: 30-Jun-2009 Intent BREASTS (95450)By: Emily Pugh MD, MD, Dana M Ultrasound - PelvisBy: Lexy On: 30-Jun-2009 Intent Emily RODRIGUES MD, Dana M Pulse Oximetry (54128)By: Angel On: 23-Apr-2009 Intent FACETER, Ruth Aerosol Treatment (74406)By: On: 23-Apr-2009 Intent Angel COON Ruth Ultrasound - PelvisBy: Lexy On: 06-Jan-2009 Intent Emily RODRIGUES MD, Dana M Ultrasound - LiverBy: Lexy RODRIGUES, On: 08-Jul-2008 Intent Emily Moran MD Ultrasound - PelvisBy: Lexy On: 08-Jul-2008 Intent Emily RODRIGUES MD, Dana M Comments: do transvaginal Clinical Breast Examination On: 27-Mar-2007 Intent (G0101)By: Emily Pugh MD, MD, Dana M MAMMOGRAM, SCREENING, BOTH On: 27-Mar-2007 Intent BREASTS (82612)By: Emily Pugh MD, MD, Dana M Ultrasound - LiverBy: Lexy RODRIGUES, On: 21-Dec-2006 Intent Emily Moran MD Comments: liver elevation, follow up cyst, plan 3-07 Ultrasound - PelvisBy: Lexy On: 21-Dec-2006 Intent Emily RODRIGUES MD, Dana M Comments: please sen a copy to dr Barrientos first of 01-17 Instructions Name Dates Details Non-smoker : How to access health information [...] Instructions Indication: Hypothyroidism Encounters Office Visit On: 06-Sep-2018 7:20 Encounter Reason: [...] The patient does have durable power of trademark attorney and living will. The patient has [...] for Tdap vaccination (Renamed from Need for zmctgslndb-ffpcpwe-ktuopnxyh (Tdap) vaccine, adult/adolescent) End: 25-Sep-2017 9:38 Comprehensive [...] The patient does have durable power of trademark attorney and living will. The patient has noticed nothing from the geriatic depression scale. Other providers contributing to the patient's care are gastrologist ( Dr. Carrera ) and other: (Jacquard Fixer Dr. Izaguirre, opthalm Dr. Mckeon ).Encounter Diagnosis: [...] Nutrition: balanced diet and supplemental vitamins. The tx dical issues the patient is following up [...] vomiting. Note for End: 14-Mar-2014 9:03 Pain: Leonard yesterday made vomit and nauseaAbd pain at [...] bathroom. The patient has completed the f [facility] preventative measures: PAP smear (unsure of timing), mammography (2011) and colonoscopy (2010). The patient does have durable power of trademark attorney and living will. The patient has [...] - Reason for hospitalization note: (syncope at [place] ). Patient has been compliant with instructions. [...] liver (751.69), Elevated LFT (790.6), Headache (784.0), [facility] V72.31 (Renamed from [facility] [...] cyst (620.2), Headache (784.0), Elevated LFT (790.6), [facility] V72.31 (Renamed from [facility] ([facility]) (V72.31)), Actinic keratosis (702.0), Foot pain (729.5) [...] COLON (V10.05), Hypothyroidism (244.9), Elevated LFT (790.6), [facility] V72.31 (Renamed from [facility] ([facility]) (V72.31)) [facility] Office Visit On: [...] Disorder of bone and cartilage, unspecified (733.90), [facility] V72.31 (Renamed from [facility] ([facility]) [...] (153.9), Rosacea (695.3), Hemorrhoids (455.8), Obesity (278.00), [facility] V72.31 (Renamed from [facility] ([facility]) [...] anticoagulants (286.5), Colon Cancer (153.9), Rosacea (695.3), [facility] V72.31 (Renamed from [facility] ([facility]) [...] ankle, infected (916.5), PORTAL VEIN THROMBOSIS (452.), [facility] V72.31 (Renamed from [facility] ([facility]) (V72.31)), Headache (784.0), Elevated LFT (790.6), Other [...] cartilage, unspecified (733.90), Headache (784.0), Obesity (278.00), [facility] V72.31 (Renamed from [facility] ([facility]) (V72.31)), genital warts [facility] Office [...] of gallbladder, bile ducts, and liver (751.69), [facility] V72.31 (Renamed from [facility] ([facility]) [...] liver (751.69), Unspecified Diagnosis, Elevated LFT (790.6), [facility] V72.31 (Renamed from [facility] ([facility]) (V72.31)) [facility] Office [...] [facility] Payers [employer]/MedicareTRANS MARSHA padron guarantor
--- OUTSIDE RECORDS SUMMARY | 2019-02-04 14:37 | XMS RPT_ITS | Continuity of Care Document ---
:1935 Author Organization [facility] Address [address] [facility] [address] [place] [address] Phone Care Team Providers Name Role Phone Lexy RODRIGUES, Emily Hope Unavailable Teo Botello DPM Unavailable Raquel Jrodan Unavailable Maynor RODRIGUES, Cameron Dominguez Unavailable Dr. [...] days Quantity: 30 {Capsule} Refills: 0 Ordered:04-Sep-2017 mEily Pugh MD, MD, Dana M Start : [...] : 21-Mar-2017 End : 03-Apr-2017 Inactive ZOSTAVAX, 84660UZR/0.65ML (Subcutaneous Solution Reconstituted) 1 For Solution once [...] and ankle, infected (S80.869A, 916.5) Comments: ? Hanover fly, cellulitis Status: Inactive as of 27-Dec-2012 [...] for Tdap vaccination (Renamed from Need for dgqomahxfq-lchhdqn-mxfohhgtp (Tdap) vaccine, adult/adolescent) (Z23, V06.1) Status: Resolved [...] Density Study Result: Comments: See Note; NOTES: [facility] Imaging Services [address] [place] [address] Dexa Bone Density Study MR#: [id number] Acct: [id number] Name: LENORA MORRELL I Rep #: [id number] : 1935 F 82 From: Nolan Head MD PCP: Emily Pugh MD Status: REG CLI Study: Dexa Bone Density Study Date of Exam: 08/29/18 Exam# [id number] Ordering Dr: Emily Pugh MD STUDY: DU [...] Nolan Head MD at 8:26 EDT Tel [phone], Service support , CC: Emily Pugh MD [place]: Signed 29-Aug-2018 SCREENING MAMM (CAD), BILAT Result: Comments: See Note; NOTES: [facility] Imaging Services [address] [place] [address] SCREENING MAMM (CAD), BILAT MR#: [id number] Acct: [id number] Name: LENORA MORRELL I Rep #: [id number] : 1935 F 82 From: Nolan Head MD PCP: Emily Pugh MD Status: REG CLI Study: SCREENING MAMM (CAD), BILAT Date of Exam: 08/29/18 Exam# [id number] Ordering Dr: Emily Pugh MD AMMOGRAPHY - [...] delay biopsy of a clinically suspicious abnormality. [id number] Electronically Signed: Nolan Head MD at 13:21 EDT Tel [phone], Service support , CC: Emily Pugh MD [place]: Signed 12-Feb-2018 Abdomen/Pelvis WITH Contrast Result: Comments: See Note; NOTES: [facility] Imaging Services [address] [place] [address] Abdomen/Pelvis WITH Contrast MR#: [id number] Acct: [id number] Name: LENORA MORRELL I Rep #: [id number] : 1935 F 82 From: Maite Corona MD PCP: Emily Pugh MD Status: REG CLI Study: Abdomen/Pelvis WITH Contrast Date of Exam: 02/12/18 Exam# [id number] Ordering Dr: Emily Pugh MD GEORGINA DY: [...] Service support , CC: Emily Pugh MD [place]: Signed 25-Oct-2017 TXT - Blood Flow Screening Result: Comments: See Note; NOTES: [facility] Cardiovascular Services [address] [place] [address] 10/24/17 0941 MR#: [id number] Acct: [id number] Name: LENORA MORRELL I Rep #: [id number] Date Dictated: 10/24/17 0941 Date Transcribed: 10/25/178 [place]: Signed 20-Jun-2017 PT D/C Summary (1) Result: Comments: See Note; NOTES: [facility] Therapy [facility] [address] [place] [address] Fax REHABILITATION SERVICES DISCHAR JONATHAN SUMMARY MR#: [id number] Acct: [id number] Name: LENORA MORRELL I Rep #: [id number] : 1935 81 From: Brian Gillespie DPT, OCS, CSCS Referring Dr.: Emily Pugh MD Status: REG RCR Insurance: AETNA [facility] HP - PT D/C Summary It has [...] AND WILL CONTINUE IN GYM AND AT [facility] ON HER OWN. - [...] please feel free to call me at [phone]. Thank you for the referral of this patient. Sincerely, Brian Gillespie DPT, OC <Electronically signed by Brian Gillespie DPT, RAEANN, CSCS> 06/20/17 0953 CC: Emily Pugh MD EBG Signed 23-May-2017 Re-Evaluation - PT (1) Result: Comments: See Note; NOTES: [facility] [address] [facility] [place] [address] Fax REEVALUATION / MEDICARE RECERTI FICATION Merary 4d PHYSICAL THERAPY MR#: [id number] Acct: [id number] Name: LENORA MORRELL I Rep #: [id number] : 1935 81 From: Brian Gillespie DPT, RAEANN, CSCS Referring Dr.: Emily Pugh MD Status: R EG RCR Insurance: [facility] Emily Pugh, It has been my pleasure to treat LENORA MORRELL I over the last 8 visits for sciatica. 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 Subjective: i can [...] do not hesitate to contact me at [phone] by phone or Fax: [phone] if you have questions or concerns regarding this new plan of care! Sincerely, Brian Gillespie DPT, OC <Electronically signed by RAEANN Carlin DPT, CSCS> 05/23/17 0926 CC: Emily Pugh MD EBG Signed For Medicare only, by signing this I certify the plan of care. Physicians Signature Date 25-Apr-2017 Inital Evaluation (1) - PT Result: Comments: See Note; NOTES: [facility] [address] [place] [address]. [address] [place], [place] [address] Fax REHABILITATION SERVICES INITIAL EVALUATION MR#: [id number] Acct: [id number] Name: LENORA MORRELL I Rep #: [id number] : 1935 81 From: RAEANN Carlin DPT, CSCS Referring Dr.: Emily Pugh MD Status: REG R Insurance: [facility] Patient's Visit Information LENORA MORRELL I is [...] to be FAXED BACK to us at [phone] for Medicare purposes. Please let me know if there are questions or concerns regarding this plan of care. Physician Signature: Date: <Electronically signed by Brian Gillespie DPT, OCS, CSCS> 04/25/17 0929 CC: Emily Pugh MD EBG Signed For Medicare on ly, by signing this I certify the plan of care. Physicians Signature Date 11-Aug-2016 PT D/C Summary (1) Result: Comments: See Note; NOTES: [facility] Physical Therapy [address] [place] [address] Fax REHABILITATION SERVICES SURENDRA MEDINA SUMMARY MR#: [id number] Acct: [id number] Name: LENORA MORRELL I Rep #: [id number] : 1935 80 From: Ansley Oleary DPT Referring Dr.: Emily Pugh MD Status: REG RCR [facility]/C Summary It has been my pleasure to treat LENORA MORRELL I under orders from Emily Pugh, for the diagnosis of R shoulder pain for a total of 5 visit(s). Discharge Date: Please see the [facility] for a summary of their discharge [...] please feel free to call me at [phone]. Thank you for the referral of this patient. Sincerely, Ansley Oleary <Jacki ctronically signed by Ansley Oleary DPT> 08/11/16 0852 CC: Emily Pugh MD ELR Signed 02-Aug-2016 Bilat Scrn Digital AND CAD Result: Comments: See Note; NOTES: [facility] Imaging Services [address] [place] [address] Verdana 4d Bilat Scrn Digital AND CAD MR#: [id number] Acct: [id number] Name: LENORA MORRELL I Rep #: [id number] : 1935 F 80 From: Nolan Head MD PCP: Emily Pugh MD Status: REG CLI Study: Bilat Scrn Digital AND CAD Date of Exam: 08/02/16 Exam# [id number] Ordering Dr: Emily Pugh MD MAMMOGRAPHY - [...] delay biopsy of a clinically suspicious abnormality. [id number] Electronically Signed: Nolan Head MD at 12:30 EDT , Service support [phone], CC: Emily Pugh MD [place]: Signed 02-Aug-2016 Dexa Bone Density Study (HP) Result: Comments: See Note; NOTES: [facility] Imaging Services [address] [place] [address] Verdana 4d Dexa Bone Density Study () MR#: [id number] Acct: [id number] Name: JUAN MORRELL I Rep #: [id number] : 1935 F 80 From: Nolan Head MD PCP: Emily Pugh MD Status: REG CLI Study: Dexa Bone Density Study () Date of Exam: 08/02/16 Exam# [id number] Ordering Dr: Emily Hill MD STUDY: DUAL [...] Nolan Head MD at 11:04 EDT Tel [phone], Service support [phone], CC: Emily Pugh MD [place]: Signed 28-Jul-2016 Inital Evaluation (1) - PT Result: Comments: See Note; NOTES: [facility] Physical Therapy [address] [place] [address] Fax REHABILITATION SERVICES INITIA L EVALUATION MR#: [id number] Acct: [id number] Name: LENORA MORRELL I Rep #: [id number] : 1935 80 From: Ansley Oleary DPT Referring Dr.: Emily Pugh MD Status: REG RCR Insurance: [employer] [facility] Patient's Visit Information LENORA MORRELL I is [...] at worst; aggravated during exercise (comes to [facility] 5 days a week) while pulling [...] Extension 5/5, ER 4-/5 IR 4- /5 Drawer In Jacquard Loom- R 60/55/54 L 60/56/46. Special Test: empty [...] to be FAXED BACK to us at [phone] for Medicare purposes. Please let me know if there are questions or concerns regarding this plan of care. Physician Signature: Date: <Electronically signed by Ansley Oleary DPT> 07/28/16 0853 CC: Emily Pugh MD ELR Signed For Medicare only, by signing this I certify the plan of care. Physicians Signature Date 08-Jul-2014 Bilat Scrn Digital & CAD Result: Comments: See Note; NOTES: [facility] Imaging Services [address] [place] [address] Breast Imaging Report MR#: [id number] Acct: [id number] Name: LENORA MORRELL I Rep #: [id number] : 1935 F 78 From: Nolan Head MD PCP: Emily Pugh MD Status: REG CLI Exam# [id number] Ordering Dr: Emily Pugh MD MAMMOGRAPHY - [...] Nolan Head MD at 15:05 EDT Tel [phone], Servi ce support [phone], CC: Emily Pugh MD [place]: Signed 08-Jul-2014 Dexa Bone Density Study (HP) Result: Comments: See Note; NOTES: [facility] Imaging Services [address] [place] [address] Bone Density Report MR#: [id number] Acct: [id number] Name: LENORA MORRELL I Rep #: [id number] : 1935 F 78 From: Nolan Head MD PCP: Emily Puhg MD Status: REG CLI Study: Dexa Bone Density Study () Date of Exam: 07/08/14 Exam# [id number] Ordering Dr: Emily Pugh MD STUDY: DUAL [...] Nolan Head MD at 13:32 EDT Tel [phone], Service support [phone], CC: Emily Pugh MD [place]: Signed 21-Mar-2014 Operative Report Result: Comments: See Note; NOTES: [facility] Medical Records Department [address] [place] [address] Operative Report MR#: [id number] Acct: [id number] Name: LENORA MORRELL I Rep #: [id number] : 1935 78 From: Cameron Carrera MD PCP: Emily Pugh MD Status: [facility] DATE OF SERVICE: 03/18/2014 DATE OF [...] fascia of the um bilical port with jpycri-nk-ptxod stitch of 0 Vicryl. Skin incisions were closed with subcuticular stitches of 4-0 Monocryl. Steri-Strips were applied, sterile dressings were applied and the patien t tolerated the procedure well. Cameron Carrera MD T: NTS JOB: [id number] 03/21/14 1228 <Electronically signed by Cameron Carrera MD> Date Cameron Carrera MD CC: Emily Pugh MD; Cameron Carrera MD Date Dictated: 03/18/14 144 Date Transcribed: 05/06/14 1441 [place]: Signed 6-May-2014 Discharge Instruction Result: Comments: See Note; NOTES: [facility] Medical Records Department [address] [place] [address] Discharge Instruction 03/18/14 1333 MR#: [id number] Acct: [id number] Name: LENORA MORRELL I Rep #: [id number] : 1935 78 From: Cameron Carrera MD PCP: Emily Pugh MD Status: REG [facility] Discharge Diet: Light diet - advance as [...] 1 - 2 tablet PO Q4H PRN IN N #30 tablet PRN Reason: Pain Please Follow Up With: Cameron Carrera - Please call [phone] to schedule an appointment. When: 7 days after your surgery. 03/18/14 1334 <Electronical ly signed by Cameron Carrera MD> Date Cameron Carrera MD CC: Emily Pugh MD 18-Mar-2014 Cholangiogram/ O R,Initial Result: Comments: See Note; NOTES: [facility] Imaging Services [address] [place] [address] Radiology Report MR#: [id number] Acct: [id number] Name: LENORA MORRELL I Rep #: [id number] : 1935 F 78 From: Nolan Head MD PCP: Emily Pugh MD Status: [facility] Study: Cholangiogram/ O R,Initial Date of Exam: 03/18/14 Exam# [id number] Ordering Dr: Cameron Carrera MD STUDY: INTRAOPERATIVE [...] Nolan Head MD at 14:50 EDT Tel [phone], Service support [phone], CC: Emily Pugh MD; Cameron Carrera MD [place]: Signed 07-Mar-2014 Gallbladder Result: Comments: See Note; NOTES: [facility] Imaging Services [address] [place] [address] Ultrasound Report MR#: [id number] Acct: [id number] Name: LENORA MORRELL I Rep #: [id number] : 1935 F 78 From: Nolan Head MD PCP: Emily Pugh MD Status: REG CLI Study: Gallbladder Date of Exam: 03/07/14 Exam# [id number] Ordering Dr: Emily Pugh MD STUDY: ABDOMIN [...] Nolan Head MD at 9:14 EDT Tel [phone], Service support [phone], CC: Emily Pugh MD [place]: Signed Family History Unknown Family Member Name [...] kg/m2 Body Surface Area Calculated 2.04 m2 74-Hpu-741260:52 Temperature 97.8 f Comments: Method: Oral Pulse [...] 0.00 cm Results Date Description Value Details 46-Krb-05704:54 Pathology Report Comments: PERFORMED BY: TRUNG [facility] [place] Ijvd2911 [facility] [id number] BY: [facility] Dermatopathology [address] [place] [address] [id number] Information: [id number] See MATER Comments: Material submitted: .RIGHT UPPER ARMClinical history: .VERRUCOUS KERATOSIS Note (Normal) Diagnosis:IRRITATED AND INFLAMED VERRUCA VULGARIS.BXS/03/28/2018Electronically signed: .Neda June MD, DermatopathologistGross description: .RECEIVED IN FORMALIN LABELED LENORA MORRELL DESIGNATED RIGHT UPPERARM IS A 1.0 X 0.8 X 0.5 CM FRIABLE WHITE PAPILLATED SKIN LESION.A DISCRETE SURGICAL MARGIN IS NOT IDENTIFIED. BISECTED ANDENTIRELY SUBMITTED IN ONE CASSETTE.BCO/JASPathologist provided ICD- 10:B07.9CPT .497469 12-Feb-20189:50 Carcinoembryonic Antigen Comments: [facility] (refer to report for specific site)refer to report for address and phone number CEA 1.7 ng/mL (Normal) Range: 0.0-4.7 Comments: Jackie ECLIA methodology Nonsmokers <3.9 Smokers <5.6Performed at: [facility] [id number] Director: Jame Bhakta PhD, Phone: [phone] :[phone] CBC W/Diff, Automated Comments: [facility] [address] [facility]. [place], [place], [id number] Absolute Lymph 1.50 {X10_3/ul} (Normal) Range: 0.83-4.51 [...] Range: 4.4-11.0 12-Feb-20189:50 Comprehensive Metabolic Profil Comments: [facility] [address] [place], [address] GAP 7 (Normal) Range: 5-15 CO2 25.0 mmol/L (Normal) Range: 21.0-32.0 CL 108 mmol/L (Abnormal) Range: 98-107 K 4.2 mmol/L (Normal) Range: 3.5-5.1 NA 140 mmol/L (Normal) Range: 136-145 T BILI 0.30 mg/dL (Normal) Range: 0.20-1.00 ALT 26 U/L (Normal) Range: 13-56 Comments: Please note revised ALT reference range /28/2018. ALK P 77 U/L (Normal) Range: 45-117 [...] A.D.A. criteria.Please note revised GLUCOSE reference range nlpmvtofp47/02/2018. 12-Feb-20188:51 Urinalysis, Office (14728) UA - LEUKOCYTE ESTERASE Negative (Normal) UA [...] ANTIGEN (CEA) Comments: PATIENT NOT FASTINGPERFORMED BY: [facility] [place] [id number] (00575) CEA 1.5 ng/mL (Normal) Range: 0.0-4.7 Comments: [employer] ECLIA methodology Nonsmokers <3.9 Smokers <5.6 27-Xll-533187:48 MICROALBUMIN: CREATININE RATIO Comments: PATIENT NOT FASTINGPERFORMED BY: [employer] [place] [id number] (89978) AND (19036) Microalb/Creat Ratio MALD {mg/g_creat} Range: 0.0-30.0 (Abnormal) Comments: This result is below the assay's limit of quantitation indicating adilute specimen, potentially due to diurnal variation. Considerrecollection at a time likely to provide a more concentrated urine. Microalbumin, Urine <3.0 ug/mL (Normal) Creatinine, Urine 74.6 mg/dL (Normal) 68-Mef-674428:48 URINALYSIS (23445) Comments: PATIENT NOT FASTINGPERFORMED BY: [facility] [id number] Microscopic Examination MICNIP (Normal) Comments: Microscopic not indicated and not performed. Nitrite, Urine Negative (Normal) Urobilinogen,Semi-Qn 0.2 mg/dL (Normal) Range: 0.2-1.0 Bilirubin Negative (Normal) Occult Blood Negative (Normal) Ketones Negative (Normal) Glucose Negative (Normal) Protein Negative (Normal) WBC Esterase Negative (Normal) Appearance Clear (Normal) Urine-Color Yellow (Normal) pH 6.5 (Normal) Range: 5.0-7.5 Specific [place] 1.014 (Normal) Range: 1.005-1.030 92-Dbn-904270:48 Metabolic Panel, Comprehensive Comments: PATIENT NOT FASTINGPERFORMED BY: [place] CenterPcqdvv1363 [facility] [id number] (63748) ALT (SGPT) 25 [iU]/L (Normal) Range: 0-32 [...] Glucose, Serum 99 mg/dL (Normal) Range: 65-99 14-Uda-886577:48 CBC WITH MANUAL DIFF Comments: PATIENT NOT FASTINGPERFORMED BY: ROBERT [facility] [address]lk[address] [place] [id number] Information: NURSE DRAW (62107) Immature Grans (Abs) 0.0 {x10E3/uL} (Normal) Range: [...] 3.4-10.8 :10 FLU A+B DIRECT AG, (RAPID) (54113) FLU A+B DIRECT AG, (RAPID) Pos A (Normal) :10 Carcinoembryonic Antigen Comments: [facility] (refer to report for specific site)refer to report for address and phone number CEA 2139 1.1 ng/mL (Normal) Range: 0.0-4.7 Comments: Jackie ECLIA methodology Nonsmokers <3.9 Smokers <5.6Performed at: [facility] [address] [id number] Director: Jame Bhakta PhD, Phone: [phone] :[phone] CBC W/Diff, Automated Comments: [facility] [address] [place], [address] Absolute Lymph 1.70 {X10_3/ul} (Normal) [...] Range: 4.4-11.0 :10 Comprehensive Metabolic Profil Comments: [facility] [address] [place], [address] GAP 3 (Abnormal) Range: 5-15 CO2 28.0 [...] (Normal) Range: 70-110 18-Nov-20157:10 Lipid Profile Comments: [facility] [address] [place], [address] VLDL 21 mg/dL (Normal) Range: 5-40 LDL [...] Risk 18-Nov-20157:10 Thyroid Stim Hormone (TSH) Comments: [facility] [address] [place], [address] TSH 2.80 {uIU/mL} (Normal) Range: 0.358-3.74 :09 CBC W/Diff, Automated Comments: Test performed at:[facility] [address] [place], [place] [address] Absolute Lymph 1.42 {X10_3/ul} (Normal) Range: 0.83-4.51 [...] :09 Comprehensive Metabolic Profil Comments: Test performed at:[facility] [address] [place] [address] GAP 11 (Normal) Range: 5-15 CO2 25.0 [...] Thyroid Stim Hormone (TSH) Comments: Test performed at:[facility] [address] [place] [address] TSH 1.03 {uIU/mL} (Normal) Range: 0.358-3.74 :36 Thyroid Stim Hormone (TSH) Comments: Test performed at:[facility] [address]kh[address] [facility] [place] [address] TSH 2.20 {uIU/mL} (Normal) Range: [...] Jackie ECLIA methodology Nonsmokers <3.9Smokers <5.6Performed at: [facility] [id number] Director: Jaylen Schumacher PhD, Phone: [phone] :15 CMP GAP 8 (Normal) Range: 5-15 [...] methodology Nonsmokers <3.9Smokers <5.6Performed at: [facility] [address] [id number] Director: Kate Raya MD, Phone: [phone] :07 CMP GAP 6 (Normal) Range: 5-15 [...] :07 TSH 0.15 {uIU/mL} (Abnormal) Range: 0.358-3.74 9-Uue-168524:42 GALL (Normal) Comments: Patient: LEONRA MORRELL I : 1935 (78/F)Acct Num: [id number] Phys: Arlene RODRIGUES,Ludwin Num: [id number] Loc: SDCSpecimen: [id number] Received: 03/18/14 1442Spec Type: GA LLBLADDECNELSON De MD,Geux8305 [facility], [address] [phone] MD,Lugxdm355 Sor[address]on [place], [place] [phone] ID Blk Pcs Davis Lev + Procedure ComGallbladder, NO 1-2PTH PROCEDURES COMPLETEPROCEDURES: SUIII (03/18/14-7246)TISSUESTISSUES:GROSS DESCRIPTIONReceived is one container labeled with the [...] measures up to 0.5 cm in thickness. [employer] V[employer] Repairer sectionsfrom the g allbladder and the cystic duct are submitted in two cassettes. Thestones are saved for the patient. / :arash 03/18/14 TC:2CPT: 75652MMRNUBGAFQGSKBP: Lap cholecystectomyPRE-OPERATIVE DIAGNOSIS: Acute cho lecystitisTISSUE SUBMITTED: [...] 3.4-5.0 TPROT 7.8 g/dL (Normal) Range: 6.4-8.2 92-Gyr-554404:02 Metabolic Panel, Comprehensive Comments: copy to Dr. carrera.; PATIENT NOT FASTINGPERFORMED BY: [facility] CenterNmnkfb8507 [facility] [id number] (84026) ALT (SGPT) 509 [iU]/L (Abnormal) Range: 0-32 [...] Glucose, Serum 110 mg/dL (Abnormal) Range: 65-99 98-Ehl-725153:02 CBC, Platelets & Auto Comments: PATIENT NOT FASTINGPERFORMED BY: [facility]Co[facility] CenterWfsnss5321 [facility] [id number] Information: [id number],[id number] Diff (55221) Immature Grans (Abs) 0.0 {x10E3/uL} (Normal) Range: [...] 3.77-5.28 WBC 5.2 {x10E3/uL} (Normal) Range: 3.4-10.8 63-Lmb-421209:02 Lipase (62723) Comments: PATIENT NOT FASTINGPERFORMED BY: [facility] [id number] Lipase, Serum 27 U/L (Normal) Range: 0-59 29-Zrr-637876:02 Amylase (96620) Comments: PATIENT NOT FASTINGPERFORMED BY: [employer] [facility] [id number] Amylase, Serum 51 U/L (Normal) Range: 31-124 59-Tku-212217:22 URINE PERRY CULTURE-EDWIN COL Comments: PATIENT NOT FASTINGPERFORMED BY: [employer] [facility] [id number] Information: SRC:UR [id number] COUNT (94775) Result 1 MUG (Normal) Comments: Mixed urogenital flora25,000-50,000 colony forming units per mL Urine Final report (Normal) Culture,Comprehensive 95-Zcu-45214:39 Urinalysis, Office (37135) UA - LEUKOCYTE ESTERASE Negative (Normal) UA [...] CHOL 161 mg/dL (Normal) Comments: <200 mg/dL Jxkscklcu076-749 mg/dL Borderline>240 mg/dL High Risk TRIG 101 mg/dL (Normal) Range: 0-199 Comments: Serum Triglycerides Reference IntervalNormal <150 mg/dLBorderline high 150 - 199 mg/dLHigh 200 - 499 mg/ dLVery High > or = 500 mg/dL :13 TSH 1.03 {uIU/mL} (Normal) Range: 0.358-3.74 10-Vug-362007:45 BILAT SCRN DIGITAL & CAD Radiology Report [...] Head M.D.January 08, 2013 at 12:26:36 PM [id number] Signed GP/GP If you are the referring physician and would like to consu lt with theradiologist who provided this interpretation, please contact Reny Abreu at [phone]. If this radiologist is unavailable, youwill be directed to another radiologist to assist. If you are a patient with a question regarding this report, pleasecontactyour referring physician directly. Professional Interpretation Provided By: Kauli, Phone , T hese documents contain legally [...] 01/08/13 1304 Sign by: Nolan Head MD 30-Ggu-27057:32 CMP GAP 9 (Normal) Range: 5-15 CO2 [...] METABOLIC PANEL, Comments: PATIENT WAS FASTINGPERFORMED BY: [facility]Co[facility] CenterQyyqpv7265 [facility] [id number] Information: [id number],[id number] COMPREHENSIVE (12728) ALT (SGPT) 39 [iU]/L (Normal) Range: 0-40 [...] mg/dL (Normal) Range: 65-99 :22 LIPID PANEL (51465) Comments: PATIENT WAS FASTINGPERFORMED BY: [employer] [facility] [id number] LDL/HDL Ratio 1.6 {ratio_units} (Normal) Range: 0.0-3.2 LDL Cholesterol Calc 103 mg/dL (Abnormal) Range: 0-99 VLDL Cholesterol Sriram 18 mg/dL (Normal) Range: 5-40 HDL Cholesterol 63 mg/dL (Normal) Comments: According to ATP-III Guidelines, HDL-C >59 mg/dL is considered anegative risk factor for CHD. Triglycerides 91 mg/dL (Normal) Range: 0-149 Cholesterol, Total 184 mg/dL (Normal) Range: 100-199 :22 TSH (41376) Comments: PATIENT WAS FASTINGPERFORMED BY: [employer]6370 [facility] [id number] TSH 1.720 {uIU/mL} (Normal) Range: 0.450-4.500 34-Zkg-71493:00 CULT, DP WOUND Comments: LEFT ARM ABSCESS [...] RED CELL STROMA 1+ GRAM POSITIVE COCCI 33-Kzn-023068:30 BILAT SCRN DIGITAL & CAD Radiology Report [...] regarding this report , please call our 91R7hniwptf line @ Dictated on 11/02/11 1414 by Beth Mirza DOnscribed on 11/04/113 by ITS IMPORTSign by Marielos Mirza DO on 11/04/111853 Sign by: Marielos Mirza DO 62-Xdf-468805:30 DEXA BONE DENSITY STUDY (HP) Radiology Report [...] regarding th is report, please call our [id number] line @ Dictated on 11/02/11 1335 by Ignacio Head MDranscribed on 11/03/11 1500 by ITS IMPORTSign by Nolan Head MD on 11/03/11 150 1 Sign by: Nolan Head MD :15 Pathology Report Comments: PERFORMED BY: [facility] [id number] [facility] [id number] Information: [id number] See MATER Comments: Material submitted: .LEFT FOREARMClinical [...] SUBMITTED IN TOTO.XJW/KAMPathologist provided ICD-9:702.0 , 709.09CPT .717208 :19 LIVER Radiology Report See Note (Normal) [...] of the right kidney. The right k fxwtisbvpwhbj20.7 cm. Normal renal cortex. There is no [...] by: Nolan Head MD :22 Lipid Panel (27460) Comments: PATIENT WAS FASTINGPERFORMED BY: ROBERT Netskopeloi KatzNfscxy6914 [place] [facility] [id number] LDL/HDL Ratio 1.7 {ratio_units} (Normal) Range: 0.0-3.2 LDL Cholesterol Calc 117 mg/dL (Abnormal) Range: 0-99 VLDL Cholesterol Sriram 16 mg/dL (Normal) Range: 5-40 HDL Cholesterol 69 mg/dL (Normal) Comments: According to ATP-III Guidelines, HDL-C >59 mg/dL is considered anegative risk factor for CHD. Triglycerides 81 mg/dL (Normal) Range: 0-149 Cholesterol, Total 202 mg/dL (Abnormal) Range: 100-199 :22 TSH (04906) Comments: PATIENT WAS FASTINGPERFORMED BY: ROBERT Nudge Qxkmtx5992 [facility] [id number] TSH 3.800 {uIU/mL} (Normal) Range: 0.450-4.500 :22 Metabolic Panel, Comments: PATIENT WAS FASTINGPERFORMED BY: ROBERT [facility] Ajjtza8602 [facility] [id number] Information: [id number] Comprehensive (48515) ALT (SGPT) 42 [iU]/L (Abnormal) Range: 0-40 [...] FUNCTION PANEL Comments: PATIENT NOT FASTINGPERFORMED BY: [place] [id number] [facility] [id number] Information: [id number] (58134) ALT (SGPT) 49 [iU]/L (Abnormal) Range: 0-40 AST (SGOT) 31 [iU]/L (Normal) Range: 0-40 Alkaline Phosphatase, S 73 [iU]/L (Normal) Range: 25-165 Bilirubin, Direct 0.12 mg/dL (Normal) Range: 0.00-0.40 Bilirubin, Total 0.5 mg/dL (Normal) Range: 0.0-1.2 Albumin, Serum 4.3 g/dL (Normal) Range: 3.5-4.8 Protein, Total, Serum 7.2 g/dL (Normal) Range: 6.0-8.5 :34 Lipid Panel (47284) Comments: PATIENT WAS FASTINGPERFORMED BY: [facility]6370 [facility] [id number] LDL Cholesterol Calc 101 mg/dL (Abnormal) Range: [...] Metabolic Panel, Comments: PATIENT WAS FASTINGPERFORMED BY: [facility]6370 [facility] [id number] Information: [id number] Comprehensive (59136) Alkaline Phosphatase, S 79 [iU]/L (Normal) Range: [...] 94 mg/dL (Normal) Range: 65-99 :34 TSH (61122) Comments: PATIENT WAS FASTINGPERFORMED BY: [facility] Hnwzbl8971 [facility] [id number] TSH 2.900 {uIU/mL} (Normal) Range: 0.450-4.500 :39 TSH 2.49 {uIU/mL} (Normal) Range: 0.358-3.74 77-Mej-953867:50 KIDNEY (HP) Radiology Report See Note (Normal) Comments: Exam Number: [id number] CLINICAL:73 year old woman with right upper [...] Report See Note (Normal) Comments: Exam Number: [id number] CLINICAL:Low back pain X-RAY EXAMINATION: LUMBAR SPINE [...] fractures. Reported By: WILLIAM MELO M.D. :34 [facility] DIGITAL & CAD Radiology Report See Note (Normal) Comments: Exam Number: [id number] MAMMOGRAM, BILATERAL SCREENING DIGITAL AND CAD HISTORYRoutine [...] mammograms werealso examined with computer-aided detection software ([employer], Locals[employer].). Reported By: ILA POZO M.D. :34 CBCD,SMEAR [...] Report See Note (Normal) Comments: Exam Number: [id number] TRANSABDOMINAL AND TRANSVAGINAL PELVIC ULTRASOUND STATEMENTOvarian cyst. [...] 6 months. Reported By: OBED CLINE M.D. 98-Qqg-191021:34 PELVIC (NON-PREG) () Radiology Report See Note (Normal) Comments: Exam Number: [id number] TRANSABDOMINAL AND TRANSVAGINAL PELVIC ULTRASOUND STATEMENTOvarian cyst. [...] :50 TSH 4.18 {uIU/mL} (Normal) Range: 0.34-4.82 07-Dox-65200:37 ABDOMEN LIMITED US () Radiology Report See Note (Normal) Comments: Exam Number: [id number] RIGHT UPPER QUADRANT ULTRASOUND REASON FOR EXAMINATIONFollowup [...] quadrant ascites. Reported By: DANIELA GRAY M.D. 72-Fcl-24280:37 TRANSVAGINAL NON-PREG US (HP) Radiology Report See Note (Normal) Comments: Exam Number: [id number] TRANSVAGINAL PELVIC ULTRASOUND REASON FOR EXAMOvarian cyst. [...] adnexal structures. Reported By: DANIELA GRAY M.D. 21-Nmy-523308:54 MAMM, BILAT SCRN DIGITAL & CAD Radiology Report See Note (Normal) Comments: Exam Number: [id number] MAMMOGRAPHY, BILATERAL SCREENING DIGITAL AND CAD HISTORYRoutine [...] werealso examined with computer-aided detection software ([employer], Localsensor.). Reported By: ILA POZO M.D. 9-Nyd-025209:58 PT/INR, Office (41153) INR 3.6 (Normal) PT (PROTHROMBIN TIME) 22.8 [...] Indication: Acute sinusitis, unspecified Planned Observations TSH (66743)Indication: Hypothyroidism On: :34 Request LIPOPROTEIN, BLD, BY NMR (81964)Indication: Hypercholesteremia (Renamed from Hypercholesterolemia) On: :34 Request METABOLIC PANEL, COMPREHENSIVE (10986)Indication: Hypercholesteremia (Renamed from Hypercholesterolemia) On: :34 Request URINALYSIS (63390)Indication: Hypothyroidism On: : Request CBC WITH MANUAL DIFF (34545)Indication: Hypothyroidism On: :28 Request Metabolic Panel, Comprehensive (38716)Indication: Hypothyroidism On: :28 Request METABOLIC PANEL, COMPREHENSIVE (30926)Indication: Right lower quadrant pain On: :55 Request CBC with auto diff (61263)Indication: Right lower quadrant pain On: :55 Request CARCINOEMBRYONIC ANTIGEN (CEA) (86662)Indication: History of colon cancer On: :55 Request TSH (90818)Indication: BMI 40.0-44.9, adult On: :58 Request LIPOPROTEIN, BLD, BY NMR (19418)Indication: Hypercholesteremia (Renamed from Hypercholesterolemia) On: :58 Request HEPATIC FUNCTION PANEL (59858)Indication: Hypercholesteremia (Renamed from Hypercholesterolemia) On: :58 Request CARCINOEMBRYONIC ANTIGEN (CEA) (56161)Indication: History of colon cancer On: :28 Request METABOLIC PANEL, COMPREHENSIVE (23782)Indication: Hypothyroidism On: :28 Request CBC with auto diff (14745)Indication: History of colon cancer On: :28 Request TSH (25003)Indication: Hypothyroidism On: :28 Request LIPID PANEL (28613)Indication: Hypothyroidism On: :14 Request CARCINOEMBRYONIC ANTIGEN (CEA) (67190)Indication: History of colon cancer On: :13 Request METABOLIC PANEL, COMPREHENSIVE (05502)Indication: History of colon cancer On: :13 Request CBC with auto diff (45653)Indication: History of colon cancer On: :13 Request TSH (95725)Indication: Hypothyroidism On: :13 Request CBC WITH MANUAL DIFF (74861)Indication: Hypothyroidism On: :23 Request Metabolic Panel, Comprehensive (04886)Indication: Hypothyroidism On: :22 Request TSH (67137)Indication: Hypothyroidism On: :22 Request TSH (23865)Indication: Hypothyroidism On: :38 Request CARCINOEMBRYONIC ANTIGEN (CEA) (93806)Indication: History of colon cancer On: 4-Hkx-911982:11 Request CBC WITH MANUAL DIFF (60275)Indication: History of colon cancer On: 1-Gik-855561:09 Request METABOLIC PANEL, COMPREHENSIVE (00345)Indication: History of colon cancer On: 7-Cln-945477:09 Request TSH (78103)Indication: Hypothyroidism On: 7-Dln-161818:09 Request Comments: 8 weeks. HEPATIC FUNCTION PANEL (14127)Indication: Elevated LFTs On: 16-Hud-50800:38 Request CARCINOEMBRYONIC ANTIGEN (CEA) (47616)Indication: History of colon cancer On: 5-Pln-501169:23 Request TSH (55077)Indication: Hypothyroidism On: :18 Request METABOLIC PANEL, COMPREHENSIVE (39904)Indication: Elevated LFTs On: :18 Request HEPATIC FUNCTION PANEL (64011)Indication: Elevated LFTs On: 90-Muh-002111:50 Request LIPID PANEL (44254)Indication: Elevated LFTs On: 4-Ccn-823218:34 Request METABOLIC PANEL, COMPREHENSIVE (18500)Indication: Elevated LFTs On: 4-Xkp-116050:34 Request TSH (30835)Indication: Hypothyroidism On: 7-Ptu-154466:34 Request TSH (19993)Indication: Hypothyroidism On: :48 Request CBC (Auto) (93322)Indication: Elevated LFTs On: 45-Zym-10220:48 Request METABOLIC PANEL, COMPREHENSIVE (58833)Indication: Elevated LFTs On: 00-Dpp-988874:25 Request LIPID PANEL (36319)Indication: Elevated LFTs On: 54-Nno-381202:25 Request TSH (89975)Indication: Hypothyroidism On: 34-Zqz-398948:25 Request CBC (Auto) (00867)Indication: Colon cancer On: 58-Jhi-427990:09 Request Metabolic Panel, Comprehensive (50516)Indication: Colon cancer On: 53-Esu-525028:09 Request TSH (20756)Indication: Hypothyroidism On: 56-Uku-662016:05 Request LIPID PANEL (96192)Indication: Obesity On: 72-Fmi-448791:05 Request Urinalysis, Office (94681)Indication: Low back pain On: 39-Hdj-76178:17 Request TSH (83789)Indication: Hypothyroidism On: 79-Xol-20559:10 Request TSH (14785)Indication: Hypothyroidism On: 87-Jrt-04950:27 Request Metabolic Panel, Comprehensive (43755)Indication: Elevated LFTs On: 65-Zis-38437:10 Request TSH (84168)Indication: Hypothyroidism On: 37-Swn-85703:09 Request TSH (88199)Indication: Hypothyroidism On: 82-Mes-749333:57 Request CREATINE KINASE TOTAL (40261)Indication: Myalgia and myositis On: :35 Request C-REACTIVE PROTEIN (70878)Indication: Myalgia and myositis On: :33 Request SED RATE ERYTHROCYTE (13660)Indication: Myalgia and myositis On: :33 Request LIPID PANEL (17331)Indication: Obesity On: :23 Request HEPATIC FUNCTION PANEL (73635)Indication: Elevated LFTs On: :23 Request Planned Encounters Medical; [facility] 4 Month Fu - On: 07-Jan-2019 10:15 [facility] Lexy RODRIGUES, Emily Moran MD Planned Procedures Flu Vaccine (Quadrivalent) On: 31-Aug-2018 Intent 67178Ax: AIMEE Sheikh Comments: Lot #:[id number] date: 4-23-79Edxehn given:0.5mlRoute: IMSite given:L DltdGiven by: DBVIS and ABN signed [employer] SCREENING DIGITAL TOMOSYNTHESIS On: 26-Mar-2018 Intent OF BREAST (14419)By: Emily Pugh MD, MD, Dana M DEXA SCAN AXIAL SKELETON On: 26-Mar-2018 Intent (19990)By: Lexy RODRIGUES, Emily Moran MD CT - Abdomen & Pelvis (IV On: 12-Feb-2018 Intent Contrast Needed)By: Emily Pugh MD, MD, Dana M TD VACCINE ADULT (48599)By: On: 22-Sep-2017 Intent Visit, Nurse Comments: boostrixlot [id number] 10.9.18L Dltd, IMPrefilled syringeMegan Long, LPNVIS signed Flu Vaccine (Quadrivalent) On: 31-Aug-2017 Intent 07591Iy: Visit, Nurse Comments: Lot #[id number]/30/18ite-L dltd, IMDose prefilled syringegiven by:ROB Sarkar and LUPILLO signed Flu Vaccine (Quadrivalent) On: 10-Oct-2016 Intent 75150Qb: Emily Pugh MD Comments: Lot:[id number]:05/12/17Dose:0.5mLRoute:IMSite:L DltdGiven By:TONEY signed Emily Pugh MD Bone Density StudyBy: Lexy RODRIGUES, On: 22-Jul-2016 Intent Emily Moran MD BILATERAL MAMMOGRAMS (08659)By: On: 22-Jul-2016 Intent Emily Pugh MD, MD, Dana M MAMMOGRAM, SCREENING, BOTH BREAST On: 28-May-2015 Intent (62811)By: Emily Pugh MD, MD, Dana M Prevnar 13 (04500)By: Lexy On: 27-Nov-2014 Intent Emily RODRIGUES MD, Dana M MAMMOGRAM, SCREENING, BOTH BREAST On: 20-May-2014 Intent (06532)By: Emily Pugh MD, MD, Dana M DEXA SCAN AXIAL SKELETON On: 20-May-2014 Intent (29226)By: Emily Pugh MD Comments: postmenapausal Emily Pugh MD Ultrasound - GallbladderBy: On: 04-Mar-2014 Intent Emily Pugh MD, MD, Dana M Eprescribed prescriptions On: 10-Jan-2014 Intent (G8553)By: Emiyl Pugh MD, MD, Dana M SPECIMEN HANDLING/TRANSPORT On: 01-Jan-2014 Intent (43292)By: Lori Ortiz CNP MAMMOGRAM, SCREENING, BOTH On: 18-Nov-2013 Intent BREASTS (11766)By: Lexy RODRIGUES, Comments: end of 12-27 Emily Moran MD Eprescribed prescriptions On: 18-Nov-2013 Intent (G8553)By: Kiley Gallegos ZOSTER VACC, [place] (35336)By: Paul, On: 01-Jan-2013 Intent Belle Comments: Lot:[id number]:0.65mLRoute:SubQSite:[place]ico armGiven By:TONEY signed IMMUNIZ ADMNIN, 1 VAC, SNGL/COMBO On: 01-Jan-2013 Intent (27101)By: Belle Miller ADMINISTRATION OF PNEUMOCOCCAL On: 27-Dec-2012 Intent VACCINE (G0009)By: Emily Pugh MD, MD, Dana M PNEUM VAC ADLT/IMUMNOSPR, On: 27-Dec-2012 Intent SBC/INTRM (11118)By: Emily Pugh MD, MD, Dana M MAMMOGRAM, SCREENING, BOTH On: 27-Dec-2012 Intent BREASTS (48960)By: Emily Pugh MD, MD, Dana M FLU VAC, SPLIT, >3 YEARS, On: 24-Jul-2012 Intent INTRAMUSC (65013)By: Paul, Comments: Lot:[id number]:6.30.13Dose:prefilledRoute:IMSite:L DltdGiven By:TONEY signed Belle ADMINISTRATION OF INFLUENZA VIRUS On: 24-Jul-2012 Intent VACCINE (G0008)By: Belle Miller DXA, BONE DENSITY, AXIAL SKELETON On: 18-Oct-2011 Intent (57913)By: Emily Pugh MD Comments: estrogen def and postmenapausal Emily Pugh MD MAMMOGRAM, SCREENING, BOTH On: 18-Oct-2011 Intent BREASTS (53380)By: Emily Pugh MD, MD, Dana M ADMINISTRATION OF INFLUENZA VIRUS On: 18-Oct-2011 Intent VACCINE (G0008)By: Emily Pugh MD, MD, Dana M FLU VAC, SPLIT, >3 YEARS, On: 18-Oct-2011 Intent INTRAMUSC (45314)By: Emily Pugh MD, MD, Dana M Ultrasound - LiverBy: Lexy RODRIGUES, On: 14-Jul-2011 Intent Emily Moran MD DXA, BONE DENSITY, AXIAL SKELETON On: 24-May-2010 Intent (41063)By: Emily Pugh MD Comments: postmenapausal, estrogen def. back pain Emily Pugh MD MAMMOGRAM, SCREENING, BOTH On: 24-May-2010 Intent BREASTS (42514)By: Emily Pugh MD, MD, Dana M Ultrasound - RenalBy: Angel COON, On: 10-Aug-2009 Intent [facility] - Lumbar SpineBy: Angel On: 10-Aug-2009 Intent REGISTRATION SCHEDULING SPECIALIST, Ruth MAMMOGRAM, SCREENING, BOTH On: 30-Jun-2009 Intent BREASTS (23025)By: Emily Pugh MD, MD, Dana M Ultrasound - PelvisBy: Lexy On: 30-Jun-2009 Intent Emily RODRIGUES MD, Dana M Pulse Oximetry (48718)By: Angel On: 23-Apr-2009 Intent REGISTRATION SCHEDULING SPECIALIST, Ruth Aerosol Treatment (82482)By: On: 23-Apr-2009 Intent Angel COON Ruth Ultrasound [...] MAMMOGRAM, SCREENING, BOTH On: 27-Mar-2007 Intent BREASTS (74447)By: Emily Pugh MD, MD, Dana M Ultrasound [...] The patient does have durable power of attorney general and living will. The patient has noticed [...] for Tdap vaccination (Renamed from Need for uqgttktjto-eqfdrkq-fhkikivkx (Tdap) vaccine, adult/adolescent) End: 25-Sep-2017 9:38 Comprehensive [...] The patient does have durable power of attorney general and living will. The patient has noticed nothing from the geriatic depression scale. Other providers contributing to the patient's care are gastrologist ( Dr. Carrera ) and other: (Credit Risk Management Director Dr. Izaguirre, opthalm Dr. Mckeon ).Encounter Diagnosis: [...] Nutrition: balanced diet and supplemental vitamins. The ca dical issues the patient is following up [...] bathroom. The patient has completed the f [facility] preventative measures: PAP smear (unsure of timing), mammography (2011) and colonoscopy (2010). The patient does have durable power of attorney general and living will. The patient has noticed [...] - Reason for hospitalization note: (syncope at [place] ). Patient has been compliant with instructions. [...] cyst (620.2), Headache (784.0), Elevated LFT (790.6), [facility] V72.31 (Renamed from [facility] ([facility]) [...] COLON (V10.05), Hypothyroidism (244.9), Elevated LFT (790.6), [facility] V72.31 (Renamed from [facility] ([facility]) (V72.31)) [facility] Office [...] Disorder of bone and cartilage, unspecified (733.90), [facility] V72.31 (Renamed from [facility] [...] (153.9), Rosacea (695.3), Hemorrhoids (455.8), Obesity (278.00), [facility] V72.31 (Renamed from [facility] [...] anticoagulants (286.5), Colon Cancer (153.9), Rosacea (695.3), [facility] V72.31 (Renamed from [facility] [...] ankle, infected (916.5), PORTAL VEIN THROMBOSIS (452.), [facility] V72.31 (Renamed from [facility] ([facility]) (V72.31)), Headache (784.0), Elevated LFT (790.6), Other [...] cartilage, unspecified (733.90), Headache (784.0), Obesity (278.00), [facility] V72.31 (Renamed from [facility] ([facility]) (V72.31)), genital warts [facility] Office [...] of gallbladder, bile ducts, and liver (751.69), [facility] V72.31 (Renamed from [facility] [...] liver (751.69), Unspecified Diagnosis, Elevated LFT (790.6), [facility] V72.31 (Renamed from [facility] ([facility]) [...]
--- OUTSIDE RECORDS SUMMARY | 2019-02-04 14:38 | XMS RPT_ITS | Continuity of Care Document ---
:1935 Author Organization [facility] Address [address] [facility] [address] [place] [address] Phone Care Team Providers Name Role Phone Lexy RODRIGUES, Emily Hope Unavailable Teo Botello DPM Unavailable Raquel Jordan Unavailable Maynor RODRIGUES, Cameron Dominguez Unavailable Dr. Jam Lehman Unavailable AIMEE Sheikh Unavailable Unavailable Unavailable Unavailable Problems Name Dates Details Abnormal glucose (R73.09, 790.29) Comments: 11-17 5.8% already exercise probably would be DM by now. will consider loosing the last 20 pounds. Status: Active Acute pain of right shoulder (M25.511, 719.41) Comments: stable stillsome pain but has good function. not limiting ADL's takig tumeric. not need pain pills Status: Active BMI 39.0-39.9,adult (Z68.39, V85.39) Status: Active BMI 40.0-44.9, adult (Z68.41, V85.41) Comments: 41.27 Status: Active Current nonsmoker (Renamed from Current non-smoker) (Z78.9, V49.89) Status: Active Deliveries (Parity) Comments: 3 Status: Active Disorder of bone and cartilage (M89.9, 733.90) 26-Nov-2010 Comments: osteopenia BD 9-16 Status: Active Encounter for routine adult medical exam with abnormal findings (Z00.01, V70.0) Comments: 03-26-18 AMP 09-21-17 [facility], reviewed with patient all question. told to add handrail in stud in bathroom. BD and mammogram 07-31 planned she wants to do every other year, colonoscopy summer done all immunizations are up to date, whisper test WNL, last eye exam was with Dr. 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 get rid of animal fat on tumeric Status: Active Hypothyroidism (E03.9, 244.9) Comments: stable [...] inoculation against influenza (Z23, V04.81) Status: Active Obesity (E66.9, 278.00) Comments: recommend [...] qd for 0 days Refills: 0 Ordered:28-Aug-2009 Syd Moralez RN Fish Oil 1000 MG Oral Capsule 1 qd (1000 MG) Active Garlic 500 MG Oral Tablet 1 Tablet QD for 0 days Quantity: 30 {Tablet} Refills: 0 Ordered:04-Sep-2017 Emily Pugh MD, MD, Dana M Start : 04-Sep-2017 Active Comments:parsley 100mg MILK THISTLE, 175MG (Oral Capsule) 1 QD for 0 days Refills: 0 Ordered:28-Aug-2009 Syd Moralez RN Nutraview 1 capsule daily Active Synthroid 112 MCG Oral Tablet 1 Tablet qd for 0 days Quantity: 30 {Tablet} Refills: 0 Ordered:17-Aug-2018 Emily Pugh MD, MD, Dana M Start : 17-Aug-2018 Active Comments:generic is ok Turmeric 500 MG Oral Capsule 1 (one) Tablet Tablet qd for 0 days Quantity: 30 {Tablet} Refills: 0 Ordered:20-Feb-2018 Emily Pugh MD, MD, Dana M Start : 04-Sep-2017 Active Tylenol with Codeine #3 300-30 MG Oral Tablet 1 (one) Tablet 1-2 every 6 hours prn pain for 0 days Quantity: 20 {Tablet} Refills: 0 Ordered:26-Mar-2018 Emily Pugh MD, MD, Dana M Start : 26-Mar-2018 Active Comments:twenty Vitamin C 1000 MG Oral Tablet 1 [...] : 21-Mar-2017 End : 03-Apr-2017 Inactive ZOSTAVAX, 43408AGI/0.65ML (Subcutaneous Solution Reconstituted) 1 For Solution once [...] packet after dinner End : 08-Jan-2008 Discontinued PREGNENOLONE (Powder) 1 Powder qd for 0 days Refills: 0 Ordered:10-Jul-2007 Emily Pugh MD, MD, Dana M Start : 10-Jul-2007 End : 10-Jul-2007 Discontinued Pregnenolone 25mg 1 qd End : 08-Jan-2008 Discontinued THYROLAR-2, 120 (25-100)MG (MCG) (Oral Tablet) 1 Tablet QD for 0 days Refills: 0 Ordered:10-Jul-2007 Lexy RODRIGUES, Emily Le MD Start : 10-Jul-2007 End : 10-Jul-2007 Discontinued [...] Dr. izaguirre states good. ct scan 09-21 pako, colonscopy--pt check with arlene since 5 years this year so due for scope because still has some colon Status: Inactive as of 27-Dec-2012 Cough (R05, 786.2) Status: Inactive as of 13-May-2009 Elevated LFTs (R94.5, 790.6) 30-May-2011 Comments: lessen [...] and ankle, infected (S80.869A, 916.5) Comments: ? Jackson fly, cellulitis Status: Inactive as of 27-Dec-2012 [...] for Tdap vaccination (Renamed from Need for uunneeyrjn-xuhimmu-sfkpontvw (Tdap) vaccine, adult/adolescent) (Z23, V06.1) Status: Resolved [...] Density Study Result: Comments: See Note; NOTES: [facility] Imaging Services [address] [place] [address] Dexa Bone Density Study MR#: [id number] Acct: [id number] Name: LENORA MORRELL I Rep #: [id number] : 1935 F 82 From: Nolan Head MD PCP: Emily Pugh MD Status: REG CLI Study: Dexa Bone Density Study Date of Exam: 08/29/18 Exam# [id number] Ordering Dr: Emily Pugh MD STUDY: DU [...] Nolan Head MD at 8:26 EDT Tel [phone], Service support , CC: Emily Pugh MD Crnp: Signed 29-Aug-2018 SCREENING MAMM (CAD), BILAT Result: Comments: See Note; NOTES: [facility] Imaging Services [address] [place] [address] SCREENING MAMM (CAD), BILAT MR#: [id number] Acct: [id number] Name: LENORA MORRELL I Rep #: [id number] : 1935 F 82 From: Nolan Head MD PCP: Emily Pugh MD Status: REG CLI Study: SCREENING MAMM (CAD), BILAT Date of Exam: 08/29/18 Exam# [id number] Ordering Dr: Emily Pugh MD M AMMOGRAPHY [...] delay biopsy of a clinically suspicious abnormality. [id number] Electronically Signed: Nolan Head MD at 13:21 EDT Tel [phone], Service support , CC: Emily Pugh MD Crnp: Signed 12-Feb-2018 Abdomen/Pelvis WITH Contrast Result: Comments: See Note; NOTES: [facility] Imaging Services [address] [place] [address] Abdomen/Pelvis WITH Contrast MR#: [id number] Acct: [id number] Name: LENORA MORRELL I Rep #: [id number] : 1935 F 82 From: Maite Corona MD PCP: Emily Pugh MD Status: REG CLI Study: Abdomen/Pelvis WITH Contrast Date of Exam: 02/12/18 Exam# [id number] Ordering Dr: Emily Pugh MD GEORGINA DY: [...] Service support , CC: Emily Pugh MD Crnp: Signed 25-Oct-2017 TXT - Blood Flow Screening Result: Comments: See Note; NOTES: [facility] Cardiovascular Services [address] [place] [address] 10/24/17 0941 MR#: [id number] Acct: [id number] Name: LENORA MORRELL I Rep #: [id number] [...] Dictated: 10/24/17 0941 Date Transcribed: 10/25/17 1318 Crnp: Signed 20-Jun-2017 PT D/C Summary (1) Result: Comments: See Note; NOTES: [facility] Physical Therapy [facility] [address] [place] [address]. [address] [place] [address] Fax REHABILITATION SERVICES [facility] GE SUMMARY MR#: [id number] Acct: [id number] Name: LENORA MORRELL aJcky Rep #: [id number] : 1935 81 From: Brian NOELT, OCS, CSCS Referring Dr.: Emily Pugh MD Status: REG RCR Insurance: [facility] HP - PT D/C Summary It has been my pleasure to treat LENORA MORRELL I under orders from Emily Pugh, for the diagnosis of sciatica for a total of 9 visit(s). Discharge Date: 06/19/17 Please see the following information for a summary of their discharge status. - Subjective Subjective: Good. Doing well. Exercises really help. Stillvito antoiney in the mroning but that is normal [...] AND WILL CONTINUE IN GYM AND AT [facility] ON HER OWN. - Goals Goal [...] please feel free to call me at [phone]. Thank you for the referral of this patient. Sincerely, Brian Gillespie, DPT, OC <Electronically signed by Brian Gillespie DPT, OCS, CSCS> 06/20/17 0953 CC: Emily Pugh MD EBG Signed 23-May-2017 Re-Evaluation - PT (1) Result: Comments: See Note; NOTES: [facility] Physical Therapy [facility] [address] [place] [address] Fax REEVALUATION / MEDICARE RECERTI DAVIDA Reagan 4d PHYSICAL THERAPY MR#: [id number] Acct: [id number] Name: LENORA MORRELL I Rep #: [id number] : 1935 81 From: Brian Gillespie DPT, OCS, CSCS Referring Dr.: Emily Pugh MD Status: R EG RCR Insurance: [facility] Emily Pugh, It has been [...] do not hesitate to contact me at [phone] by phone or Fax: if you have questions or concerns regarding this new plan of care! Sincerely, Brian Gillespie DPT, OC <Electronically signed by RAEANN Carlin DPT, CSCS> 05/23/17 0926 CC: Emliy Pugh MD EBG Signed For Medicare only, by signing this I certify the plan of care. Physicians Signature Date 25-Apr-2017 Inital Evaluation (1) - PT Result: Comments: See Note; NOTES: [facility] Physical Therapy [facility] [address] [place] [address] Fax REHABILITATION SERVICES INITIAL EVALUATION MR#: [id number] Acct: [id number] Name: LENORA MORRELL I Rep #: [id number] : 1935 81 From: Brian Gillespie DPT, RAEANN, CSCS Referring Dr.: Emily Pugh MD Status: REG RCR Insurance: [facility] Patient's Visit Information LENORA MORRELL I is a 81 year old F referred to Physical Therapy by Emily Pugh with a diagnosis of sciatica. Date of Evaluation: 04/24/17 Physical Therapist: Brian marcus DPT, OC - Visit Plan Frequency: 3x [...] to be FAXED BACK to us at [phone] for Medicare purposes. Please let me know if there are questions or concerns regarding this plan of care. Physician Signature: Date: <Electronically signed by Brian Gillespie DPT, [facility], CSCS> 04/25/1729 CC: Emily Pugh MD EBG Signed For Medicare on ly, by signing this I certify the plan of care. Physicians Signature Date 11-Aug-2016 PT D/C Summary (1) Result: Comments: See Note; NOTES: [facility] Physical Therapy [facility] [address] [place] [address]. [address] [place] [address] Fax REHABILITATION SERVICES SURENDRA MEDINA SUMMARY MR#: [id number] Acct: [id number] Name: LENORA MORRELL I Rep #: [id number] : 1935 80 From: Ansley Oleary DPT Referring Dr.: Emily Pugh MD Status: REG RCR Insurance: [facility] HP - PT D/C Summary It has been my pleasure to treat LENORA MORRELL I under orders from Emily Pugh, for the diagnosis of R shoulder pain for a total of 5 visit(s). Discharge Date: Please see the [facility] information for a summary of their [...] please feel free to call me at [phone]. Thank you for the referral of this patient. Sincerely, Ansley Oleary <Jacki ctronically signed by Ansley Oleary DPT> 08/11/16 0852 CC: Emily Pugh MD ELR Signed 02-Aug-2016 Bilat Scrn Digital AND CAD Result: Comments: See Note; NOTES: [facility] Imaging Services [address] [place] [address] Verdana 4d Bilat Scrn Digital AND CAD MR#: [id number] Acct: [id number] Name: LENORA MORRELL I Rep #: [id number] : 1935 F 80 From: Nolan Head MD PCP: Emily Pugh MD Status: REG CLI Study: Bilat Scrn Digital AND CAD Date of Exam: 08/02/16 Exam# [id number] Ordering Dr: Emily Pugh MD MAMMOGRAPHY - [...] delay biopsy of a clinically suspicious abnormality. [id number] Electronically Signed: Nolan Head MD at 12:30 EDT , Service support [phone], CC: Emily Pugh MD Crnp: Signed 02-Aug-2016 Dexa Bone Density Study (HP) Result: Comments: See Note; NOTES: [facility] Imaging Services [address] [place] [address] Alecia 4d Dexa Bone Density Study (HP) MR#: [id number] Acct: [id number] Name: JUAN MORRELL I Rep #: [id number] : 1935 F 80 From: Nolan Head MD PCP: Emily Pugh MD Status: REG CLI Study: Dexa Bone Density Study () Date of Exam: 08/02/16 Exam# [id number] Ordering Dr: Emily Hill MD STUDY: DUAL [...] Nolan Head MD at 11:04 EDT Tel [phone], Service support [phone], CC: Emily Pugh MD Crnp: Signed 28-Jul-2016 Inital Evaluation (1) - PT Result: Comments: See Note; NOTES: [facility] Physical Therapy [address] [place] [address] Fax REHABILITATION SERVICES INITIA L EVALUATION MR#: [id number] Acct: [id number] Name: LENORA MORRELL I Rep #: [id number] : 1935 80 From: Ansley Oleary DPT Referring Dr.: Emily Pugh MD Status: REG RCR Insurance: [facility] Patient's Visit Information LENORA MORRELL I is a 80 year old F referred to Physical Therapy by Emily Pugh with a diagnosis of R shoulder pain. Date of Evaluation: 07/28/16 Physical Therapist: Ansley Oleary - Visit Plan Frequency: 2x /Week Duration: 2 Weeks Plan: Focus on I [facility] for health and wellness membership. Shoulder strength, muscular endurance, core and postural training. - Subjective [place]nam bjective: Pt reports R anteriolateral shoulder pain that started 1-2 years ago with an insidious onset. Pain is describded as dull and achy, 5/10 at worst; aggravated during exercise (comes to [facility] nt 5 days a week) while pulling [...] Extension 5/5, ER 4-/5 IR 4- /5 Gis Instructor- R 60/55/54 L 60/56/46. Special Test: empty [...] to be FAXED BACK to us at [phone] for Medicare purposes. Please let me know if there are questions or concerns regarding this plan of care. Physician Signature: Date: <Electronically signed by Ansley Oleary DPT> 07/28/16 0853 CC: Emily Pugh MD ELR Signed For Medicare only, by signing this I certify the plan of care. Physicians Signature Date 08-Jul-2014 Bilat Scrn Digital & CAD Result: Comments: See Note; NOTES: [facility] Imaging Services [address] [place] [address] Breast Imaging Report MR#: [id number] Acct: [id number] Name: LENORA MORRELL I Rep #: [id number] : 1935 F 78 From: Nolan Head MD PCP: Emily Pugh MD Status: REG CLI Exam# [id number] Ordering Dr: Emily Pugh MD MAMMOGRAPHY - [...] Nolan Head MD at 15:05 EDT Tel [phone], Servi ce support [phone], CC: Emily Pugh MD Crnp: Signed 08-Jul-2014 Dexa Bone Density Study (HP) Result: Comments: See Note; NOTES: [facility] Imaging Services [address] [place] [address] Bone Density Report MR#: [id number] Acct: [id number] Name: LENORA MORRELL I Rep #: [id number] : 1935 F 78 From: Nolan Head MD PCP: Emily Pugh MD Status: REG CLI Study: Dexa Bone Density Study (HP) Date of Exam: 07/08/14 Exam# [id number] Ordering Dr: mEily Pugh MD STUDY: DUAL ENERGY X-RAY ABSORPTIOMETRY [...] Nolan Head MD at 13:32 EDT Tel [phone], Service support [phone], CC: Emily Pugh MD Crnp: Signed 21-Mar-2014 Operative Report Result: Comments: See Note; NOTES: [facility] Medical Records Department [address] [place] [address] Operative Report MR#: [id number] Acct: [id number] Name: LENORA MORRELL I Rep #: [id number] : 1935 78 From: Cameron Carrera MD PCP: Emily Pugh MD Status: [facility] DATE OF SERVICE: 03/18/2014 DATE OF [...] fascia of the um bilical port with frxolu-wa-jvnlz stitch of 0 Vicryl. Skin incisions were closed with subcuticular stitches of 4-0 Monocryl. Steri-Strips were applied, sterile dressings were applied and the patien t tolerated the procedure well. Cameron Carrera MD T: NTS JOB: [id number] 03/21/14 1228 <Electronically signed by Cameron Carrera MD> Date Cameron Carrera MD CC: Emily Pugh MD; Cameron Carrera MD Date Dictated: 03/18/14 144 Date Transcribed: 03/18/14 144 Crnp: Signed 18-Mar-2014 Discharge Instruction Result: Comments: See Note; NOTES: [facility] Medical Records Department [address] [place] [address] Discharge Instruction 03/18/14 1333 MR#: [id number] Acct: [id number] Name: LENORA MORRELL I Rep #: [id number] : 1935 78 From: Cameron Carrera MD PCP: Emily Pugh MD Status: REG [facility] Discharge Diet: Light diet - advance as [...] 1 - 2 tablet PO Q4H PRN CT N #30 tablet PRN Reason: Pain Please Follow Up With: Cameron Carrera - Please call [phone] to schedule an appointment. When: 7 days after your surgery. 03/18/14 1334 <Electronical ly signed by Cameron Carrera MD> Date Cameron Carrera MD CC: Emily Pugh MD 18-Mar-2014 Cholangiogram/ O R,Initial Result: Comments: See Note; NOTES: [facility] Imaging Services [address] [place] [address] Radiology Report MR#: [id number] Acct: [id number] Name: LENORA MORRELL I Rep #: [id number] : 1935 F 78 From: Nolan Head MD PCP: Emily Pugh MD Status: [facility] Study: Cholangiogram/ O R,Initial Date of Exam: 03/18/14 Exam# [id number] Ordering Dr: Cameron Carrera MD STUDY: INTRAOPERATIVE [...] Nolan Head MD at 14:50 EDT Tel [phone], Service support [phone], CC: Emily Pugh MD; Cameron Carrera MD Crnp: Signed 07-Mar-2014 Gallbladder Result: Comments: See Note; NOTES: [facility] Imaging Services [address] [place] [address] Ultrasound Report MR#: [id number] Acct: [id number] Name: LENORA MORRELL I Rep #: [id number] : 1935 F 78 From: Nolan Head MD PCP: Emily Pugh MD Status: REG CLI Study: Gallbladder Date of Exam: 03/07/14 Exam# [id number] Ordering Dr: Emily Pguh MD STUDY: ABDOMIN AL ULTRASOUND - RIGHT [...] Nolan Head MD at 9:14 EDT Tel [phone], Service support [phone], CC: Emily Pugh MD Crnp: Signed Family History Unknown Family Member Name [...] smoker Vital Signs Date Test Result Details :36 Temperature 97.9 f Comments: Method: Temporal [...] kg/m2 Body Surface Area Calculated 2.01 m2 02-Uyr-855162:21 Temperature 97.6 f Comments: Method: Temporal Pulse [...] Pathology Report Comments: PERFORMED BY: TRUNG Puga Roseboom Xupb7821 [facility] [id number] BY: [facility] Dermatopathology [address] [place] [address] [id number] Information: [id number] See MATER Comments: Material submitted: .RIGHT UPPER ARMClinical history: .VERRUCOUS KERATOSIS Note (Normal) Diagnosis:IRRITATED AND INFLAMED VERRUCA VULGARIS.BXS/03/28/2018Electronically signed: .Neda June MD, DermatopathologistGross description: .RECEIVED IN FORMALIN LABELED LENORA MORRELL DESIGNATED RIGHT UPPERARM IS A 1.0 X 0.8 X 0.5 CM FRIABLE WHITE PAPILLATED SKIN LESION.A DISCRETE SURGICAL MARGIN IS NOT IDENTIFIED. BISECTED ANDENTIRELY SUBMITTED IN ONE CASSETTE.BCO/JASPathologist provided ICD- 10:B07.9CPT .345213 12-Feb-20189:50 Carcinoembryonic Antigen Comments: [facility] (refer to report for specific site)refer to report for address and phone number CEA 1.7 ng/mL (Normal) Range: 0.0-4.7 Comments: Jackie ECLIA methodology Nonsmokers <3.9 Smokers <5.6Performed at: [facility] [address], [place] [id number] Director: Jame Bhakta PhD, Phone: [phone] :50 CBC W/Diff, Automated Comments: [facility] [address] [place], [place], [id number] Absolute Lymph 1.50 {X10_3/ul} (Normal) Range: 0.83-4.51 [...] 4.2-5.4 WBC 7.0 K/mm3 (Normal) Range: 4.4-11.0 :50 Comprehensive Metabolic Profil Comments: [facility] [address] [place], [place], [address] GAP 7 (Normal) Range: 5-15 CO2 25.0 mmol/L (Normal) Range: 21.0-32.0 CL 108 mmol/L (Abnormal) Range: 98-107 K 4.2 mmol/L (Normal) Range: 3.5-5.1 NA 140 mmol/L (Normal) Range: 136-145 T BILI 0.30 mg/dL (Normal) Range: 0.20-1.00 ALT 26 U/L (Normal) Range: 13-56 Comments: Please note revised ALT reference range pqphfylez17/28/2018. ALK P 77 U/L (Normal) Range: 45-117 [...] A.D.A. criteria.Please note revised GLUCOSE reference range kyfmyphsb74/02/2018. 12-Feb-20188:51 Urinalysis, Office (61341) UA - LEUKOCYTE ESTERASE Negative (Normal) UA [...] ANTIGEN (CEA) Comments: PATIENT NOT FASTINGPERFORMED BY: [facility] CenterBvlexd8276 [facility] [id number] (01088) CEA 1.5 ng/mL (Normal) Range: 0.0-4.7 Comments: Jackie ECLIA methodology Nonsmokers <3.9 Smokers <5.6 84-Fkl-560415:48 MICROALBUMIN: CREATININE RATIO Comments: PATIENT NOT FASTINGPERFORMED BY: [facility] Paomianba.com [facility] [id number] ([id number]) AND (86238) Microalb/Creat Ratio MALD {mg/g_creat} Range: 0.0-30.0 (Abnormal) Comments: This result is below the assay's limit of quantitation indicating adilute specimen, potentially due to diurnal variation. Considerrecollection at a time likely to provide a more concentrated urine. Microalbumin, Urine <3.0 ug/mL (Normal) Creatinine, Urine 74.6 mg/dL (Normal) 01-Xaf-597310:48 URINALYSIS (71341) Comments: PATIENT NOT FASTINGPERFORMED BY: [facility] Bhotyi5062 [facility] [id number] Microscopic Examination MICNIP (Normal) Comments: Microscopic not indicated and not performed. Nitrite, Urine Negative (Normal) Urobilinogen,Semi-Qn 0.2 mg/dL (Normal) Range: 0.2-1.0 Bilirubin Negative (Normal) Occult Blood Negative (Normal) Ketones Negative (Normal) Glucose Negative (Normal) Protein Negative (Normal) WBC Esterase Negative (Normal) Appearance Clear (Normal) Urine-Color Yellow (Normal) pH 6.5 (Normal) Range: 5.0-7.5 Specific Cobb 1.014 (Normal) Range: 1.005-1.030 73-Ofx-582874:48 Metabolic Panel, Comprehensive Comments: PATIENT NOT FASTINGPERFORMED BY: [facility] Ipqfqf3847 [facility] [id number] ([id number]) ALT (SGPT) 25 [iU]/L (Normal) Range: 0-32 [...] Glucose, Serum 99 mg/dL (Normal) Range: 65-99 44-Ygb-706958:48 CBC WITH MANUAL DIFF Comments: PATIENT NOT FASTINGPERFORMED BY: [facility] Sswzpl5639 [facility] [id number] Information: NURSE DRAW (50561) Immature Grans (Abs) 0.0 {x10E3/uL} (Normal) Range: [...] 3.4-10.8 :10 FLU A+B DIRECT AG, (RAPID) (59730) FLU A+B DIRECT AG, (RAPID) Pos A (Normal) :10 Carcinoembryonic Antigen Comments: [facility] (refer to report for specific site)refer to report for address and phone number CEA 2138 1.1 ng/mL (Normal) Range: 0.0-4.7 Comments: Jackie ECLIA methodology Nonsmokers <3.9 Smokers <5.6Performed at: [address] [id number] Director: Jame Bhakta PhD, Phone: [phone] :10 CBC W/Diff, Automated Comments: [facility] [address] [facility] [place] [place], [address] Absolute Lymph 1.70 {X10_3/ul} (Normal) [...] 4.4-11.0 :10 Comprehensive Metabolic Profil Comments: [facility] [address] [place], [address] GAP 3 (Abnormal) Range: 5-15 CO2 28.0 [...] Range: 70-110 :10 Lipid Profile Comments: [facility] [address] [place], [address] VLDL 21 mg/dL (Normal) Range: 5-40 LDL [...] :10 Thyroid Stim Hormone (TSH) Comments: [facility] [address] [facility] [place], [address] TSH 2.80 {uIU/mL} (Normal) Range: 0.358-3.74 :09 CBC W/Diff, Automated Comments: Test performed at:[facility] [address] [place] [address] Absolute Lymph 1.42 {X10_3/ul} (Normal) Range: 0.83-4.51 [...] 4.2-5.4 WBC 5.2 K/mm3 (Normal) Range: 4.4-11.0 78-Mcb-37536:09 Comprehensive Metabolic Profil Comments: Test performed at:[facility] [address] [place], [place] [address] GAP 11 (Normal) Range: 5-15 CO2 25.0 [...] Stim Hormone (TSH) Comments: Test performed at:[facility] [address] [place] [address] TSH 1.03 {uIU/mL} (Normal) Range: 0.358-3.74 :36 Thyroid Stim Hormone (TSH) Comments: Test performed at:[facility] [address] [place] [address] TSH 2.20 {uIU/mL} (Normal) Range: 0.358-3.74 :15 [...] CEA 1.3 ng/mL (Normal) Range: 0.0-4.7 Comments: [employer] ECLIA methodology Nonsmokers <3.9Smokers <5.6Performed at: [facility] [address] [id number] Director: Jaylen Schumacher PhD, Phone: [phone] :15 CMP GAP 8 (Normal) Range: 5-15 [...] Jackie ECLIA methodology Nonsmokers <3.9Smokers <5.6Performed at: - [facility] [address] [id number] Director: Kate Raya MD, Phone: [phone] :07 CMP GAP 6 (Normal) Range: 5-15 [...] :07 TSH 0.15 {uIU/mL} (Abnormal) Range: 0.358-3.74 :42 GALL (Normal) Comments: Patient: LEONRA MORRELL I : 1935 (78/F)Acct Num: [id number] Phys: Ludwin Carrera MD Num: [id number] Loc: SDCSpecimen: [id number] Received: 03/18/14 1442Spec Type: GA TRAN De MD,Nqmu7725 [facility] [address], [place] [id number] MD,[address] [place], [place] [phone] ID Blk Pcs Davis Lev + Procedure [...] measures up to 0.5 cm in thickness. Mechanical Product Design Engineer sectionsfrom the g allbladder and the cystic duct are submitted in two cassettes. Thestones are saved for the patient. / MICHEAL:arash 03/18/14 TC:2CPT: [id number]: Lap cholecystectomyPRE-OPERATIVE DIAGNOSIS: Acute cho lecystitisTISSUE SUBMITTED: [...] 7-18 GLU 103 mg/dL (Normal) Range: 70-110 9-Ryr-833580:06 CBCD ANC 8.2 {X10_3/uL} (Abnormal) Range: 2.0-7.7 [...] 3.4-5.0 TPROT 7.8 g/dL (Normal) Range: 6.4-8.2 48-Rhc-395142:02 Metabolic Panel, Comprehensive Comments: copy to Dr. carrera.; PATIENT NOT FASTINGPERFORMED BY: [facility] CampusEuzcsh7913 [facility] [id number] ([id number]) ALT (SGPT) 509 [iU]/L (Abnormal) Range: 0-32 [...] Glucose, Serum 110 mg/dL (Abnormal) Range: 65-99 31-Bvg-694991:02 CBC, Platelets & Auto Comments: PATIENT NOT FASTINGPERFORMED BY: [facility] CampusCkxfvt6724 [facility] [id number] Information: [id number] Diff (40362) Immature Grans (Abs) 0.0 {x10E3/uL} (Normal) Range: [...] 3.77-5.28 WBC 5.2 {x10E3/uL} (Normal) Range: 3.4-10.8 :02 Lipase (35875) Comments: PATIENT NOT FASTINGPERFORMED BY: [address] Alrdbl9175 [facility] [id number] Lipase, Serum 27 U/L (Normal) Range: 0-59 28-Ftj-296501:02 Amylase (94477) Comments: PATIENT NOT FASTINGPERFORMED BY: [address] [employer] [facility] [id number] Amylase, Serum 51 U/L (Normal) Range: 31-124 66-Uwy-650756:22 URINE PERRY CULTURE-EDWIN COL Comments: PATIENT NOT FASTINGPERFORMED BY: [employer] [facility] [id number] Information: SRC:UR [id number] COUNT (45558) Result 1 MUG (Normal) Comments: Mixed urogenital flora25,000-50,000 colony forming units per mL Urine Final report (Normal) Culture,Comprehensive 37-Dsj-84149:39 Urinalysis, Office (94117) UA - LEUKOCYTE ESTERASE Negative (Normal) UA [...] CHOL 161 mg/dL (Normal) Comments: <200 mg/dL Jsruosyyy529-052 mg/dL Borderline>240 mg/dL High Risk TRIG 101 mg/dL (Normal) Range: 0-199 Comments: Serum Triglycerides Reference IntervalNormal <150 mg/dLBorderline high 150 - 199 mg/dLHigh 200 - 499 mg/ dLVery High > or = 500 mg/dL :13 TSH 1.03 {uIU/mL} (Normal) Range: 0.358-3.74 86-Wsj-752022:45 BILAT SCRN DIGITAL & CAD Radiology Report [...] Head M.D.January 08, 2013 at 12:26:36 PM [id number] Signed GP/GP If you are the referring physician and would like to consu lt with theradiologist who provided this interpretation, please contact Reny Abreu at [phone]. If this radiologist is unavailable, youwill be directed to another radiologist to assist. If you are a patient with a question regarding this report, pleasecontactyour referring physician directly. Professional Interpretation Provided By: SamEnrico, Phone , T hese documents contain legally [...] documents. Dictated on 01/08/13 1145 by Sonido RODRIGUES,GabrieleTranscribed on 01/08/13 1302 by ITS IMPORTSign by Sonido RODRIGUES,Nolan on 01/08/13 1304 Sign by: Nolan Head [...] METABOLIC PANEL, Comments: PATIENT WAS FASTINGPERFORMED BY: ROBERT Vator.TV70 [facility] [id number] Information: [id number] COMPREHENSIVE (99678) ALT (SGPT) 39 [iU]/L (Normal) Range: 0-40 [...] mg/dL (Normal) Range: 65-99 :22 LIPID PANEL (58074) Comments: PATIENT WAS FASTINGPERFORMED BY: [employer]70 [facility] [id number] LDL/HDL Ratio 1.6 {ratio_units} (Normal) Range: 0.0-3.2 LDL Cholesterol Calc 103 mg/dL (Abnormal) Range: 0-99 VLDL Cholesterol Sriram 18 mg/dL (Normal) Range: 5-40 HDL Cholesterol 63 mg/dL (Normal) Comments: According to ATP-III Guidelines, HDL-C >59 mg/dL is considered anegative risk factor for CHD. Triglycerides 91 mg/dL (Normal) Range: 0-149 Cholesterol, Total 184 mg/dL (Normal) Range: 100-199 20-Uba-70092:22 TSH (81585) Comments: PATIENT WAS FASTINGPERFORMED BY: [facility] CampusZgpltp1774 [facility] [id number] TSH 1.720 {uIU/mL} (Normal) Range: 0.450-4.500 61-Oed-25207:00 CULT, DP WOUND Comments: LEFT ARM ABSCESS [...] RED CELL STROMA 1+ GRAM POSITIVE COCCI 13-Mgw-587142:30 BILAT SCRN DIGITAL & CAD Radiology Report [...] regarding this report , please call our [id number] line @ Dictated on 11/02/11 1414 by Beth Mirza DOnscribed on 11/04/111852 by ITS IMPORTSign by Marielos Mirza DO on 11/04/111853 Sign by: Marielos Mirza DO 03-Ogb-735614:30 DEXA BONE DENSITY STUDY (HP) Radiology Report [...] regarding th is report, please call our [id number] line @ Dictated on 11/02/11 1335 by Ignacio Head MDranscribed on 11/03/11 1500 by ITS IMPORTSign by Nolan Head MD on 11/03/11 150 1 Sign by: Nolan Head MD 16-Xxr-17745:15 Pathology Report Comments: PERFORMED BY: [facility] Czbp37982 [facility] [id number] Information: [id number] See MATER Comments: Material submitted: .LEFT FOREARMClinical [...] SUBMITTED IN TOTO.XJW/KAMPathologist provided ICD-9:702.0 , 709.09CPT .631341 92-Ppu-31728:19 LIVER Radiology Report See Note (Normal) Comments: [...] of the right kidney. The right k hgsfvyckqgifm95.7 cm. Normal renal cortex. There is no demonstrated renal mass orcyst. There are no demonstrated renal calculi. There is nohydronephrosis. There is no ascites. IMPRESSION:Findings are suggestive of tumefactive sludge within the gallbladderlumen,with possible gallstones. Clinical correlation is suggested. Dictated on 07/26/11 0758 by Sonido RODRIGUES,Ignacioranscribed on 103 by ITS IMPORTSign by Nolan Head MD on 07/26/11 103 Sign by: Nolan Head MD :22 Lipid Panel (51535) Comments: PATIENT WAS FASTINGPERFORMED BY: [facility] CampusUskfjb6856 [facility] [id number] LDL/HDL Ratio 1.7 {ratio_units} (Normal) Range: 0.0-3.2 LDL Cholesterol Calc 117 mg/dL (Abnormal) Range: 0-99 VLDL Cholesterol Sriram 16 mg/dL (Normal) Range: 5-40 HDL Cholesterol 69 mg/dL (Normal) Comments: According to ATP-III Guidelines, HDL-C >59 mg/dL is considered anegative risk factor for CHD. Triglycerides 81 mg/dL (Normal) Range: 0-149 Cholesterol, Total 202 mg/dL (Abnormal) Range: 100-199 :22 TSH (57219) Comments: PATIENT WAS FASTINGPERFORMED BY: [facility] Kjerfg3000 [facility] [id number] TSH 3.800 {uIU/mL} (Normal) Range: 0.450-4.500 :22 Metabolic Panel, Comments: PATIENT WAS FASTINGPERFORMED BY: [facility] CampusHufxrq8418 [facility] [id number] Information: [id number] Comprehensive (56321) ALT (SGPT) 42 [iU]/L (Abnormal) Range: 0-40 [...] Glucose, Serum 85 mg/dL (Normal) Range: 65-99 67-Rnp-65133:04 HEPATIC FUNCTION PANEL Comments: PATIENT NOT FASTINGPERFORMED BY: [facility] Onkuei5275 [facility] [id number] Information: [id number] 46422) ALT (SGPT) 49 [iU]/L (Abnormal) Range: 0-40 AST (SGOT) 31 [iU]/L (Normal) Range: 0-40 Alkaline Phosphatase, S 73 [iU]/L (Normal) Range: 25-165 Bilirubin, Direct 0.12 mg/dL (Normal) Range: 0.00-0.40 Bilirubin, Total 0.5 mg/dL (Normal) Range: 0.0-1.2 Albumin, Serum 4.3 g/dL (Normal) Range: 3.5-4.8 Protein, Total, Serum 7.2 g/dL (Normal) Range: 6.0-8.5 :34 Lipid Panel (19746) Comments: PATIENT WAS FASTINGPERFORMED BY: [facility]imuthAtl[facility] CampusQvuahi0957 [facility] [id number] LDL Cholesterol Calc 101 mg/dL (Abnormal) Range: [...] Metabolic Panel, Comments: PATIENT WAS FASTINGPERFORMED BY: [facility] CampusZijbdi9406 [facility] [id number] Information: [id number] Comprehensive (22325) Alkaline Phosphatase, S 79 [iU]/L (Normal) Range: [...] 94 mg/dL (Normal) Range: 65-99 :34 TSH (20376) Comments: PATIENT WAS FASTINGPERFORMED BY: [facility] CampusHjpbvq0169 [facility] [id number] TSH 2.900 {uIU/mL} (Normal) Range: 0.450-4.500 :39 TSH 2.49 {uIU/mL} (Normal) Range: 0.358-3.74 97-Lns-899180:50 KIDNEY (HP) Radiology Report See Note (Normal) Comments: Exam Number: [id number] CLINICAL:73 year old woman with right upper [...] Report See Note (Normal) Comments: Exam Number: [id number] CLINICAL:Low back pain X-RAY EXAMINATION: LUMBAR SPINE [...] fractures. Reported By: WILLIAM MELO M.D. :34 [facility] Radiology Report See Note (Normal) Comments: Exam Number: [id number] MAMMOGRAM, BILATERAL SCREENING DIGITAL AND CAD HISTORYRoutine [...] mammograms werealso examined with computer-aided detection software ([employer] Reported By: ILA POZO M.D. :34 [...] :34 TSH 3.16 {uIU/mL} (Normal) Range: 0.358-3.74 72-Qhi-377527:58 TRANSVAGINAL NON-PREG US () Radiology Report See Note (Normal) Comments: Exam Number: [id number] TRANSABDOMINAL AND TRANSVAGINAL PELVIC ULTRASOUND STATEMENTOvarian cyst. [...] 6 months. Reported By: OBED CLINE M.D. 84-Uxw-170218:34 PELVIC (NON-PREG) () Radiology Report See Note (Normal) Comments: Exam Number: [id number] TRANSABDOMINAL AND TRANSVAGINAL PELVIC ULTRASOUND STATEMENTOvarian cyst. [...] Report See Note (Normal) Comments: Exam Number: [id number] RIGHT UPPER QUADRANT ULTRASOUND REASON FOR EXAMINATIONFollowup [...] quadrant ascites. Reported By: DANIELA GRAY M.D. 50-Rxf-77103:37 TRANSVAGINAL NON-PREG US () Radiology Report See Note (Normal) Comments: Exam Number: [id number] TRANSVAGINAL PELVIC ULTRASOUND REASON FOR EXAMOvarian cyst. [...] adnexal structures. Reported By: DANIELA GRAY M.D. 21-Sjd-173784:54 MAMM, BILAT SCRN DIGITAL & CAD Radiology Report See Note (Normal) Comments: Exam Number: [id number] MAMMOGRAPHY, BILATERAL SCREENING DIGITAL AND CAD HISTORYRoutine [...] mammograms werealso examined with computer-aided detection software ([employer], [employer] Reported By: ILA POZO M.D. 7-Cni-216615:58 PT/INR, Office (60812) INR 3.6 (Normal) PT (PROTHROMBIN TIME) 22.8 s (Abnormal) Range: 11.5-13.5 Plan of Care Name Dates Details Instructions Verrucous keratosis : Shave Biopsy with Epi [...] treament Indication: Acute sinusitis, unspecified Planned Observations URINALYSIS (38282)Indication: Hypothyroidism On: : Request CBC WITH MANUAL DIFF (10733)Indication: Hypothyroidism On: :28 Request Metabolic Panel, Comprehensive (13370)Indication: Hypothyroidism On: : Request METABOLIC PANEL, COMPREHENSIVE (57493)Indication: Right lower quadrant pain On: :55 Request CBC with auto diff (56580)Indication: Right lower quadrant pain On: :55 Request CARCINOEMBRYONIC ANTIGEN (CEA) (45203)Indication: History of colon cancer On: :55 Request TSH (20039)Indication: BMI 40.0-44.9, adult On: :58 Request LIPOPROTEIN, BLD, BY NMR (60361)Indication: Hypercholesteremia (Renamed from Hypercholesterolemia) On: :58 Request HEPATIC FUNCTION PANEL (07272)Indication: Hypercholesteremia (Renamed from Hypercholesterolemia) On: :58 Request CARCINOEMBRYONIC ANTIGEN (CEA) (58013)Indication: History of colon cancer On: :28 Request METABOLIC PANEL, COMPREHENSIVE (93223)Indication: Hypothyroidism On: :28 Request CBC with auto diff (60387)Indication: History of colon cancer On: :28 Request TSH (13031)Indication: Hypothyroidism On: :28 Request LIPID PANEL (04993)Indication: Hypothyroidism On: :14 Request CARCINOEMBRYONIC ANTIGEN (CEA) (05612)Indication: History of colon cancer On: :13 Request METABOLIC PANEL, COMPREHENSIVE (67075)Indication: History of colon cancer On: :13 Request CBC with auto diff (25098)Indication: History of colon cancer On: :13 Request TSH (11819)Indication: Hypothyroidism On: :13 Request CBC WITH MANUAL DIFF (30794)Indication: Hypothyroidism On: :23 Request Metabolic Panel, Comprehensive (53741)Indication: Hypothyroidism On: :22 Request TSH (21499)Indication: Hypothyroidism On: :22 Request TSH (49025)Indication: Hypothyroidism On: :38 Request CARCINOEMBRYONIC ANTIGEN (CEA) (08126)Indication: History of colon cancer On: 6-Vqa-558497:11 Request CBC WITH MANUAL DIFF (94072)Indication: History of colon cancer On: 3-Ujq-411131:09 Request METABOLIC PANEL, COMPREHENSIVE (83736)Indication: History of colon cancer On: 2-Xtn-334309:09 Request TSH (15687)Indication: Hypothyroidism On: :09 Request Comments: 8 weeks. HEPATIC FUNCTION PANEL (09367)Indication: Elevated LFTs On: :38 Request CARCINOEMBRYONIC ANTIGEN (CEA) (19454)Indication: History of colon cancer On: 1-Pvs-641384:23 Request TSH (65353)Indication: Hypothyroidism On: :18 Request METABOLIC PANEL, COMPREHENSIVE (12033)Indication: Elevated LFTs On: 8-Skq-992682:18 Request HEPATIC FUNCTION PANEL (38775)Indication: Elevated LFTs On: 89-Ndk-412404:50 Request LIPID PANEL (02845)Indication: Elevated LFTs On: :34 Request METABOLIC PANEL, COMPREHENSIVE (73886)Indication: Elevated LFTs On: 2-Sxv-597707:34 Request TSH (91444)Indication: Hypothyroidism On: 3-Imy-512802:34 Request TSH (78220)Indication: Hypothyroidism On: :48 Request CBC (Auto) (09741)Indication: Elevated LFTs On: :48 Request METABOLIC PANEL, COMPREHENSIVE (84793)Indication: Elevated LFTs On: :25 Request LIPID PANEL (59571)Indication: Elevated LFTs On: :25 Request TSH (28047)Indication: Hypothyroidism On: :25 Request CBC (Auto) (58571)Indication: Colon cancer On: 72-Ghd-417005:09 Request Metabolic Panel, Comprehensive (98810)Indication: Colon cancer On: 77-Grs-556350:09 Request TSH (51959)Indication: Hypothyroidism On: 11-Qbl-140263:05 Request LIPID PANEL (88923)Indication: Obesity On: 43-Qed-807571:05 Request Urinalysis, Office (72064)Indication: Low back pain On: 43-Dui-23785:17 Request TSH (24876)Indication: Hypothyroidism On: 64-Tfh-64180:10 Request TSH (35229)Indication: Hypothyroidism On: 31-Vyg-70698:27 Request Metabolic Panel, Comprehensive (69698)Indication: Elevated LFTs On: 10-Yhb-91432:10 Request TSH (48525)Indication: Hypothyroidism On: 42-Dgk-48326:09 Request TSH (26687)Indication: Hypothyroidism On: 66-Nxr-625566:57 Request CREATINE KINASE TOTAL (58852)Indication: Myalgia and myositis On: 21-Dec-20069:35 Request C-REACTIVE PROTEIN (02646)Indication: Myalgia and myositis On: :33 Request SED RATE ERYTHROCYTE (29120)Indication: Myalgia and myositis On: 21-Dec-20069:33 Request LIPID PANEL (19237)Indication: Obesity On: :23 Request HEPATIC FUNCTION PANEL (56054)Indication: Elevated LFTs On: :23 Request Planned Encounters Medical; [facility] (Doctor) - On: 06-Sep-2018 7:00 [facility] Lexy RODRIGUES, Emily Pugh MD, Emily Hope Planned Procedures Flu Vaccine (Quadrivalent) On: 31-Aug-2018 Intent 24210Xs: AIMEE Sheikh Comments: Lot #:[id number] date: 7-33-60Ivimkt given:0.5mlRoute: IMSite given:L DltdGiven by: ZONIA and LUPILLO signed [employer] SCREENING DIGITAL TOMOSYNTHESIS On: 26-Mar-2018 Intent OF BREAST (83948)By: Emily Pugh MD, MD, Dana M DEXA SCAN AXIAL SKELETON On: 26-Mar-2018 Intent (86808)By: Emily Pugh MD, MD, Dana M CT - Abdomen & Pelvis (IV On: 12-Feb-2018 Intent Contrast Needed)By: Emily Pugh MD, MD, Dana M TD VACCINE ADULT (85633)By: On: 22-Sep-2017 Intent Visit, Nurse Comments: boostrixlot [id number] 10.9.18L Dltd, IMPrefilled syringeMegan ROB Loyd signed Flu Vaccine (Quadrivalent) On: 31-Aug-2017 Intent 68350Gh: Visit, Nurse Comments: Lot #[id number]-04/30/18ite-L dltd, IMDose prefilled syringegiven by:ROB Sarkar and LUPILLO signed Flu Vaccine (Quadrivalent) On: 10-Oct-2016 Intent 21807Pl: Emily Pugh MD Comments: Lot:[id number]:05/12/17Dose:0.5mLRoute:IMSite:L DltdGiven By:JRAY signed Emily Pugh MD Bone Density StudyBy: Lexy RODRIGUES, On: 22-Jul-2016 Intent Emily Moran MD BILATERAL MAMMOGRAMS (30876)By: On: 22-Jul-2016 Intent Emily Pugh MD, MD, Dana M MAMMOGRAM, SCREENING, BOTH BREAST On: 28-May-2015 Intent (25260)By: Emily Pugh MD, MD, Dana M Prevnar 13 (61271)By: Lexy On: 27-Nov-2014 Intent Emily RODRIGUES MD, Dana M MAMMOGRAM, SCREENING, BOTH BREAST On: 20-May-2014 Intent (22859)By: Emily Pugh MD, MD, Dana M DEXA SCAN AXIAL SKELETON On: 20-May-2014 Intent (00893)By: Emily Pugh MD Comments: postmenapausal Emily Pugh MD Ultrasound - GallbladderBy: On: 04-Mar-2014 Intent Lexy RODRIGUES, Emily Pugh MD, Emily Hope Eprescribed prescriptions On: 10-Jan-2014 Intent (G8553)By: Lexy RODRIGUES, Emily Moran MD SPECIMEN HANDLING/TRANSPORT On: 01-Jan-2014 Intent (05935)By: Lori Ortiz CNP MAMMOGRAM, SCREENING, BOTH On: 18-Nov-2013 Intent BREASTS (00912)By: Lexy RODRIGUES, Comments: end of 12-27 Emily Pugh MD, Emily Hope Eprescribed prescriptions On: 18-Nov-2013 Intent (G8553)By: Kiley Gallegos ZOSTER VACC, [place] (34976)By: Paul, On: 01-Jan-2013 Intent Belle Comments: Lot:[id number]:0.65mLRoute:SubQSite:l armGiven By:TONEY signed IMMUNIZ ADMNIN, 1 VAC, SNGL/COMBO On: 01-Jan-2013 Intent (49049)By: Belle iMller ADMINISTRATION OF PNEUMOCOCCAL On: 27-Dec-2012 Intent VACCINE (G0009)By: Emily Pugh MD, MD, Dana M PNEUM VAC ADLT/IMUMNOSPR, On: 27-Dec-2012 Intent SBC/INTRM (23780)By: Lexy RODRIGUES, Emily Moran MD MAMMOGRAM, SCREENING, BOTH On: 27-Dec-2012 Intent BREASTS (92190)By: Emily Pugh MD, MD, Dana M FLU VAC, SPLIT, >3 YEARS, On: 24-Jul-2012 Intent INTRAMUSC (47942)By: Paul, Comments: Lot:[id number]:6.30.13Dose:prefilledRoute:IMSite:L DltdGiven By:TONEY Odonnell ADMINISTRATION OF INFLUENZA VIRUS On: 24-Jul-2012 Intent VACCINE (G0008)By: Belle Miller DXA, BONE DENSITY, AXIAL SKELETON On: 18-Oct-2011 Intent (68185)By: Emily Pugh MD Comments: estrogen def and postmenapausal Emily Pugh MD MAMMOGRAM, SCREENING, BOTH On: 18-Oct-2011 Intent BREASTS (42226)By: Emily Pugh MD, MD, Dana M ADMINISTRATION OF INFLUENZA VIRUS On: 18-Oct-2011 Intent VACCINE (G0008)By: Emily Pugh MD, MD, Dana M FLU VAC, SPLIT, >3 YEARS, On: 18-Oct-2011 Intent INTRAMUSC (80784)By: Emily Pugh MD, MD, Dana M Ultrasound - LiverBy: Lexy RODRIGUES, On: 14-Jul-2011 Intent Emily Moran MD DXA, BONE DENSITY, AXIAL SKELETON On: 24-May-2010 Intent (91763)By: Emily Pugh MD Comments: postmenapausal, estrogen def. 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, Ruth Aerosol Treatment (37114)By: On: 23-Apr-2009 Intent Angel COON Ruth Ultrasound - PelvisBy: Lexy On: 06-Jan-2009 Emily Colon MD, MD, Dana M Ultrasound - LiverBy: Lexy RODRIGUES, On: 08-Jul-2008 Intent Emily Moran MD Ultrasound - PelvisBy: Lexy On: 08-Jul-2008 Emily Colon MD, MD, Dana M Comments: do transvaginal Clinical Breast Examination On: 27-Mar-2007 Intent (G0101)By: Emily Pugh MD, MD, Dana M MAMMOGRAM, SCREENING, BOTH On: 27-Mar-2007 Intent BREASTS (79134)By: Emily Pugh MD, MD, Dana M Ultrasound - LiverBy: Lexy RODRIGUES, On: 21-Dec-2006 Intent Emily Moran MD Comments: liver elevation, follow up cyst, plan 01-17 Ultrasound - PelvisBy: Lexy On: 21-Dec-2006 Emily Colon MD, MD, Dana M Comments: please sen a copy to dr Barrientos first of 01-17 Instructions Name Dates Details BMI 40.0-44.9, adult : How to access [...] Instructions Indication: Hypothyroidism Encounters Office Visit On: 31-Aug-2018 11:29 Encounter Diagnosis: [...] completed the following pr eventative measures: mammography (2016) and colonoscopy (2014). The patient does have durable power of research attorney and living will. The patient has [...] for Tdap vaccination (Renamed from Need for mmlyiuwurn-fuxfmlk-xtdatnhgv (Tdap) vaccine, adult/adolescent) End: 25-Sep-2017 9:38 Comprehensive [...] The patient does have durable power of research attorney and living will. The patient has noticed nothing from the geriatic depression scale. Other providers contributing to the patient's care are gastrologist ( Dr. Carrera ) and other: ([place] Dr. Izaguirre, opthalm Dr. Mckeon ).Encounter Diagnosis: [...] Nutrition: balanced diet and supplemental vitamins. The nc dical issues the patient is following up [...] The patient has completed the f [facility] preventative measures: PAP smear (unsure of timing), mammography (2011) and colonoscopy (2010). The patient does have durable power of research attorney and living will. The patient has [...] - Reason for hospitalization note: (syncope at [place] ). Patient has been compliant with instructions. [...] cyst (620.2), Headache (784.0), Elevated LFT (790.6), [facility] V72.31 (Renamed from [facility] ([facility]) (V72.31)), [...] COLON (V10.05), Hypothyroidism (244.9), Elevated LFT (790.6), [facility] V72.31 (Renamed from [facility] ([facility]) (V72.31)) Comprehensive Internal Medicine Office Visit [...] Disorder of bone and cartilage, unspecified (733.90), [facility] V72.31 (Renamed from [facility] ([facility]) (V72.31)) [...] (153.9), Rosacea (695.3), Hemorrhoids (455.8), Obesity (278.00), V BIA V72.31 (Renamed from [facility] ([facility]) [...] anticoagulants (286.5), Colon Cancer (153.9), Rosacea (695.3), [facility] V72.31 (Renamed from [facility] ([facility]) (V72.31)) [...] ankle, infected (916.5), PORTAL VEIN THROMBOSIS (452.), [facility] V72.31 (Renamed from [facility] ([facility]) (V72.31)), Headache (784.0), Elevated LFT (790.6), [...] cartilage, unspecified (733.90), Headache (784.0), Obesity (278.00), [facility] V72.31 (Renamed from [facility] ([facility]) (V72.31)), genital warts Comprehensive Internal Medicine [...] of gallbladder, bile ducts, and liver (751.69), [facility] V72.31 (Renamed from [facility] ([facility]) (V72.31)) [...] liver (751.69), Unspecified Diagnosis, Elevated LFT (790.6), [facility] V72.31 (Renamed from [facility] ([facility]) (V72.31)) Comprehensive Internal Medicine Office Visit [...]
--- OUTSIDE RECORDS SUMMARY | 2019-02-04 14:38 | XMS RPT_ITS ---
:1935 Author Organization OHIP Care Team Providers Name Role Phone Lexy RODRIGUES, Emily Hope Attending Unavailable Lexy RODRIGUES, Emily Hope Referring Unavailable Bonemalvin RODRIGUES, Emily Hope Consulting Unavailable Bonezzi, Emily Attending Unavailable Bonezzi, Emily Referring Unavailable Bonezzi, Emily Primary Care Unavailable Bonezzi, Emily Attending Unavailable Bonezzi, Emily Referring Unavailable Bonezzi, Emily Primary Care Unavailable Bonezzi, Emily Attending Unavailable Bonezzi, Emily Primary Care Unavailable PROBLEMS PROBLEMS DATE TYPE CONDITION / CODE ATTENDING STATUS SOURCE 08/29/2018 Unknown Z78.0 - Asymptomatic Bonemalvin Emily Active Bob menopausal state / Community Z78.0(ICD-10) Hospital Repository 08/29/2018 Unknown Z12.31 - Encounter Lexy Emily Active [place] for screening Community mammogram for Hospital malignant neoplasm Repository of breast / Z12.31(ICD-10) 08/29/2018 Unknown N95.9 - Unspecified Bonezzi, Emily Active Bob menopausal and Community perimenopausal Hospital disorder / Repository N95.9(ICD-10) 02/12/2018 Unknown Z85.038 - Personal Bonemalvin Emily Active Bob history of other Community malignant neoplasm Hospital of large intestine / Repository Z85.038(ICD-10) PROCEDURES PROCEDURES No Procedure Records FoundRESULTS RESULTS INITAL EVALUATION (1) Observed: 12/05/2018 Status: F Source: BOB - PT 7:10 AM [facility] REPOSITORY [facility] [address] [place] [address] / REHABILITATION SERVICES INITIAL EVALUATION MR#: [id number] Acct: [id number] Name: LENORA MORRELL I Rep #: [id number] : 1935 83 From: Brian Gillespie DPT, OCS, CSCS Referring Dr.: Emily Pugh MD Status: REG RCR Insurance: [facility] SELF PAY INSURANCE Patient's Visit Information LENORA MORRELL is a 83 year old F referred to Physical Therapy by Emily Pugh MD with a diagnosis of Sciatica. Date of Evaluation: 12/03/18 Physical Therapist: Brian Gillespie DPT, OCS, CSCS - Visit Plan Frequency: 2x /Week Duration: 4-6 Weeks Plan: 2x/week for 2-6 weeks... Please emphsize standing neutral psine exercises and sleeping position with pillow b/w knees or on back with legs elevated instead of on tummy. STREngth in NS position and progress to I. Pt has been doign NS supine ex in gym but not in standing. - Subjective Findings: Sciatica says Dr. Pugh. April of 2017 had this and got rid of it with therapy. It came back a couple weeks ago without reason. It hurts in L hip and goes down to L knee and into L ankle. Worse in the morning and she sleeps on her tummy. Has to be careful WB in the morning. Can do most things as far as cooking and cleaning go just not as energetic as she used to be. Sometimes sleeps wella nd sometimes does not. No right sided problems. No numbness or tingling. Pain is to 6-7/10 improving as the day goes on. Standing can make it worse. Hobbies include walking and it limits her walking, wants to do more. Is cleaning junk out of house and writes alot which is not limited. - Pain L LB and leg Pain Intensity (Out of 10): 2 Pain Intensity Range: 2, 7 - Objective Walks and trasnfers I. LB AROM ext painful L and min limited, flexion no pain and full, L SB painful and limited > R. reflexes 2/3 patella and achilles. Sensation WNL to gross light touch. Strength LE 4-/5 with out myotomal abnormalities. 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 Rehabilitation Potential: Good - Anticipated Interventions Patient/Client Instruction: Educate patient on: Condition For the Purpose of:: To decrease pain, To increase ROM, To improve ability of physical actions for home/community/work/leisure Therapeutic Exercise to Include: Strength training, Dynamic Lumbar Stabilization For the Purpose of:: To decrease pain, To increase tolerance to activity/condition/position Thank you for the opportunity to evaluate your patient. For Medicare and Medicare HMO plans, please review the plan of care and approve it. It will need to be FAXED BACK to us at [phone] for Medicare purposes. For Medicare only, by signing this I certify the plan of care. Please let me know if there are questions or concerns regarding this plan of care. Physician Signature: Date: <Electronically signed by Brian Gillespie DPT, OCS, CSCS> 12/05/18 0710 CC: Emily Pugh; Emily Pugh MD EBG Signed SCREENING MAMM (CAD), Observed: 08/29/2018 Status: F Source: BOB AVILA 10:07 AM [facility] REPOSITORY [facility] [address] [place] [address] SCREENING MAMM (CAD), [place] MR#: [id number] Acct: [id number] Name: LENORA MORRELL I Rep #: [id number] : 1935 F 82 From: Nolan Head MD PCP: Emily Pugh MD Status: REG CLI Study: SCREENING MAMM (CAD), BILAT Date of Exam: 08/29/18 Exam# [id number] Ordering Dr: Emily Pugh MD MAMMOGRAPHY - BILATERAL SCREENING REASON FOR EXAM: Female, 82 years old. Routine annual screening examination. PERTINENT HISTORY: Non-contributory. TECHNIQUE: Digital bilateral breast manju (3D mammographic acquisition) in the CC and MLO projections. 2-D mediolateral oblique (MLO) and craniocaudad (CC) views of both breasts were obtained. CAD: Full Field Digital Mammography with Computer Added Detection was performed. COMPARISON: Comparison is made with prior study dated August 02, 2016 and July 08, 2014. FINDINGS: Breast Composition: The breasts are almost entirely [...] delay biopsy of a clinically suspicious abnormality. [id number] Electronically Signed: Nolan Head MD at 13:21 EDT Tel [phone], Service support , CC: Emily Pugh MD Shipping And Receiving Specialist: Signed DEXA BONE DENSITY Observed: 08/29/2018 Status: F Source: BOB STUDY 10:07 AM [facility] REPOSITORY [facility] [address] [place] [address] Dexa Bone Density Study MR#: [id number] Acct: [id number] Name: LENORA MORRELL I Rep #: [id number] : 1935 F 82 From: Nolan Head MD PCP: Emily Pugh MD Status: REG CLI Study: Dexa Bone Density Study Date of Exam: 08/29/18 Exam# [id number] Ordering Dr: Emily Pugh MD STUDY: DUAL ENERGY X-RAY ABSORPTIOMETRY / DXA REASON FOR EXAM: Female, 82 years old. The patient is postmenopausal. Loss of height. TECHNIQUE: Bone Mineral Density (BMD) measurements of lumbar spine and bilateral hips were obtained. # of Images: 6 COMPARISON: Comparison is made with prior study dated August 02, 2016. FINDINGS: Lumbar Spine (L1-L4): g/cm2 (1.272) / T-score (0.9) / Z-score (2.7) Findings are suggestive of normal bone density with a low fracture risk. Left Femur Total: g/cm2 (1.080) / T-score (0.6) / Z-score (2.6) Left Femoral Neck: g/cm2 (1.044) / T-score (0.0) / Z- score (2.2) Right Femur Total: g/cm2 (1.111) / T-score (0.8) / Z- score (2.9) Right Femoral Neck: g/cm2 (1.010) / T-score (-0.2) / Z-score (2.0) The T-Scores on the most recent prior examination were: Lumbar Spine (L1-L4): There has been improvement of bone density since the previous examination. Left Femur Total: which represents an improvement of 0.2%. Right Femur Total: which represents a worsening of 4.3%. BD/Dexa Bone Density Study IMPRESSION: The patient [...] Organization (WHO) interprets the T-scores as follows: Above -1 Normal bone density Between -1 [...] [email or web address] Electronically Signed: Nolan Head MD at 8:26 EDT Tel [phone], Service support , CC: Emily Pugh MD Shipping And Receiving Specialist: Signed ABDOMEN/PELVIS WITH Observed: 02/12/2018 Status: F Source: BOB CONTRAST 10:00 AM [facility] REPOSITORY [facility] [address] [place] [address] Abdomen/Pelvis WITH Contrast MR#: [id number] Acct: [id number] Name: LENORA MORRELL I Rep #: [id number] : 1935 F 82 From: Maite Corona MD PCP: Emily Pugh MD Status: REG CLI Study: Abdomen/Pelvis WITH Contrast Date of Exam: 02/12/18 Exam# [id number] Ordering Dr: Emily Pugh MD STUDY: CT ABDOMEN AND PELVIS WITH CONTRAST REASON FOR EXAM: Female, 82 years old. RLQ PAIN SINCE MONDAY, HX COLON CANCER RADIATION DOSAGE (If Supplied By Facility): CTDIvol = ( 30.67 ) mGy, DLP = ( 1151.12 ) mGycm TECHNIQUE: Transaxial images were obtained from the dome of the diaphragm to the symphysis pubis without oral contrast. 100 ml of Isovue 300 contrast was administered. Sagittal and coronal images were reconstructed. Individualized dose optimization techniques were used for this CT. COMPARISON: None. FINDINGS: The visualized lung bases are unremarkable. The visualized portions of the heart are within normal limits. Normal liver. There are surgical clips in the gallbladder fossa consistent with a prior cholecystectomy. Normal spleen. Normal pancreas. Normal bilateral adrenal glands. Normal right kidney. Normal left kidney. Normal visualized stomach. Normal small intestine. The ascending colon has been removed. There is ileocolic anastomosis. There is no evidence of bowel obstruction. There are multiple colonic diverticula consistent with diverticulosis. The appendix is visualized and appears normal. Normal abdominal aorta. Normal inferior vena cava. Normal retroperitoneum. Normal urinary bladder. Normal abdominal wall. There are diffuse degenerative changes of the visualized lumbar spine. CT/Abdomen/Pelvis WITH Contrast IMPRESSION: The ascending colon has been removed. There is ileocolic anastomosis. There is no evidence of bowel obstruction. There are multiple colonic diverticula consistent with diverticulosis. Electronically Signed: Maite Corona MD at 12:41 EDT Tel , Service support , CC: Emily Pugh MD Shipping And Receiving Specialist: Signed COMPREHENSIVE METABOLIC Collected: 02/12/2018 Status: F Source: BOB PROFIL 9:50 AM [facility] REPOSITORY TYPE CODE TESTS RESULT OUT OF RANGE REFERENCE UNITS LAB L501.0100 74-106 mg/dL High GLU 110 Result Comment: Fasting Glucose result from 100 to 125 mg/dL suggests IMPAIRED HOMEOSTASIS per A.D.A. criteria. Please note revised GLUCOSE reference range effective 2017. LAB L501.1000 7-18 mg/dL Normal BUN 13 LAB L501.1100 0.55-1.02 mg/dL Normal CREAT,SERUM 0.81 Result Comment: The validity of the calculated GFR AND GFRAA in patients over 70 years has not been determined. Clinical correlation is essential. LAB L501.1110 >60 mL/min Normal EST GFR 72 Result Comment: Non- GFR Calc LAB L501.1115 >60 mL/min Normal EST GFR - AA 87 Result Comment: GFR Calc LAB L501.1300 10-20 RATIO Normal BUN/CRE 16.0 LAB L501.1500 6.4-8.2 g/dL T Normal PROT 7.9 LAB L501.1800 3.2-5.0 g/dL Normal ALB 3.5 LAB L501.1950 2.2-4.2 g/dL High GLOB 4.4 LAB L501.2000 0.9-2.4 RATIO Low A/G 0.8 LAB L501.2200 8.5-10.1 mg/dL CA Normal 9.2 LAB L501.4100 15-37 U/L Normal AST 20 LAB L501.4305 45-117 U/L Normal ALK P 77 LAB L501.4405 13-56 U/L Normal ALT 26 Result Comment: Please note revised ALT reference range effective 2017. LAB L501.4600 0.20-1.00 mg/dL Normal T BILI 0.30 LAB L501.5300 136-145 mmol/L Normal NA 140 LAB L501.5600 3.5-5.1 mmol/L Normal K 4.2 LAB L501.5900 98-107 mmol/L High CL 108 LAB L501.6100 21.0-32.0 mmol/L Normal CO2 25.0 LAB L501.6200 5-15 Normal GAP 7 Performed By: #### L500.4050 #### [facility] [address] [place], [address] CBC W/DIFF, AUTOMATED Collected: 02/12/2018 Status: F Source: BOB 9:50 AM [facility] TYPE CODE TESTS RESULT OUT OF RANGE REFERENCE UNITS LAB L100.1000 4.4-11.0 K/mm3 Normal WBC 7.0 LAB L100.1200 4.2-5.4 M/mm3 Normal RBC 4.44 LAB L100.1300 12.0-15.0 g/dl Normal HGB 14.4 LAB L100.1400 37-47 % Normal HCT 42.6 LAB L100.1500 81-99 fL Normal MCV 95.9 LAB L100.1600 27.0-32.0 pg High MCH 32.4 LAB L100.1700 32-36 g/gl Normal MCHC 33.8 LAB L100.1810 11.6-14.6 % Normal RDW CV 13.2 LAB L100.1820 35.1-43.9 fl High RDW SD 45.1 LAB L100.1900 150-450 K/mm3 Normal PLT 239 LAB L100.2000 6.2-12.0 fl Normal MPV 10.5 LAB L100.2100 47-70 % Normal NEUT% 62.9 LAB L100.2200 19-41 % Normal LY% 21.5 LAB L100.2300 0-10 % High MONO% 11.9 LAB L100.2400 0-5 % Normal EO% 3.1 LAB L100.2500 0-1 % Normal BASO% 0.3 LAB L100.2550 0.0-0.9 % Normal IM GRAN % 0.300 Result Comment: IG% - Immature Granulocytes (promyelocytes, myelocytes and metamyelocytes) > 1% indicates that a LEFT SHIFT is Present. LAB L100.2620 2.0-7.7 X10 3/uL Normal Absolute Neut 4.4 LAB L100.2720 0.83-4.51 X10 3/ul Normal Absolute Lymph 1.50 Performed By: #### L100.0100 #### [facility] [address] [place], [place], [address] CARCINOEMBRYONIC ANTIGEN Collected: 02/12/2018 Status: F Source: BOB 9:50 AM [facility] REPOSITORY TYPE CODE TESTS RESULT OUT OF RANGE REFERENCE UNITS LAB L3100.2300 0.0-4.7 ng/mL Normal CEA 1.7 Result Comment: Jackie ECLIA methodology Nonsmokers <3.9 Smokers <5.6 Performed at: - [facility] [address] [id number] [employer]unch Trimmer Mold: Jame Bhakta PhD, Phone: [phone] Performed By: #### L3100.2300 #### [facility] (refer to report for specific site) refer to report for address and phone number ALLERGIES ALLERGIES DATE TYPE / CODE NAME / REACTION SEVERITY SOURCE CODE 03/18/2014 Drug sulfametho Other Unknown Bob Allergy/[id number]( xazole/F00 [facility] OMED CT) [id number]( Hospital NORM) Repository 03/18/2014 Drug trimethopr Other Unknown Bob Allergy/[id number]( im/[id number] [facility] CT) 873([facility] ) Repository 03/18/2014 Drug amoxicilli Unknown Unknown Grant Allergy/[id number]( n/[id number] [facility] CT) 75([facility]) Hospital Repository 03/18/2014 Miscellaneous PINE TAR Rash Unknown Bob Allergy/[id number]([facility] CT) Hospital Repository 03/18/2014 Miscellaneous TAPE Rash Unknown [place] Allergy/[id number]([facility]) Hospital Repository ENCOUNTERS ENCOUNTERS ADMIT/DISCHARGE ACCOUNT ADMITTING ENCOUNTER LOCATION SOURCE NUMBER CLASS 12/07/2018 [id number] Ambulatory Bob Bob [address] [facility] ing:PT Repository 11/22/2018 [id number] Ambulatory Building:[facility] [place] Practices Repository 08/29/2018 [id number] Ambulatory Bob Obb [address] [facility] ing:OPBD Repository 02/12/2018 [id number] Ambulatory Bob [place] [address] [facility] ing:CT Repository PAYERS PAYERS ENCOUNTER GUARANTOR PAYER SUBSCRIBER SOURCE 12/07/2018 PADDY YOUNG66 Primary LENORA HAWKDOB: [place] CRISTEL Insurance:AETNA [id number] [address]Qak: (725) [id number] Repository [phone] () Date:1933-48-29CD [address] [place] [phone]: 12/07/2018 Secondary NOT GIVENUNK [place] Insurance:SELF PAY [facility] Number: Effective Repository Date:2018-11-27 11/22/2018 LENORA I Primary LENORA I OHIP Practices HAWKDOB: Insurance:[employer] Life HAWKDOB: Repository Ins/MedicarePolicy [id number] Cristel Number: Cristel [place], [place] [id number] [place], [place] [address]Sxq: (330) Date:7032-48-22Btnc [address]Nuo: (HP) Name: [phone] (HP) [id number] [place] [id number]: 11/22/2018 Secondary LENORA I OHIP Practices Insurance:MedicarePol HAWKDOB: Repository icy Number: 386 [id number] BEffective Cristel Date:2002[birth year]10-13 - [place] [id number] [id number]: ([phone]) Name:MANAGER READING [phone] (HP) [id number], [place] [address]YF: 08/29/2018 PADDY CAT Primary ELNORA HAWKDOB: [place] CRISTEL Insurance:AETNA [id number] [facility] Number: Hospital [id number]: (330) [id number] Repository [phone] (HP) Date:6935-78-14LK [address] [place] [phone]: 08/29/2018 Secondary NOT GIVENUNK [place] Insurance:SELF PAY [facility] Number: Effective Repository Date:2018-03-26 02/12/2018 PADDY YOUNG66 Primary LENORA HAWKDOB: [place] CRISTEL Insurance:AETNA [id number] [facility] Hospital [id number]: (330) [id number] Repository [phone] (HP) Date:9384-01-68XU [address] [place] [phone]: 02/12/2018 Secondary NOT GIVENUNK Bob Insurance:SELF PAY [facility] Number: Effective Repository Date:2018-02-12
== END 2019-01-04 19:00 | disposition home or self-care (01) ==
LOC: PT 07:30
PROVIDERS: Family Provider Internal Medicine; PCP Internal Medicine; Referring Provider Internal Medicine; Visit Provider Internal Medicine
DX: M54.32 Sciatica, left side (principal)
CPT/HCPCS: 97110; 97162; 97530

== ENCOUNTER → 2019-01-07 13:10 | Outpatient (CLI) | payer MEDICARE, SELFPAY ==
--- NOTE | 2019-01-07 13:16 | VDLE_ITS ---
Reason For Study: Knee Pain RIGHT LEFT CFV is compressible, spontaneous, phasic, GSV is normal. competent and demonstrates normal CFV is compressible, spontaneous, phasic, augmentation. competent, and demonstrates normal Procedure augmentation. Exam performed in department. FV is compressible, spontaneous, phasic, A preliminary report was called and/or faxed competent and demonstrates normal to Lexy. augmentation. POP V is compressible, spontaneous, phasic, competent and demonstrates normal augmentation. T/P Trunk is compressible. PTV is compressible. LT PerV is compressible. Non vascularized hypoechoic structure noted in Lt pop space measuring approximently 2.75 x 1.23 cm. Interpretation Summary Deep veins of the left lower extremity are patent and compressible segmentally. There is no evidence of left lower extremity deep vein thrombosis. Valvular competence appears intact within the proximal deep venous system on the left . The left greater saphenous vein appears patent and compressible segmentally. A non-vascular, hypoechoic structure is noted in the left popliteal space, measuring 2.75 cm x 1.23 cm. This probably represents a popliteal cyst. Clinical correlation is advised. Ordering Physician: Emily Pugh Referring Physician: Emily Pugh Performed By: Savi Shay RVT and Student
== END ==
PROVIDERS: Family Provider Internal Medicine; PCP Internal Medicine; Referring Provider Internal Medicine; Visit Provider Internal Medicine
DX: M79.89 Other specified soft tissue disorders (principal); M25.562 Pain in left knee
CPT/HCPCS: 93971

== ENCOUNTER → 2019-01-18 12:56 | Outpatient (CLI) | payer SELFPAY ==
--- NOTE | 2019-01-18 13:10 | CT_ITS ---
STUDY: CT CHEST WITHOUT CONTRAST REASON FOR EXAM: Female, 83 years old. Hyperlipidemia. Calcium scoring examination. Radiological over read study. RADIATION DOSAGE (If Supplied By Facility): CTDIvol = ( 12.19 ) mGy, DLP = ( 243.79 ) mGycm TECHNIQUE: Transaxial imaging was performed without the administration of intravenous contrast material. Individualized dose optimization techniques were used for this CT. COMPARISON: None. FINDINGS: The lungs are normal. There is no demonstrated pleural abnormality. There are calcifications of the coronary arteries. Calcified mediastinal lymphadenopathy. Normal hilar regions. Normal unenhanced pulmonary arteries. There is atherosclerotic calcification of the aortic arch . Normal osseous structures. There is no demonstrated abnormality of the visualized upper abdomen. CT/Limited Chest CT w/CCTA IMPRESSION: Coronary artery calcification. Electronically Signed: Nolan Head, at 10:35 EDT , Service support ,
[2019-01-18 13:20] VITALS: BP 163/72; PULSE 59; RESP 16; O2SAT 95; BMI 39.9
--- NOTE | 2019-01-18 16:28 | CA.SCORE ---
Calcium Scoring Date of Study:: 01/18/19 Coronary Calcium Scoring: Coronary calcium scoring. High-resolution computed tomographic imaging of the chest was performed on 01/18/2019 with particular attention paid to the coronary arteries. Images from the examination were analyzed for the presence and extent of coronary artery calcification using the coronary consultation cortication software. The patient tolerated the procedure well there were no complications. The results of the coronary calcification analysis are provided below. Coronary artery Left main score 5.5. Left anterior descending artery score 4.7. Left circumflex artery score 0 Right coronary artery score 0. Total Agagston score 10.3. The above suggest a 25 percentile ranking for aged matched controlled patient's. Interpretation: The above is significant of mild plaque burden with no significant coronary artery disease likely.
== END ==
PROVIDERS: Family Provider Internal Medicine; PCP Internal Medicine; Referring Provider Internal Medicine; Visit Provider Internal Medicine
DX: E78.5 Hyperlipidemia, unspecified (principal)
CPT/HCPCS: 75571; 76380

== ENCOUNTER → 2019-08-05 | Outpatient (CLI) | payer MEDICARE, SELFPAY ==
[2019-01-18 13:20] VITALS: BMI 39.9
--- NOTE | 2019-08-05 08:51 | RAD_ITS ---
STUDY: X-RAY CHEST REASON FOR EXAM: Female, 83 years old. Congestion acute bronchitis TECHNIQUE: Two view of the chest were performed COMPARISON: 18 January 2019 FINDINGS: Lungs are clear. There is no pneumothorax, pulmonary edema, pleural effusions or cardiomegaly. There are benign calcified mediastinal lymph nodes. Osseous structures are intact. There is no gas under the diaphragms. [ ] RAD/Chest PA and Lateral IMPRESSION: 1. No acute cardiorespiratory disease. [ ] Electronically Signed: Bronson Ramos, at 17:19 EDT Tel , Service support ,
== END | disposition home or self-care (01) ==
PROVIDERS: Family Provider Internal Medicine; PCP Internal Medicine; Referring Provider Internal Medicine; Visit Provider Internal Medicine
DX: J20.9 Acute bronchitis, unspecified (principal)
CPT/HCPCS: 71046

== ENCOUNTER → 2019-10-07 14:39 | Outpatient (CLI) | payer MEDICARE, SELFPAY ==
[2019-01-18 13:20] VITALS: BMI 39.9
--- NOTE | 2019-10-07 14:41 | BI_ITS ---
MAMMOGRAPHY - BILATERAL SCREENING 3-D TOMOSYNTHESIS REASON FOR EXAM: Female, 83 years old. Routine annual screening examination. PERTINENT HISTORY: No significant family history. TECHNIQUE: 2-D mammograms and 3-D Tomosynthesis of the breast (s) were performed. CAD was performed. COMPARISON: August 29, 2018, August 02, 2016 FINDINGS: The breast composition is almost entirely fat. Scattered benign calcifications are seen. No dense spiculated masses or suspicious microcalcifications are identified. No architectural distortion is identified. There is no skin thickening or retraction. Stable lymph nodes in both axillae. There has been no significant change since the prior study. BI/SCREEN MAMM (CAD) W/ADWOA BILAT IMPRESSION: No mammographic signs of malignancy. Routine yearly mammograms recommended. ASSESSMENT CATEGORY: BIRADS Category 2: Benign. A letter regarding these results will be sent to the patient by the facility within 30 days. FOLLOW UP RECOMMENDATION: Yearly follow up mammogram recommended. (A) Approximately 10% of breast cancers are not detected by mammography. A normal mammogram should not delay biopsy of a clinically suspicious abnormality. Electronically Signed: Wero Green MD at 17:38 EST , Service support ,
== END ==
PROVIDERS: Family Provider Internal Medicine; PCP Internal Medicine; Referring Provider Internal Medicine; Visit Provider Internal Medicine
DX: Z12.31 Encounter for screening mammogram for malignant neoplasm of breast (principal)
CPT/HCPCS: 77063; 77067

== ENCOUNTER → 2020-08-03 16:45 | Outpatient (CLI) | payer MEDICARE, SELFPAY ==
[2019-01-18 13:20] VITALS: BMI 39.9
--- NOTE | 2020-08-03 16:47 | RAD_ITS ---
STUDY: X-RAY - LUMBAR SPINE REASON FOR EXAM: Female, 84 years old. Sciatica, right side posterior hip TECHNIQUE: 5 view(s) of the lumbar spine were obtained. COMPARISON: None FINDINGS: Normal lumbar lordosis. There is no substantial scoliosis. There is a normal alignment of the vertebrae. Normal vertebral bodies and endplates. There is disc space narrowing at L4-L5 and L5-S1. There is bilateral facet hypertrophy at L3 L4-L5 S1. The soft tissue structures are unremarkable. RAD/L/S Spine Min 4 Views IMPRESSION: There are degenerative disc and facet changes as described. There is NO acute injury. Electronically Signed: Zheng Kyle MD at 0:22 EDT , Service support ,
== END ==
PROVIDERS: PCP Internal Medicine; Referring Provider Nurse Practitioner; Visit Provider Nurse Practitioner
DX: M54.30 Sciatica, unspecified side (principal)
CPT/HCPCS: 72110

== ENCOUNTER 2020-09-18 08:00 | Outpatient (RCR) | payer MEDICARE, SELFPAY ==
[2019-01-18 13:20] VITALS: BMI 39.9
--- NOTE | 2020-08-11 09:01 | HP.PTEVAL ---
Patient's Visit Information LENORA MORRELL is a 84 year old F referred to Physical Therapy by Lori Ortiz NP-C with a diagnosis of RIGHT SCIATICA. Date of Evaluation: 08/11/20 Physical Therapist: Jaskaran Gilliland, PT, Cert MDT, OCS - Visit Plan Frequency: 2x /Week Duration: 4 Weeks Plan: PT INTERVENTIONS LUMBAR FLEXION,DLS ABD/BACK ,MODALTIES ,LOSSING TRACTION - Subjective This 84 y/o female presents to physical therapy with right sciatica pain . Patient has lumbar symptoms radtaing to right glutues occasioanlly buttuck 3weeks. Seen DR recommended Meds predisone pack and injection of toradol.Patient had x-rays.Aggraveting factors walking ,standing ,lifting with something heavier. Alleviating factors sitting bending. Denies parathesia/tingling. Bowel/bladder -. Coughing/sneezing . Patient sleeping okay at night. Patient has had h/o lumbar pain. Patient symptoms affects ADLS' and housework tasks. Patient symptoms affects affects QOL.Pain. SOCIAL: . VOCATION; retired - Pain Right Back Pain Intensity (Out of 10): 5 Pain Intensity Range: 10 Comment: end of day -07/23 Right Buttocks Pain Intensity (Out of 10): 5 Pain Intensity Range: 10 Comment: end of day -07/23 - Objective POSTURE: mild foward posture. GAIT: reciprocal pattern antalgic gait right side. PALAPTION: tender piriformis. SYMMTRIES:align. LUMBAR ROM: flexion WFL,extension min loss with pain,side glides in loss. FLEXABLITY: hams min tight,piriformis min tight - Special Tests L/S Slump test left side: Negative L/S Slump test right side: Negative L/S Left Straight Leg Raise: Negative L/S Right Straight Leg Raise: Negative Lumbar Standing: Flexion - Mechanical Response: No effect Lumbar Standing: Flexion - Symptoms During Testing: Decreases Lumbar Standing: Flexion - Symptoms After Testing: No better Lumbar Standing: Extension - Mechanical Response: No effect Lumbar Standing: Extension - Symptoms During Testing: Peripheralizing Lumbar Standing: Extension - Symptoms After Testing: Worse Lumbar Standing: Right Side Glides - Mechanical Response: No effect Lumbar Standing: Right Side [place] - Symptoms During Testing: Increases Lumbar Standing: Right Side [place] - Symptoms After Testing: No worse Lumbar Standing: Left Side [place] - Mechanical Response: No effect Lumbar Standing: Left Side [place] - Symptoms During Testing: No effect Lumbar Standing: Left Side [place] - Symptoms After Testing: No effect Lumbar Lying: Flexion - Mechanical Response: No effect Lumbar Lying: Flexion - Symptoms During Testing: Decreases Lumbar Lying: Flexion - Symptoms After Testing: No better - Goals Goal 1:: Patient to be I with HEP. Goal Time Frame: 4-6 Weeks Goal 2:: Patient decrease lumbar pain and radicular symptoms by 50% or> to improve function. Goal Time Frame: 4-6 Weeks Goal 3:: Patient to impove lumbar ROM for function of recovery Goal Time Frame: 4-6 Weeks Goal 4:: Patient improve back owestry score by 5 points or> to improve function. Goal Time Frame: 4-6 Weeks Goal 5:: Patient be able to walk and stand further distances with less pain in buttuck Goal Time Frame: 4-6 Weeks - Rehabilitation Potential Physical Therapy Diagnosis: This patient has right lateral stenosis with pain worse with extension ,walking and standing impairs ADLS' better with sitting and flexion thus benifit from skilled PT Rehabilitation Potential: Good - Anticipated Interventions Patient/Client Instruction: Educate patient on: Condition, Plan of Care For the Purpose of:: To decrease pain, To increase ROM, To improve muscle performance and motor function, To improve ability to perform ADL's, To increase tolerance to activity/condition/position, To improve performance and independence with ADL's, To improve ability of physical actions for home/community/work/leisure, To improve health of tissue, To decrease soft tissue restriction, To reduce risk of recurrence, To improve health and function, To improve ability to perform tasks related to life management Therapeutic Exercise to Include: Strength training, Endurance training, Postural training, Flexibilty training, Active ROM, Dynamic Lumbar Stabilization For the Purpose of:: To decrease pain, To increase ROM, To increase oxygenation perfusion, To improve ability to perform ADL's, To increase tolerance to activity/condition/position, To improve ability of physical actions for home/community/work/leisure, To improve health of tissue, To decrease soft tissue restriction, To increase flexibility/ROM, To reduce risk of recurrence, To improve ability to perform tasks related to life management TENS: Yes IF ES: Yes Cryotherapy (ice pack, ice massage): Yes Thermo therapy (hot pack): Yes Ultrasound (thermal/non thermal): Yes Pelvic traction supine: Yes For the Purpose of:: To decrease pain, To increase ROM, To improve nutrient delivery to tissue, To increase oxygenation perfusion, To improve ability to perform ADL's, To improve health of tissue, To decrease soft tissue restriction Thank you for the opportunity to evaluate your patient. For Medicare and Medicare HMO plans, please review the plan of care and approve it. It will need to be FAXED BACK to us at [phone] for Medicare purposes. For Medicare only, by signing this I certify the plan of care. Please let me know if there are questions or concerns regarding this plan of care. Physician Signature: Date:
--- NOTE | 2020-09-18 08:29 | HP.PTDCSUM_ITS ---
It has been my pleasure to treat LENORA MORRELL referred by Lori Ortiz, RING CONDUCTOR-C, with the diagnosis of RIGHT SCIATICA for a total of 9 visit(s). Discharge Date: 09/18/20 Please see the following information for a summary of their discharge status. Subjective: DOING WELL NO PAIN .READY TO BE D/C Right Back Pain Intensity (Out of 10): 0 Right Buttocks Pain Intensity (Out of 10): 0 % Improvement: 95 Objective/Function: POSTURE: MILD FOWARD POSTURE. GAIT: RECIPROCAL PATTERN. MMT: GROSSLY 4/5. LUMBAR ROM: FLEXION WFL,EXTENSION MIN LOSS Goal 1:: Patient to be I with HEP. Goal 2:: Patient decrease lumbar pain and radicular symptoms by 50% or> to improve function. Goal 3:: Patient to impove lumbar ROM for function of recovery Goal 4:: Patient improve back owestry score by 5 points or> to improve function. Goal 5:: Patient be able to walk and stand further distances with less pain in buttuck Plan: D/C TO GYM AND HEP Discharge Comments: HEP AND GYM If there are questions or concerns regarding this patient's physical therapy, please feel free to call me at [phone]. Thank you for the referral of this patient. Sincerely, Jaskaran Gilliland, PT, Cert MDT, OCS
== END 2020-09-18 19:00 | disposition home or self-care (01) ==
LOC: PT 08:00
PROVIDERS: PCP Internal Medicine; Referring Provider Nurse Practitioner; Visit Provider Nurse Practitioner
DX: M54.31 Sciatica, right side (principal)
CPT/HCPCS: 97035; 97110; 97162

== ENCOUNTER → 2020-10-29 14:04 | Outpatient (CLI) | payer MEDICARE, SELFPAY ==
[2019-01-18 13:20] VITALS: BMI 39.9
--- NOTE | 2020-10-29 14:06 | BI_ITS ---
MAMMOGRAPHY - BILATERAL SCREENING REASON FOR EXAM: Female, 84 years old. Routine annual screening examination. PERTINENT HISTORY: Non-contributory. TECHNIQUE: Digital bilateral breast adwoa (3D mammographic acquisition) in the CC and MLO projections. 2-D mediolateral oblique (MLO) and craniocaudad (CC) views of both breasts were obtained. CAD: Full Field Digital Mammography with Computer Added Detection was performed. COMPARISON: Comparison is made with prior study dated 10/07/2019 and 08/29/2018. FINDINGS: Breast Composition: The breasts are almost entirely fatty. There are no dominant masses or suspicious calcifications. No other significant abnormalities are identified. There has been no significant change since the prior study. BI/SCREEN MAMM (CAD) W/ADWOA BILAT IMPRESSION: Stable bilateral screening mammogram. Yearly follow-up mammogram recommended. (A) ASSESSMENT CATEGORY: BIRADS Category 1: Negative. A letter regarding these results will be sent to the patient by the facility within 30 days. Approximately 10% of breast cancers are not detected by mammography. A normal mammogram should not delay biopsy of a clinically suspicious abnormality. [id number] Electronically Signed: Nolan Head, at 15:39 EST , Service support ,
--- NOTE | 2020-10-29 14:09 | BD_ITS ---
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 COMPARISON: Comparison is made with prior study dated 08/29/2018. FINDINGS: Lumbar Spine (L1-L4): g/cm2 (1.180) / T-score (0.1) / Z-score (2.0) Findings are suggestive of normal bone density with a low fracture risk. Left Femur Total: g/cm2 (1.045) / T-score (0.3) / Z-score (2.5) Left Femoral Neck: g/cm2 (1.008) / T-score (-0.2) / Z-score (2.1) Right Femur Total: g/cm2 (1.097) / T-score (0.7) / Z-score (2.9) Right Femoral Neck: g/cm2 (0.983) / T-score (-0.4) / Z-score (1.9) The T-Scores on the most recent prior examination were: Lumbar Spine (L1-L4): There has been worsening of bone density since the previous examination. Left Femur Total: which represents a worsening of 3.2%. Right Femur Total: which represents a worsening of 1.3%. BD/Dexa Bone Density Study IMPRESSION: The patient is considered normal as outlined below according to World Rashid Organization (WHO) criteria with a low fracture risk. There has been worsening of bone density since the previous examination. Reference Information: The T-score is the number of standard deviations above or below the standard which is normal for young adults at their peak bone mineral density. The World Health Organization (WHO) interprets the T-scores as follows: Above -1 Normal bone density Between -1 and -2.5 Osteopenia Equal to / or below -2.5 Osteoporosis As a practical clinical guideline, osteopenia may be graded as follows: Mild -1 through -1.5 Moderate -1.6 through -2.0 Severe -2.1 through -2.4 The Z-score is the number of standard deviations above or below age-matched controls. A Z-score of less than -1.5 would be considered abnormal. References: 1. NIH Osteoporosis and Related Bone Diseases www osteo.org 2. International Society for Clinical Densitometry www iscd.org 3. National Osteoporosis Foundation www nof.org Electronically Signed: Nolan Head, at 15:47 EST , Service support ,
== END ==
PROVIDERS: PCP Internal Medicine; Referring Provider Internal Medicine; Visit Provider Internal Medicine
DX: Z78.0 Asymptomatic menopausal state (principal); Z12.31 Encounter for screening mammogram for malignant neoplasm of breast
CPT/HCPCS: 77063; 77067; 77080

== ENCOUNTER → 2021-11-01 13:47 | Outpatient (CLI) | payer MEDICARE, SELFPAY ==
--- NOTE | 2021-11-01 13:49 | BI_ITS ---
MAMMOGRAPHY - BILATERAL SCREENING REASON FOR EXAM: Female, 85 years old. Routine annual screening examination. PERTINENT HISTORY: Non-contributory. TECHNIQUE: Digital bilateral breast adwoa (3D mammographic acquisition) in the CC and MLO projections. 2-D mediolateral oblique (MLO) and craniocaudad (CC) views of both breasts were obtained. CAD: Full Field Digital Mammography with Computer Added Detection was performed. COMPARISON: Comparison is made with prior study dated 10/29/2020 and 10/07/2019. FINDINGS: Breast Composition: The breasts are almost entirely fatty. There are no dominant masses or suspicious calcifications. No other significant abnormalities are identified. There has been no significant change since the prior study. BI/SCRN MAMM (CAD)W/ADWOA BILAT IMPRESSION: Stable bilateral screening mammogram. Yearly follow-up mammogram recommended. (A) ASSESSMENT CATEGORY: BIRADS Category 1: Negative. A letter regarding these results will be sent to the patient by the facility within 30 days. Approximately 10% of breast cancers are not detected by mammography. A normal mammogram should not delay biopsy of a clinically suspicious abnormality. [id number] Electronically Signed: Nolan Head MD at 15:18 EST , Service support ,
== END ==
PROVIDERS: PCP Internal Medicine; Referring Provider Internal Medicine; Visit Provider Internal Medicine
DX: Z12.31 Encounter for screening mammogram for malignant neoplasm of breast (principal)
CPT/HCPCS: 77063; 77067

== ENCOUNTER 2022-08-19 08:00 | Outpatient (RCR) | payer MEDICARE, SELFPAY ==
--- NOTE | 2022-08-01 12:04 | HP.PTEVAL ---
Patient's Visit Information LENORA MORRELL is a 86 year old F referred to Physical Therapy by Dr. Emily Pugh MD with a diagnosis of R LBP. Date of Evaluation: 07/26/22 Physical Therapist: Reyna Dutta PT, Cert MDT - Visit Plan Frequency: 2-3x /Week Duration: 4-6 Weeks Plan: POSTURE CORRECTION/STRENGTHENING, INSTRUCTION IN APPROPRIATE BODY MECHANICS AND ACTIVITY MODIFICATIONS. DLS STARTING WITH A NEUTRAL SPINE FOR AT LEAST 2-3 WKS AND THEN PROGRESSING ROM TOLERATED. SERINA LE ROM, STRETCHING AND STRENGTHENING. HEP INSTRUCTION. - Subjective Work/Leisure: RETIRED. LIKES TO GARDEN. Present symptoms: SHARP RIGHT LOW BACK PAIN. LEFT LOW BACK, HIP, THIGH, KNEE, LEG, AND FOOT SX'S. PATIENT DENIES SERINA LE NUMBNESS AND TINGLING. Present since: ABOUT 6 MONTHS AGO. Pain Scale: WORST 9/10, LEAST 2/10. Currently: 2/10. Commenced as a result of: NO APPARENT REASON. Symptoms at onset: LEFT LOW BACK AND LE. Worse: GETTING UP OFF A CHAIR, INITIATING GAIT AFTER SITTING, GETTING OUT OF BED, SHIFTING IN BED, TWISTING. Better: STRETCHING LEFT INNER THIGH, PIRIFORMIS STRETCH RIGHT BUT LEFT MAKES WORSE. Disturbed sleep: NO. Previous history/Previous treatment: H/O SCIATICA MOSTLY RIGHT LE, PHYSICAL THERAPY. NO BACK SURGERY. NO TRISTAN'S. H/O CHIROPRACTIC 3X'S A WK X 10 WEEKS THEN TAPERED OFF TO 2X'S A WK AND NOW ONCE EVERY TWO WEEKS - TEMPORARY RELIEF. Coughing/sneezing/straining: POSITIVE. Gait: PATIENT REPORTS GAIT IS TIME AND DISTANCE LIMITED NOW. LIMPING ON L LEG THIS WEEK. NOT USING ANY ASSISTIVE DEVICES. NO FALLS. Bowel or Bladder Dysfunction: NO. Accidents: NO. Unexplained weight loss: NO. Imaging: LUMBAR X-RAY TODAY - AWAITING RESULTS. - Objective Sitting/Standing Posture: POOR. NO RELEVENT LUMBAR LATERAL SHIFT. Active Correction of posture: BETTER. Other Observations: THIS PATIENT AMBULATES INDEP INTO PT X APPROX 300 FEET WITHOUT ANY AD'S OR LOB. INCREASED TRUNK FLEXION. Sensory deficit: SERINA LE LIGHT TOUCH SENSATION IS GROSSLY INTACT AND SYMMETRICAL. ROM deficit: TIGHT SERINA HIP FLEXORS, HS'S AND GASTROC SOLEUS COMPLEX'S. Motor deficit: SERINA LE'S GROSSLY 5/5 WITH MMT'ING EXCEPT HIPS 4/5. Dural Signs: POSITIVE LLE. Lumbar mvmt loss: flex - NIL. ext - MOD. R SG - MOD. L SG - MOD. PATIENT C/O IPSILATERAL INCREASED PAIN WITH SERINA SG TESTING. Core strength: POOR. Palpation: NO ACUTE LOWER THORACIC, LUMBAR OR HIP TENDERNESS WITH PALPATION TODAY. TREATMENT: NEUROMUSCULAR REEDUCATION - RETRAINING OF MVMT AND POSTURE FOR SITTING, LYING AND STANDING ACTIVITIES. - Balance/Special Test Scores Oswestry Low Back Score: 13 - Goals Goal 1:: DECREASE C/O RIGHT LBP Goal Time Frame: 4-6 Weeks Goal 2:: IMPROVE LIFTING, WALKING, SITTING, STANDING AND HOMEMEAKING FUNCTION Goal Time Frame: 4-6 Weeks Goal 3:: INSTRUCT IN PROPHYLAXIS Goal Time Frame: 4-6 Weeks - Anticipated Interventions Patient/Client Instruction: Educate patient on: Condition, Plan of Care, Risk Factors For the Purpose of:: To improve self management Therapeutic Exercise to Include: Strength training, Body mechanics, Postural training, Flexibilty training, Neuromotor development, Dynamic Lumbar Stabilization For the Purpose of:: To decrease pain, To improve muscle performance and motor function, To increase tolerance to activity/condition/position, To improve ability of physical actions for home/community/work/leisure Thank you for the opportunity to evaluate your patient. For Medicare and Medicare HMO plans, please review the plan of care and approve it. It will need to be FAXED BACK to us at [phone] for Medicare purposes. For Medicare only, by signing this I certify the plan of care. Please let me know if there are questions or concerns regarding this plan of care. Physician Signature: Date:
--- NOTE | 2022-08-19 08:51 | HP.PTDCSUM ---
It has been my pleasure to treat LENORA MORRELL referred by Dr. Emily Pugh MD, with the diagnosis of R LBP for a total of 8 visit(s). Discharge Date: 08/19/22 Please see the following information for a summary of their discharge status. Subjective: PATIENT REPORTS HER BACK IS MUCH BETTER BUT THE PAIN ISN'T COMPLETELY GONE. PATIENT REPORTS SHE IS ABLE TO SIT AND JUST ABOUT EVERYTHING IS BETTER. THE PAIN IS LESS AND I CAN DO THE HOUSEWORK AND SLEEP WELL. % Improvement: 75 Objective/Function: PATIENT WAS SEEN TODAY FOR RE-ASSESSMENT OF PROGRESS TOWARD THE SET PT GOALS AND THE NEED FOR FURTHER PHYSICAL THERAPY VS READINESS FOR DISCHARGE. UPON EXAM TODAY ALL PT GOALS HAVE BEEN MET AND SHE IS APPROPRIATE FOR DISCHARGE TO [facility]. PATIENT IS AGREEABLE. Motor deficit: SERINA LE'S GROSSLY 5/5 AND NO C/O PAIN WITH TESTING. Dural Signs: NEGATIVE SERINA LE'S. Lumbar mvmt loss: flex - NIL. ext - MOD. R SG - MOD. L SG - MOD. PATIENT DENIES PAIN WITH LUMBAR ROM TESTING ALL PLANES TODAY. [ Goal 1:: DECREASE C/O RIGHT LBP Goal Progress: Goal Met Goal 2:: IMPROVE LIFTING, WALKING, SITTING, STANDING AND HOMEMEAKING FUNCTION Goal Progress: Goal Met Goal 3:: INSTRUCT IN PROPHYLAXIS Goal Progress: Goal Met Plan: D/C If there are questions or concerns regarding this patient's physical therapy, please feel free to call me at [phone]. Thank you for the referral of this patient. Sincerely, Reyna Dutta, PT, Cert MDT Balance/Gait/Functional tests - Balance/Special Test Scores Oswestry Low Back Score: 6
== END 2022-08-19 19:00 | disposition home or self-care (01) ==
LOC: PT 08:00
PROVIDERS: PCP Internal Medicine; Referring Provider Internal Medicine; Visit Provider Internal Medicine
DX: M54.50 Low back pain, unspecified (principal)
CPT/HCPCS: 97110; 97112; 97162; 97164

== ENCOUNTER 2023-11-02 08:19 | Emergency (ER) | payer MEDICARE, SELFPAY ==
[2023-11-02 08:22] VITALS: BP 117/59; PULSE 75; RESP 19; TEMP 36.6; O2SAT 93; BMI 37.8
--- NOTE | 2023-11-02 08:40 | EKG12_ITS ---
Test Reason : SYNCOPE Blood Pressure : / mmHG Vent. Rate : 071 BPM Atrial Rate : 071 BPM P-R Int : 144 ms QRS Dur : 076 ms QT Int : 364 ms P-R-T Axes : 018 -22 016 degrees QTc Int : 395 ms Sinus rhythm with Premature atrial complexes Low voltage QRS Borderline ECG Confirmed by SHAVON RODRIGUES, CARON ([id number]), offline editor MICHAEL CALHOUN ([id number]) on 11/03/2023 1:31:08 PM Referred By: AMPARO Confirmed By:CARON SANDS MD
--- NOTE | 2023-11-02 08:45 | RAD_ITS ---
STUDY: X-RAY CHEST REASON FOR EXAM: Female, 87 years old. Chest pain TECHNIQUE: Single AP portable view of the chest. COMPARISON: Comparison is made with prior study dated August 05, 2019. FINDINGS: EKG electrodes are seen. The lungs are clear and expanded. There is no demonstrated pleural abnormality. Normal size heart. Normal mediastinum and xiomara. Normal visualized pulmonary arteries. There is atherosclerotic tortuosity of the aortic arch and descending thoracic aorta. There are diffuse degenerative changes of the visualized thoracic spine. Normal visualized ribs, clavicles, and shoulders. There is no demonstrated abnormality of the visualized soft tissue structures of the upper abdomen. RAD/Chest 1 View (Portable) IMPRESSION: No acute abnormality is seen. Electronically Signed: Nolan Head MD at 9:25 EST ,
--- NOTE | 2023-11-02 08:46 | EDS_ITS ---
HPI History of Present Illness Chief Complaint: Syncope Informant: patient Onset/Context/Timing Onset: Today Context: Sudden Onset Timing: Intermittent Current Severity: Gone Maximum Severity: Mild Narrative Narrative: 87-year-old female history of prior colon cancer with complete resection about 17 years ago. Last couple days she has had URI symptoms with nasal congestion and subjective fever. Yesterday felt somewhat lightheaded. Today was at the kitchen sink and passed out fell backwards hit her head on the floor. She denies any other injuries. Denies any headache. Denies any neck pain. The only blood thinner she is on is aspirin. Denies any recent chest pain or shortness of breath. No abdominal pain. Denies any nausea, vomiting or diarrhea. Prior similar symptoms: No Recent Illness/Hospitalization: No PFSH PFSH Medical History History of colon cancer Hypothyroidism Home Medications levothyroxine 125 mcg tablet 125 mcg PO DAILY 03/14/14 [History Last Taken 03/18/14 06:30] aspirin 81 mg chewable tablet 1 tab PO DAILY 11/02/23 [History Last Taken Unknown] Allergy/AdvReac Type Severity Reaction Status Date / Time adhesive tape AdvReac Rash Verified 11/02/23 08:27 amoxicillin [Amoxicillin] AdvReac Unknown Verified 11/02/23 08:27 sulfamethoxazole AdvReac Other Verified 11/02/23 08:27 [From Bactrim] tree and shrub pollen AdvReac Rash Verified 11/02/23 08:27 trimethoprim [From Bactrim] AdvReac Other Verified 11/02/23 08:27 Surgical History Hx of appendectomy Hx of cholecystectomy Hx of hysterectomy Social History Smoking Status: Never smoker ROS ROS ED ROS Narrative Cough, nasal congestion and subjective fever. Review of Systems ROS Unobtainable: Denies due to encephalopathy Constitutional Constitutional ED: Reports fever(s) and subjective Eyes Eyes: Denies blurry vision or change in vision ENT ENT ED: Reports rhinorrhea; Denies ear pain or sore throat Cardiovascular Cardiovascular: Denies chest pain or palpitations Respiratory/Chest Respiratory/Chest: Reports cough; Denies dyspnea Gastrointestinal Gastrointestinal: Denies abdominal pain, constipation, diarrhea, melena, nausea or vomiting Genitourinary Genitourinary ED: Denies dysuria or hematuria Musculoskeletal Musculoskeletal: Denies arthralgias Integumentary Denies abscess Neurologic Neurologic: Denies headache(s) Psychiatric Psychiatric: Denies anxiety Endocrine Endocrinology: Denies cold intolerance Hematologic/Lymphatic Hematologic/Lymphatic: Reports none Allergic/Immunologic Allergic/Immunologic ED: Denies mouth swelling, tongue swelling or urticaria EXAM Physical Exam Narrative Exam Narrative: 87-year-old female no acute distress. Vital signs are stable afebrile. Pulse ox is 97% on women room. She is not on oxygen. H EENT exam dry reactive light. No facial trauma. Posterior top of her scalp there is a small laceration with blood in the area. No significant active bleeding. No hematoma. Neck nontender. Trachea midline. Back and spine nontender. No signs of trauma. Lungs clear equal and symmetrical. Heart regular rhythm rate in the 70s no murmur. Chest wall and ribs nontender. Abdomen soft nontender. Pelvic girdle intact. Moving all 4 extremities. Nontender no deformity. Normal flexion extension of both upper extremities. 5 of 5 director data processing strength. Dorsi and plantarflexion intact. Able to flex and extend both knees and hips. No shortening or deformity. Neurologically she is awake and alert. Answering questions and following commands. No focal motor deficits. Const Vital Signs: 11/02/23 08:22 11/02/23 08:30 11/02/23 10:23 Temperature 97.9 F Temperature Source Temporal Pulse Rate 75 73 Respiratory Rate 19 H 17 Respiratory Effort Normal Non-Labored Respiratory Pattern Normal Blood Pressure 117/59 L 116/66 Blood Pressure Mean 78 82 Pulse Ox 93 95 Oxygen Delivery Method Room Air Room Air Positive well nourished and well developed; Negative for cachectic, contractures or unkempt General Appearance ED: well developed and NAD; Negative for unkempt, cachectic, contractures, cyanotic, diaphoretic or pallor Nutritional Appearance: Negative for cachectic HEENT Reports moist mucous membranes; Denies dry mucous membranes Negative for trauma or tenderness Mouth ED: No dry mucous membranes Mouth: No dry mucous membranes Eyes PERRL and EOMs intact bilaterally General Eye ED: Negative for pale conjunctiva or scleral icterus Neck no lymphadenopathy, supple and no JVD General: Negative for tenderness Lymph Lymphatic: Negative for other Chest Wall inspection of chest normal and palpation of chest normal Chest: Negative for other Resp normal respiratory effort and clear to auscultation bilaterally Effort and Inspection: Negative for retractions Auscultation: Negative for rales, rhonchi or wheezes Cardio regular rate, regular rhythm, S1 normal heart sound, S2 normal heart sound and no murmurs Palpation: Negative for palpable S3 or palpable S4 Rate: Negative for bradycardia or tachycardic Rhythm: Negative for abnormal rhythm GI normal to inspection, nondistended, normoactive bowel sounds, non-tender, non- distended and no masses Inspection: Negative for abdominal distention Auscultation: normoactive bowel sounds Palpation: soft; Negative for tender, guarding, splenomegaly, mass or rebound tenderness present Back/Spine no CVA tenderness General Back: Negative for CVA tenderness Cervical Spine: Negative for cervical spine tenderness Thoracic Spine / Upper Back: Negative for thoracic spinal tenderness Lumbar Spine / Lower Back: Negative for lumbar spinal tenderness Extremity normal to inspection General Extremety ED: Negative for edema or tenderness General Extremity: Negative for edema Neuro oriented x3 and CN's II-XII intact bilaterally Sensorium / Orientation: alert; Negative for orientation impaired, lethargic or stuporous Motor Exam: strength 5/5 throughout Psych mental status grossly normal Appearance: Negative for unkempt Attitude: No agitated Mood & Affect: Negative for depressed, anxious or tearful Skin no rashes or lesions noted and No no wounds Skin Narrative: Posterior scalp laceration. Small less than an inch. Blood. General Skin Exam: Negative for jaundice or pallor Lesions: No lesion noted Rashes: No rashes noted Trauma: Negative for abrasion Wounds: Negative for wounds noted MDM MDM MDM Narrative Medical decision making narrative: 87-year-old female has had URI symptoms the last several days at home. Today felt weak and had a syncopal episode at the sink. Fell and hit the back of her head. She will be tested for COVID and flu. Treated with IV fluids. Labs are being obtained. Exam patient is doing well at 10:40 AM. The laceration of posterior scalp is approximately 2.5 cm in length. It was cleaned. Local anesthetized with lidocaine. And sutured closed using 2 simple interrupted 4-0 Ethilon sutures. Proper hemostasis and wound closure is obtained. Patient tolerated procedure well. She was instructed on wound care and suture removal. Lab Data Attestation: I reviewed the patient's lab results. Lab results narrative: CBC is normal. White count of 6. H&H 13 and 41. Platelets 181. BMP shows sodium 135 gap of 9 normal BUN of 14 normal creatinine 0.9. Glucose 118. Troponin is normal at 5. COVID rapid test is positive. Influenza negative. CAT scan shows no acute intracranial bleed. No skull fracture. Interpreted by the radiologist and reviewed by me. Labs: Laboratory Results - last 24 hr 11/02/23 08:40 WBC 6.0 RBC 4.28 Hgb 13.6 Hct 41.1 MCV 96.0 MCH 31.8 MCHC 33.1 RDW Std Deviation 46.5 H RDW Coeff of Amaury 13.2 Plt Count 181 MPV 11.2 Immature Gran % (Auto) 0.300 Neut % (Auto) 67.1 Lymph % (Auto) 14.6 L [place] % (Auto) 16.5 H Eos % (Auto) 1.2 Baso % (Auto) 0.3 Absolute Neuts (auto) 4.0 Absolute Lymphs (auto) 0.87 Nucleated RBC % 0 Sodium 135 L Potassium 3.8 Chloride 103 Carbon Dioxide 23.0 Anion Gap 9 BUN 14 Creatinine 0.94 Estim Creat Clear Calc 34.61 Est GFR (MDRD) Af Amer 73 Est GFR (MDRD) Non-Af 60 BUN/Creatinine Ratio 15.0 Glucose 118 H Calcium 9.0 Troponin I High Sens 5 Radiography Chest X-Ray - ED: Read by ED Physician, Lungs, Mediastinum, Bony Structures, No Acute Disease and Chronic Changes Diagnostic Testing: Clinical Impression(s) from Imaging Studies Chest X-Ray 11/02/23 08:45 IMPRESSION: No acute abnormality is seen. Electronically Signed: Nolan Head MD at 9:25 EST , Brain CT 11/02/23 08:54 IMPRESSION: Chronic involutional changes of the brain. Electronically Signed: Nolan Head MD at 9:27 EST , Chest x-ray, portable, single view, interpreted by myself shows no acute abnormality. Normal cardiac silhouette. Normal mediastinum. Normal lungs. No infiltrates. No other acute abnormalities. Rhythm Strip Rhythm Strip: Sinus Rhythm Rate: 71 Ectopy: PAC(s) EKG Initial EKG: Attestation: I personally reviewed and interpreted this EKG as follows: Interpretation: Sinus Rhythm and No Acute Injury Pattern Comments: Normal sinus rhythm rate of 71. No acute signs of SC or ischemia. Occasional PACs. Procedures Lacerations Scalp laceration repair:: Length: 1 in Depth: Sub Q Shape: Linear Prep: Shure-Clens Laceration repair: Lidocaine, Local and Skin sutures Number of Sutures/Marcella: 2 Suture Information: Ethilon, Simple and 4-0 Comment: Posterior scalp laceration. Approximately 2.5 cm. Cleaned with Shur-Clens. Washed with saline. Explored. Local anesthetized with lidocaine. Closed using 2 simple erupted 4-0 Ethilon sutures. Patient was instructed on wound care, suture removal and head injury instructions. Discharge Plan Triage Chief Complaint: Syncope ED Provider: Arvind Macias Dx/Rx/DC Orders Clinical Impression: Syncope, Head injury, Fall, Laceration of scalp, COVID Prescriptions: No Action levothyroxine 125 MCG tablet 125 mcg PO DAILY aspirin 81 mg tablet,chewable 1 tab PO DAILY Primary Care Provider: Emily Pugh Referrals: Emily Pugh MD [[facility]] -
--- NOTE | 2023-11-02 08:54 | CT_ITS ---
STUDY: CT BRAIN WITHOUT CONTRAST REASON FOR EXAM: Female, 87 years old. Head injury due to syncopal episode. RADIATION DOSAGE (If Supplied By Facility): CTDIvol = ( 44.99 ) mGy, DLP = ( 745.49 ) mGycm TECHNIQUE: Transaxial CT imaging of the brain was performed without administration of intravenous contrast material. Individualized dose optimization techniques were used for this CT. COMPARISON: No relevant priors. FINDINGS: Normal soft tissue structures. Normal calvarium. There is mild cerebral atrophy with widening of the extra-axial spaces and ventricular dilatation. There are areas of decreased attenuation within the white matter tracts of the supratentorial brain, consistent with microvascular disease changes. Normal basal ganglia and thalami. Normal brainstem. Normal cerebellum. There is no intracranial hemorrhage. There are no findings of an acute ischemic infarction. Atherosclerotic calcific plaques of the cavernous portions of the internal carotid arteries bilaterally. Normal visualized paranasal sinuses. CT/Brain/Head without Contrast IMPRESSION: Chronic involutional changes of the brain. Electronically Signed: Nolan Head MD at 9:27 EST ,
[2023-11-02 08:55] LABS: Absolute Lymphocyte Count 0.87 X10^3/uL (0.83-4.51); Basophil# 0.02 X10^3/uL; Basophil% 0.3 % (0-1); Eosinophil# 0.07 X10^3/uL; Eosinophils% 1.2 % (0-5); Hematocrit 41.1 % (37-47); Hemoglobin 13.6 g/dL (12.0-15.0); Lymphocyte # 0.87 X10^3/ul (0.83-4.51); Lymphocyte % 14.6 % (19-41); Mean Corp Hgb Conc 33.1 g/dL (32-36); Mean Corpuscular Hgb 31.8 pg (27.0-32.0); Mean Platelet Vol. 11.2 fl (6.2-12.0); Monocyte# 0.98 X10^3/uL; Monocyte% 16.5 % (0-10); NRBC Flagged by Analyzer 0 % (0-5); Neutrophil # 3.99 X10^3/uL (2.7-7.7); Neutrophil % 67.1 % (47-70); Platelet Count 181 K/mm3 (150-450); RBC Distribution Width CV 13.2 % (11.6-14.6); RBC Distribution Width SD 46.5 fl (35.1-43.9); Red Blood Count 4.28 M/mm3 (4.2-5.4)
[2023-11-02] MEDS: Diphth,Pertuss(Acell),Tet Vac 0.5 ML Vial IM (09:06)
[2023-11-02 09:10] LABS: Anion Gap 9 (5-15); BUN 14 mg/dL (7-18); Chloride 103 mmol/L (98-107); Creatinine, Serum 0.94 mg/dL (0.55-1.02); EST Glomerular Filtration Rate 60 mL/min (>60); Est Glom Filt Rate - Afr Amer 73 mL/min (>60); Estimated Creatinine Clearance 34.61 ml/min; Glucose 118 mg/dL (74-106); Potassium 3.8 mmol/L (3.5-5.1); Sodium Level 135 mmol/L (136-145); Troponin-I HS 5 pg/mL (3.0-54.0)
[2023-11-02] MEDS: Lidocaine 1% (20 ml mdv) 20 ML Vial 10 ML INFILT (09:16)
[2023-11-02 10:23] VITALS: BP 116/66; PULSE 73; RESP 17; O2SAT 95
[2023-11-02] MEDS: 0.9% Normal Saline (1000mL) 1,000 ML 999 ML IV (10:33)
[2023-11-02 11:33] VITALS: O2SAT 95
[2023-11-02 11:46] VITALS: BP 111/97; PULSE 99; RESP 13; O2SAT 93
== END 2023-11-02 11:49 | disposition home or self-care (01) ==
PROVIDERS: Emergency Provider Emergency Medicine; PCP Internal Medicine; Visit Provider Emergency Medicine
DX: R55 Syncope and collapse (principal); U07.1 COVID-19; S01.01XA Laceration without foreign body of scalp, initial encounter; Z79.82 Long term (current) use of aspirin; Z79.899 Other long term (current) drug therapy; W19.XXXA Unspecified fall, initial encounter
CPT/HCPCS: 12001; 70450; 71045; 80048; 84484; 85025; 87428; 90715; 93005; 99285; J7030